=== PATIENT | female | born 1950 | race Two or more races ===

== ENCOUNTER 2022-12-27 08:51 | Outpatient (AMB) | payer OTHER, SELFPAY ==
--- NOTE | 2022-12-27 08:50 | MHC.PC.OV ---
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: No Accompanied by: Spouse Allergies Unable to Assess Allergy (Verified 12/27/22 09:11) Medication List - Last Reconciled 12/27/22 by Patsy Rosales MD atorvastatin 40 mg PO DAILY cetirizine (All Day Allergy (cetirizine)) 10 mg PO DAILY PRN donepezil 10 mg PO BEDTIME hydroxyzine HCl 25 mg PO BEDTIME melatonin 5 mg PO BEDTIME PRN memantine 10 mg PO DAILY quetiapine 50 mg PO BEDTIME ramipril 5 mg PO BID Tobacco use date assessed: 12/27/22 Fall risk assessment: No Falls in past year Dental Screening Dental Screen Date: 12/27/22 Did you have a dental visit in the last 12 months?: No Did you have a dental problem in the last 6 months where you did not have access to dental care?: No Was dental information given to patient?: No HPI HPI Comments History of Present Illness Details This is a 72-year-old female that comes today to establish care accompanied by which is the main historian. She has Alzheimer's dementia that started about 3 years ago and is oriented only to person but not to time or place. She also has hypertension, pure hypercholesterolemia and insomnia stable with medications. said that she had a pruritic rash that was relieved by Benadryl cream. Denies any chest pain or shortness of breath. [facility] Medical History (Updated 12/27/22 @ 10:14 by Patsy Rosales MD) Cataract Surgical History (Updated 12/27/22 @ 09:15 by Patsy Rosales MD) History of appendectomy History of bunionectomy Family History (Updated 12/27/22 @ 08:59 by CORRY Quarles) Mother No problems noted. Father No problems noted. Social History Housing: Apartment Alcohol intake: never Patient Tobacco Use Status: Never used Tobacco e-Cigarette/Vaping Use: Never Used Second Hand Smoke Exposure: No service: No Current occupational status: unemployed Cognitive needs: No Hearing needs: No Vision needs: No Questionnaire PHQ-9 Over the last 2 weeks, how often have you been bothered by any of the following problems? 1. Little interest or pleasure in doing things: not at all 2. Feeling down, depressed, or hopeless: not at all 3. Trouble falling or staying asleep, or sleeping too much: not at all 4. Feeling tired or having little energy: not at all 5. Poor appetite or overeating: not at all 6. Feeling bad about yourself - or that you are a failure or have let yourself or your family down: not at all 7. Trouble concentrating on things, such as reading the newspaper or watching television: several days 8. Moving or speaking so slowly that other people could have noticed. Or the opposite - being so fidgety or restless that you have been moving around a lot more than usual: several days 9. Thoughts that you would be better off or of hurting yourself in some way: not at all Total score: 2 Depression Screening Interpretation: Positive Depression Screening Follow-up: Existing condition 17044 - PHQ-9 Billing: Yes Source: Developed by Drs. Ankit Bass, Lily Pathak, Scar Montejo and colleagues, with an educational joe from [employer]. Thrive Questionnaire Date Thrive assessed: 12/27/22 I am a: Patient What is your living situation today?: I have a steady place to live Within the past 12 months, did the food you bought not last and you didn't have the money to get more?: Never true Within the past 12 months, did you worry whether your food would run out before you got money to buy more?: Never true Do you have trouble paying for medicines?: No Do you have trouble getting transportation to medical appointments?: No Do you have trouble paying your heating and electricity bill?: No Do you have trouble taking care of your child, family member or friend?: No Do you have trouble with day-to-day activities such as bathing, preparing meals, shopping, managing finances, etc.?: No Are you currently unemployed and looking for a job?: No Are you interested in more education?: No Please select the resources that you would like help with: None Currently or been in a relationship where the following occur: no concerns reported AUDIT C Alcohol Use Questionnaire (AUDIT-C) 1. How often do you have a drink containing alcohol?: Never Total Score: 0 Score Reviewed/Action Taken: No AVELINO-7 AMB Questionnaire AVELINO-7 Date AVELINO - 7 assessed: 12/27/22 Feeling nervous, anxious, or on edge: 1 = Several days Not being able to stop or control worryin = Not at all Worrying too much about different things: 0 = Not at all Trouble relaxin = Not at all Being so restless that it is hard to sit still: 0 = Not at all Becoming easily annoyed or irritable: 0 = Not at all Feeling afraid as if something awful might happen: 0 = Not at all Total AVELINO-7 score (0-4 normal; 5-9 mild; 10-14 moderate; 15-21 severe): 1 Source: Developed by Drs. Ankit Bass, Lily Pathak, Scar Montejo and colleagues, with an educational joe from [employer]. AVELINO-7 Assessment Billing AVELINO-7 Assessment Tool: AVELINO-7 Assessment 18472 Review of Systems Const All systems reviewed & are unremarkable except as noted in HPI and below Eyes Reports no additional complaints, Denies change in vision and Denies other visual disturbances Card Denies chest pain at rest, Denies chest pain with activity, Denies edema, Denies irregular heart rhythm, Denies claudication, Denies dyspnea, Denies dyspnea on exertion, Denies orthopnea, Denies paroxysmal nocturnal dyspnea and Denies slow heart rate Resp Denies cough, Denies dyspnea and Denies dyspnea on exertion GI Denies abdominal pain, Denies change in bowel habits, Denies excessive flatus, Denies nausea and Denies vomiting Denies urinary incontinence, Denies urinary hesitancy and Denies urinary urgency Musc Denies abnormal gait, Denies atrophy, Denies deformity and Denies limited range of motion Skin/Breast Denies bleeding lesions, Denies changing lesions and Denies rash Neuro Denies abnormal gait, Denies lack of coordination and Reports memory loss Psych Reports abnormal sleep pattern and Reports memory loss Physical exam (Primary Care) Vital Signs: Last Vital Signs BP 112/72 12/27/22 08:52 BMI result Body Mass Index 31.7 Tobacco/Smoking Status: Tobacco use Status Tobacco use date assessed 12/27/22 12/27/22 09:03 Patient Tobacco Use Status Never used Tobacco 12/27/22 09:03 e-Cigarette/Vaping Use Never Used 12/27/22 09:03 PHQ-9: PHQ-9 Score PHQ-9: Total score 2 12/27/22 09:16 Depression Screening Interpretation: Positive Depression Screening Follow-up: Existing condition Thrive Assessment: Date of Thrive Assessment Date Thrive assessed 12/27/22 12/27/22 09:03 Currently or been in a relationship where the following occur: no concerns reported Const Orientation/consciousness: oriented to person Eyes General: appearance normal, both eyes and all related structures Eyelids: Yes eyelids normal Conjunctivae: conjunctivae normal Neck Neck: Yes normal visual inspection and Yes supple Resp Effort & Inspection: normal respiratory effort Auscultation: clear to auscultation bilaterally Cardio Jugular venous distension: no JVD Rate: regular rate Rhythm: regular rhythm Heart sounds: S1 normal heart sound present and S2 normal heart sound present GI Inspection: Yes normal to inspection Palpation (GI): Soft to palpation and nontender Auscultation: normal bowel sounds Neuro General: oriented to person Extrem General: Yes full ROM Assessment and Plan Assessment & Plan (1) Essential hypertension: Code(s): I10 - Essential (primary) hypertension Plan: Continue ramipril. Blood pressure goal is equal or less than 130/80. (2) Pure hypercholesterolemia: Code(s): E78.00 - Pure hypercholesterolemia, unspecified Plan: Continue statins. Lipid panel ordered. (3) Alzheimer's dementia with behavioral disturbance: Code(s): G30.9 - Alzheimer's disease, unspecified; F02.818 - Dementia in other diseases classified elsewhere, unspecified severity, with other behavioral disturbance Plan: Continue donepezil and memantine. Referred to neurology. (4) Insomnia: Code(s): G47.00 - Insomnia, unspecified Plan: Continue Seroquel and melatonin as needed. (5) Rash: Code(s): R21 - Rash and other nonspecific skin eruption Plan: Start Benadryl cream. Orders: Orders MM screening mammo BI Today Z12.31 - Encounter for screening mammogram for malignant neoplasm of breast Medications: New diphenhydramine-zinc acetate 2-0.1 % (Benadryl Extra Strength) 1 appl topical BID 2 weeks PRN 28.3 grams 0RF itching Coding Level of Care Code Est Pt Level 4 (70849) Diagnoses Essential hypertension I10 Pure hypercholesterolemia E78.00 Alzheimer's dementia with behavioral disturbance G30.9; F02.818 Insomnia G47.00 Rash R21 Additional Codes AVELINO-7 Assessment Billing - AVELINO-7 Assessment Tool: AVELINO-7 Assessment 89598 ([id number]) Time Spent (min) 28
[2022-12-27 08:52] VITALS: BP 112/72; BMI 31.7
== END 2022-12-27 10:08 | disposition home or self-care (01) ==
PROVIDERS: PCP Internal Medicine; Visit Provider Internal Medicine
DX: I10 Essential (primary) hypertension (principal); E78.00 Pure hypercholesterolemia, unspecified; G30.9 Alzheimer's disease, unspecified; F02.818 Dementia in other diseases classified elsewhere, unspecified severity, with other behavioral disturbance; G47.00 Insomnia, unspecified; R21 Rash and other nonspecific skin eruption; Z12.31 Encounter for screening mammogram for malignant neoplasm of breast; N95.9 Unspecified menopausal and perimenopausal disorder; E78.5 Hyperlipidemia, unspecified; E53.8 Deficiency of other specified B group vitamins; E55.9 Vitamin D deficiency, unspecified
CPT/HCPCS: 99214

== ENCOUNTER 2023-02-10 11:43 | Outpatient (REF) | payer OTHER, SELFPAY | END 2023-02-10 11:44 | disposition home or self-care (01) | LOC: HO.MAMMO 11:43 | PROVIDERS: PCP Internal Medicine; Visit Provider Internal Medicine | DX: Z13.89 Encounter for screening for other disorder (principal) ==

== ENCOUNTER 2023-03-03 11:18 | Outpatient (REF) | payer OTHER, SELFPAY | END 2023-03-03 11:19 | disposition home or self-care (01) | LOC: HO.LAB 11:18 | PROVIDERS: PCP Internal Medicine; Visit Provider Internal Medicine | DX: Z13.89 Encounter for screening for other disorder (principal) ==

== ENCOUNTER 2023-04-01 10:23 | Outpatient (REF) | payer OTHER, SELFPAY ==
[2023-04-01 10:56] LABS: MANUAL DIFF FLAG NO
[2023-04-01 11:30] LABS: Basophils Percent Auto 0.3 % (0-2); Eosinophils Absolute Auto 0.1 X10*3/uL (0.0-0.4); Eosinophils Percent Auto 1.9 % (0-4); Hematocrit 35.8 % (37.0-47.0); Hemoglobin 11.6 g/dl (12.0-16.0); Imm Gran Abs Auto 0.02 X10*3/uL (0.00-0.03); Imm Gran Pct Auto 0.3 % (0.0-0.4); Lymphocytes Absolute Auto 1.8 X10*3/uL (1.2-4.9); Lymphocytes Percent Auto 29.5 % (20-40); Mean Corpuscular HGB Conc 32.4 g/dl (31.0-35.0); Mean Corpuscular Hemoglobin 30.9 pg (27.0-33.0); Mean Corpuscular Volume 95.2 fL (80.0-98.0); Monocytes Absolute Auto 0.6 X10*3/uL (0.1-1.2); Monocytes Percent Auto 9.8 % (2-11); Neutrophils Absolute Auto 3.5 x10*3/uL (2.0-8.3); Neutrophils Percent Auto 58.2 % (45-73); Platelet Count 157 X10*3/uL (160-400); Red Blood Count 3.76 X10*6/uL (4.20-5.50); Red Cell Distribution Width 12.1 % (11.0-16.0); White Blood Count 5.9 X10*3/uL (4.8-10.8)
[2023-04-01 12:37] LABS: Alanine Aminotransferase 18 U/L (0-31); Alkaline Phosphatase 76 U/L (39-117); Anion Gap 14 (12-20); Aspartate Amino Transferase 22 U/L (5-31); Bilirubin Total 0.5 mg/dL (0.0-1.0); Blood Urea Nitrogen 16 mg/dL (9-16); Calcium 9.9 mg/dL (8.4-10.2); Carbon Dioxide 23 mmol/L (22-29); Chloride 106 mmol/L (96-108); Cholesterol 164 mg/dL (<200); Estimated Glomerular Filt Rate > 60; Glucose Fasting 146 mg/dL (60-99); HDL Cholesterol 56 mg/dL (>40); LDL Cholesterol Calculated 97 mg/dL (<100); Potassium 4.3 mmol/L (3.3-5.1); Sodium 139 mmol/L (135-145); Total Protein 7.8 g/dL (6.5-8.0); Triglycerides 59 mg/dL (<150)
[2023-04-01 12:39] LABS: Thyroid Stimulating Hormone 1.13 uIU/mL (0.32-4.0); Vitamin D 25-OH Total 20.4 ng/mL (>30)
[2023-04-01 12:57] LABS: Vitamin B12 605 pg/mL (200-900)
== END 2023-04-01 10:24 | disposition home or self-care (01) ==
LOC: HO.LAB 10:23
PROVIDERS: PCP Internal Medicine; Visit Provider Internal Medicine
DX: E78.5 Hyperlipidemia, unspecified (principal); R39.9 Unspecified symptoms and signs involving the genitourinary system; E55.9 Vitamin D deficiency, unspecified; E53.8 Deficiency of other specified B group vitamins; G30.9 Alzheimer's disease, unspecified; F02.818 Dementia in other diseases classified elsewhere, unspecified severity, with other behavioral disturbance; E78.00 Pure hypercholesterolemia, unspecified
CPT/HCPCS: 36415; 80053; 80061; 82306; 82607; 82746; 84443; 85025

== ENCOUNTER 2023-04-07 10:46 | Emergency (ER) | payer OTHER, SELFPAY ==
--- NOTE | ~2023-04-07 | CT_ITS ---
EXAMINATION: CT brain and CT cervical spine without contrast. CLINICAL INDICATIONS: Fall, head strike. COMPARISON: None. TECHNIQUE: 5 mm thin axial and reformatted 2 mm thin sagittal and coronal images of brain were obtained. Subsequently axial 3 mm thin and reformatted 2 mm thin sagittal and coronal images of cervical spine were obtained. DLP 1171. This CT examination was performed using dose optimization technique as appropriate, variously including the following: Automated exposure control Adjustment of MA and/or KV according to patient size(this includes techniques or standardized protocols for targeted exams where dose is matched to indication/reason for exam; extremities or head. Use of iterative reconstruction techniques. FINDINGS: Brain: There is no acute intra-axial, extra-axial bleed, masses or midline shift. There is no acute infarction in bone windows reveal evolution. There is no edema. The lateral ventricles are symmetrical in size and configuration but enlarged. The trivedi to white matter differentiation is maintained normal. Bone windows reveal no calvarial abnormality. There is no scalp soft tissue amount. Bilateral paranasal sinuses and mastoid air cells are well-aerated. There is no scalp soft tissue abnormality. Cervical spine: There is mild straightening of cervical lordosis. The vertebral heights, alignment and disc heights are normal. There is no visible acute fracture, dislocation or subluxation seen. The craniovertebral junction and the C1-C2 alignment is normal. There is mild bilateral C2-C3, C3-C4, C4-C5 and C5-C6 facet joint arthropathy and hypertrophy. No aggressive lytic or sclerotic process seen. The prevertebral and paravertebral soft tissues are normal. There is asymmetric enlargement of right thyroid lobe. The lung apices are clear CT/CT cervical spine wo IV con IMPRESSION: 1. No acute intracranial process seen. 2. There is no acute fracture, dislocation or subluxation seen in the cervical spine. There are degenerative facet joint arthropathy as described above.
[2023-04-07 11:10] VITALS: BP 106/58; PULSE 78; O2SAT 99
[2023-04-07 11:16] VITALS: BP 103/42; PULSE 84; RESP 16; TEMP 36.7; O2SAT 100; BMI 31.6
--- NOTE | 2023-04-07 11:21 | ED.GENADULT ---
HPI - General Adult General Chief complaint: Fall Stated complaint: WIT FALL,HIT HEAD, -LOC,-THINN PER EMS Time Seen by Provider: 04/07/23 11:21 Source: patient, family (patient's son at the bed side) and EMS Mode of arrival: EMS Limitations: physical limitation (patient has a history of alzheimers) History of Present Illness HPI narrative: Patient is a 73 year old assigned female at with a history of Alzheimer's dementia presenting to the emergency department today after a fall. Patient's son states that the patient is usually not verbal with individuals she does not know. Patient's son states that the patient was at an adult day care when she tripped over someone else's walker and hit her head. Patient's son states that the patient did not have any loss of consciousness and is acting normally. Onset (ago): minute(s) Location: head Severity: mild Severity scale (1-10): 3 Relieving factors: none Exacerbating factors: none Treatments prior to arrival: none Related Data Home Medications Medication Instructions Recorded Confirmed atorvastatin 40 mg tablet 40 mg PO DAILY 12/27/22 12/27/22 cetirizine 10 mg tablet (All Day 10 mg PO DAILY PRN 12/27/22 12/27/22 Allergy (cetirizine)) donepezil 10 mg tablet 10 mg PO BEDTIME 12/27/22 12/27/22 melatonin 5 mg tablet 5 mg PO BEDTIME PRN 12/27/22 12/27/22 memantine 10 mg tablet 10 mg PO DAILY 12/27/22 12/27/22 quetiapine 25 mg tablet 50 mg PO BEDTIME 12/27/22 12/27/22 ramipril 5 mg capsule 5 mg PO BID 12/27/22 12/27/22 Previous Rx's Medication Instructions Recorded diphenhydramine-zinc acetate 2 1 appl topical BID PRN itching 2 12/27/22 %-0.1 % topical cream (Benadryl weeks #28.3 grams Extra Strength) Allergies Allergy/AdvReac Type Severity Reaction Status Date / Time Unable to Assess Allergy Verified 12/27/22 09:11 Review of Systems Constitutional: Constitutional: Reports no additional constitutional complaints, Denies chills, Denies fever(s), Reports headache(s) and Denies night sweats Eyes: Eyes: Reports no additional eye complaints, Denies blurry vision, Denies change in vision, Denies diplopia, Denies eye discharge, Denies loss of vision and Denies eye pain ENT: Denies dizziness and Reports headache(s) Cardiovascular: Cardiovascular: Reports no additional cardiovascular complaints, Denies chest pain, Denies lightheadedness, Denies Loss of Consciousness and Denies dyspnea Respiratory: Respiratory: Reports no additional respiratory complaints and Denies dyspnea Gastrointestinal: Gastrointestinal: Reports no additional gastrointestinal complaints, Denies abdominal pain, Denies melena, Denies hematochezia, Denies change in bowel habits and Denies change in stool character Genitourinary: Genitourinary: Denies hematuria, Denies urinary frequency, Denies dysuria, Denies urinary incontinence, Denies urinary hesitancy and Denies urinary urgency Musculoskeletal: Musculoskeletal: Reports no additional musculoskeletal complaints, Denies numbness and Denies tingling Neurologic: Reports confusion (chronic for the patient), Denies dizziness, Reports headache(s), Denies loss of vision, Denies numbness and Denies tingling Psychiatric: Psychiatric: Reports no additional psychiatric complaints and Reports confusion (chronic for the patient) Endocrine: Endocrine: Reports no additional endocrine complaints Hematologic/Lymphatic: Hematologic/Lymphatic: Reports no additional hematologic/lymphatic complaints Allergic/Immunologic: Allergic/Immunologic: Reports no additional allergic/immunologic complaints PMFSH Past Medical History Attestation statement: The following information was validated with the patient. (all information was validated with the patient's son) Source: old records reviewed, obtained from family (patient's son provided additional history and confirmed the history provided by the patient) and nursing notes reviewed Medical History Cataract Surgical History History of appendectomy History of bunionectomy Family History Family History Mother No problems noted. Father No problems noted. Social History Social History Housing: Apartment Alcohol intake: never Patient Tobacco Use Status: Never used Tobacco Smoked in Last 30 Days: No e-Cigarette/Vaping Use: Never Used Second Hand Smoke Exposure: No Use of substances other than those prescribed or required for medical reasons: No Advance Directives: Yes Advance Directives Information Provided: Yes Advance Directives on File: No service: No Current occupational status: unemployed Cognitive needs: No Hearing needs: No Vision needs: No Physical Exam ED Vital Signs: Vital Signs - 24 hr 04/07/23 11:16 04/07/23 11:49 04/07/23 13:25 Temperature 98.1 F 98.1 F Pulse Rate 84 76 75 Respiratory Rate 16 16 16 Blood Pressure 103/42 L 100/41 L 118/57 L Pulse Oximetry 100 94 97 Oxygen Delivery Method Room Air Room Air Room Air BMI result Body Mass Index 31.6 Const General: confusion (chronic for the patient) Nutritional Appearance: well nourished Orientation/consciousness: oriented to person and confusion (chronic for the patient) Limitations: no limitations HENMT Head: Yes normal to inspection and Yes atraumatic Ears: hearing grossly normal bilaterally and external ears normal General nose exam: Normal external nose present, no nasal discharge noted and no epistaxis Face and sinus: Yes normal facial exam, No abrasion and No laceration Mouth: Normal oral and palatal mucosa present, no drooling and no muffled voice Eyes General: appearance normal, both eyes and all related structures Periorbital: periorbital findings normal Eyelids: Yes eyelids normal Conjunctivae: conjunctivae normal Pupils: Equal, round and reactive pupils present EOM: EOMs intact bilaterally Neck Neck: Yes normal visual inspection, Yes full ROM and Yes no lymphadenopathy Chest Chest palpation & inspection: normal inspection of the chest Resp Effort & Inspection: normal respiratory effort and able to speak in complete sentences GI Inspection: Yes normal to inspection Neuro General: oriented to person and confusion (chronic for the patient) Cranial nerves: Yes Equal, round and reactive pupils present Cognition (Neuro): normal cognition Motor exam (neuro): 5/5 motor strength present throughout Sensory Exam: Normal double simultaneous stimulation for sensation Coordination: [id number] test normal Extrem General: Yes normal to inspection, Yes full ROM and Yes capillary refill normal Psych Appearance: grossly normal Mental Status: mental status grossly normal Affect: normal affect Attitude: cooperative Thought process: Normal thought process present Thought content: Normal thought content present Insight: Good insight present (Psych) Medical Decision Making Medical Decision Making MDM Narrative: Patient is a 73 year old assigned female at with a history of alzheimer's dementia presenting to the emergency department today after a fall. Patient's physical exam was as noted in the physical exam portion of this note. Patient's head and c-spine CTs showed no acute process. I explained my physical exam findings as well as all test results to the patient and the patient's son. I answered all questions asked by the patient and the patient's son. I stressed the importance of the patient taking her medication as prescribed. I stressed the importance of the patient following up with her primary care provider. I stressed the importance of the patient returning to the emergency department immediately if her symptoms were to worsen or if she were to develop any dizziness, shortness of breath, difficulty breathing, chest pain, blurry vision, loss of vision, nausea, vomiting, abdominal pain, fever, chills, back pain, or any other complaints. Patient's son verbalized agreement and understanding with this treatment plan and discharge. Differential Diagnosis Differential Diagnoses: The differential diagnosis associated with the presentation includes Fall Head strike Head injury Independent Interpretation I performed an independent interpretation of an: CT Scan Interpretation: My interpretation is in agreement with the radiologist's impression of these imaging studies. EXAMINATION: CT brain and CT cervical spine without contrast. CLINICAL INDICATIONS: Fall, head strike. COMPARISON: None. TECHNIQUE: 5 mm thin axial and reformatted 2 mm thin sagittal and coronal images of brain were obtained. Subsequently axial 3 mm thin and reformatted 2 mm thin sagittal and coronal images of cervical spine were obtained. DLP 1171. This CT examination was performed using dose optimization technique as appropriate, variously including the following: Automated exposure control Adjustment of MA and/or KV according to patient size(this includes techniques or standardized protocols for targeted exams where dose is matched to indication/reason for exam; extremities or head. Use of iterative reconstruction techniques. FINDINGS: Brain: There is no acute intra-axial, extra-axial bleed, masses or midline shift. There is no acute infarction in bone windows reveal evolution. There is no edema. The lateral ventricles are symmetrical in size and configuration but enlarged. The trivedi to white matter differentiation is maintained normal. Bone windows reveal no calvarial abnormality. There is no scalp soft tissue amount. Bilateral paranasal sinuses and mastoid air cells are well-aerated. There is no scalp soft tissue abnormality. Cervical spine: There is mild straightening of cervical lordosis. The vertebral heights, alignment and disc heights are normal. There is no visible acute fracture, dislocation or subluxation seen. The craniovertebral junction and the C1-C2 alignment is normal. There is mild bilateral C2-C3, C3-C4, C4-C5 and C5-C6 facet joint arthropathy and hypertrophy. No aggressive lytic or sclerotic process seen. The prevertebral and paravertebral soft tissues are normal. There is asymmetric enlargement of right thyroid lobe. The lung apices are clear CT/CT head/brain wo IV con IMPRESSION: 1. No acute intracranial process seen. 2. There is no acute fracture, dislocation or subluxation seen in the cervical spine. There are degenerative facet joint arthropathy as described above. Dictated By: Jose Saldivar MD Signed By: Electronically signed by Jose Saldivar MD 04/07/23 [id number] Radiology Impression Discussion of test interpretation with radiology: I have reviewed the radiologist's reading. Independent Historian Clinical information obtained from an independent historian. History obtained from or confirmed by: EMS (EMS provided additional history and confirmed the history provided by the patient and the patient's son) and Other (patient's son provided additional history and confirmed the history provided by EMS and the patient) Discharge Plan Discharge Clinical Impression: Fall Patient Disposition: Home, Self-Care Instructions: Fall Prevention for Older Adults (ED) Additional Instructions: Follow up with your primary care provider. Return to the emergency department immediately if your symptoms worsen or if you develop any dizziness, shortness of breath, difficulty breathing, chest pain, blurry vision, loss of vision, nausea, vomiting, abdominal pain, fever, chills, back pain, or any other complaints. Marcelina un seguimiento con gutierrez proveedor de atenci?n primaria. Regrese al departamento de emergencias inmediatamente si bonita s?ntomas empeoran o si presenta mareos, dificultad para respirar, dificultad para respirar, dolor en el pecho, visi?n borrosa, p?rdida de la visi?n, n?useas, v?mitos, dolor abdominal, fiebre, escalofr?os, dolor de espalda o cualquier otras quejas. Prescriptions: No Action ramipril 5 mg capsule 5 mg PO BID memantine 10 mg tablet 10 mg PO DAILY atorvastatin 40 mg tablet 40 mg PO DAILY quetiapine 25 mg tablet 50 mg PO BEDTIME donepezil 10 mg tablet 10 mg PO BEDTIME melatonin 5 mg tablet 5 mg PO BEDTIME PRN cetirizine [All Day Allergy (cetirizine)] 10 mg tablet 10 mg PO DAILY PRN Benadryl Extra Strength 2-0.1 % cream 1 appl topical BID PRN (Reason: itching) 14 Days Qty: 28.3 0RF Referrals: Patsy Fox MD [Primary Care Provider] - Print Language: [place]
[2023-04-07 11:49] VITALS: BP 100/41; PULSE 76; RESP 16; TEMP 36.7; O2SAT 94
--- NOTE | 2023-04-07 11:59 | PC.NURSE ---
vss aside from hypotension at this time. pt comes in today d/t mechanical fall at day program. son states she tripped on someone's walker and had headstrike on ground. -LOC, - thinners. pt seemingly lethargic at this time but per pt's son - this is pt's baseline. pt c/o 10/27 left neck/head pain. denies headache/dizziness/lightheadedness at this time. pt resting comfortably in bed w/ son bedside for support. respirations even and unlabored. call logan placed within reach.
--- NOTE | 2023-04-07 12:12 | PC.NURSE ---
pt being transferred to CT at this time.
[2023-04-07 13:25] VITALS: BP 118/57; PULSE 75; RESP 16; O2SAT 97
--- NOTE | 2023-04-07 13:28 | PC.NURSE ---
vss and up to date at this time. pt resting comfortably in bed in no apparent distress. pt c/o no pain at this time. respirations remain even and unlabored. awaiting CT results to decide plan of action at this time. family bedside for support. call logan placed within reach.
== END 2023-04-07 14:06 | disposition home or self-care (01) ==
PROVIDERS: Emergency Provider Emergency Medicine Emergency Medical Services; PCP Internal Medicine
DX: Z04.3 Encounter for examination and observation following other accident (principal); Z91.81 History of falling
CPT/HCPCS: 70450; 72125; 99284

== ENCOUNTER 2023-04-26 10:10 | Outpatient (REF) | payer OTHER, SELFPAY ==
[2023-04-26 10:23] LABS: Appearance Urine Clear; Color Urine Yellow; Glucose Urine UA Negative (Negative); Leukocyte Esterase Urine Small (1+) (Negative); Nitrite Urine Negative (Negative); UMIC TRIGGER UACC YES; Urine Blood Trace (Negative); Urine Ketones Negative (Negative); Urine Protein Negative (Neg-Trace)
[2023-04-26 10:25] LABS: Bacteria Urine Trace (None Seen); Hyaline Casts Urine 0-2 /LPF (0-2); UACC Culture Trigger YES
== END 2023-04-26 10:11 | disposition home or self-care (01) ==
LOC: HO.LNP 10:10
PROVIDERS: Visit Provider Internal Medicine
DX: Z13.89 Encounter for screening for other disorder (principal)
CPT/HCPCS: 81001; 87086; 87147

== ENCOUNTER 2023-05-04 10:51 | Outpatient (AMB) | payer OTHER, SELFPAY ==
--- NOTE | 2023-05-04 10:53 | MHC.PC.OV ---
Vital Signs 05/04/23 10:56 Height 5 ft 4 in Weight 180 lb BMI 30.9 BP 110/70 Blood Pressure Location Lt brachial Position Sitting Intake Visit Reasons: lipids Intake Note: Patient here for a follow up Lipids, Anxiety White Lead Filterer Required: No Accompanied by: Spouse Allergies Unable to Assess Allergy (Verified 05/04/23 11:05) Medication List - Last Reconciled 05/04/23 by Patsy Rosales MD atorvastatin 40 mg PO DAILY 90 days cetirizine (All Day Allergy (cetirizine)) 10 mg PO DAILY PRN 90 days diphenhydramine-zinc acetate 2-0.1 % (Benadryl Extra Strength) 1 appl topical BID PRN 2 weeks donepezil 10 mg PO BEDTIME melatonin 5 mg PO BEDTIME PRN memantine 10 mg PO DAILY nitrofurantoin macrocrystal 100 mg PO BID 7 days quetiapine 50 mg PO BEDTIME ramipril 5 mg PO BID Tobacco use date assessed: 12/27/22 Fall risk assessment: No Falls in past year Last assessed Fall Risk: 05/04/23 Dental Screening Dental Screen Date: 05/04/23 Did you have a dental visit in the last 12 months?: Yes Did you have a dental problem in the last 6 months where you did not have access to dental care?: No Was dental information given to patient?: Patient has dentist HPI HPI Comments History of Present Illness Details This is a 73-year-old female with Alzheimer's disease, hypertension, pure hypercholesterolemia, impaired glucose tolerance and low vitamin-D that comes today accompanied by psychological stress evaluator which is her in which the which is the main historian complains of having more anxiety and also having bowel arm bladder incontinence. I will start her on sertraline for her anxiety to see if it improves. Alzheimer's disease is progressing and this is why she is having more behavioral disturbances. Blood pressure stable. Cholesterol well controlled with statins. Had elevated fasting blood glucose but denies any polyuria or polydipsia. Vitamin-D is low and will be supplemented. She is not oriented to time, person or place. She needs assistance bathing, toileting, meal prep, feeding, dressing/undressing, doing laundry and cleaning. [facility] Medical History (Updated 05/04/23 @ 11:38 by Patsy Rosales MD) Cataract Surgical History History of appendectomy History of bunionectomy Family History Mother No problems noted. Father No problems noted. Social History Housing: Apartment Alcohol intake: never Patient Tobacco Use Status: Never used Tobacco e-Cigarette/Vaping Use: Never Used Second Hand Smoke Exposure: No service: No Current occupational status: unemployed Cognitive needs: No Hearing needs: No Vision needs: No Questionnaire Thrive Questionnaire Date Thrive assessed: 12/27/22 AVELINO-7 AMB Questionnaire AVELINO-7 Date AVELINO - 7 assessed: 12/27/22 Source: Developed by Drs. Ankit Bass, Lily Pathak, Scar Montejo and colleagues, with an educational joe from [employer]. Review of Systems Const All systems reviewed & are unremarkable except as noted in HPI and below Eyes Reports no additional complaints, Denies change in vision and Denies other visual disturbances Card Denies chest pain at rest, Denies chest pain with activity, Denies edema, Denies irregular heart rhythm, Denies claudication, Denies dyspnea, Denies dyspnea on exertion, Denies orthopnea, Denies paroxysmal nocturnal dyspnea and Denies slow heart rate Resp Denies cough, Denies dyspnea and Denies dyspnea on exertion GI Denies abdominal pain, Denies change in bowel habits, Denies excessive flatus, Denies nausea and Denies vomiting Denies urinary incontinence, Denies urinary hesitancy and Denies urinary urgency Musc Denies abnormal gait, Denies atrophy, Denies deformity and Denies limited range of motion Skin/Breast Denies bleeding lesions, Denies changing lesions and Denies rash Neuro Denies abnormal gait and Denies lack of coordination Psych Reports anxiety Physical exam (Primary Care) Vital Signs: Last Vital Signs BP 110/70 05/04/23 10:56 BMI result Body Mass Index 30.9 Tobacco/Smoking Status: Tobacco use Status Tobacco use date assessed 12/27/22 05/04/23 10:56 Patient Tobacco Use Status Never used Tobacco 05/04/23 10:56 e-Cigarette/Vaping Use Never Used 05/04/23 10:56 Thrive Assessment: Date of Thrive Assessment Date Thrive assessed 12/27/22 05/04/23 10:56 Eyes General: appearance normal, both eyes and all related structures Eyelids: Yes eyelids normal Conjunctivae: conjunctivae normal Neck Neck: Yes normal visual inspection and Yes supple Resp Effort & Inspection: normal respiratory effort Auscultation: clear to auscultation bilaterally Cardio Jugular venous distension: no JVD Rate: regular rate Rhythm: regular rhythm Heart sounds: S1 normal heart sound present and S2 normal heart sound present Neuro Cognition (Neuro): abnormal cognition Extrem General: Yes full ROM Results AMB Hemoglobin A1c AMB Hemoglobin A1c 6.2 % Last Edit by CORRY Quarles on 05/04/23 11:16 Results Reviewed Results Reviewed: Laboratory Last Values Hgb A1c (Clinic) 6.2 % (4.0-6.0) H 05/04/23 11:10 Assessment and Plan Assessment & Plan (1) Alzheimer's dementia with behavioral disturbance: Code(s): G30.9 - Alzheimer's disease, unspecified; F02.818 - Dementia in other diseases classified elsewhere, unspecified severity, with other behavioral disturbance Plan: Continue donepezil and memantine. (2) Pure hypercholesterolemia: Code(s): E78.00 - Pure hypercholesterolemia, unspecified Plan: Continue statins. (3) Essential hypertension: Code(s): I10 - Essential (primary) hypertension Plan: Continue ramipril. Blood pressure goal is equal or less than 130/80. (4) Impaired glucose tolerance: Code(s): R73.02 - Impaired glucose tolerance (oral) Plan: Repeat fasting blood glucose in 5 months. Follow a low-carbohydrate diet. (5) Anxiety: Code(s): F41.9 - Anxiety disorder, unspecified Plan: Start sertraline. (6) Hypovitaminosis D: Code(s): E55.9 - Vitamin D deficiency, unspecified Plan: Start vitamin-D supplements. Orders: Orders Lipid Panel 5 Months E78.5 - Hyperlipidemia, unspecified Comprehensive Tabiona. Panel Fast 5 Months E78.00 - Pure hypercholesterolemia, unspecified AMB Hemoglobin A1c Today Z13.9 - Encounter for screening, unspecified Vitamin D 25-OH Total 5 Months E55.9 - Vitamin D deficiency, unspecified Medications: New cholecalciferol (vitamin D3) 25 mcg PO DAILY 90 days 90 caps 1RF E55.9 - Vitamin D deficiency, unspecified [adult diapers] As directed 88 ea 11RF F02.818 - Dementia in other diseases classified elsewhere, unspecified severity, with other behavioral disturbance, G30.9 - Alzheimer's disease, unspecified, N39.41 - Urge incontinence sertraline 25 mg PO DAILY 90 days 90 tabs 1RF F41.9 - Anxiety disorder, unspecified underpads (Bed Underpads) As directed 100 ea 6RF N39.41 - Urge incontinence Coding Level of Care Code Est Pt Level 4 (17671) Diagnoses Alzheimer's dementia with behavioral disturbance G30.9; F02.818 Pure hypercholesterolemia E78.00 Essential hypertension I10 Impaired glucose tolerance R73.02 Anxiety F41.9 Hypovitaminosis D E55.9 Time Spent (min) 25
[2023-05-04 10:56] VITALS: BP 110/70; BMI 30.9
== END 2023-05-04 11:36 | disposition home or self-care (01) ==
PROVIDERS: PCP Internal Medicine; Visit Provider Internal Medicine
DX: G30.9 Alzheimer's disease, unspecified (principal); F02.818 Dementia in other diseases classified elsewhere, unspecified severity, with other behavioral disturbance; E78.00 Pure hypercholesterolemia, unspecified; I10 Essential (primary) hypertension; R73.02 Impaired glucose tolerance (oral); F41.9 Anxiety disorder, unspecified; E55.9 Vitamin D deficiency, unspecified
CPT/HCPCS: 83036; 99214

== ENCOUNTER 2023-06-28 08:03 | Emergency (ER) | payer OTHER, SELFPAY ==
--- NOTE | ~2023-06-28 | XR_ITS ---
EXAMINATION: XR CHEST CLINICAL INFORMATION: Fall, Chest trauma COMPARISON: None available. TECHNIQUE: AP upright portable view of the chest was obtained. 8:26 AM FINDINGS: No significant abnormality is noted involving the heart, lungs, mediastinum, bony thorax or soft tissues. No pneumothorax or displaced rib fracture. XR/XR chest 1V IMPRESSION: No acute cardiopulmonary disease.
--- NOTE | ~2023-06-28 | CT_ITS ---
CT HEAD WITHOUT IV CONTRAST CT CERVICAL SPINE WITHOUT IV CONTRAST INDICATION: Fall with head strike. COMPARISON: Head and cervical spine CT 04/07/2023. TECHNIQUE: Multidetector CT acquisitions of the head and cervical spine were obtained without IV contrast. Multiplanar reformats were acquired and utilized for image interpretation. This CT examination was performed using dose optimization techniques as appropriate, variously including the following: *Automated exposure control *Adjustment of mA and/or kV according to patient size (this includes techniques or standardized protocols for targeted exams where dose is matched to indication/reason for exam; i.e. extremities or head) *Use of iterative reconstruction technique FINDINGS: HEAD: There is global cerebral volume loss and there is chronic microangiopathy. There is no intracranial hemorrhage, hydrocephalus, extra-axial surface collection, midline shift, or other herniation pattern. Hanson to white matter differentiation is diffusely maintained without evidence of an evolved acute territorial infarct. The basilar cisterns are preserved. No significant soft tissue abnormality. No acute osseous abnormality. There is a small fluid level within the left maxillary sinus and there are small fluid levels within the sphenoid sinuses bilaterally. Moderate mucosal thickening within the ethmoid air cells bilaterally. CERVICAL SPINE: Mild degenerative anterior subluxation of C4 on C5. Straightening of the cervical lordosis. There are no acute fractures and there are no acute subluxations. There is multilevel hypertrophic facet arthropathy. Hypertrophic degenerative changes involving the atlantodental interval. There is no prevertebral soft tissue swelling. Significantly enlarged right thyroid lobe containing a possible up to 1.6 cm nodule for which thyroid ultrasound would be helpful in further assessment. CT/CT cervical spine wo IV con IMPRESSION: - No acute intracranial abnormality. - No acute osseous abnormality within the cervical spine. Multilevel cervical spondylosis. - Significantly enlarged right thyroid lobe containing a possible up to 1.6 cm nodule for which thyroid ultrasound would be helpful in further assessment
--- NOTE | 2023-06-28 08:07 | ECG_ITS ---
Test Reason : fall Blood Pressure : / mmHG Vent. Rate : 076 BPM Atrial Rate : 076 BPM P-R Int : 148 ms QRS Dur : 076 ms QT Int : 346 ms P-R-T Axes : 027 028 043 degrees QTc Int : 389 ms Normal sinus rhythm Normal ECG No previous ECGs available Referred By: Deniz Phelps Electronically Signed By:JALEN MELENDREZ MD
--- NOTE | 2023-06-28 08:10 | ED.GENADULT ---
HPI - General Adult General Chief complaint: Fall Stated complaint: FALL,HIT HEAD,-THINNER,SSO FROM HOME PER EMS Time Seen by Provider: 06/28/23 09:01 Source: EMS Mode of arrival: EMS Limitations: language barrier and altered mental status History of Present Illness HPI narrative: Patient is a 73 year old female with a history of Alzheimer dementia, HTN, and HLD presenting to the ED via EMS due to a fall this morning. EMS reports patients was assisting her to the shower when she slipped, fell and hit her head. Reports head laceration. Unknown if patient lost consciousness. Patient is an unreliable historian and HPI is limited due to mental status. Related Data Home Medications Medication Instructions Recorded Confirmed donepezil 10 mg tablet 10 mg PO BEDTIME 12/27/22 05/04/23 melatonin 5 mg tablet 5 mg PO BEDTIME PRN 12/27/22 05/04/23 memantine 10 mg tablet 10 mg PO DAILY 12/27/22 05/04/23 quetiapine 25 mg tablet 50 mg PO BEDTIME 12/27/22 05/04/23 Previous Rx's Medication Instructions Recorded diphenhydramine-zinc acetate 2 1 appl topical BID PRN itching 2 12/27/22 %-0.1 % topical cream (Benadryl weeks #28.3 grams Extra Strength) atorvastatin 40 mg tablet 40 mg PO DAILY 90 days #90 tabs 04/23/23 cetirizine 10 mg tablet (All Day 10 mg PO DAILY PRN allergic 04/23/23 Allergy (cetirizine)) symptoms 90 days #90 tabs nitrofurantoin macrocrystal 100 mg 100 mg PO BID 7 days #14 caps 04/27/23 capsule adult diapers #88 ea 05/04/23 cholecalciferol (vitamin D3) 25 25 mcg PO DAILY 90 days #90 caps 05/04/23 mcg (1,000 unit) capsule sertraline 25 mg tablet 25 mg PO DAILY 90 days #90 tabs 05/04/23 underpads (Bed Underpads) #100 ea 05/04/23 ramipril 5 mg capsule 5 mg PO BID 90 days #180 caps 05/22/23 Allergies Allergy/AdvReac Type Severity Reaction Status Date / Time Unable to Assess Allergy Verified 06/28/23 08:19 Review of Systems Review of Systems: Yes Unobtainable due to mental status PMFSH Past Medical History Attestation statement: The following information was validated with the patient. Source: old records reviewed and nursing notes reviewed Onset Date is defined in the Problem List Problems that require an onset date and time if occurred within 24 hrs of arrival to the ED Aortic Dissection and Rupture; Neurologic impairment; Cardiopulmonary Arrest; Endotracheal Intubation; Insertion or Replacement of Mechanical Circulatory Assist Device Medical History Cataract Surgical History History of appendectomy History of bunionectomy Family History Family History Mother No problems noted. Father No problems noted. Social History Social History Housing: Apartment Alcohol intake: never Patient Tobacco Use Status: Never used Tobacco e-Cigarette/Vaping Use: Never Used Second Hand Smoke Exposure: No Advance Directives: No Advance Directives Information Provided: No service: No Current occupational status: unemployed Cognitive needs: No Hearing needs: No Vision needs: No Physical Exam ED Vital Signs: Vital Signs - 24 hr 06/28/23 08:19 Temperature 97.6 F Pulse Rate 92 Respiratory Rate 18 Blood Pressure 121/40 L Pulse Oximetry 100 Oxygen Delivery Method Room Air BMI result Body Mass Index 28.5 Appearance: Patient opens eyes to painful stimuli. ? No acute distress.? Head: Normocephalic, atraumatic, no step-offs or deformities Eyes: Pupils equal, round and reactive to light.? CVS: Normal heart rate and rhythm.? Pulses normal.? Respiratory: No respiratory distress.? Breath sounds normal.? Abdomen: Soft and nontender.? Skin: Skin warm and dry.? Normal skin color.? Normal skin turgor.? Extremities: No lower extremity edema.? No calf ttp. Global weakness Back: No midline tenderness, no C-spine tenderness, full range of motion, no CVA tenderness bilaterally Neuro: Unable to perform accurate neurological assessment. Patient not answering questions. Only arousable to painful stimuli Course Reevaluation(s) Reevaluation #1: CBC pending. Chemistry unremarkable. Trop 5.6 EKG non ischemic. Head and neck CT no ich or fx. Enlaged thyroid will advise out patient follow up. CXR pending and urine pending. Time: 09:25 Reevaluation #2: Patient's family here, they tell me patient has been having a cough. Chest x-ray unremarkable. Ordered viral testing. UA without infection. Only thing pending at this time is viral testing. Time: 11:44 Reevaluation #3: Patient much more awake at this time on re-evaluation. Time: 11:46 Additional Reevaluation(s): CBC with leukopenia likely secondary to viral illness. Patient influenza positive. Made family aware of this. Plan at this time is to discharge home with family. Educated patient on diagnosis and treatment plan, answered all question, patient verbalizes understanding. At this time patient will be discharged home, advised to return with new or worsening symptoms. Educated on worrisome signs and symptoms and when to return. At this time I feel comfortable discharge home. Patient is slightly agitated will give a small dose of Ativan. Patient to be discharged home with family. Medical Decision Making Medical Decision Making [facility] Narrative: 73 F presents w/ fall. Unable to provide hx PE not answering questions. arrousable to painful stimuli. Hx and PE concerning for dementia vs UTI vs metabolic derangments. Unlikely ICH. stroke, fx, spinal injury, cervical fx/ dislocaiton, CO, PE. No signs of truamatic injury to chest/abd/ pelvis. Plan- labs, imaging, urine. Differential Diagnosis Differential Diagnoses: The differential diagnosis associated with the presentation includes Hx and PE concerning for dementia vs UTI vs metabolic derangments. Unlikely ICH. stroke, fx, spinal injury, cervical fx/ dislocaiton, CO, PE. No signs of truamatic injury to chest/abd/ pelvis. Admission/Observation Consideration of admission/observation: Escalation of care including admission/observation considered possible Lab Data [facility] Lab Attestation statement: I reviewed the patient's lab results. 06/28/23 12:08 06/28/23 08:54 Labs: Lab Results 06/28/23 06/28/23 06/28/23 Range/Units 08:54 11:13 11:45 WBC (4.8-10.8) X10*3/uL RBC (4.20-5.50) X10*6/uL Hgb (12.0-16.0) g/dl Hct (37.0-47.0) % MCV (80.0-98.0) fL MCH (27.0-33.0) pg MCHC (31.0-35.0) g/dl RDW (11.0-16.0) % Plt Count (160-400) X10*3/uL MPV Immature Gran % (Auto) (0.0-0.4) % Neut % (Auto) (45-73) % Lymph % (Auto) (20-40) % [place] % (Auto) (2-11) % Eos % (Auto) (0-4) % Baso % (Auto) (0-2) % Lymph # (Auto) (1.2-4.9) X10*3/uL [place] # (Auto) (0.1-1.2) X10*3/uL Eos # (Auto) (0.0-0.4) X10*3/uL Baso # (Auto) (0.0-0.2) X10*3/uL Abs Immat Gran (auto) (0.00-0.03) X10*3/uL Absolute Neuts (auto) (2.0-8.3) x10*3/uL Absolute Nucleated RBC (0.0-0.012) X10*3/uL Nucleated RBC % (auto) (0.0-0.2) /100WBC Smear Tech's Comments Sodium 135 (135-145) mmol/L Potassium 4.3 (3.3-5.1) mmol/L Chloride 103 (96-108) mmol/L Carbon Dioxide 24 (22-29) mmol/L Anion Gap 12 (12-20) BUN 12 (9-16) mg/dL Creatinine 0.84 (0.5-1.4) mg/dL Estim Creat Clear Calc 55.3 Estimated GFR > 60 Random Glucose 132 H (60-115) mg/dL Calcium 9.0 D (8.4-10.2) mg/dL Magnesium 2.0 (1.6-2.6) mg/dL Total Bilirubin 0.4 (0.0-1.0) mg/dL AST 24 (5-31) U/L ALT 19 (0-31) U/L Alkaline Phosphatase 68 (39-117) U/L Troponin I High Sens 5.6 (<3.5-17.0) ng/L Total Protein 7.3 (6.5-8.0) g/dL Albumin 3.8 (3.5-5.0) g/dL Urine Color Yellow Urine Appearance Clear Urine pH 6.0 (5.0-9.0) Ur Specific [place] 1.025 (1.005-1.025) Urine Protein 30 (1+) H (Neg-Trace) mg/dL Urine Glucose (UA) Negative (Negative) mg/dL Urine Ketones 15 (Negative) mg/dL Urine Blood Large (3+) H (Negative) Urine Nitrite Negative (Negative) Ur Leukocyte Esterase Negative (Negative) Urine RBC 11-20 H (0-2) /HPF Urine WBC 0-5 (0-5) /HPF Ur Squamous Epith Cells 0-2 (0-2) /HPF Urine Bacteria None Seen (None Seen) Hyaline Casts 0-2 (0-2) /LPF Influenza Type A (PCR) POSITIVE A (Negative) Influenza Type B (PCR) NEGATIVE (Negative) RSV RNA Qual (PCR) NEGATIVE (Negative) SARS-CoV-2 RNA (RT-PCR) NEGATIVE (Negative) 06/28/23 Range/Units 12:08 WBC 4.4 L (4.8-10.8) X10*3/uL RBC 3.81 L (4.20-5.50) X10*6/uL Hgb 11.5 L (12.0-16.0) g/dl Hct 35.1 L (37.0-47.0) % MCV 92.1 (80.0-98.0) fL MCH 30.2 (27.0-33.0) pg MCHC 32.8 (31.0-35.0) g/dl RDW 12.1 (11.0-16.0) % Plt Count 103 L D (160-400) X10*3/uL MPV Not Reportable Immature Gran % (Auto) 0.2 (0.0-0.4) % Neut % (Auto) 53.2 (45-73) % Lymph % (Auto) 24.9 (20-40) % [place] % (Auto) 21.5 H (2-11) % Eos % (Auto) 0.0 (0-4) % Baso % (Auto) 0.2 (0-2) % Lymph # (Auto) 1.1 L (1.2-4.9) X10*3/uL [place] # (Auto) 1.0 (0.1-1.2) X10*3/uL Eos # (Auto) 0.0 (0.0-0.4) X10*3/uL Baso # (Auto) 0.0 (0.0-0.2) X10*3/uL Abs Immat Gran (auto) 0.01 (0.00-0.03) X10*3/uL Absolute Neuts (auto) 2.4 (2.0-8.3) x10*3/uL Absolute Nucleated RBC 0.000 (0.0-0.012) X10*3/uL Nucleated RBC % (auto) 0.0 (0.0-0.2) /100WBC Smear Tech's Comments VERIFIED Sodium (135-145) mmol/L Potassium (3.3-5.1) mmol/L Chloride (96-108) mmol/L Carbon Dioxide (22-29) mmol/L Anion Gap (12-20) BUN (9-16) mg/dL Creatinine (0.5-1.4) mg/dL Estim Creat Clear Calc Estimated GFR Random Glucose (60-115) mg/dL Calcium (8.4-10.2) mg/dL Magnesium (1.6-2.6) mg/dL Total Bilirubin (0.0-1.0) mg/dL AST (5-31) U/L ALT (0-31) U/L Alkaline Phosphatase (39-117) U/L Troponin I High Sens (<3.5-17.0) ng/L Total Protein (6.5-8.0) g/dL Albumin (3.5-5.0) g/dL Urine Color Urine Appearance Urine pH (5.0-9.0) Ur Specific [place] (1.005-1.025) Urine Protein (Neg-Trace) mg/dL Urine Glucose (UA) (Negative) mg/dL Urine Ketones (Negative) mg/dL Urine Blood (Negative) Urine Nitrite (Negative) Ur Leukocyte Esterase (Negative) Urine RBC (0-2) /HPF Urine WBC (0-5) /HPF Ur Squamous Epith Cells (0-2) /HPF Urine Bacteria (None Seen) Hyaline Casts (0-2) /LPF Influenza Type A (PCR) (Negative) Influenza Type B (PCR) (Negative) RSV RNA Qual (PCR) (Negative) SARS-CoV-2 RNA (RT-PCR) (Negative) Independent Interpretation I performed an independent interpretation of an: CT Scan (CT/CT head/brain wo IV con IMPRESSION: - No acute intracranial abnormality. - No acute osseous abnormality within the cervical spine. Multilevel cervical spondylosis. - Significantly enlarged right thyroid lobe containing a possible up to 1.6 cm nodule for which thyroid ultrasound would be helpf) Radiology Impression Discussion of test interpretation with radiology: I have reviewed the radiologist's reading. External Record Review External record reviewed: Inpatient record, Office record, Outpatient record, Prior outpatient labs, Prior outpatient radiology, Primary care record and Outside ED record Tests considered The following testing was considered but not selected: Considered ct of chest/abd/ pelvis no signs of truama however and not on thinners --> no indication Social Determinants Patient?s care significantly limited by Social Determinants of Health including: Other Social Determinant of Health Critical Care Time Critical Care Time Critical Care Time: Yes Total Critical Care Time: 35 Attestation: I attest to this time spent taking care of the patient, obtaining history, physical, reviewing labs, imaging Discharge Plan Discharge Clinical Impression: Influenza, Fall, Concussion, Physical deconditioning, Dementia Patient Disposition: Home, Self-Care Instructions: Dementia (ED), Concussion (ED), Fall Prevention for Older Adults (ED), Post Concussion Syndrome (ED), Fall Prevention (ED) Additional Instructions: Take your medications as prescribed. If you were prescribed antibiotics today, it is important that you take your medication to their entirety, do not skip any doses, do not finish them early. Follow-up with your primary care provider this week. Return to the emergency department with new or worsening symptoms. Such as fevers, chills, chest pain, shortness of breath, nausea, vomiting, dizziness, headache, vision changes, lethargy In case of emergency call 911 CT/CT head/brain & cervical spine wo IV con IMPRESSION: - No acute intracranial abnormality. - No acute osseous abnormality within the cervical spine. Multilevel cervical spondylosis. - Significantly enlarged right thyroid lobe containing a possible up to 1.6 cm nodule for which thyroid ultrasound would be helpful in further assessment XR/XR chest 1V IMPRESSION: No acute cardiopulmonary disease. [place] bonita medicamentos seg?n lo recetado. Si hoy te recetaron antibi?ticos, es importante que tomes tu medicaci?n en gutierrez totalidad, no te saltes ninguna dosis, no las termines antes de tiempo. Marcelina un seguimiento con gutierrez proveedor de atenci?n primaria esta semana. Regrese al departamento de emergencias si los s?ntomas son nuevos o empeoran. Erika fiebre, escalofr?os, dolor de pecho, dificultad para respirar, n?useas, v?mitos, mareos, dolor de glory, cambios en la visi?n, letargo. En zhane de emergencia llame al 911. CT/CT de glory/cerebro y columna cervical sin conexi?n intravenosa IMPRESI?N: - Sin anomal?a intracraneal aguda. - Sin anomal?a ?sea aguda en la columna cervical. Multi nivel espondilosis cervical. - L?bulo tiroideo derecho significativamente agrandado que contiene un posible hasta N?dulo de 1,6 cm para el cual la ecograf?a tiroidea ser?a ?til para gutierrez posterior evaluaci?n Pecho XR/XR 1V IMPRESI?N: Sin enfermedad cardiopulmonar aguda. Prescriptions: No Action atorvastatin 40 mg tablet 40 mg PO DAILY 90 Days Qty: 90 1RF cetirizine [All Day Allergy (cetirizine)] 10 mg tablet 10 mg PO DAILY PRN (Reason: allergic symptoms) 90 Days Qty: 90 1RF nitrofurantoin macrocrystal 100 mg capsule 100 mg PO BID 7 Days Qty: 14 0RF Rx Instructions: must administer with a meal/food ramipril 5 mg capsule 5 mg PO BID 90 Days Qty: 180 3RF cholecalciferol (vitamin D3) 25 mcg (1,000 unit) capsule 25 mcg PO DAILY 90 Days Qty: 90 1RF (DME) adult diapers medium See Rx Instructions .Route .MEDSUPPLY Qty: 88 11RF Rx Instructions: As directed (DME) underpads [Bed Underpads] Pad See Rx Instructions .Route Qty: 100 6RF Rx Instructions: As directed sertraline 25 mg tablet 25 mg PO DAILY 90 Days Qty: 90 1RF memantine 10 mg tablet 10 mg PO DAILY quetiapine 25 mg tablet 50 mg PO BEDTIME donepezil 10 mg tablet 10 mg PO BEDTIME melatonin 5 mg tablet 5 mg PO BEDTIME PRN Benadryl Extra Strength 2-0.1 % cream 1 appl topical BID PRN (Reason: itching) 14 Days Qty: 28.3 0RF Referrals: Physician,Unknown J [Primary Care Provider] - 2 days Stand Alone Forms: Work/School Release
[2023-06-28 08:19] VITALS: BP 121/40; BP 140/60; PULSE 90; PULSE 92; RESP 18; TEMP 36.4; O2SAT 100; O2SAT 94; BMI 28.5
--- NOTE | 2023-06-28 09:10 | PC.NURSE ---
pt awake/alert to self, nonverbal, ekg monitor applied-nsr, vss, lungs diminished throughout- respirations even and non labored, pt ekg performed, labs drawn, cxr performed, pt to ct scan
[2023-06-28 09:11] LABS: Alanine Aminotransferase 19 U/L (0-31); Albumin Level 3.8 g/dL (3.5-5.0); Alkaline Phosphatase 68 U/L (39-117); Anion Gap 12 (12-20); Aspartate Amino Transferase 24 U/L (5-31); Bilirubin Total 0.4 mg/dL (0.0-1.0); Blood Urea Nitrogen 12 mg/dL (9-16); Carbon Dioxide 24 mmol/L (22-29); Chloride 103 mmol/L (96-108); Creatinine Clr Calc Pharmacy 55.3; Estimated Glomerular Filt Rate > 60; Glucose Random 132 mg/dL (60-115); Potassium 4.3 mmol/L (3.3-5.1); Sodium 135 mmol/L (135-145); Total Protein 7.3 g/dL (6.5-8.0)
[2023-06-28 09:17] LABS: Troponin-I High Sensitivity 5.6 ng/L (<3.5-17.0)
[2023-06-28 10:00] VITALS: BP 133/56; PULSE 96; RESP 18; TEMP 36.7; O2SAT 100
--- NOTE | 2023-06-28 11:15 | PC.NURSE ---
straight cath performed
[2023-06-28 11:26] LABS: Appearance Urine Clear; Color Urine Yellow; Glucose Urine UA Negative (Negative); Leukocyte Esterase Urine Negative (Negative); Nitrite Urine Negative (Negative); Specific Gravity - Urine 1.025 (1.005-1.025); UMIC TRIGGER UACC YES; Urine Blood Large (3+) (Negative); Urine Ketones 15 mg/dL (Negative); Urine Protein 30 (1+) mg/dL (Neg-Trace)
[2023-06-28 11:39] LABS: Bacteria Urine None Seen (None Seen); Hyaline Casts Urine 0-2 /LPF (0-2); Squamous Epithelial Cell Urine 0-2 /HPF (0-2); WBC Urine 0-5 /HPF (0-5)
--- NOTE | 2023-06-28 11:50 | PC.NURSE ---
swab performed, labs to be drawn by tech
[2023-06-28 12:00] VITALS: BP 130/48; PULSE 94; RESP 18; TEMP 36.6; O2SAT 100
[2023-06-28 12:16] LABS: Basophils Percent Auto 0.2 % (0-2); Hematocrit 35.1 % (37.0-47.0); Hemoglobin 11.5 g/dl (12.0-16.0); Imm Gran Abs Auto 0.01 X10*3/uL (0.00-0.03); Imm Gran Pct Auto 0.2 % (0.0-0.4); Lymphocytes Absolute Auto 1.1 X10*3/uL (1.2-4.9); Lymphocytes Percent Auto 24.9 % (20-40); MANUAL DIFF FLAG SCAN; Mean Corpuscular HGB Conc 32.8 g/dl (31.0-35.0); Mean Corpuscular Hemoglobin 30.2 pg (27.0-33.0); Mean Corpuscular Volume 92.1 fL (80.0-98.0); Monocytes Percent Auto 21.5 % (2-11); Neutrophils Absolute Auto 2.4 x10*3/uL (2.0-8.3); Neutrophils Percent Auto 53.2 % (45-73); Red Blood Count 3.81 X10*6/uL (4.20-5.50); Red Cell Distribution Width 12.1 % (11.0-16.0); SCAN SMEAR FLAG 1; White Blood Count 4.4 X10*3/uL (4.8-10.8)
[2023-06-28 12:28] LABS: Influenza A PCR POSITIVE (Negative); Influenza B PCR NEGATIVE (Negative); Resp Syncy Virus RNA Qual PCR NEGATIVE (Negative); SARS COV2 PCR INHOUSE NEGATIVE (Negative)
[2023-06-28 12:35] LABS: Platelet Count 103 X10*3/uL (160-400)
[2023-06-28 12:36] LABS: SLIDE REVIEW VERIFIED
[2023-06-28] MEDS: LORazepam 0.5 MG TABLET 0.25 MG PO (13:27)
[2023-06-28 14:55] VITALS: TEMP 38.4
[2023-06-28] MEDS: Acetaminophen 325 MG TABLET 650 MG PO (15:06)
== END 2023-06-28 15:17 | disposition home or self-care (01) ==
PROVIDERS: Physician Assistant; Emergency Provider Emergency Medicine Emergency Medical Services
DX: S06.0X0A Concussion without loss of consciousness, initial encounter (principal); F03.90 Unspecified dementia, unspecified severity, without behavioral disturbance, psychotic disturbance, mood disturbance, and anxiety; J10.1 Influenza due to other identified influenza virus with other respiratory manifestations; R51.9 Headache, unspecified; M54.2 Cervicalgia; R07.89 Other chest pain; W01.0XXA Fall on same level from slipping, tripping and stumbling without subsequent striking against object, initial encounter; Y93.9 Activity, unspecified; Y92.9 Unspecified place or not applicable; Y99.9 Unspecified external cause status; Z11.52 Encounter for screening for COVID-19; Z20.828 Contact with and (suspected) exposure to other viral communicable diseases; Z79.899 Other long term (current) drug therapy
CPT/HCPCS: 0241U; 36415; 70450; 71045; 72125; 80053; 81001; 83735; 84484; 85025; 93005; 99285

== ENCOUNTER → 2023-06-28 08:07 | Outpatient (BNV) | payer OTHER, SELFPAY | PROVIDERS: Emergency Provider Emergency Medicine Emergency Medical Services; Visit Provider Internal Medicine Cardiovascular Disease | DX: R26.81 Unsteadiness on feet (principal) | CPT/HCPCS: 93010 ==

== ENCOUNTER 2023-07-05 08:34 | Outpatient (AMB) | payer OTHER, SELFPAY ==
[2023-07-05 08:35] VITALS: BP 122/68
--- NOTE | 2023-07-05 08:35 | MHC.PC.OV ---
Vital Signs 07/05/23 08:35 Height 5 ft 3 in BMI Reason not done Patient refused/unable BP 122/68 Blood Pressure Location Lt brachial Position Sitting Int[place] [facility] [place]I and flu Intake Note: Patient here [place] [facility] [place] UTI, Flu Child Care Associate Required: No Accompanied by: spouse, son Allergies No Known Allergies Allergy (Verified 07/05/23 08:57) Medication List - Last Reconciled 07/05/23 by Patsy Rosales MD [adult diapers As directed] atorvastatin 40 mg PO DAILY 90 days cholecalciferol (vitamin D3) 25 mcg PO DAILY 90 days donepezil 10 mg PO BEDTIME melatonin 5 mg PO BEDTIME PRN memantine 10 mg PO DAILY 90 days quetiapine 50 mg PO BEDTIME ramipril 5 mg PO BID 90 days sertraline 25 mg PO DAILY 90 days underpads (Bed Underpads) As directed Tobacco use date assessed: 07/05/23 Fall risk assessment: 1 Fall in past year Last assessed Fall Risk: 07/05/23 Dental Screening Dental Screen Date: 07/05/23 Did you have a dental visit in the last 12 months?: Yes Did you have a dental problem in the last 6 months where you did not have access to dental care?: No Was dental information given to patient?: Patient has dentist HPI HPI Comments History of Present Illness Details This is a 73-year-old female with Alzheimer's disease with behavioral disturbance and hypertension that comes today accompanied by supervisor extruding department which is the and son Jg for hospital discharge follow-up with discharge date of 06/28/2023 due to being positive for influenza A. She was originally sent to the hospital because she slipped and fell in the shower. Head CT and neck CT were done in the hospital and reveal incidentally a thyroid nodule in which ultrasound of the thyroid was ordered today. No hematoma or any other abnormality noted. Urinalysis and labs were taken. Urine reveal hematuria and this will be repeated in 6 weeks. On memantine and donepezil for her Alzheimer's and she is still not oriented to time, person and place. Needs assistance in basic activities of daily living such as bathing, toileting, dressing/undressing, feeding and other instrumental activities of daily living. Blood pressure has been stable. Also has low white blood cells, anemia and thrombocytopenia in which CBC will also be repeated. No chest pain or shortness of breath. Was positive for influenza A and still have productive cough. I will start her on Mucinex. [facility] Medical History (Updated 07/05/23 @ 09:27 by Patsy Rosales MD) Cataract Surgical History History of appendectomy History of bunionectomy Family History Mother No problems noted. Father No problems noted. Social History Housing: Apartment Alcohol intake: never Patient Tobacco Use Status: Never used Tobacco e-Cigarette/Vaping Use: Never Used Second Hand Smoke Exposure: No service: No Current occupational status: unemployed Cognitive needs: No Hearing needs: No Vision needs: No Questionnaire PHQ-9 Over the last 2 weeks, how often have you been bothered by any of the following problems? 1. Little interest or pleasure in doing things: not at all 2. Feeling down, depressed, or hopeless: not at all 3. Trouble falling or staying asleep, or sleeping too much: not at all 4. Feeling tired or having little energy: not at all 5. Poor appetite or overeating: not at all 6. Feeling bad about yourself - or that you are a failure or have let yourself or your family down: not at all 7. Trouble concentrating on things, such as reading the newspaper or watching television: several days 8. Moving or speaking so slowly that other people could have noticed. Or the opposite - being so fidgety or restless that you have been moving around a lot more than usual: several days 9. Thoughts that you would be better off or of hurting yourself in some way: not at all Total score: 2 Depression Screening Interpretation: Positive Depression Screening Follow-up: Existing condition Depression Screening Done: Yes 95029 - PHQ-9 Billing: Yes Source: Developed by Drs. Ankit Bass, Lily Pathak, Scar Montejo and colleagues, with an educational joe from [employer]. Thrive Questionnaire Date Thrive assessed: 01/16/24 I am a: Patient What is your living situation today?: I have a steady place to live Within the past 12 months, did the food you bought not last and you didn't have the money to get more?: Never true Within the past 12 months, did you worry whether your food would run out before you got money to buy more?: Never true Do you have trouble paying for medicines?: No Do you have trouble getting transportation to medical appointments?: No Do you have trouble paying your heating and electricity bill?: No Do you have trouble taking care of your child, family member or friend?: No Do you have trouble with day-to-day activities such as bathing, preparing meals, shopping, managing finances, etc.?: Yes Are you currently unemployed and looking for a job?: No Are you interested in more education?: No Please select the resources that you would like help with: None AUDIT C Alcohol Use Questionnaire (AUDIT-C) 1. How often do you have a drink containing alcohol?: Never Total Score: 0 Score Reviewed/Action Taken: No AVELINO-7 AMB Questionnaire AVELINO-7 Date AVELINO - 7 assessed: 07/05/23 Feeling nervous, anxious, or on edge: 1 = Several days Not being able to stop or control worryin = Not at all Worrying too much about different things: 0 = Not at all Trouble relaxin = Not at all Being so restless that it is hard to sit still: 0 = Not at all Becoming easily annoyed or irritable: 0 = Not at all Feeling afraid as if something awful might happen: 0 = Not at all Total AVELINO-7 score (0-4 normal; 5-9 mild; 10-14 moderate; 15-21 severe): 1 Source: Developed by Drs. Ankit Bass, Lily Pathak, Scar Montejo and colleagues, with an educational joe from [employer]. AVELINO-7 Assessment Billing AVELINO-7 Assessment Tool: AVELINO-7 Assessment 12845 Review of Systems Const All systems reviewed & are unremarkable except as noted in HPI and below Eyes Reports no additional complaints, Denies change in vision and Denies other visual disturbances Card Denies chest pain at rest, Denies chest pain with activity, Denies edema, Denies irregular heart rhythm, Denies claudication, Denies dyspnea, Denies dyspnea on exertion, Denies orthopnea, Denies paroxysmal nocturnal dyspnea and Denies slow heart rate Resp Reports cough, Denies dyspnea and Denies dyspnea on exertion GI Denies abdominal pain, Denies change in bowel habits, Denies excessive flatus, Denies nausea and Denies vomiting Denies urinary incontinence, Denies urinary hesitancy and Denies urinary urgency Musc Denies abnormal gait, Denies atrophy, Denies deformity and Denies limited range of motion Skin/Breast Denies bleeding lesions, Denies changing lesions and Denies rash Neuro Denies abnormal gait, Denies behavioral changes, Reports confusion and Denies lack of coordination Psych Denies behavioral changes and Reports confusion Physical exam (Primary Care) Vital Signs: Last Vital Signs BP 122/68 07/05/23 08:35 Tobacco/Smoking Status: Tobacco use Status Tobacco use date assessed 07/05/23 07/05/23 08:46 Patient Tobacco Use Status Never used Tobacco 07/05/23 08:46 e-Cigarette/Vaping Use Never Used 07/05/23 08:46 PHQ-9: PHQ-9 Score PHQ-9: Total score 2 07/05/23 08:52 Depression Screening Interpretation: Positive Depression Screening Follow-up: Existing condition Thrive Assessment: Date of Thrive Assessment Date Thrive assessed 07/05/23 07/05/23 08:46 Const General: confusion Orientation/consciousness: confusion Eyes General: appearance normal, both eyes and all related structures Eyelids: Yes eyelids normal Conjunctivae: conjunctivae normal Neck Neck: Yes normal visual inspection and Yes supple Resp Effort & Inspection: normal respiratory effort Auscultation: clear to auscultation bilaterally Cardio Jugular venous distension: no JVD Rate: regular rate Rhythm: regular rhythm Heart sounds: S1 normal heart sound present and S2 normal heart sound present Neuro General: confusion Extrem General: Yes full ROM Assessment and Plan Assessment & Plan (1) Hospital discharge follow-up: Code(s): Z09 - Encounter for follow-up examination after completed treatment for conditions other than malignant neoplasm Plan: Discharge date was 06/28/2023. Went to ER due to sleep and fell in the shower. Head CT and neck CT done. Reveal thyroid nodule but no abnormality in head and neck regarding her fall. Positive for influenza a and still coughing. (2) Influenza A: Code(s): J10.1 - Influenza due to other identified influenza virus with other respiratory manifestations Plan: Patient is still coughing. This was diagnosed 06/28/2023. Will start Mucinex. (3) Thyroid nodule: Code(s): E04.1 - Nontoxic single thyroid nodule Plan: Ultrasound of the thyroid ordered. (4) Alzheimer's dementia with behavioral disturbance: Code(s): G30.9 - Alzheimer's disease, unspecified; F02.818 - Dementia in other diseases classified elsewhere, unspecified severity, with other behavioral disturbance Plan: Continue memantine and donepezil. Follow-up with Neurology. (5) Essential hypertension: Code(s): I10 - Essential (primary) hypertension Plan: Continue ramipril. Blood pressure goal is equal or less than 130/80. (6) Hematuria: Code(s): R31.9 - Hematuria, unspecified Plan: Repeat urinalysis in 6 weeks. (7) Pancytopenia: Code(s): D61.818 - Other pancytopenia Plan: Repeat CBC. Orders: Orders Thyroid Stimulating Hormone Today E04.1 - Nontoxic single thyroid nodule Complete Blood Count Auto Diff Today D64.9 - Anemia, unspecified IRON PROFILE Today D64.9 - Anemia, unspecified US thyroid Today E04.1 - Nontoxic single thyroid nodule UA CC w/rflx Micro + Cult Today R30.0 - Dysuria Medications: New underpads (Bed Underpads) As directed 150 ea 0RF N39.41 - Urge incontinence [wipes] As directed 240 ea 11RF N39.41 - Urge incontinence, R15.9 - Full incontinence of feces guaifenesin ER (Mucinex) 600 mg PO BID 5 days 10 tabs 0RF Changed From donepezil 10 mg PO BEDTIME To donepezil 10 mg PO BEDTIME 90 days 90 tabs 1RF Refilled [adult diapers pull-ups] As directed 240 ea 11RF F02.818 - Dementia in other diseases classified elsewhere, unspecified severity, with other behavioral disturbance, G30.9 - Alzheimer's disease, unspecified, N39.41 - Urge incontinence Coding Level of Care Code TCM Mod MDM <= 7 Days Diagnoses Hospital discharge follow-up Z09 Influenza A J10.1 Thyroid nodule E04.1 Alzheimer's dementia with behavioral disturbance G30.9; F02.818 Essential hypertension I10 Hematuria R31.9 Pancytopenia D61.818 Additional Codes AVELINO-7 Assessment Billing - AVELINO-7 Assessment Tool: AVELINO-7 Assessment 02466 ([id number]) Time Spent (min) 28
== END 2023-07-05 09:07 | disposition home or self-care (01) ==
PROVIDERS: PCP Internal Medicine; Visit Provider Internal Medicine
DX: J10.1 Influenza due to other identified influenza virus with other respiratory manifestations (principal); R31.9 Hematuria, unspecified; E04.1 Nontoxic single thyroid nodule; D61.818 Other pancytopenia
CPT/HCPCS: 99214

== ENCOUNTER 2023-07-13 13:58 | Emergency (ER) | payer OTHER, SELFPAY ==
--- NOTE | ~2023-07-13 | XR_ITS ---
EXAMINATION: XR CHEST CLINICAL INFORMATION: Patient fell. Trauma COMPARISON: Prior chest radiograph dated 06/28/2023 TECHNIQUE: Frontal view of the chest was obtained. FINDINGS: Lordotic positioning. Lungs grossly clear. Heart and pulmonary vessels normal. There is degenerative change in the shoulder joints. XR/XR chest 1V IMPRESSION: No active disease.
--- NOTE | ~2023-07-13 | CT_ITS ---
EXAMINATION: CT HEAD WITHOUT CONTRAST CT CERVICAL SPINE WITHOUT CONTRAST CLINICAL INFORMATION: Fall. Head strike. Neck pain. COMPARISON: CT head and cervical spine from 06/28/2023. TECHNIQUE: Contiguous axial imaging was performed from the skull base to vertex without intravenous administration of contrast. Contiguous axial imaging was performed from the upper chest through the skull base without intravenous administration of contrast. Coronal and sagittal reformats were obtained at the acquisition workstation. This CT examination was performed using dose optimization techniques as appropriate, variously including the following: *Automated exposure control. *Adjustment of mA and/or kV according to patient size (this includes techniques or standardized protocols for targeted exams where dose is matched to indication/reason for exam; i.e. extremities or head). *Use of iterative reconstruction technique. DLP: 1169 mGy-cm FINDINGS: Head: There is no evidence of acute intracranial hemorrhage or edematous territorial infarction. Hanson-white matter differentiation is preserved. Scattered and partially confluent hypoattenuation in the periventricular and deep white matter are consistent with moderate microangiopathy. Proportional prominence of the ventricles and sulcal spaces without evidence of obstructive hydrocephalus. No abnormal mass effect or midline shift. No extra-axial fluid collections. No acute soft tissue or osseous abnormalities. Mild mucosal thickening of the paranasal sinuses. Small volume layering fluid within the sphenoid sinus. Moderate rightward nasal septal deviation with spurring. The mastoid air cells and middle ear cavities are clear. Bilateral lens extractions. Cervical Spine: The atlantooccipital and atlantoaxial articulations remain well aligned. Moderate degenerative arthropathy of the atlantodental articulation. Straightening of the normal cervical lordosis. Mild degenerative anterolisthesis of C4 on C5. Otherwise, there is anatomic alignment of the vertebral bodies and posterior elements. No evidence of acute fracture or subluxation. The vertebral body heights are maintained. Mild to moderate degenerative disc disease at all cervical levels. Facet and uncovertebral joint arthropathy leads to osseous encroachment on the neural foramina from C3-C5 and C6-T1. There is no prevertebral soft tissue swelling. Moderate heterogeneous enlargement of the thyroid gland. The remaining cervical soft tissues are within normal limits. The lung apices demonstrate no abnormalities. CT/CT cervical spine wo IV con IMPRESSION: 1. No evidence of acute intracranial hemorrhage or edematous territorial infarction. Moderate underlying microangiopathy and generalized cerebral volume loss. 2. No evidence of acute fracture or traumatic subluxation of the cervical spine. Mild to moderate multilevel degenerative spondyloarthropathy of the cervical spine. 3. Moderate heterogeneous enlargement of the thyroid gland. Recommend further characterization with thyroid ultrasound.
[2023-07-13 14:14] VITALS: BP 128/59; BP 96/60; PULSE 78; PULSE 98; RESP 16; O2SAT 98; BMI 26.6
--- NOTE | 2023-07-13 14:22 | ECG_ITS ---
Test Reason : fall Blood Pressure : / mmHG Vent. Rate : 083 BPM Atrial Rate : 083 BPM P-R Int : 138 ms QRS Dur : 086 ms QT Int : 352 ms P-R-T Axes : 000 149 139 degrees QTc Int : 413 ms Suspect limb lead reversal, interpretation assumes no reversal Sinus rhythm with Premature atrial complexes Lateral infarct , age undetermined Abnormal ECG When compared with ECG of 28-JUN-2023 08:15, Premature atrial complexes are now Present QRS axis Shifted right Lateral infarct is now Present Referred By: Deniz Phelps Electronically Signed By:
--- NOTE | 2023-07-13 14:23 | ED.FALL ---
HPI - Fall General Chief Complaint: Fall Stated Complaint: Fall @ Daycare, hit head-denjebas loc-no thinners Time Seen by Provider: 07/13/23 14:21 Source: patient and EMS Mode of arrival: EMS Limitations: other (Poor historian ) History of Present Illness HPI Narrative: This is a 73-year-old female history of pancytopenia, anxiety, impaired glucose tolerance, hypovitaminosis D, Alzheimer's dementia, hypertension and hypercholesterolemia presenting to the emergency department status post fall at daycare, patient fell back hitting the back of her head, there was no loss of consciousness, patient not on blood thinners. According to EMS patient appears to be mentating at her baseline. Unclear if there is any preceding symptoms to fall. No other reported injuries. Patient appears to be in no acute distress. Poor historian and unable to answer my questions accordingly. Related Data Home Medications Medication Instructions Recorded Confirmed melatonin 5 mg tablet 5 mg PO BEDTIME PRN 12/27/22 07/05/23 quetiapine 25 mg tablet 50 mg PO BEDTIME 12/27/22 07/05/23 Previous Rx's Medication Instructions Recorded atorvastatin 40 mg tablet 40 mg PO DAILY 90 days #90 tabs 04/23/23 cholecalciferol (vitamin D3) 25 25 mcg PO DAILY 90 days #90 caps 05/04/23 mcg (1,000 unit) capsule sertraline 25 mg tablet 25 mg PO DAILY 90 days #90 tabs 05/04/23 underpads (Bed Underpads) #100 ea 05/04/23 ramipril 5 mg capsule 5 mg PO BID 90 days #180 caps 05/22/23 memantine 10 mg tablet 10 mg PO DAILY 90 days #90 tabs 07/04/23 adult diapers pull-ups #240 ea 07/05/23 donepezil 10 mg tablet 10 mg PO BEDTIME 90 days #90 tabs 07/05/23 guaifenesin 600 mg tablet, 600 mg PO BID 5 days #10 tabs 07/05/23 extended release 12 hr (Mucinex) underpads (Bed Underpads) #150 ea 07/05/23 wipes #240 ea 07/05/23 Allergies Allergy/AdvReac Type Severity Reaction Status Date / Time No Known Allergies Allergy Verified 07/05/23 08:57 Review of Systems Review of Systems: Patient poor historian hx of dementia unable to answer accurate ROS Yes Unobtainable due to mental status PMF Past Medical History Attestation statement: The following information was validated with the patient. Source: old records reviewed and nursing notes reviewed Medical History Cataract Surgical History History of appendectomy History of bunionectomy Family History Family History Mother No problems noted. Father No problems noted. Social History Social History Housing: Apartment Alcohol intake: never Patient Tobacco Use Status: Never used Tobacco e-Cigarette/Vaping Use: Never Used Second Hand Smoke Exposure: No Advance Directives: No service: No Current occupational status: unemployed Cognitive needs: No Hearing needs: No Vision needs: No Physical Exam Vital Signs: Vital Signs: Last Vital Signs Pulse 78 07/13/23 14:14 Resp 16 07/13/23 14:14 BP 128/59 L 07/13/23 14:14 Pulse Ox 98 07/13/23 14:14 O2 Del Method Room Air 07/13/23 14:14 BMI result Body Mass Index 26.6 vss Appearance: Patient awake and alert. Not oriented to person, place, time or situation. No acute distress.? Head: Normocephalic, atraumatic, no step-offs or deformities Eyes: Pupils equal, round and reactive to light.? Neck: Normal inspection.? Neck supple.? CVS: Normal heart rate and rhythm.? Pulses normal.? Respiratory: No respiratory distress.? Breath sounds normal.? Abdomen: Soft and nontender.? Skin: Skin warm and dry.? Normal skin color.? Normal skin turgor.? +old healing ( yellowish) bruises to chin region b/l Extremities: No lower extremity edema.? No calf ttp. Global weakness Neuro: Patient awake and alert. Not oriented to person, place, time or situation. Very difficult time obtaining neurological assessment due to dementia and patient not following commands. Course Reevaluation(s) Reevaluation #1: Patient's labs, urine, imaging still pending. Sign out to Tino MARTINEZ Time: 16:11 Medical Decision Making Medical Decision Making [facility] Narrative: 73-year-old female presents status post fall at adult take care, with head strike no loss of consciousness. Not on thinners. Physical exam significant for old healing ( yellowish) bruises to chin region b/l. Global weakness. Confused patient. Likely concussion. Unlikely intracranial hemorrhage, skull fracture dislocation, facial fracture dislocation, stroke or posterior stroke. Unlikely encephalitis or meningitis. Will rule out metabolic derangements and urinary tract infection. Unlikely dysrhythmia, ACS or PE. There is no signs of traumatic injury to chest, abdomen or pelvis. Plan labs, imaging, urine. Differential Diagnosis Differential Diagnoses: The differential diagnosis associated with the presentation includes Likely concussion. Unlikely intracranial hemorrhage, skull fracture dislocation, facial fracture dislocation, stroke or posterior stroke. Unlikely encephalitis or meningitis. Will rule out metabolic derangements and urinary tract infection. Unlikely dysrhythmia, ACS or PE. There is no signs of traumatic injury to chest, abdomen or pelvis. Admission/Observation Consideration of admission/observation: Escalation of care including admission/observation considered possible Lab Data [facility] Lab Attestation statement: I reviewed the patient's lab results. Independent Interpretation I performed an independent interpretation of an: EKG, Plain X-Ray and CT Scan Radiology Impression Discussion of test interpretation with radiology: I have reviewed the radiologist's reading. Chronic Conditions Patient?s care impacted by: Hypertension and Other (HLD) Discharge Plan Discharge Clinical Impression: Fall, Closed head injury, Dementia, Concussion Patient Disposition: Still a Patient Prescriptions: No Action atorvastatin 40 mg tablet 40 mg PO DAILY 90 Days Qty: 90 1RF ramipril 5 mg capsule 5 mg PO BID 90 Days Qty: 180 3RF memantine 10 mg tablet 10 mg PO DAILY 90 Days Qty: 90 3RF cholecalciferol (vitamin D3) 25 mcg (1,000 unit) capsule 25 mcg PO DAILY 90 Days Qty: 90 1RF (DME) underpads [Bed Underpads] Pad See Rx Instructions .Route Qty: 100 6RF Rx Instructions: As directed sertraline 25 mg tablet 25 mg PO DAILY 90 Days Qty: 90 1RF donepezil 10 mg tablet 10 mg PO BEDTIME 90 Days Qty: 90 1RF (DME) underpads [Bed Underpads] Pad See Rx Instructions .Route Qty: 150 0RF Rx Instructions: As directed (DME) adult diapers pull-ups medium See Rx Instructions .Route .MEDSUPPLY Qty: 240 11RF Rx Instructions: As directed (DME) wipes See Rx Instructions .Route .MEDSUPPLY Qty: 240 11RF Rx Instructions: As directed guaifenesin [Mucinex] 600 mg tablet extended release 12hr 600 mg PO BID 5 Days Qty: 10 0RF quetiapine 25 mg tablet 50 mg PO BEDTIME melatonin 5 mg tablet 5 mg PO BEDTIME PRN
[2023-07-13 16:46] LABS: Basophils Percent Auto 0.4 % (0-2); Eosinophils Absolute Auto 0.1 X10*3/uL (0.0-0.4); Eosinophils Percent Auto 0.9 % (0-4); Hematocrit 32.2 % (37.0-47.0); Hemoglobin 10.5 g/dl (12.0-16.0); Imm Gran Abs Auto 0.02 X10*3/uL (0.00-0.03); Imm Gran Pct Auto 0.3 % (0.0-0.4); Lymphocytes Absolute Auto 2.3 X10*3/uL (1.2-4.9); Lymphocytes Percent Auto 34.7 % (20-40); MANUAL DIFF FLAG SCAN; Mean Corpuscular HGB Conc 32.6 g/dl (31.0-35.0); Mean Platelet Volume 13.1 fL (9.4-12.3); Monocytes Absolute Auto 0.7 X10*3/uL (0.1-1.2); Monocytes Percent Auto 9.8 % (2-11); Neutrophils Absolute Auto 3.6 x10*3/uL (2.0-8.3); Neutrophils Percent Auto 53.9 % (45-73); PLT CLUMP 1; Red Cell Distribution Width 12.3 % (11.0-16.0); SCAN SMEAR FLAG 1
[2023-07-13 16:51] LABS: COVID-19 Test Positive (Negative); IDNOW Serial# 152EDE1D
[2023-07-13 16:56] LABS: Alanine Aminotransferase 15 U/L (0-31); Albumin Level 3.7 g/dL (3.5-5.0); Alkaline Phosphatase 69 U/L (39-117); Anion Gap 11 (12-20); Aspartate Amino Transferase 15 U/L (5-31); Bilirubin Total 0.5 mg/dL (0.0-1.0); Blood Urea Nitrogen 17 mg/dL (9-16); Carbon Dioxide 26 mmol/L (22-29); Chloride 107 mmol/L (96-108); Creatinine Clr Calc Pharmacy 54.1; Estimated Glomerular Filt Rate > 60; Glucose Random 95 mg/dL (60-115); Potassium 4.2 mmol/L (3.3-5.1); Sodium 140 mmol/L (135-145); Total Protein 6.7 g/dL (6.5-8.0)
[2023-07-13 17:04] LABS: Troponin-I High Sensitivity < 2.7 ng/L (<3.5-17.0)
[2023-07-13 17:05] LABS: Platelet Count 144 X10*3/uL (160-400); White Blood Count 6.7 X10*3/uL (4.8-10.8)
[2023-07-13 17:06] LABS: SLIDE REVIEW VERIFIED
[2023-07-13] MEDS: OLANZapine ODT 10 MG TAB.RAPDIS 20 MG TRANSLINGU (18:07)
[2023-07-13 19:45] VITALS: BP 123/63; PULSE 71; RESP 14; TEMP 36.7; O2SAT 92
[2023-07-13 21:00] LABS: Appearance Urine Clear; Color Urine Yellow; Glucose Urine UA Negative (Negative); Leukocyte Esterase Urine Negative (Negative); Nitrite Urine Negative (Negative); Specific Gravity - Urine <= 1.005 (1.005-1.025); Urine Blood Negative (Negative); Urine Ketones Negative (Negative); Urine Protein Negative (Neg-Trace)
[2023-07-13] MEDS: Ziprasidone Mesylate 20 MG VIAL IM (21:54)
[2023-07-13 21:55] VITALS: BP 145/65; PULSE 71; RESP 18; O2SAT 100
[2023-07-14 00:44] VITALS: BP 137/83; PULSE 67; RESP 14; TEMP 36.4; O2SAT 97
[2023-07-14 01:33] VITALS: BP 142/83; PULSE 67; RESP 16; TEMP 36.4; O2SAT 96
== END 2023-07-14 02:07 | disposition home or self-care (01) ==
PROVIDERS: Physician Assistant; Emergency Provider Emergency Medicine; PCP Internal Medicine
DX: S06.0X0A Concussion without loss of consciousness, initial encounter (principal); F03.90 Unspecified dementia, unspecified severity, without behavioral disturbance, psychotic disturbance, mood disturbance, and anxiety; U07.1 COVID-19; R51.9 Headache, unspecified; M54.2 Cervicalgia; R94.31 Abnormal electrocardiogram [ECG] [EKG]; R07.81 Pleurodynia; W01.0XXA Fall on same level from slipping, tripping and stumbling without subsequent striking against object, initial encounter; Y93.9 Activity, unspecified; Y92.9 Unspecified place or not applicable; Y99.8 Other external cause status; Z79.899 Other long term (current) drug therapy
CPT/HCPCS: 70450; 71045; 72125; 80053; 81003; 83735; 84484; 85025; 87635; 93005; 96372; 99284; J3486

== ENCOUNTER 2023-08-01 14:55 | Inpatient (IN) | payer OTHER, SELFPAY ==
--- NOTE | ~2023-08-01 | XR_ITS ---
EXAMINATION: XR CHEST CLINICAL INFORMATION: Shortness of breath. COMPARISON: Chest radiograph dated 07/13/2023. TECHNIQUE: Frontal view of the chest was obtained. FINDINGS: The trachea is in normal anatomic position. Heart size is normal for this projection. There is no consolidation. No pleural effusion or pneumothorax. No acute osseous abnormality. XR/XR chest 1V IMPRESSION: No acute cardiopulmonary disease. Stable exam.
[2023-08-01 15:34] VITALS: BP 133/77; BP 142/74; PULSE 72; PULSE 92; RESP 20; O2SAT 97; O2SAT 99; BMI 30.7
--- NOTE | 2023-08-01 16:01 | ED_ITS ---
HPI - Altered Mental Status General Chief Complaint: Altered Mental Status Stated Complaint: AGE UNK,AMS,DR SENDING FOR IV ANTIBITOICS PER EMS Time Seen by Provider: 08/01/23 15:17 History of Present Illness HPI narrative: Patient is 73 years old with a history of dementia baseline oriented to self only presented today with having increased agitation weakness. Patient has been diagnosed with a urinary tract infection 3 days ago. Started on antibiotics this twice a day. Patient took 2-1/2 days with of the medication. Continue to have change in mental status more agitated. Not quite right. Sent in by family and primary for further evaluation. Subjective fever at home. Related Data Home Medications Medication Instructions Recorded Confirmed melatonin 5 mg tablet 5 mg PO BEDTIME PRN 12/27/22 07/05/23 quetiapine 25 mg tablet 50 mg PO BEDTIME 12/27/22 07/05/23 Previous Rx's Medication Instructions Recorded atorvastatin 40 mg tablet 40 mg PO DAILY 90 days #90 tabs 04/23/23 cholecalciferol (vitamin D3) 25 25 mcg PO DAILY 90 days #90 caps 05/04/23 mcg (1,000 unit) capsule sertraline 25 mg tablet 25 mg PO DAILY 90 days #90 tabs 05/04/23 underpads (Bed Underpads) #100 ea 05/04/23 ramipril 5 mg capsule 5 mg PO BID 90 days #180 caps 05/22/23 memantine 10 mg tablet 10 mg PO DAILY 90 days #90 tabs 07/04/23 guaifenesin 600 mg tablet, 600 mg PO BID 5 days #10 tabs 07/05/23 extended release 12 hr (Mucinex) adult diapers pull-ups #240 ea 07/19/23 donepezil 10 mg tablet 10 mg PO BEDTIME 90 days #90 tabs 07/19/23 underpads (Bed Underpads) #150 ea 07/19/23 wipes #240 ea 07/19/23 Allergies Allergy/AdvReac Type Severity Reaction Status Date / Time No Known Allergies Allergy Verified 07/05/23 08:57 Review of Systems 2 Review of Systems: Unable to obtain full review of systems secondary to patient's mental status Yes Unobtainable due to mental status PMFSH Past Medical History Attestation statement: The following information was validated with the patient. Medical History Cataract Surgical History History of appendectomy History of bunionectomy Family History Family History Mother No problems noted. Father No problems noted. Social History Social History Housing: Apartment Alcohol intake: never Patient Tobacco Use Status: Never used Tobacco e-Cigarette/Vaping Use: Never Used Second Hand Smoke Exposure: No Advance Directives: No Advance Directives Information Provided: No service: No Current occupational status: unemployed Cognitive needs: No Hearing needs: No Vision needs: No Physical Exam ED Vital Signs: Vital Signs - 24 hr 08/01/23 15:34 08/01/23 19:31 Temperature 97.3 F Pulse Rate 92 83 Respiratory Rate 20 16 Blood Pressure 133/77 157/70 H Pulse Oximetry 97 98 Oxygen Delivery Method Room Air Room Air BMI result Body Mass Index 30.7 Appearance: Alert. Oriented x1 No acute distress. Eyes: Pupils equal, round and reactive to light. ENT: Pharynx normal. Neck: Normal inspection. Neck supple. No lymph nodes noted. No crepitus CVS: Normal heart rate and rhythm. Pulses normal. Normal S1 and S2 Respiratory: No respiratory distress. Breath sounds normal. No Wheezing. No rales Abdomen: Soft and nontender. No rigidity. No distention. good BS x4 Skin: Skin warm and dry. Normal skin color. Normal skin turgor. Extremities: No lower extremity edema. Neurovascular intact to all extremities. No Lacerations. No Rash Neuro: Oriented X 1. No motor deficit. No sensory deficit. Moving all extermities. No slurred speech Medications Administered Generic Name Dose Route Start Last Admin Trade Name Freq PRN Reason Stop Dose Admin Enoxaparin Sodium 40 mg 08/01/23 20:00 08/01/23 19:45 Enoxaparin Sodium 40 Mg/0.4 Ml Syringe SUBCUT 40 mg Q24H TITI Administration Discontinued Medications Generic Name Dose Route Start Last Admin Trade Name Freq PRN Reason Stop Dose Admin Sodium Chloride 1,000 mls @ 999 mls/hr 08/01/23 16:00 08/01/23 19:45 Ns IV 08/01/23 17:00 999 mls/hr .Q1H1M TITI Administration Ceftriaxone Sodium 1 gm/ 50 mls @ 100 mls/hr 08/01/23 17:40 08/01/23 19:45 Sodium Chloride IV 08/01/23 18:09 100 mls/hr ONCE ONE Administration Medical Decision Making Medical Decision Making [facility] Narrative: Patient's urine showed a possible infection. Likely partially treated. Patient is agitated. Positive change in mental status. Likely caused by the UTI. Cultures obtained. Patient's lactate is normal. Not consistent with severe sepsis. Antibiotic was started. Patient to be admitted. Cultures obtained. Case consulted by the hospitalist team. Differential Diagnosis Differential Diagnoses: The differential diagnosis associated with the presentation includes Electrolyte disturbance, COVID, UTI Admission/Observation Consideration of admission/observation: Escalation of care including admission/observation considered Will admit for further evaluation Consult Healthcare Provider Management of the patient was discussed with: Hospitalist Lab Data [facility] Lab Attestation statement: I reviewed the patient's lab results. 08/01/23 17:04 08/01/23 17:04 Labs: Lab Results 08/01/23 08/01/23 08/01/23 Range/Units 16:06 16:06 16:06 WBC (4.8-10.8) X10*3/uL RBC (4.20-5.50) X10*6/uL Hgb (12.0-16.0) g/dl Hct (37.0-47.0) % MCV (80.0-98.0) fL MCH (27.0-33.0) pg MCHC (31.0-35.0) g/dl RDW (11.0-16.0) % Plt Count (160-400) X10*3/uL MPV (9.4-12.3) fL Immature Gran % (Auto) (0.0-0.4) % Neut % (Auto) (45-73) % Lymph % (Auto) (20-40) % Marion % (Auto) (2-11) % Eos % (Auto) (0-4) % Baso % (Auto) (0-2) % Lymph # (Auto) (1.2-4.9) X10*3/uL Marion # (Auto) (0.1-1.2) X10*3/uL Eos # (Auto) (0.0-0.4) X10*3/uL Baso # (Auto) (0.0-0.2) X10*3/uL Abs Immat Gran (auto) (0.00-0.03) X10*3/uL Absolute Neuts (auto) (2.0-8.3) x10*3/uL Absolute Nucleated RBC (0.0-0.012) X10*3/uL Nucleated RBC % (auto) (0.0-0.2) /100WBC Sodium (135-145) mmol/L Potassium (3.3-5.1) mmol/L Chloride (96-108) mmol/L Carbon Dioxide (22-29) mmol/L Anion Gap (12-20) BUN (9-16) mg/dL Creatinine (0.5-1.4) mg/dL Estim Creat Clear Calc Estimated GFR Random Glucose (60-115) mg/dL Lactic Acid (0.5-2.0) mmol/L Calcium (8.4-10.2) mg/dL Total Bilirubin (0.0-1.0) mg/dL Direct Bilirubin (0.0-0.5) mg/dL AST (5-31) U/L ALT (0-31) U/L Alkaline Phosphatase (39-117) U/L Total Protein (6.5-8.0) g/dL Albumin (3.5-5.0) g/dL Urine Color Yellow Cancelled Urine Appearance Clear Cancelled Urine pH 7.0 (5.0-9.0) Ur Specific [place] (1.005-1.025) Urine Protein (Neg-Trace) mg/dL Urine Glucose (UA) (Negative) mg/dL Urine Ketones (Negative) mg/dL Urine Blood (Negative) Urine Nitrite (Negative) Ur Leukocyte Esterase (Negative) Urine RBC (0-2) /HPF Urine WBC (0-5) /HPF Urine WBC Clumps Ur Squamous Epith Cells (0-2) /HPF Ur Transition Epith Cell Ur Renal Epithelial Cell Calcium Oxalate Crystal Leucine Crystals Cystine Crystals Tyrosine Crystals Other Crystals Urine Bacteria (None Seen) Urine Parasites Bilirubin Casts Epithelial Casts Fatty Casts Hyaline Casts (0-2) /LPF Granular Casts Waxy Casts Broad Casts RBC Casts WBC Casts Other Casts Urine Trichomonas Urine Yeast Influenza Type A (PCR) (Negative) Influenza Type B (PCR) (Negative) RSV RNA Qual (PCR) (Negative) SARS-CoV-2 RNA (RT-PCR) (Negative) 08/01/23 08/01/23 08/01/23 Range/Units 16:06 16:06 16:06 WBC (4.8-10.8) X10*3/uL RBC (4.20-5.50) X10*6/uL Hgb (12.0-16.0) g/dl Hct (37.0-47.0) % MCV (80.0-98.0) fL MCH (27.0-33.0) pg MCHC (31.0-35.0) g/dl RDW (11.0-16.0) % Plt Count (160-400) X10*3/uL MPV (9.4-12.3) fL Immature Gran % (Auto) (0.0-0.4) % Neut % (Auto) (45-73) % Lymph % (Auto) (20-40) % Marion % (Auto) (2-11) % Eos % (Auto) (0-4) % Baso % (Auto) (0-2) % Lymph # (Auto) (1.2-4.9) X10*3/uL Marion # (Auto) (0.1-1.2) X10*3/uL Eos # (Auto) (0.0-0.4) X10*3/uL Baso # (Auto) (0.0-0.2) X10*3/uL Abs Immat Gran (auto) (0.00-0.03) X10*3/uL Absolute Neuts (auto) (2.0-8.3) x10*3/uL Absolute Nucleated RBC (0.0-0.012) X10*3/uL Nucleated RBC % (auto) (0.0-0.2) /100WBC Sodium (135-145) mmol/L Potassium (3.3-5.1) mmol/L Chloride (96-108) mmol/L Carbon Dioxide (22-29) mmol/L Anion Gap (12-20) BUN (9-16) mg/dL Creatinine (0.5-1.4) mg/dL Estim Creat Clear Calc Estimated GFR Random Glucose (60-115) mg/dL Lactic Acid (0.5-2.0) mmol/L Calcium (8.4-10.2) mg/dL Total Bilirubin (0.0-1.0) mg/dL Direct Bilirubin (0.0-0.5) mg/dL AST (5-31) U/L ALT (0-31) U/L Alkaline Phosphatase (39-117) U/L Total Protein (6.5-8.0) g/dL Albumin (3.5-5.0) g/dL Urine Color Urine Appearance Urine pH Cancelled (5.0-9.0) Ur Specific [place] 1.020 Cancelled (1.005-1.025) Urine Protein Negative Cancelled (Neg-Trace) mg/dL Urine Glucose (UA) Negative (Negative) mg/dL Urine Ketones (Negative) mg/dL Urine Blood (Negative) Urine Nitrite (Negative) Ur Leukocyte Esterase (Negative) Urine RBC (0-2) /HPF Urine WBC (0-5) /HPF Urine WBC Clumps Ur Squamous Epith Cells (0-2) /HPF Ur Transition Epith Cell Ur Renal Epithelial Cell Calcium Oxalate Crystal Leucine Crystals Cystine Crystals Tyrosine Crystals Other Crystals Urine Bacteria (None Seen) Urine Parasites Bilirubin Casts Epithelial Casts Fatty Casts Hyaline Casts (0-2) /LPF Granular Casts Waxy Casts Broad Casts RBC Casts WBC Casts Other Casts Urine Trichomonas Urine Yeast Influenza Type A (PCR) (Negative) Influenza Type B (PCR) (Negative) RSV RNA Qual (PCR) (Negative) SARS-CoV-2 RNA (RT-PCR) (Negative) 08/01/23 08/01/23 08/01/23 Range/Units 16:06 16:06 16:06 WBC (4.8-10.8) X10*3/uL RBC (4.20-5.50) X10*6/uL Hgb (12.0-16.0) g/dl Hct (37.0-47.0) % MCV (80.0-98.0) fL MCH (27.0-33.0) pg MCHC (31.0-35.0) g/dl RDW (11.0-16.0) % Plt Count (160-400) X10*3/uL MPV (9.4-12.3) fL Immature Gran % (Auto) (0.0-0.4) % Neut % (Auto) (45-73) % Lymph % (Auto) (20-40) % Marion % (Auto) (2-11) % Eos % (Auto) (0-4) % Baso % (Auto) (0-2) % Lymph # (Auto) (1.2-4.9) X10*3/uL Marion # (Auto) (0.1-1.2) X10*3/uL Eos # (Auto) (0.0-0.4) X10*3/uL Baso # (Auto) (0.0-0.2) X10*3/uL Abs Immat Gran (auto) (0.00-0.03) X10*3/uL Absolute Neuts (auto) (2.0-8.3) x10*3/uL Absolute Nucleated RBC (0.0-0.012) X10*3/uL Nucleated RBC % (auto) (0.0-0.2) /100WBC Sodium (135-145) mmol/L Potassium (3.3-5.1) mmol/L Chloride (96-108) mmol/L Carbon Dioxide (22-29) mmol/L Anion Gap (12-20) BUN (9-16) mg/dL Creatinine (0.5-1.4) mg/dL Estim Creat Clear Calc Estimated GFR Random Glucose (60-115) mg/dL Lactic Acid (0.5-2.0) mmol/L Calcium (8.4-10.2) mg/dL Total Bilirubin (0.0-1.0) mg/dL Direct Bilirubin (0.0-0.5) mg/dL AST (5-31) U/L ALT (0-31) U/L Alkaline Phosphatase (39-117) U/L Total Protein (6.5-8.0) g/dL Albumin (3.5-5.0) g/dL Urine Color Urine Appearance Urine pH (5.0-9.0) Ur Specific [place] (1.005-1.025) Urine Protein (Neg-Trace) mg/dL Urine Glucose (UA) Cancelled (Negative) mg/dL Urine Ketones Negative Cancelled (Negative) mg/dL Urine Blood Trace H Cancelled (Negative) Urine Nitrite Negative (Negative) Ur Leukocyte Esterase (Negative) Urine RBC (0-2) /HPF Urine WBC (0-5) /HPF Urine WBC Clumps Ur Squamous Epith Cells (0-2) /HPF Ur Transition Epith Cell Ur Renal Epithelial Cell Calcium Oxalate Crystal Leucine Crystals Cystine Crystals Tyrosine Crystals Other Crystals Urine Bacteria (None Seen) Urine Parasites Bilirubin Casts Epithelial Casts Fatty Casts Hyaline Casts (0-2) /LPF Granular Casts Waxy Casts Broad Casts RBC Casts WBC Casts Other Casts Urine Trichomonas Urine Yeast Influenza Type A (PCR) (Negative) Influenza Type B (PCR) (Negative) RSV RNA Qual (PCR) (Negative) SARS-CoV-2 RNA (RT-PCR) (Negative) 08/01/23 08/01/23 08/01/23 Range/Units 16:06 16:06 16:06 WBC (4.8-10.8) X10*3/uL RBC (4.20-5.50) X10*6/uL Hgb (12.0-16.0) g/dl Hct (37.0-47.0) % MCV (80.0-98.0) fL MCH (27.0-33.0) pg MCHC (31.0-35.0) g/dl RDW (11.0-16.0) % Plt Count (160-400) X10*3/uL MPV (9.4-12.3) fL Immature Gran % (Auto) (0.0-0.4) % Neut % (Auto) (45-73) % Lymph % (Auto) (20-40) % Marion % (Auto) (2-11) % Eos % (Auto) (0-4) % Baso % (Auto) (0-2) % Lymph # (Auto) (1.2-4.9) X10*3/uL Marion # (Auto) (0.1-1.2) X10*3/uL Eos # (Auto) (0.0-0.4) X10*3/uL Baso # (Auto) (0.0-0.2) X10*3/uL Abs Immat Gran (auto) (0.00-0.03) X10*3/uL Absolute Neuts (auto) (2.0-8.3) x10*3/uL Absolute Nucleated RBC (0.0-0.012) X10*3/uL Nucleated RBC % (auto) (0.0-0.2) /100WBC Sodium (135-145) mmol/L Potassium (3.3-5.1) mmol/L Chloride (96-108) mmol/L Carbon Dioxide (22-29) mmol/L Anion Gap (12-20) BUN (9-16) mg/dL Creatinine (0.5-1.4) mg/dL Estim Creat Clear Calc Estimated GFR Random Glucose (60-115) mg/dL Lactic Acid (0.5-2.0) mmol/L Calcium (8.4-10.2) mg/dL Total Bilirubin (0.0-1.0) mg/dL Direct Bilirubin (0.0-0.5) mg/dL AST (5-31) U/L ALT (0-31) U/L Alkaline Phosphatase (39-117) U/L Total Protein (6.5-8.0) g/dL Albumin (3.5-5.0) g/dL Urine Color Urine Appearance Urine pH (5.0-9.0) Ur Specific [place] (1.005-1.025) Urine Protein (Neg-Trace) mg/dL Urine Glucose (UA) (Negative) mg/dL Urine Ketones (Negative) mg/dL Urine Blood (Negative) Urine Nitrite Cancelled (Negative) Ur Leukocyte Esterase Moderate (2+) H Cancelled (Negative) Urine RBC 6-10 H Cancelled (0-2) /HPF Urine WBC 21-50 H (0-5) /HPF Urine WBC Clumps Ur Squamous Epith Cells (0-2) /HPF Ur Transition Epith Cell Ur Renal Epithelial Cell Calcium Oxalate Crystal Leucine Crystals Cystine Crystals Tyrosine Crystals Other Crystals Urine Bacteria (None Seen) Urine Parasites Bilirubin Casts Epithelial Casts Fatty Casts Hyaline Casts (0-2) /LPF Granular Casts Waxy Casts Broad Casts RBC Casts WBC Casts Other Casts Urine Trichomonas Urine Yeast Influenza Type A (PCR) (Negative) Influenza Type B (PCR) (Negative) RSV RNA Qual (PCR) (Negative) SARS-CoV-2 RNA (RT-PCR) (Negative) 08/01/23 08/01/23 08/01/23 Range/Units 16:06 16:06 16:06 WBC (4.8-10.8) X10*3/uL RBC (4.20-5.50) X10*6/uL Hgb (12.0-16.0) g/dl Hct (37.0-47.0) % MCV (80.0-98.0) fL MCH (27.0-33.0) pg MCHC (31.0-35.0) g/dl RDW (11.0-16.0) % Plt Count (160-400) X10*3/uL MPV (9.4-12.3) fL Immature Gran % (Auto) (0.0-0.4) % Neut % (Auto) (45-73) % Lymph % (Auto) (20-40) % Marion % (Auto) (2-11) % Eos % (Auto) (0-4) % Baso % (Auto) (0-2) % Lymph # (Auto) (1.2-4.9) X10*3/uL Marion # (Auto) (0.1-1.2) X10*3/uL Eos # (Auto) (0.0-0.4) X10*3/uL Baso # (Auto) (0.0-0.2) X10*3/uL Abs Immat Gran (auto) (0.00-0.03) X10*3/uL Absolute Neuts (auto) (2.0-8.3) x10*3/uL Absolute Nucleated RBC (0.0-0.012) X10*3/uL Nucleated RBC % (auto) (0.0-0.2) /100WBC Sodium (135-145) mmol/L Potassium (3.3-5.1) mmol/L Chloride (96-108) mmol/L Carbon Dioxide (22-29) mmol/L Anion Gap (12-20) BUN (9-16) mg/dL Creatinine (0.5-1.4) mg/dL Estim Creat Clear Calc Estimated GFR Random Glucose (60-115) mg/dL Lactic Acid (0.5-2.0) mmol/L Calcium (8.4-10.2) mg/dL Total Bilirubin (0.0-1.0) mg/dL Direct Bilirubin (0.0-0.5) mg/dL AST (5-31) U/L ALT (0-31) U/L Alkaline Phosphatase (39-117) U/L Total Protein (6.5-8.0) g/dL Albumin (3.5-5.0) g/dL Urine Color Urine Appearance Urine pH (5.0-9.0) Ur Specific [place] (1.005-1.025) Urine Protein (Neg-Trace) mg/dL Urine Glucose (UA) (Negative) mg/dL Urine Ketones (Negative) mg/dL Urine Blood (Negative) Urine Nitrite (Negative) Ur Leukocyte Esterase (Negative) Urine RBC (0-2) /HPF Urine WBC Cancelled (0-5) /HPF Urine WBC Clumps Cancelled Ur Squamous Epith Cells 6-10 Cancelled (0-2) /HPF Ur Transition Epith Cell Cancelled Ur Renal Epithelial Cell Cancelled Calcium Oxalate Crystal Cancelled Leucine Crystals Cancelled Cystine Crystals Cancelled Tyrosine Crystals Cancelled Other Crystals Cancelled Urine Bacteria None Seen Cancelled (None Seen) Urine Parasites Cancelled Bilirubin Casts Cancelled Epithelial Casts Cancelled Fatty Casts Cancelled Hyaline Casts 0-2 (0-2) /LPF Granular Casts Waxy Casts Broad Casts RBC Casts WBC Casts Other Casts Urine Trichomonas Urine Yeast Influenza Type A (PCR) (Negative) Influenza Type B (PCR) (Negative) RSV RNA Qual (PCR) (Negative) SARS-CoV-2 RNA (RT-PCR) (Negative) 08/01/23 08/01/23 Range/Units 16:06 17:04 WBC 8.5 (4.8-10.8) X10*3/uL RBC 3.73 L (4.20-5.50) X10*6/uL Hgb 11.1 L (12.0-16.0) g/dl Hct 34.7 L (37.0-47.0) % MCV 93.0 (80.0-98.0) fL MCH 29.8 (27.0-33.0) pg MCHC 32.0 (31.0-35.0) g/dl RDW 13.3 (11.0-16.0) % Plt Count 155 L (160-400) X10*3/uL MPV 13.8 H (9.4-12.3) fL Immature Gran % (Auto) 0.2 (0.0-0.4) % Neut % (Auto) 60.8 (45-73) % Lymph % (Auto) 29.9 (20-40) % Marion % (Auto) 7.6 (2-11) % Eos % (Auto) 0.9 (0-4) % Baso % (Auto) 0.6 (0-2) % Lymph # (Auto) 2.5 (1.2-4.9) X10*3/uL Marion # (Auto) 0.7 (0.1-1.2) X10*3/uL Eos # (Auto) 0.1 (0.0-0.4) X10*3/uL Baso # (Auto) 0.1 (0.0-0.2) X10*3/uL Abs Immat Gran (auto) 0.02 (0.00-0.03) X10*3/uL Absolute Neuts (auto) 5.2 (2.0-8.3) x10*3/uL Absolute Nucleated RBC 0.000 (0.0-0.012) X10*3/uL Nucleated RBC % (auto) 0.0 (0.0-0.2) /100WBC Sodium 143 (135-145) mmol/L Potassium 4.1 (3.3-5.1) mmol/L Chloride 111 H (96-108) mmol/L Carbon Dioxide 22 (22-29) mmol/L Anion Gap 14 (12-20) BUN 14 (9-16) mg/dL Creatinine 0.71 (0.5-1.4) mg/dL Estim Creat Clear Calc 67.9 Estimated GFR > 60 Random Glucose 99 (60-115) mg/dL Lactic Acid 0.8 (0.5-2.0) mmol/L Calcium 9.5 (8.4-10.2) mg/dL Total Bilirubin 0.4 (0.0-1.0) mg/dL Direct Bilirubin 0.2 (0.0-0.5) mg/dL AST 31 (5-31) U/L ALT 30 (0-31) U/L Alkaline Phosphatase 94 (39-117) U/L Total Protein 7.3 (6.5-8.0) g/dL Albumin 4.0 (3.5-5.0) g/dL Urine Color Urine Appearance Urine pH (5.0-9.0) Ur Specific [place] (1.005-1.025) Urine Protein (Neg-Trace) mg/dL Urine Glucose (UA) (Negative) mg/dL Urine Ketones (Negative) mg/dL Urine Blood (Negative) Urine Nitrite (Negative) Ur Leukocyte Esterase (Negative) Urine RBC (0-2) /HPF Urine WBC (0-5) /HPF Urine WBC Clumps Ur Squamous Epith Cells (0-2) /HPF Ur Transition Epith Cell Ur Renal Epithelial Cell Calcium Oxalate Crystal Leucine Crystals Cystine Crystals Tyrosine Crystals Other Crystals Urine Bacteria (None Seen) Urine Parasites Bilirubin Casts Epithelial Casts Fatty Casts Hyaline Casts Cancelled (0-2) /LPF Granular Casts Cancelled Waxy Casts Cancelled Broad Casts Cancelled RBC Casts Cancelled WBC Casts Cancelled Other Casts Cancelled Urine Trichomonas Cancelled Urine Yeast Cancelled Influenza Type A (PCR) NEGATIVE (Negative) Influenza Type B (PCR) NEGATIVE (Negative) RSV RNA Qual (PCR) NEGATIVE (Negative) SARS-CoV-2 RNA (RT-PCR) NEGATIVE (Negative) Independent Interpretation I performed an independent interpretation of an: Plain X-Ray (Grossly negative no pneumonia) Radiology Impression Discussion of test interpretation with radiology: I have reviewed the radiologist's reading. (Of the chest x-ray) Independent Historian Clinical information obtained from an independent historian. History obtained from or confirmed by: Spouse Chronic Conditions Dementia Social Determinants Patient?s care significantly limited by Social Determinants of Health including: Low income Discharge Plan Discharge Clinical Impression: Urinary tract infection Patient Disposition: Admitted As Inpatient Prescriptions: No Action atorvastatin 40 mg tablet 40 mg PO DAILY 90 Days Qty: 90 1RF ramipril 5 mg capsule 5 mg PO BID 90 Days Qty: 180 3RF memantine 10 mg tablet 10 mg PO DAILY 90 Days Qty: 90 3RF donepezil 10 mg tablet 10 mg PO BEDTIME 90 Days Qty: 90 1RF (DME) adult diapers pull-ups medium See Rx Instructions .Route .MEDSUPPLY Qty: 240 11RF Rx Instructions: As directed (DME) underpads [Bed Underpads] Pad See Rx Instructions .Route Qty: 150 0RF Rx Instructions: As directed (DME) wipes See Rx Instructions .Route .MEDSUPPLY Qty: 240 11RF Rx Instructions: As directed cholecalciferol (vitamin D3) 25 mcg (1,000 unit) capsule 25 mcg PO DAILY 90 Days Qty: 90 1RF (DME) underpads [Bed Underpads] Pad See Rx Instructions .Route Qty: 100 6RF Rx Instructions: As directed sertraline 25 mg tablet 25 mg PO DAILY 90 Days Qty: 90 1RF guaifenesin [Mucinex] 600 mg tablet extended release 12hr 600 mg PO BID 5 Days Qty: 10 0RF quetiapine 25 mg tablet 50 mg PO BEDTIME melatonin 5 mg tablet 5 mg PO BEDTIME PRN
[2023-08-01 16:15] LABS: Appearance Urine Clear; Color Urine Yellow; Glucose Urine UA Negative (Negative); Leukocyte Esterase Urine Moderate (2+) (Negative); Nitrite Urine Negative (Negative); UMIC TRIGGER UACC YES; Urine Blood Trace (Negative); Urine Ketones Negative (Negative); Urine Protein Negative (Neg-Trace)
[2023-08-01 16:20] LABS: Bacteria Urine None Seen (None Seen); Hyaline Casts Urine 0-2 /LPF (0-2); UACC Culture Trigger YES; WBC Urine 21-50 /HPF (0-5)
--- NOTE | 2023-08-01 16:26 | MHC.EDTECH ---
unable to obtain EKG due to patients movement, frustration, and aggression.
[2023-08-01 17:11] LABS: MANUAL DIFF FLAG NO
[2023-08-01 17:22] LABS: Basophils Absolute Auto 0.1 X10*3/uL (0.0-0.2); Basophils Percent Auto 0.6 % (0-2); Eosinophils Absolute Auto 0.1 X10*3/uL (0.0-0.4); Eosinophils Percent Auto 0.9 % (0-4); Hematocrit 34.7 % (37.0-47.0); Hemoglobin 11.1 g/dl (12.0-16.0); Imm Gran Abs Auto 0.02 X10*3/uL (0.00-0.03); Imm Gran Pct Auto 0.2 % (0.0-0.4); Lymphocytes Absolute Auto 2.5 X10*3/uL (1.2-4.9); Lymphocytes Percent Auto 29.9 % (20-40); Mean Corpuscular Hemoglobin 29.8 pg (27.0-33.0); Mean Platelet Volume 13.8 fL (9.4-12.3); Monocytes Absolute Auto 0.7 X10*3/uL (0.1-1.2); Monocytes Percent Auto 7.6 % (2-11); Neutrophils Absolute Auto 5.2 x10*3/uL (2.0-8.3); Neutrophils Percent Auto 60.8 % (45-73); Platelet Count 155 X10*3/uL (160-400); Red Blood Count 3.73 X10*6/uL (4.20-5.50); Red Cell Distribution Width 13.3 % (11.0-16.0); White Blood Count 8.5 X10*3/uL (4.8-10.8)
[2023-08-01 17:24] LABS: Lactic Acid 0.8 mmol/L (0.5-2.0)
[2023-08-01 17:28] LABS: Alanine Aminotransferase 30 U/L (0-31); Alkaline Phosphatase 94 U/L (39-117); Anion Gap 14 (12-20); Aspartate Amino Transferase 31 U/L (5-31); Bilirubin Direct 0.2 mg/dL (0.0-0.5); Bilirubin Total 0.4 mg/dL (0.0-1.0); Blood Urea Nitrogen 14 mg/dL (9-16); Calcium 9.5 mg/dL (8.4-10.2); Carbon Dioxide 22 mmol/L (22-29); Chloride 111 mmol/L (96-108); Creatinine Clr Calc Pharmacy 67.9; Estimated Glomerular Filt Rate > 60; Glucose Random 99 mg/dL (60-115); Potassium 4.1 mmol/L (3.3-5.1); Sodium 143 mmol/L (135-145); Total Protein 7.3 g/dL (6.5-8.0)
[2023-08-01 17:50] LABS: Influenza A PCR NEGATIVE (Negative); Influenza B PCR NEGATIVE (Negative); Resp Syncy Virus RNA Qual PCR NEGATIVE (Negative); SARS COV2 PCR INHOUSE NEGATIVE (Negative)
--- NOTE | 2023-08-01 19:18 | P.HPHOSP_ITS ---
History of Present Illness Date of Service: 08/01/23 Chief Complaint: Altered mentation This is a 73-year-old female with pertinent history of Alzheimer's dementia with behavioral disturbance, mood disorder, mixed hyperlipidemia, essential hypertension who was brought to the emergency department for evaluation of altered mentation. History was obtained from at bedside using seismic interpreter. Unable to obtain history from the patient. As per , patient was agitated at home and hence he brought her to the ER. He states that she usually gets agitated when she has a UTI. Patient does have history of recurrent UTIs as he states that she wipes from back to front. At baseline, patient is only oriented to self and person, disoriented to time and place. She needs assistance with all activities of daily living. No fever, nausea, vomiting. She was recently prescribed p.o. antibiotics for UTI and took a few doses of it. Does not remember the name of antibiotic. Unable to obtain review of systems. Review of Systems 2 Review of Systems: Yes Unobtainable due to mental condition and Unobtainable due to mental status [facility] [place] Medical History Alzheimer's dementia with behavioral disturbance Pure hypercholesterolemia Essential hypertension Cataract Family History Mother No problems noted. Father No problems noted. Surgical History History of appendectomy History of bunionectomy Social History Housing: Apartment Alcohol intake: never Patient Tobacco Use Status: Never used Tobacco e-Cigarette/Vaping Use: Never Used Second Hand Smoke Exposure: No Advance Directives: No Advance Directives Information Provided: No service: No Current occupational status: unemployed Cognitive needs: No Hearing needs: No Vision needs: No Meds Allergies Allergy/AdvReac Type Severity Reaction Status Date / Time No Known Allergies Allergy Verified 07/05/23 08:57 Home Medications Medication Instructions Recorded Confirmed Last Taken Type melatonin 5 mg tablet 5 mg PO BEDTIME PRN 12/27/22 07/05/23 Unknown History quetiapine 25 mg tablet 50 mg PO BEDTIME 12/27/22 07/05/23 Unknown History Physical Exam 2 Vital Signs and Narrative: Vital Signs: Last Vital Signs Pulse 92 08/01/23 15:34 Resp 20 08/01/23 15:34 BP 133/77 08/01/23 15:34 Pulse Ox 97 08/01/23 15:34 O2 Del Method Room Air 08/01/23 15:34 BMI result Body Mass Index 30.7 Elderly female lying in bed in no distress Neck supple, no JVD Regular rate and rhythm, S1-S2 heard Regular breath sounds bilaterally, no wheezing or crackles appreciated Abdomen soft nontender, no guarding, no rigidity Patient is awake, alert and not answering questions, is agitated, not following commands, not conversational Psych: Agitated No pedal edema Results Labs 08/01/23 17:04 08/01/23 17:04 Labs: Laboratory Results - last 24 hr 08/01/23 08/01/23 08/01/23 16:06 16:06 16:06 MCV MCH MCHC RDW Plt Count MPV Immature Gran % (Auto) Neut % (Auto) Lymph % (Auto) [place] % (Auto) Eos % (Auto) Baso % (Auto) Lymph # (Auto) [place] # (Auto) Eos # (Auto) Baso # (Auto) Abs Immat Gran (auto) Absolute Neuts (auto) Absolute Nucleated RBC Nucleated RBC % (auto) Anion Gap Estim Creat Clear Calc Estimated GFR Random Glucose Lactic Acid Calcium Total Bilirubin Direct Bilirubin AST ALT Alkaline Phosphatase Total Protein Albumin Urine Color Yellow Cancelled Urine Appearance Clear Cancelled Urine pH 7.0 Ur Specific [place] Urine Protein Urine Glucose (UA) Urine Ketones Urine Blood Urine Nitrite Ur Leukocyte Esterase Urine RBC Urine WBC Urine WBC Clumps Ur Squamous Epith Cells Ur Transition Epith Cell Ur Renal Epithelial Cell Calcium Oxalate Crystal Leucine Crystals Cystine Crystals Tyrosine Crystals Other Crystals Urine Bacteria Urine Parasites Bilirubin Casts Epithelial Casts Fatty Casts Hyaline Casts Granular Casts Waxy Casts Broad Casts RBC Casts WBC Casts Other Casts Urine Trichomonas Urine Yeast Influenza Type A (PCR) Influenza Type B (PCR) RSV RNA Qual (PCR) SARS-CoV-2 RNA (RT-PCR) 08/01/23 08/01/23 08/01/23 16:06 16:06 16:06 MCV MCH MCHC RDW Plt Count MPV Immature Gran % (Auto) Neut % (Auto) Lymph % (Auto) [place] % (Auto) Eos % (Auto) Baso % (Auto) Lymph # (Auto) [place] # (Auto) Eos # (Auto) Baso # (Auto) Abs Immat Gran (auto) Absolute Neuts (auto) Absolute Nucleated RBC Nucleated RBC % (auto) Anion Gap Estim Creat Clear Calc Estimated GFR Random Glucose Lactic Acid Calcium Total Bilirubin Direct Bilirubin AST ALT Alkaline Phosphatase Total Protein Albumin Urine Color Urine Appearance Urine pH Cancelled Ur Specific [place] 1.020 Cancelled Urine Protein Negative Cancelled Urine Glucose (UA) Negative Urine Ketones Urine Blood Urine Nitrite Ur Leukocyte Esterase Urine RBC Urine WBC Urine WBC Clumps Ur Squamous Epith Cells Ur Transition Epith Cell Ur Renal Epithelial Cell Calcium Oxalate Crystal Leucine Crystals Cystine Crystals Tyrosine Crystals Other Crystals Urine Bacteria Urine Parasites Bilirubin Casts Epithelial Casts Fatty Casts Hyaline Casts Granular Casts Waxy Casts Broad Casts RBC Casts WBC Casts Other Casts Urine Trichomonas Urine Yeast Influenza Type A (PCR) Influenza Type B (PCR) RSV RNA Qual (PCR) SARS-CoV-2 RNA (RT-PCR) 08/01/23 08/01/23 08/01/23 16:06 16:06 16:06 MCV MCH MCHC RDW Plt Count MPV Immature Gran % (Auto) Neut % (Auto) Lymph % (Auto) [place] % (Auto) Eos % (Auto) Baso % (Auto) Lymph # (Auto) [place] # (Auto) Eos # (Auto) Baso # (Auto) Abs Immat Gran (auto) Absolute Neuts (auto) Absolute Nucleated RBC Nucleated RBC % (auto) Anion Gap Estim Creat Clear Calc Estimated GFR Random Glucose Lactic Acid Calcium Total Bilirubin Direct Bilirubin AST ALT Alkaline Phosphatase Total Protein Albumin Urine Color Urine Appearance Urine pH Ur Specific [place] Urine Protein Urine Glucose (UA) Cancelled Urine Ketones Negative Cancelled Urine Blood Trace H Cancelled Urine Nitrite Negative Ur Leukocyte Esterase Urine RBC Urine WBC Urine WBC Clumps Ur Squamous Epith Cells Ur Transition Epith Cell Ur Renal Epithelial Cell Calcium Oxalate Crystal Leucine Crystals Cystine Crystals Tyrosine Crystals Other Crystals Urine Bacteria Urine Parasites Bilirubin Casts Epithelial Casts Fatty Casts Hyaline Casts Granular Casts Waxy Casts Broad Casts RBC Casts WBC Casts Other Casts Urine Trichomonas Urine Yeast Influenza Type A (PCR) Influenza Type B (PCR) RSV RNA Qual (PCR) SARS-CoV-2 RNA (RT-PCR) 08/01/23 08/01/23 08/01/23 16:06 16:06 16:06 MCV MCH MCHC RDW Plt Count MPV Immature Gran % (Auto) Neut % (Auto) Lymph % (Auto) [place] % (Auto) Eos % (Auto) Baso % (Auto) Lymph # (Auto) [place] # (Auto) Eos # (Auto) Baso # (Auto) Abs Immat Gran (auto) Absolute Neuts (auto) Absolute Nucleated RBC Nucleated RBC % (auto) Anion Gap Estim Creat Clear Calc Estimated GFR Random Glucose Lactic Acid Calcium Total Bilirubin Direct Bilirubin AST ALT Alkaline Phosphatase Total Protein Albumin Urine Color Urine Appearance Urine pH Ur Specific [place] Urine Protein Urine Glucose (UA) Urine Ketones Urine Blood Urine Nitrite Cancelled Ur Leukocyte Esterase Moderate (2+) H Cancelled Urine RBC 6-10 H Cancelled Urine WBC 21-50 H Urine WBC Clumps Ur Squamous Epith Cells Ur Transition Epith Cell Ur Renal Epithelial Cell Calcium Oxalate Crystal Leucine Crystals Cystine Crystals Tyrosine Crystals Other Crystals Urine Bacteria Urine Parasites Bilirubin Casts Epithelial Casts Fatty Casts Hyaline Casts Granular Casts Waxy Casts Broad Casts RBC Casts WBC Casts Other Casts Urine Trichomonas Urine Yeast Influenza Type A (PCR) Influenza Type B (PCR) RSV RNA Qual (PCR) SARS-CoV-2 RNA (RT-PCR) 08/01/23 08/01/23 08/01/23 16:06 16:06 16:06 MCV MCH MCHC RDW Plt Count MPV Immature Gran % (Auto) Neut % (Auto) Lymph % (Auto) [place] % (Auto) Eos % (Auto) Baso % (Auto) Lymph # (Auto) [place] # (Auto) Eos # (Auto) Baso # (Auto) Abs Immat Gran (auto) Absolute Neuts (auto) Absolute Nucleated RBC Nucleated RBC % (auto) Anion Gap Estim Creat Clear Calc Estimated GFR Random Glucose Lactic Acid Calcium Total Bilirubin Direct Bilirubin AST ALT Alkaline Phosphatase Total Protein Albumin Urine Color Urine Appearance Urine pH Ur Specific [place] Urine Protein Urine Glucose (UA) Urine Ketones Urine Blood Urine Nitrite Ur Leukocyte Esterase Urine RBC Urine WBC Cancelled Urine WBC Clumps Cancelled Ur Squamous Epith Cells 6-10 Cancelled Ur Transition Epith Cell Cancelled Ur Renal Epithelial Cell Cancelled Calcium Oxalate Crystal Cancelled Leucine Crystals Cancelled Cystine Crystals Cancelled Tyrosine Crystals Cancelled Other Crystals Cancelled Urine Bacteria None Seen Cancelled Urine Parasites Cancelled Bilirubin Casts Cancelled Epithelial Casts Cancelled Fatty Casts Cancelled Hyaline Casts 0-2 Granular Casts Waxy Casts Broad Casts RBC Casts WBC Casts Other Casts Urine Trichomonas Urine Yeast Influenza Type A (PCR) Influenza Type B (PCR) RSV RNA Qual (PCR) SARS-CoV-2 RNA (RT-PCR) 08/01/23 08/01/23 16:06 17:04 MCV 93.0 MCH 29.8 MCHC 32.0 RDW 13.3 Plt Count 155 L MPV 13.8 H Immature Gran % (Auto) 0.2 Neut % (Auto) 60.8 Lymph % (Auto) 29.9 [place] % (Auto) 7.6 Eos % (Auto) 0.9 Baso % (Auto) 0.6 Lymph # (Auto) 2.5 [place] # (Auto) 0.7 Eos # (Auto) 0.1 Baso # (Auto) 0.1 Abs Immat Gran (auto) 0.02 Absolute Neuts (auto) 5.2 Absolute Nucleated RBC 0.000 Nucleated RBC % (auto) 0.0 Anion Gap 14 Estim Creat Clear Calc 67.9 Estimated GFR > 60 Random Glucose 99 Lactic Acid 0.8 Calcium 9.5 Total Bilirubin 0.4 Direct Bilirubin 0.2 AST 31 ALT 30 Alkaline Phosphatase 94 Total Protein 7.3 Albumin 4.0 Urine Color Urine Appearance Urine pH Ur Specific [place] Urine Protein Urine Glucose (UA) Urine Ketones Urine Blood Urine Nitrite Ur Leukocyte Esterase Urine RBC Urine WBC Urine WBC Clumps Ur Squamous Epith Cells Ur Transition Epith Cell Ur Renal Epithelial Cell Calcium Oxalate Crystal Leucine Crystals Cystine Crystals Tyrosine Crystals Other Crystals Urine Bacteria Urine Parasites Bilirubin Casts Epithelial Casts Fatty Casts Hyaline Casts Cancelled Granular Casts Cancelled Waxy Casts Cancelled Broad Casts Cancelled RBC Casts Cancelled WBC Casts Cancelled Other Casts Cancelled Urine Trichomonas Cancelled Urine Yeast Cancelled Influenza Type A (PCR) NEGATIVE Influenza Type B (PCR) NEGATIVE RSV RNA Qual (PCR) NEGATIVE SARS-CoV-2 RNA (RT-PCR) NEGATIVE Assessment and Plan (1) Acute metabolic encephalopathy: Status: Acute Plan This is a 73-year-old female with pertinent history of Alzheimer's dementia with behavioral disturbance, mood disorder, mixed hyperlipidemia, essential hypertension who was brought to the emergency department for evaluation of altered mentation. #. Acute metabolic encephalopathy due to acute UTI: Noted pyuria but no bacteriuria as patient was on p.o. antibiotics. Will admit and initiate empiric IV antibiotics. Follow urine culture. No sepsis. Monitor mentation #. Alzheimer's dementia with behavioral disturbance: Maintain sleep-wake cycle and continue home medications #. Mood disorder: Continue home mood stabilizers #. Mixed hyperlipidemia: On statin Med rec pending DVT prophylaxis: Lovenox Full Code. Discussed with at bedside Admit as inpatient and will require two night minimum hospital stay for IV antibiotics, monitoring of mentation (as above), which is not possible in a lesser acute setting. Quality Stroke Does the patient have a stroke diagnosis?: No VTE Prior VTE?: No VTE Risk Level:: Medical - moderate - high VTE Device Contraindication: Treatment Not Indicated VTE Drug Contraindication: N/A - Med Ordered
[2023-08-01 19:31] VITALS: BP 157/70; PULSE 83; RESP 16; TEMP 36.3; O2SAT 98
[2023-08-01] MEDS: 0.9 % Sodium Chloride 1,000 ML 999 ML IV (19:45)
[2023-08-01] MEDS: cefTRIAXone sodium 1 GM in 0.9 % Sodium Chloride 50 ML IV ×2 (19:45→21:15)
[2023-08-01] MEDS: Enoxaparin Sodium 40 MG/0.4 ML SYRINGE SUBCUT (19:45)
[2023-08-01] MEDS: risperiDONE 1 MG TABLET PO (21:15)
[2023-08-01] MEDS: QUEtiapine Fumarate 50 MG TABLET PO (21:15)
--- NOTE | 2023-08-01 21:38 | PHA.MEDREC ---
Pharmacy Consult ? Medication Reconciliation Pharmacy has completed the medication reconciliation. Patient's spouse confirmed medications. Reports patient had a reaction to risperidone. He also reported that he only gives the quetiapine at night if she is still awake after the donepezil and melatonin. He does not recognize divaloprox. Silvia Chan, PharmD
--- NOTE | 2023-08-01 22:26 | MHC.EDTECH ---
Patient inc therefore patient changed and went to the bathroom
--- NOTE | 2023-08-01 23:31 | PC.NURSE ---
Addendum entered by Mariposa Capone RN 08/01/23 23:37: pt failed po, outpatient abx for treatment of UTI. increased confusion due to UTI, being treated with IV abx. no sepsis. Original Note: late entry: pt is bengali speaking only, coming from home for increased AMS past few days per . pt has hx of alzheimers, appears to be agitated/restless, speaking/shouting in bengali. pt is ambulatory with standby assist to bathroom. 20G IV placed to LAC. wrapped for pt safety. pt did try to pull out IV and had to be re-wrapped. pt being admitted, is NPO. awaiting bed assignment. takes po meds with water.
--- NOTE | 2023-08-02 00:23 | PC.NURSE ---
assumed care of patient at 2300. Pt resting on stretcher in 22H talking to self.
--- NOTE | 2023-08-02 01:19 | PC.NURSE ---
pt cleaned up and linens changed prior to transport up to med surg floor. transported by Ankit LEON.
[2023-08-02 01:29] VITALS: BP 114/54; PULSE 67; RESP 18; TEMP 36.3; O2SAT 96
[2023-08-02] MEDS: 0.9 % Sodium Chloride Flush 3 ML SYRINGE IVFLUSH ×4 (01:44→20:40)
[2023-08-02 07:59] VITALS: BP 147/69; PULSE 61; RESP 16; TEMP 36.3; O2SAT 99
[2023-08-02 08:34] LABS: MANUAL DIFF FLAG NO
[2023-08-02 08:50] LABS: Basophils Percent Auto 0.4 % (0-2); Eosinophils Absolute Auto 0.1 X10*3/uL (0.0-0.4); Eosinophils Percent Auto 1.9 % (0-4); Hematocrit 32.8 % (37.0-47.0); Hemoglobin 10.5 g/dl (12.0-16.0); Imm Gran Abs Auto 0.01 X10*3/uL (0.00-0.03); Imm Gran Pct Auto 0.2 % (0.0-0.4); Lymphocytes Percent Auto 38.1 % (20-40); Mean Corpuscular Hemoglobin 30.3 pg (27.0-33.0); Mean Corpuscular Volume 94.5 fL (80.0-98.0); Mean Platelet Volume 14.3 fL (9.4-12.3); Monocytes Absolute Auto 0.6 X10*3/uL (0.1-1.2); Monocytes Percent Auto 10.5 % (2-11); Neutrophils Absolute Auto 2.6 x10*3/uL (2.0-8.3); Neutrophils Percent Auto 48.9 % (45-73); Platelet Count 133 X10*3/uL (160-400); Red Blood Count 3.47 X10*6/uL (4.20-5.50); Red Cell Distribution Width 13.3 % (11.0-16.0); White Blood Count 5.3 X10*3/uL (4.8-10.8)
[2023-08-02 09:03] LABS: Anion Gap 10 (12-20); Blood Urea Nitrogen 11 mg/dL (9-16); Calcium 8.8 mg/dL (8.4-10.2); Carbon Dioxide 23 mmol/L (22-29); Chloride 113 mmol/L (96-108); Creatinine Clr Calc Pharmacy 66.9; Estimated Glomerular Filt Rate > 60; Glucose Random 107 mg/dL (60-115); Potassium 3.9 mmol/L (3.3-5.1); Sodium 142 mmol/L (135-145)
--- NOTE | 2023-08-02 10:23 | P.PNIM_ITS ---
Subjective Subjective Date of Service: 08/02/23 Review of Systems Follow up encephalopathy and UTI Baseline Alzheimer's dementia Physical Exam 2 Vital Signs: Vital Signs: Last Vital Signs Temp 97.3 F 08/02/23 07:59 Pulse 61 08/02/23 07:59 Resp 16 08/02/23 07:59 BP 147/69 H 08/02/23 07:59 Pulse Ox 99 08/02/23 07:59 O2 Del Method Room Air 08/02/23 07:59 BMI result Body Mass Index 30.7 Appearing in no acute distress, agitated at times lung sounds are clear to auscultation heart regular rate rhythm, clear S1, S2 positive bowel sounds, abdomen is soft, nontender neuro patient is alert, confused Objective Data Active Medications Acetaminophen (Acetaminophen 325 Mg Tablet) 650 mg PO Q6H PRN PRN Reason: Pain, Mild (Pain Scale 1-3) Acetaminophen (Acetaminophen Supp 650 Mg Supp.Rect) 650 mg HI Q6H PRN PRN Reason: Pain, Mild (Pain Scale 1-3) Atorvastatin Calcium (Atorvastatin Calcium 20 Mg Tablet) 20 mg PO DAILY [facility] Last Admin: 08/02/23 09:28 Dose: Not Given Documented By: JOSUÉ Non-Admin Reason: NPO Donepezil HCl (Donepezil Hcl 10 Mg Tablet) 10 mg PO BEDTIME [facility] Last Admin: 08/02/23 01:43 Dose: Not Given Documented By: SANDI Non-Admin Reason: NPO Enoxaparin Sodium (Enoxaparin Sodium 40 Mg/0.4 Ml Syringe) 40 mg SUBCUT Q24H [facility] Last Admin: 08/01/23 19:45 Dose: 40 mg Documented By: JANA Ceftriaxone Sodium 1 gm/ (Sodium Chloride) 50 mls @ 100 mls/hr IV Q24H [facility] Last Infusion: 08/01/23 21:40 Dose: Infused Documented By: JANA Lisinopril (Lisinopril 20 Mg Tablet) 20 mg PO BID@0900,1600 [facility] Last Admin: 08/02/23 09:28 Dose: Not Given Documented By: DABRenee Non-Admin Reason: NPO Melatonin (Melatonin 3 Mg Tablet) 6 mg PO BEDTIME PRN PRN Reason: Insomnia Memantine (Memantine Hcl 10 Mg Tablet) 10 mg PO DAILY [facility] Last Admin: 08/02/23 09:28 Dose: Not Given Documented By: JOSUÉ Non-Admin Reason: NPO Ondansetron HCl (Ondansetron Hcl 4 Mg/2 Ml Vial) 4 mg IVPUSH Q8H PRN PRN Reason: Nausea and Vomiting Quetiapine Fumarate (Quetiapine Fumarate 25 Mg Tablet) 25 mg PO BEDTIME PRN PRN Reason: restlessness Quetiapine Fumarate (Quetiapine Fumarate 25 Mg Tablet) 25 mg PO DAILY [facility] Last Admin: 08/02/23 09:28 Dose: Not Given Documented By: OJSUÉ Non-Admin Reason: NPO Sertraline HCl (Sertraline Hcl 25 Mg Tablet) 25 mg PO DAILY [facility] Last Admin: 08/02/23 09:28 Dose: Not Given Documented By: JOSUÉ Non-Admin Reason: NPO Sodium Chloride (0.9 % Sodium Chloride Flush 3 Ml Syringe) 3 ml IVFLUSH QSHIFT [facility] Last Admin: 08/02/23 07:59 Dose: 3 ml Documented By: JOSUÉ Vitamin D (Cholecalciferol (Vitamin D3) 25 Mcg Tablet) 25 mcg PO DAILY [facility] Last Admin: 08/02/23 09:28 Dose: Not Given Documented By: JOSUÉ Non-Admin Reason: NPO Labs 08/02/23 07:56 08/02/23 07:56 Labs: Laboratory Results - last 24 hr 08/01/23 08/01/23 08/01/23 16:06 16:06 16:06 MCV MCH MCHC RDW Plt Count MPV Immature Gran % (Auto) Neut % (Auto) Lymph % (Auto) [place] % (Auto) Eos % (Auto) Baso % (Auto) Lymph # (Auto) [place] # (Auto) Eos # (Auto) Baso # (Auto) Abs Immat Gran (auto) Absolute Neuts (auto) Absolute Nucleated RBC Nucleated RBC % (auto) Anion Gap Estim Creat Clear Calc Estimated GFR Random Glucose Lactic Acid Calcium Total Bilirubin Direct Bilirubin AST ALT Alkaline Phosphatase Total Protein Albumin Urine Color Yellow Cancelled Urine Appearance Clear Cancelled Urine pH 7.0 Ur Specific [place] Urine Protein Urine Glucose (UA) Urine Ketones Urine Blood Urine Nitrite Ur Leukocyte Esterase Urine RBC Urine WBC Urine WBC Clumps Ur Squamous Epith Cells Ur Transition Epith Cell Ur Renal Epithelial Cell Calcium Oxalate Crystal Leucine Crystals Cystine Crystals Tyrosine Crystals Other Crystals Urine Bacteria Urine Parasites Bilirubin Casts Epithelial Casts Fatty Casts Hyaline Casts Granular Casts Waxy Casts Broad Casts RBC Casts WBC Casts Other Casts Urine Trichomonas Urine Yeast Influenza Type A (PCR) Influenza Type B (PCR) RSV RNA Qual (PCR) SARS-CoV-2 RNA (RT-PCR) 08/01/23 08/01/23 08/01/23 16:06 16:06 16:06 MCV MCH MCHC RDW Plt Count MPV Immature Gran % (Auto) Neut % (Auto) Lymph % (Auto) [place] % (Auto) Eos % (Auto) Baso % (Auto) Lymph # (Auto) [place] # (Auto) Eos # (Auto) Baso # (Auto) Abs Immat Gran (auto) Absolute Neuts (auto) Absolute Nucleated RBC Nucleated RBC % (auto) Anion Gap Estim Creat Clear Calc Estimated GFR Random Glucose Lactic Acid Calcium Total Bilirubin Direct Bilirubin AST ALT Alkaline Phosphatase Total Protein Albumin Urine Color Urine Appearance Urine pH Cancelled Ur Specific [place] 1.020 Cancelled Urine Protein Negative Cancelled Urine Glucose (UA) Negative Urine Ketones Urine Blood Urine Nitrite Ur Leukocyte Esterase Urine RBC Urine WBC Urine WBC Clumps Ur Squamous Epith Cells Ur Transition Epith Cell Ur Renal Epithelial Cell Calcium Oxalate Crystal Leucine Crystals Cystine Crystals Tyrosine Crystals Other Crystals Urine Bacteria Urine Parasites Bilirubin Casts Epithelial Casts Fatty Casts Hyaline Casts Granular Casts Waxy Casts Broad Casts RBC Casts WBC Casts Other Casts Urine Trichomonas Urine Yeast Influenza Type A (PCR) Influenza Type B (PCR) RSV RNA Qual (PCR) SARS-CoV-2 RNA (RT-PCR) 08/01/23 08/01/23 08/01/23 16:06 16:06 16:06 MCV MCH MCHC RDW Plt Count MPV Immature Gran % (Auto) Neut % (Auto) Lymph % (Auto) [place] % (Auto) Eos % (Auto) Baso % (Auto) Lymph # (Auto) [place] # (Auto) Eos # (Auto) Baso # (Auto) Abs Immat Gran (auto) Absolute Neuts (auto) Absolute Nucleated RBC Nucleated RBC % (auto) Anion Gap Estim Creat Clear Calc Estimated GFR Random Glucose Lactic Acid Calcium Total Bilirubin Direct Bilirubin AST ALT Alkaline Phosphatase Total Protein Albumin Urine Color Urine Appearance Urine pH Ur Specific [place] Urine Protein Urine Glucose (UA) Cancelled Urine Ketones Negative Cancelled Urine Blood Trace H Cancelled Urine Nitrite Negative Ur Leukocyte Esterase Urine RBC Urine WBC Urine WBC Clumps Ur Squamous Epith Cells Ur Transition Epith Cell Ur Renal Epithelial Cell Calcium Oxalate Crystal Leucine Crystals Cystine Crystals Tyrosine Crystals Other Crystals Urine Bacteria Urine Parasites Bilirubin Casts Epithelial Casts Fatty Casts Hyaline Casts Granular Casts Waxy Casts Broad Casts RBC Casts WBC Casts Other Casts Urine Trichomonas Urine Yeast Influenza Type A (PCR) Influenza Type B (PCR) RSV RNA Qual (PCR) SARS-CoV-2 RNA (RT-PCR) 08/01/23 08/01/23 08/01/23 16:06 16:06 16:06 MCV MCH MCHC RDW Plt Count MPV Immature Gran % (Auto) Neut % (Auto) Lymph % (Auto) [place] % (Auto) Eos % (Auto) Baso % (Auto) Lymph # (Auto) [place] # (Auto) Eos # (Auto) Baso # (Auto) Abs Immat Gran (auto) Absolute Neuts (auto) Absolute Nucleated RBC Nucleated RBC % (auto) Anion Gap Estim Creat Clear Calc Estimated GFR Random Glucose Lactic Acid Calcium Total Bilirubin Direct Bilirubin AST ALT Alkaline Phosphatase Total Protein Albumin Urine Color Urine Appearance Urine pH Ur Specific [place] Urine Protein Urine Glucose (UA) Urine Ketones Urine Blood Urine Nitrite Cancelled Ur Leukocyte Esterase Moderate (2+) H Cancelled Urine RBC 6-10 H Cancelled Urine WBC 21-50 H Urine WBC Clumps Ur Squamous Epith Cells Ur Transition Epith Cell Ur Renal Epithelial Cell Calcium Oxalate Crystal Leucine Crystals Cystine Crystals Tyrosine Crystals Other Crystals Urine Bacteria Urine Parasites Bilirubin Casts Epithelial Casts Fatty Casts Hyaline Casts Granular Casts Waxy Casts Broad Casts RBC Casts WBC Casts Other Casts Urine Trichomonas Urine Yeast Influenza Type A (PCR) Influenza Type B (PCR) RSV RNA Qual (PCR) SARS-CoV-2 RNA (RT-PCR) 08/01/23 08/01/23 08/01/23 16:06 16:06 16:06 MCV MCH MCHC RDW Plt Count MPV Immature Gran % (Auto) Neut % (Auto) Lymph % (Auto) [place] % (Auto) Eos % (Auto) Baso % (Auto) Lymph # (Auto) [place] # (Auto) Eos # (Auto) Baso # (Auto) Abs Immat Gran (auto) Absolute Neuts (auto) Absolute Nucleated RBC Nucleated RBC % (auto) Anion Gap Estim Creat Clear Calc Estimated GFR Random Glucose Lactic Acid Calcium Total Bilirubin Direct Bilirubin AST ALT Alkaline Phosphatase Total Protein Albumin Urine Color Urine Appearance Urine pH Ur Specific [place] Urine Protein Urine Glucose (UA) Urine Ketones Urine Blood Urine Nitrite Ur Leukocyte Esterase Urine RBC Urine WBC Cancelled Urine WBC Clumps Cancelled Ur Squamous Epith Cells 6-10 Cancelled Ur Transition Epith Cell Cancelled Ur Renal Epithelial Cell Cancelled Calcium Oxalate Crystal Cancelled Leucine Crystals Cancelled Cystine Crystals Cancelled Tyrosine Crystals Cancelled Other Crystals Cancelled Urine Bacteria None Seen Cancelled Urine Parasites Cancelled Bilirubin Casts Cancelled Epithelial Casts Cancelled Fatty Casts Cancelled Hyaline Casts 0-2 Granular Casts Waxy Casts Broad Casts RBC Casts WBC Casts Other Casts Urine Trichomonas Urine Yeast Influenza Type A (PCR) Influenza Type B (PCR) RSV RNA Qual (PCR) SARS-CoV-2 RNA (RT-PCR) 08/01/23 08/01/23 08/02/23 16:06 17:04 07:56 MCV 93.0 94.5 MCH 29.8 30.3 MCHC 32.0 32.0 RDW 13.3 13.3 Plt Count 155 L 133 L MPV 13.8 H 14.3 H Immature Gran % (Auto) 0.2 0.2 Neut % (Auto) 60.8 48.9 Lymph % (Auto) 29.9 38.1 [place] % (Auto) 7.6 10.5 Eos % (Auto) 0.9 1.9 Baso % (Auto) 0.6 0.4 Lymph # (Auto) 2.5 2.0 [place] # (Auto) 0.7 0.6 Eos # (Auto) 0.1 0.1 Baso # (Auto) 0.1 0.0 Abs Immat Gran (auto) 0.02 0.01 Absolute Neuts (auto) 5.2 2.6 Absolute Nucleated RBC 0.000 0.000 Nucleated RBC % (auto) 0.0 0.0 Anion Gap 14 10 L Estim Creat Clear Calc 67.9 66.9 Estimated GFR > 60 > 60 Random Glucose 99 107 Lactic Acid 0.8 Calcium 9.5 8.8 D Total Bilirubin 0.4 Direct Bilirubin 0.2 AST 31 ALT 30 Alkaline Phosphatase 94 Total Protein 7.3 Albumin 4.0 Urine Color Urine Appearance Urine pH Ur Specific [place] Urine Protein Urine Glucose (UA) Urine Ketones Urine Blood Urine Nitrite Ur Leukocyte Esterase Urine RBC Urine WBC Urine WBC Clumps Ur Squamous Epith Cells Ur Transition Epith Cell Ur Renal Epithelial Cell Calcium Oxalate Crystal Leucine Crystals Cystine Crystals Tyrosine Crystals Other Crystals Urine Bacteria Urine Parasites Bilirubin Casts Epithelial Casts Fatty Casts Hyaline Casts Cancelled Granular Casts Cancelled Waxy Casts Cancelled Broad Casts Cancelled RBC Casts Cancelled WBC Casts Cancelled Other Casts Cancelled Urine Trichomonas Cancelled Urine Yeast Cancelled Influenza Type A (PCR) NEGATIVE Influenza Type B (PCR) NEGATIVE RSV RNA Qual (PCR) NEGATIVE SARS-CoV-2 RNA (RT-PCR) NEGATIVE Assessment and Plan (1) Acute metabolic encephalopathy: Status: Acute Plan This is a 73-year-old female with pertinent history of Alzheimer's dementia with behavioral disturbance, mood disorder, mixed hyperlipidemia, essential hypertension who was brought to the emergency department for evaluation of altered mentation. Acute metabolic encephalopathy due to acute UTI Noted pyuria but no bacteriuria as patient was on p.o. antibiotics. continue Rocephin Follow urine culture. speech consult for diet Alzheimer's dementia with behavioral disturbance Maintain sleep-wake cycle and continue home medications Mood disorder Continue home mood stabilizers Mixed hyperlipidemia On statin DVT prophylaxis: [place] attending Dr. Sommer Full Code. Continue hospital stay for IV antibiotics, monitoring of mentation (as above), which is not possible in a lesser acute setting. Quality Stroke Does the patient have a stroke diagnosis?: No VTE Prior VTE?: No VTE Risk Level:: Medical - moderate - high VTE Device Contraindication: Treatment Not Indicated VTE Drug Contraindication: N/A - Med Ordered
[2023-08-02] MEDS: QUEtiapine Fumarate 25 MG TABLET PO ×2 (12:40→20:40)
--- NOTE | 2023-08-02 12:53 | MHC.SL.DTX ---
Dysphagia Diet modifications: Changes made to current diet?: Yes Liquid Consistency and Strategies: Liquid Intake Recommendation: NPO Compensatory Strategies for Safe Swallow: Compensatory Strategies for Safe Swallow(b): Sitting Upright (90 deg) Liquids from Straw Small Bites and Sips Alternate Liquids/Solids Rate of Ingestion Change Solid Food Consistency: Dietary Recommendations: Chopped/Advanced (NDD3) Additional Modifications to Solids: Oral Medication Intake: Whole with Liquid Strategies and Precautions to be Taken for Safe Swallow: Sitting Upright (90 deg) Liquids from Straw Small Bites and Sips Alternate Liquids/Solids Rate of Ingestion Change Supervision While Eating and/Drinking: Total Assistance (1:1) Foods to Avoid: Swallowing Recommended Treatments: Compens. Strategy Educat. Level of Impact on: Daily activities: Interpersonal interactions: Education: Employment: Community: Prognosis for Improvement: Recommendation for Speech: Inpatient Speech Therapy Comment: Recommend START DIET of CHOPPED/ADVANCED SOLIDS (NDD3) and THIN LIQUIDS. MEDS WHOLE with PUREE. Pt will require 1:1 FEEDING ASSISTANCE. Frequency/Duration: Daily Date Range for Service Req: Timeline to reassess: PRN Flight Manager Clinican/Clinical Fellow: No Supervisory Statement: I have reviewed and agree with the student/clinical fellow's documentation: N/A Speech Language Pathologist: Sigifredo Carrera M.A., CCC-BILLET WORKER
--- NOTE | 2023-08-02 14:12 | MHC.CM.PN ---
pt is confused called and spoke with pts leana [phone] who explains services thru [facility]/the tile installer have stopped tile installer left and did not comeback will plan on taking pt home he is asking for restart of servies including a vna and adult day care , says his 3 children help as they can ,let [facility] know what vna accepts pt and she will call [facility] to restart services pt will need to transport by amb
[2023-08-02 15:46] VITALS: BP 168/77; PULSE 80; RESP 20; TEMP 36.6; O2SAT 100
[2023-08-02] MEDS: lisinopriL 20 MG TABLET PO (15:58)
[2023-08-02 19:47] VITALS: BP 178/76; PULSE 88; RESP 18; TEMP 36.4; O2SAT 97
[2023-08-02] MEDS: cefTRIAXone sodium 1 GM in 0.9 % Sodium Chloride 50 ML IV (20:40)
[2023-08-02] MEDS: Donepezil HCl 10 MG TABLET PO (20:40)
[2023-08-02] MEDS: Enoxaparin Sodium 40 MG/0.4 ML SYRINGE SUBCUT (20:41)
[2023-08-03 03:57] VITALS: BP 150/72; PULSE 68; RESP 16; TEMP 36.1; O2SAT 96
[2023-08-03 07:28] VITALS: BP 133/84; PULSE 93; RESP 18; TEMP 36.7; O2SAT 96
[2023-08-03] MEDS: Cholecalciferol (Vitamin D3) 25 MCG TABLET PO (08:38)
[2023-08-03] MEDS: Memantine HCl 10 MG TABLET PO (08:39)
[2023-08-03] MEDS: Atorvastatin Calcium 20 MG TABLET PO (08:39)
[2023-08-03] MEDS: QUEtiapine Fumarate 25 MG TABLET PO (08:39)
[2023-08-03] MEDS: Sertraline HCL 25 MG TABLET PO (08:39)
[2023-08-03] MEDS: lisinopriL 20 MG TABLET PO ×2 (08:39→16:10)
[2023-08-03] MEDS: 0.9 % Sodium Chloride Flush 3 ML SYRINGE IVFLUSH ×2 (08:43→16:10)
--- NOTE | 2023-08-03 09:24 | P.PNIM_ITS ---
Subjective Subjective Date of Service: 08/03/23 Review of Systems Follow up encephalopathy and UTI Baseline Alzheimer's dementia Physical Exam 2 Vital Signs: Vital Signs: Last Vital Signs Temp 98.1 F 08/03/23 07:28 Pulse 93 08/03/23 07:28 Resp 18 08/03/23 07:28 BP 133/84 08/03/23 07:28 Pulse Ox 96 08/03/23 07:28 O2 Del Method Room Air 08/03/23 07:28 BMI result Body Mass Index 30.7 Appearing in no acute distress lung sounds are clear to auscultation heart regular rate rhythm, clear S1, S2 positive bowel sounds, abdomen is soft, nontender neuro patient is alert, confused Objective Data Active Medications Acetaminophen (Acetaminophen 325 Mg Tablet) 650 mg PO Q6H PRN PRN Reason: Pain, Mild (Pain Scale 1-3) Acetaminophen (Acetaminophen Supp 650 Mg Supp.Rect) 650 mg ID Q6H PRN PRN Reason: Pain, Mild (Pain Scale 1-3) Atorvastatin Calcium (Atorvastatin Calcium 20 Mg Tablet) 20 mg PO DAILY [facility] Last Admin: 08/03/23 08:39 Dose: 20 mg Documented By: LIZA Donepezil HCl (Donepezil Hcl 10 Mg Tablet) 10 mg PO BEDTIME [facility] Last Admin: 08/02/23 20:40 Dose: 10 mg Documented By: RAISSA Enoxaparin Sodium (Enoxaparin Sodium 40 Mg/0.4 Ml Syringe) 40 mg SUBCUT Q24H [facility] Last Admin: 08/02/23 20:41 Dose: 40 mg Documented By: RAISSA Ceftriaxone Sodium 1 gm/ (Sodium Chloride) 50 mls @ 100 mls/hr IV Q24H [facility] Last Infusion: 08/02/23 21:19 Dose: Infused Documented By: RAISSA Lisinopril (Lisinopril 20 Mg Tablet) 20 mg PO BID@0900,1600 [facility] Last Admin: 08/03/23 08:39 Dose: 20 mg Documented By: LIZA Melatonin (Melatonin 3 Mg Tablet) 6 mg PO BEDTIME PRN PRN Reason: Insomnia Memantine (Memantine Hcl 10 Mg Tablet) 10 mg PO DAILY [facility] Last Admin: 08/03/23 08:39 Dose: 10 mg Documented By: LIZA Ondansetron HCl (Ondansetron Hcl 4 Mg/2 Ml Vial) 4 mg IVPUSH Q8H PRN PRN Reason: Nausea and Vomiting Quetiapine Fumarate (Quetiapine Fumarate 25 Mg Tablet) 25 mg PO BEDTIME PRN PRN Reason: restlessness Last Admin: 08/02/23 20:40 Dose: 25 mg Documented By: RAISSA Quetiapine Fumarate (Quetiapine Fumarate 25 Mg Tablet) 25 mg PO DAILY [facility] Last Admin: 08/03/23 08:39 Dose: 25 mg Documented By: LIAZ Sertraline HCl (Sertraline Hcl 25 Mg Tablet) 25 mg PO DAILY [facility] Last Admin: 08/03/23 08:39 Dose: 25 mg Documented By: LIZA Sodium Chloride (0.9 % Sodium Chloride Flush 3 Ml Syringe) 3 ml IVFLUSH QSHIFT [facility] Last Admin: 08/03/23 08:43 Dose: 3 ml Documented By: LIZA Vitamin D (Cholecalciferol (Vitamin D3) 25 Mcg Tablet) 25 mcg PO DAILY [facility] Last Admin: 08/03/23 08:38 Dose: 25 mcg Documented By: LIZA Labs 08/02/23 07:56 08/02/23 07:56 Microbiology Microbiology Results: Microbiology 08/01/23 Unknown Urine Culture - Preliminary Urine clean catch - Urine trivedi top Escherichia coli 08/01/23 19:44 Blood Culture - Preliminary Blood - Venous No growth after 24 hours. 08/01/23 17:04 Blood Culture - Preliminary Blood - Venous No growth after 24 hours. Assessment and Plan (1) Acute metabolic encephalopathy: Status: Acute Plan This is a 73-year-old female with pertinent history of Alzheimer's dementia with behavioral disturbance, mood disorder, mixed hyperlipidemia, essential hypertension who was brought to the emergency department for evaluation of altered mentation. Acute metabolic encephalopathy due to acute ESBL UTI Noted pyuria but no bacteriuria as patient was on p.o. antibiotics. add meropenem Id consult Alzheimer's dementia with behavioral disturbance Maintain sleep-wake cycle and continue home medications Mood disorder Continue home mood stabilizers Mixed hyperlipidemia On statin DVT prophylaxis: [place] attending Dr. Sommer Full Code. Continue hospital stay for IV antibiotics, monitoring of mentation (as above), which is not possible in a lesser acute setting. Quality Stroke Does the patient have a stroke diagnosis?: No VTE Prior VTE?: No VTE Risk Level:: Medical - moderate - high VTE Device Contraindication: Treatment Not Indicated VTE Drug Contraindication: N/A - Med Ordered
--- NOTE | 2023-08-03 14:16 | MHC.CM.PN ---
Addendum entered by Sailaja Nina 08/03/23 15:06: CORRECTION:COPY OF HCP FOUND AT [facility] [place], COPY FAXED AND UPLOADED TO [facility]. Original Note: EMR REVIEWED AND PER MD ROUNDS, PT IS NOT MEDICALLY CLEARED FOR DC ( ID CONSULT, IV ABT) PT HAS NO HCP PER [facility]IA [facility]. UNABLE TO LOCATE A COPY WITH [facility] OR MD OFFICE. [facility] CONTINUES TO WANT TO BRING PT HOME ON DC. CM WILL CONTINUE TO FOLLOW FOR ANY CHANGE IN DC PLAN/NEEDS
[2023-08-03 15:24] VITALS: BP 137/81; PULSE 102; RESP 18; TEMP 36.3; O2SAT 94
--- NOTE | 2023-08-03 16:56 | MHC.SLORD ---
Speech Language Pathology Order Status: SLURRY WORKER attempted to see patient for lunch, however arrived to late. Nursing reports patient tolerating chopped solids and thin liquids.
[2023-08-03 19:16] VITALS: BP 140/96; PULSE 105; RESP 17; TEMP 36.3; O2SAT 97
[2023-08-03] MEDS: Enoxaparin Sodium 40 MG/0.4 ML SYRINGE SUBCUT (19:31)
[2023-08-03] MEDS: Donepezil HCl 10 MG TABLET PO (19:31)
[2023-08-03] MEDS: Melatonin 3 MG TABLET 6 MG PO (19:35)
--- NOTE | 2023-08-03 23:06 | W.PM.IDCN ---
History of Present Illness Data of Consult Service Date: 08/03/23 Requesting physician: Renae Meyers Primary Care Provider: Patsy Rosales MD [facility] Reason for consult: MDR E coli urine She presents with confusion and agitation and weakness,worsening over last day. She has baseline dementia. She was diagnosed with urinary tract infection three days ago annd given po Cefpodoxime which she took. Urine her is E coli sensitive only to Ertapenem and Gentamicin. She is taking Merem here. Review of Systems Review of Systems: Yes Unobtainable due to mental status (patient is purring) [facility] Past Medical History Medical History Alzheimer's dementia with behavioral disturbance Pure hypercholesterolemia Essential hypertension Cataract Family History Family History Mother No problems noted. Father No problems noted. Family history: reviewed and not pertinent Surgical History Surgical History History of appendectomy History of bunionectomy Social History Social History Household Members: Spouse Housing: Apartment Alcohol intake: never Patient Tobacco Use Status: Never used Tobacco Smoked in Last 30 Days: No e-Cigarette/Vaping Use: Never Used Second Hand Smoke Exposure: No Use of substances other than those prescribed or required for medical reasons: No Currently Displaying Signs/Symptoms of Drug Intoxication Withdrawal: No Advance Directives: No Advance Directives Information Provided: No Do you have thoughts of harming others: None Recently lost weight without trying: No Nutrition Risks: No Nutritional Risk Patient : No : No Poor oral hygiene: No service: No Current occupational status: unemployed Cognitive needs: No Hearing needs: No Vision needs: No Meds Allergies Allergy/AdvReac Type Severity Reaction Status Date / Time No Known Allergies Allergy Verified 07/05/23 08:57 Active Medications: Current Medications Acetaminophen (Acetaminophen 325 Mg Tablet) 650 mg PO Q6H PRN PRN Reason: Pain, Mild (Pain Scale 1-3) Acetaminophen (Acetaminophen Supp 650 Mg Supp.Rect) 650 mg NE Q6H PRN PRN Reason: Pain, Mild (Pain Scale 1-3) Atorvastatin Calcium (Atorvastatin Calcium 20 Mg Tablet) 20 mg PO DAILY [facility] Last Admin: 08/03/23 08:39 Dose: 20 mg Donepezil HCl (Donepezil Hcl 10 Mg Tablet) 10 mg PO BEDTIME [facility] Last Admin: 08/03/23 19:31 Dose: 10 mg Enoxaparin Sodium (Enoxaparin Sodium 40 Mg/0.4 Ml Syringe) 40 mg SUBCUT Q24H [facility] Last Admin: 08/03/23 19:31 Dose: 40 mg Meropenem 1 gm/ Sodium (Chloride) 100 mls @ 200 mls/hr IV Q8H [facility] Last Infusion: 08/03/23 19:28 Dose: Infused Lisinopril (Lisinopril 20 Mg Tablet) 20 mg PO BID@0900,1600 [facility] Last Admin: 08/03/23 16:10 Dose: 20 mg Melatonin (Melatonin 3 Mg Tablet) 6 mg PO BEDTIME PRN PRN Reason: Insomnia Last Admin: 08/03/23 19:35 Dose: 6 mg Memantine (Memantine Hcl 10 Mg Tablet) 10 mg PO DAILY [facility] Last Admin: 08/03/23 08:39 Dose: 10 mg Ondansetron HCl (Ondansetron Hcl 4 Mg/2 Ml Vial) 4 mg IVPUSH Q8H PRN PRN Reason: Nausea and Vomiting Quetiapine Fumarate (Quetiapine Fumarate 25 Mg Tablet) 25 mg PO BEDTIME PRN PRN Reason: restlessness Last Admin: 08/02/23 20:40 Dose: 25 mg Quetiapine Fumarate (Quetiapine Fumarate 25 Mg Tablet) 25 mg PO DAILY [facility] Last Admin: 08/03/23 08:39 Dose: 25 mg Sertraline HCl (Sertraline Hcl 25 Mg Tablet) 25 mg PO DAILY [facility] Last Admin: 08/03/23 08:39 Dose: 25 mg Sodium Chloride (0.9 % Sodium Chloride Flush 3 Ml Syringe) 3 ml IVFLUSH QSHIFT [facility] Last Admin: 08/03/23 16:10 Dose: 3 ml Vitamin D (Cholecalciferol (Vitamin D3) 25 Mcg Tablet) 25 mcg PO DAILY [facility] Last Admin: 08/03/23 08:38 Dose: 25 mcg Home Medications Medication Instructions Recorded Confirmed Last Taken Type melatonin 5 mg tablet 5 mg PO BEDTIME 12/27/22 08/01/23 08/01/23 History quetiapine 25 mg tablet 25 mg PO DAILY 12/27/22 08/01/23 08/01/23 History atorvastatin 40 mg tablet 20 mg PO DAILY 08/01/23 08/01/23 08/01/23 History cefpodoxime 200 mg tablet 200 mg PO Q12H 08/01/23 08/01/23 08/01/23 History cetirizine 10 mg tablet 10 mg PO DAILY PRN allergies 08/01/23 08/01/23 08/01/23 History quetiapine 25 mg tablet 25 mg PO BEDTIME PRN restlessness 08/01/23 08/01/23 07/31/23 History ramipril 5 mg capsule 5 mg PO BID@0900,1600 08/01/23 08/01/23 08/01/23 History Physical Exam Vital Signs: Vital Signs: Last Vital Signs Temp 97.3 F 08/03/23 19:16 Pulse 105 H 08/03/23 19:16 Resp 17 08/03/23 19:16 BP 140/96 H 08/03/23 19:16 Pulse Ox 97 08/03/23 19:16 O2 Del Method Room Air 08/03/23 19:16 BMI result Body Mass Index 30.7 Psych: Other: demented,cant get history Results Labs 08/02/23 07:56 08/02/23 07:56 Microbiology Microbiology Results: Microbiology 08/01/23 19:44 Blood - Venous Blood Culture - Preliminary No growth after 48 hours. 08/01/23 17:04 Blood - Venous Blood Culture - Preliminary No growth after 48 hours. 08/01/23 Unknown Urine clean catch - Urine trivedi top Urine Culture - Preliminary Escherichia coli Assessment and Plan (1) Acute metabolic encephalopathy: Status: Acute She has MDR E coli urine. There is blood culture pending. It wasnt sensitive likely to po medication. There is no bacteremia or obstruction suspected (2) Urinary tract infection: Status: Acute Plan Continue Merem,likely 10-14 day total Merem or Ertapenem. If bacteremic or signs of sepsis check CT abdomen and pelvis and notify Urology.
[2023-08-04] MEDS: 0.9 % Sodium Chloride Flush 3 ML SYRINGE IVFLUSH ×4 (00:05→19:30)
[2023-08-04 04:00] VITALS: BP 138/88; PULSE 81; RESP 20; TEMP 36.4; O2SAT 95
[2023-08-04 07:15] VITALS: BP 122/54; PULSE 86; RESP 18; TEMP 36.2; O2SAT 98
[2023-08-04] MEDS: Atorvastatin Calcium 20 MG TABLET PO (11:04)
[2023-08-04] MEDS: QUEtiapine Fumarate 25 MG TABLET PO (11:07)
[2023-08-04] MEDS: lisinopriL 20 MG TABLET PO ×2 (11:07→18:18)
[2023-08-04] MEDS: Sertraline HCL 25 MG TABLET PO (11:07)
[2023-08-04] MEDS: Cholecalciferol (Vitamin D3) 25 MCG TABLET PO (11:07)
[2023-08-04] MEDS: Memantine HCl 10 MG TABLET PO (11:08)
--- NOTE | 2023-08-04 13:43 | HO.PM.IMPN ---
Subjective Subjective Date of Service: 08/04/23 Interval History: follow up for UTI baseline dementia, unable to obtain full ROS appears comfortable Physical Exam Vital Signs: Vital Signs: Last Vital Signs Temp 97.2 F 08/04/23 07:15 Pulse 86 08/04/23 07:15 Resp 18 08/04/23 07:15 BP 122/54 L 08/04/23 07:15 Pulse Ox 98 08/04/23 07:15 O2 Del Method Room Air 08/04/23 07:15 BMI result Body Mass Index 30.7 Const: General: comfortable, no acute distress and alert Nutritional Appearance: overweight Resp: Effort & Inspection: normal respiratory effort, no respiratory distress and no use of accessory muscles Cardio: Rate: regular rate GI: Inspection: No distended Palpation (GI): Soft to palpation Neuro: Other: alert, confused Objective Data Active Medications Acetaminophen (Acetaminophen 325 Mg Tablet) 650 mg PO Q6H PRN PRN Reason: Pain, Mild (Pain Scale 1-3) Acetaminophen (Acetaminophen Supp 650 Mg Supp.Rect) 650 mg MA Q6H PRN PRN Reason: Pain, Mild (Pain Scale 1-3) Atorvastatin Calcium (Atorvastatin Calcium 20 Mg Tablet) 20 mg PO DAILY [facility] Last Admin: 08/04/23 11:04 Dose: 20 mg Documented By: BRENNA Donepezil HCl (Donepezil Hcl 10 Mg Tablet) 10 mg PO BEDTIME [facility] Last Admin: 08/03/23 19:31 Dose: 10 mg Documented By: ANA ROSA Enoxaparin Sodium (Enoxaparin Sodium 40 Mg/0.4 Ml Syringe) 40 mg SUBCUT Q24H [facility] Last Admin: 08/03/23 19:31 Dose: 40 mg Documented By: ANA ROSA Meropenem 1 gm/ Sodium (Chloride) 100 mls @ 200 mls/hr IV Q8H [facility] Last Infusion: 08/04/23 11:38 Dose: Infused Documented By: HUMA Lisinopril (Lisinopril 20 Mg Tablet) 20 mg PO BID@0900,1600 [facility] Last Admin: 08/04/23 11:07 Dose: 20 mg Documented By: BRENNA Melatonin (Melatonin 3 Mg Tablet) 6 mg PO BEDTIME PRN PRN Reason: Insomnia Last Admin: 08/03/23 19:35 Dose: 6 mg Documented By: ANA ROSA Memantine (Memantine Hcl 10 Mg Tablet) 10 mg PO DAILY [facility] Last Admin: 08/04/23 11:08 Dose: 10 mg Documented By: BRENNA Ondansetron HCl (Ondansetron Hcl 4 Mg/2 Ml Vial) 4 mg IVPUSH Q8H PRN PRN Reason: Nausea and Vomiting Quetiapine Fumarate (Quetiapine Fumarate 25 Mg Tablet) 25 mg PO BEDTIME PRN PRN Reason: restlessness Last Admin: 08/02/23 20:40 Dose: 25 mg Documented By: RAISSA Quetiapine Fumarate (Quetiapine Fumarate 25 Mg Tablet) 25 mg PO DAILY [facility] Last Admin: 08/04/23 11:07 Dose: 25 mg Documented By: BRENNA Sertraline HCl (Sertraline Hcl 25 Mg Tablet) 25 mg PO DAILY [facility] Last Admin: 08/04/23 11:07 Dose: 25 mg Documented By: BRENNA Sodium Chloride (0.9 % Sodium Chloride Flush 3 Ml Syringe) 3 ml IVFLUSH QSHIFT [facility] Last Admin: 08/04/23 11:08 Dose: 3 ml Documented By: BRENNA Vitamin D (Cholecalciferol (Vitamin D3) 25 Mcg Tablet) 25 mcg PO DAILY [facility] Last Admin: 08/04/23 11:07 Dose: 25 mcg Documented By: BRENNA Labs 08/02/23 07:56 08/02/23 07:56 Microbiology Microbiology Results: Microbiology 08/01/23 Unknown Urine Culture - Final Urine clean catch - Urine trivedi top Escherichia coli 08/01/23 19:44 Blood Culture - Preliminary Blood - Venous No growth after 48 hours. 08/01/23 17:04 Blood Culture - Preliminary Blood - Venous No growth after 48 hours. Assessment and Plan (1) Urinary tract infection: Status: Acute Plan This is a 73-year-old female with pertinent history of Alzheimer's dementia with behavioral disturbance, mood disorder, mixed hyperlipidemia, essential hypertension who was brought to the emergency department for evaluation of altered mentation. Acute metabolic encephalopathy due to acute ESBL UTI Noted pyuria but no bacteriuria as patient was on p.o. antibiotics. started on meropenem seen by ID, rec meropenem or ertapenem for 10-14 days. plan for 14 days, end date 08/17 midline placement pending blood cultures negative to date Alzheimer's dementia with behavioral disturbance Maintain sleep-wake cycle and continue home medications Mood disorder Continue home mood stabilizers Mixed hyperlipidemia On statin Chronic anemia H/H above transfusion threshold thrombocytopenia, chroic platelets at baseline DVT prophylaxis: Rose attending Dr. Sommer Full Code. dispo - plan for STR for IV abx Continue hospital stay for IV antibiotics, monitoring of mentation (as above), which is not possible in a lesser acute setting. Quality Stroke Does the patient have a stroke diagnosis?: No VTE Prior VTE?: No VTE Risk Level:: Medical - moderate - high VTE Device Contraindication: Treatment Not Indicated VTE Drug Contraindication: N/A - Med Ordered
--- NOTE | 2023-08-04 14:28 | MHC.SLORD ---
Speech Language Pathology Order Status: Attempted to see patient at lunch. Patient sleeping soundly, did not wake with multiple strategies used. GAS APPLIANCE MECHANIC will continue to follow.
--- NOTE | 2023-08-04 14:34 | MHC.CM.PN ---
PT WILL NEED SNF PLACEMENT FOR IV ABX REFERRALS [facility] IS OFFERING PENDING INSURANCE AUTH PLAN IS FOR PT TO HAVE HER LINE PLACED THIS AFTERNOON AND DC TOMORROW MORNING BLS TRANSPORT
[2023-08-04] MEDS: LORazepam 2 MG/ML VIAL 0.25 MG IVPUSH (14:40)
[2023-08-04 16:25] VITALS: BP 127/76; PULSE 82; RESP 19; O2SAT 97
--- NOTE | 2023-08-04 18:29 | HO.MIDLINE_ITS ---
Midline Insertion MIDLINE INSERTION Diagnosis: UTI Indication: 14 days of ABT Pertinent Labs: Reviewed Technique: Using sterile technique including cap and mask, glove and drape, the right arm was prepped and draped in the usual sterile fashion of full barrier technique with CHG. Using ultrasound guidance, right basilic vein access was obtained . 20G x 8cm non PASV midline was positioned. The procedure was performed in room 272. Ultrasound was used to document vein patency and for needle entry. A formal ultrasound picture was recorded. Vascular Metal Stud Framer has released the line for use and it is currently dressed with a StatLock, Tegaderm, and CHG disc. Verification has been performed for blood return and line patency. Arm Circumference: 30cm Equipment: BARD PowerGlide ST Midline Catheter Catheter Type: 20G x 8CM Non PASV midline Catheter Lot #: [id number]
[2023-08-04 19:22] VITALS: BP 128/73; PULSE 112; RESP 18; TEMP 37; O2SAT 96
[2023-08-04] MEDS: Heparin Sodium,Porcine Flush 50 UNITS, 0.9 % Sodium Chloride Flush 5 ML IVFLUSH (19:29)
[2023-08-04] MEDS: Donepezil HCl 10 MG TABLET PO (19:29)
[2023-08-04] MEDS: Melatonin 3 MG TABLET 6 MG PO (19:29)
[2023-08-04] MEDS: Enoxaparin Sodium 40 MG/0.4 ML SYRINGE SUBCUT (19:30)
[2023-08-05 04:00] VITALS: BP 132/61; PULSE 58; RESP 16; TEMP 36.1; O2SAT 94
[2023-08-05 07:57] VITALS: BP 129/76; PULSE 84; RESP 20; TEMP 36.3; O2SAT 98
[2023-08-05 08:00] VITALS: BP 119/67; PULSE 82
[2023-08-05] MEDS: Ertapenem Sodium 1 GM in 0.9 % Sodium Chloride 50 ML IV (08:40)
[2023-08-05] MEDS: lisinopriL 20 MG TABLET PO (08:40)
[2023-08-05] MEDS: 0.9 % Sodium Chloride Flush 3 ML SYRINGE IVFLUSH (08:40)
[2023-08-05] MEDS: Cholecalciferol (Vitamin D3) 25 MCG TABLET PO (08:40)
[2023-08-05] MEDS: Sertraline HCL 25 MG TABLET PO (08:41)
[2023-08-05] MEDS: Atorvastatin Calcium 20 MG TABLET PO (08:41)
[2023-08-05] MEDS: QUEtiapine Fumarate 25 MG TABLET PO (08:41)
[2023-08-05] MEDS: Memantine HCl 10 MG TABLET PO (08:41)
[2023-08-05] MEDS: Heparin Sodium,Porcine Flush 50 UNITS, 0.9 % Sodium Chloride Flush 5 ML IVFLUSH ×2 (09:45→14:53)
--- NOTE | 2023-08-05 10:46 | P.DS_ITS ---
DS: Providers Provider Date of Service: 08/05/23 Date of admission: 08/01/23 19:16 Date of discharge: 08/05/23 Primary care physician: Patsy Rosales MD Consults: 08/03/23 09:36 Consult to Infectious Diseases Routine Consulting Provider: Tianna Manning Reason for consultation: ESBL Attending physician on discharge: Rubén Sommer Discharging clinician: Kathya Jules DS: Diagnosis Discharge Diagnosis (1) Urinary tract infection: Status: Acute DS: Summary Hospital Course Hospital Course: From H&P on the day of admission This is a 73-year-old female with pertinent history of Alzheimer's dementia with behavioral disturbance, mood disorder, mixed hyperlipidemia, essential hypertension who was brought to the emergency department for evaluation of altered mentation. History was obtained from at bedside using distance learning program coordinator. Unable to obtain history from the patient. As per , patient was agitated at home and hence he brought her to the ER. He states that she usually gets agitated when she has a UTI. Patient does have history of recurrent UTIs as he states that she wipes from back to front. At baseline, patient is only oriented to self and person, disoriented to time and place. She needs assistance with all activities of daily living. No fever, nausea, vomiting. She was recently prescribed p.o. antibiotics for UTI and took a few doses of it. Does not remember the name of antibiotic. Unable to obtain review of systems. Acute metabolic encephalopathy due to acute ESBL UTI Noted pyuria but no bacteriuria as patient was on p.o. antibiotics as outpatient. started on meropenem, seen by ID, who recommended ertapenem for 14 days on discharge, end date 08/17. midline was placed in RUE 08/04. blood cultures have remained negative to date. She has remained afebrile with no leukocytosis. She will be discharged to rehab to complete course of antibiotics. Time Attestation Total time managing care of this patient today: 35 mintues. Discharge coordination time: Greater than 30 minutes Quality: Safe Use of Opioids Does Pt have an Active Cancer Diagnosis on the Problem List?: No Quality: Stroke Does the patient have a stroke diagnosis?: No Physical Exam Vital Signs: Vital Signs: Last Vital Signs Temp 97.4 F 08/05/23 07:57 Pulse 82 08/05/23 08:00 Resp 20 08/05/23 07:57 BP 119/67 08/05/23 08:00 Pulse Ox 98 08/05/23 07:57 O2 Del Method Room Air 08/05/23 07:57 BMI result Body Mass Index 30.7 Const: General: comfortable, no acute distress and alert Nutritional Appearance: overweight Resp: Effort & Inspection: normal respiratory effort, no respiratory distress and no use of accessory muscles Cardio: Rate: regular rate GI: Inspection: No distended Palpation (GI): Soft to palpation Skin: Other: RUE midline in place Neuro: Other: alert, confused DS: Data Data Completed and Pending Labs on day of discharge: Preliminary micro results at discharge 08/01/23 19:44 Blood Culture - Preliminary Blood - Venous No growth after 48 hours. 08/01/23 17:04 Blood Culture - Preliminary Blood - Venous No growth after 48 hours. Discharge Plan Discharge Anticipated Discharge Date/Time: 08/05/23 11:03 Patient Disposition: Xfer SNF Discharge Diagnosis: ESBL UTI Referrals: [facility]rera [facility] [Outside] - 1 Day (to finish your IV antibiotics) Patsy Fox MD [Primary Care Provider] - 1 Week Discharge Medications: New ertapenem 1 gram recon soln 1 g IV Q24H Qty: 5 0RF Continued memantine 10 mg tablet 10 mg PO DAILY 90 Days Qty: 90 3RF donepezil 10 mg tablet 10 mg PO BEDTIME 90 Days Qty: 90 1RF cetirizine 10 mg tablet 10 mg PO DAILY PRN (Reason: allergies) atorvastatin 40 mg tablet 20 mg PO DAILY quetiapine 25 mg tablet 25 mg PO BEDTIME PRN (Reason: restlessness) Rx Instructions: if patient is still restless after donepezil and melatonin ramipril 5 mg capsule 5 mg PO BID@0900,1600 cholecalciferol (vitamin D3) 25 mcg (1,000 unit) capsule 25 mcg PO DAILY 90 Days Qty: 90 1RF sertraline 25 mg tablet 25 mg PO DAILY 90 Days Qty: 90 1RF quetiapine 25 mg tablet 25 mg PO DAILY melatonin 5 mg tablet 5 mg PO BEDTIME Discontinued cefpodoxime 200 mg tablet 200 mg PO Q12H No Action (DME) adult diapers pull-ups medium See Rx Instructions .Route .MEDSUPPLY Qty: 240 11RF Rx Instructions: As directed (DME) underpads [Bed Underpads] Pad See Rx Instructions .Route Qty: 150 0RF Rx Instructions: As directed (DME) wipes See Rx Instructions .Route .MEDSUPPLY Qty: 240 11RF Rx Instructions: As directed Discharge Orders: Discharge Order (Routine); Ordered 08/05/23 Ordered By: Kathya Jules Activity on Discharge: As tolerated Stand Alone Forms: Patient Portal Discharge page Care Plan Goals: see below Health Concerns: ESBL UTI encephalopathy Plan of Treatment: complete full course of 14 days total of ertapenem, end date 08/17 midline placed RUE 08/04 monitor weekly cbc, cmp starting on Tuesday Assessment: see discharge summary Discharge Date/Time: 08/05/23 15:56
--- NOTE | 2023-08-05 12:36 | MHC.SL.SWA ---
Speech Pathologist Impression: Risk of Aspiration Due to: Reduced Cognition Dysphasia Diet Status: it is recommended she continue on Chopped/Advanced (NDD3) with thin liquids, pills crushed in puree at next level of care. Liquid Consistency and Strategies for Safe Swallow: Liquid Intake Recommendation: NPO Liquid Intake Strategies: Solid Food Consistency: Dietary Recommendations: Chopped/Advanced (NDD3) Additional Modifications to Solid Foods: Oral Medication Intake: Crushed with Puree Please contact the pharmacy regarding appropriate crushable or liquid drug formulations that are available whenever modified delivery is recommended. Compensatory Strategies and Precautions to be Taken for Safe Swallow: Sitting Upright (90 deg) Liquids from Cup Liquids from Straw Small Bites and Sips Alternate Liquids/Solids Oral Check Supervision While Eating and Drinking for Safe Swallow: Total Assistance (1:1) Foods to Avoid: Mixed consistencies, tough to chew solids, crunchy/crumbly textures. Swallowing Recommended Treatments: Compens. Strategy Educat. Recommendation for Speech: Inpatient Speech Therapy Comment: Patient seen at lunch today. Patient appeared to be sleeping at onset, but with change of position of bed so that she was seated upright, and introduction of food, patient became more alert and eventually opened eyes. Patient appeared to be periodically hallucinating/talking to someone not present with urgent emotion. Patient otherwise cooperated with taking sips of juice by straw and bites of chopped/advanced food (turkey meatloaf with gravy, mashed potatoes) and sliced peaches, demonstrating no clinical signs of aspiration. Patient noted to have mild oral residual after eating slightly drier take off tender, crumbly turkey meatloaf, which was cleared by sips of liquid. Patient is tolerating this diet consistency well. She is currently pending discharge to rehab facility, it is recommended she continue on Chopped/Advanced (NDD3) with thin liquids, pills crushed in puree. Frequency/Duration: Daily Date Range for Service Req: Timeline to reassess: PRN Senior Business Broker Clinican/Clinical Fellow: No Supervisory Statement: I have reviewed and agree with the student/clinical fellow's documentation: N/A Speech Language Pathologist: Jessica Ybarra M.A., CCC-BAFFLE [employer]OUNTER
--- NOTE | 2023-08-05 13:16 | MHC.CM.PN ---
EMR reviewed. Per MD rounds patient is medically cleared for dc to SNF to finish IV abx. BLS transportation scheduled for 3:30pm to [facility]. [facility] Booking ID [id number]. This CM notified son/HCP of dc and delivered IMM verbally via telephone. RN aware.
[2023-08-05 15:07] VITALS: BP 134/62; PULSE 99; RESP 20; TEMP 36.2; O2SAT 96
== END 2023-08-05 15:56 | disposition skilled nursing facility (03) | DRG 689 ==
LOC: HO.ED 20:02 → HO.EDOVER 21:10 → HO.S3 23:29
PROVIDERS: Admitting Provider Student in an Organized Health Care Education/Training Program; Emergency Provider Emergency Medicine Emergency Medical Services; PCP Internal Medicine; Visit Provider Physician Assistant Medical
PROC: 05HB33Z Insertion of Infusion Device into Right Basilic Vein, Percutaneous Approach (ICD-10-PCS; principal; 2023-08-04 15:30)
DX: N39.0 Urinary tract infection, site not specified (principal); G93.41 Metabolic encephalopathy; F02.818 Dementia in other diseases classified elsewhere, unspecified severity, with other behavioral disturbance; Z16.12 Extended spectrum beta lactamase (ESBL) resistance; Z16.24 Resistance to multiple antibiotics; D69.6 Thrombocytopenia, unspecified; D64.9 Anemia, unspecified; G30.9 Alzheimer's disease, unspecified; E78.2 Mixed hyperlipidemia; B96.20 Unspecified Escherichia coli [E. coli] as the cause of diseases classified elsewhere; F39 Unspecified mood [affective] disorder; Z20.822 Contact with and (suspected) exposure to COVID-19; Z87.440 Personal history of urinary (tract) infections; Z79.899 Other long term (current) drug therapy
CPT/HCPCS: 0241U; 36410; 36415; 71045; 80048; 80076; 81001; 83605; 85025; 87040; 87086; 87088; 87186; 92526; 92610; 99285; C1751; C1894; J0696; J1335; J1642; J1650; J2060; J2185

== ENCOUNTER → 2023-08-01 16:43 | Outpatient (BNV) | payer OTHER, SELFPAY | PROVIDERS: Emergency Provider Emergency Medicine Emergency Medical Services; Visit Provider Student in an Organized Health Care Education/Training Program | DX: N39.0 Urinary tract infection, site not specified (principal); G93.41 Metabolic encephalopathy; G30.8 Other Alzheimer's disease | CPT/HCPCS: 99222; 99232; 99233; 99239 ==

== ENCOUNTER → 2023-08-01 19:16 | Outpatient (BNV) | payer OTHER, SELFPAY | PROVIDERS: Admitting Provider Student in an Organized Health Care Education/Training Program; Emergency Provider Emergency Medicine Emergency Medical Services; PCP Internal Medicine; Visit Provider Internal Medicine | DX: G93.41 Metabolic encephalopathy (principal); N39.0 Urinary tract infection, site not specified | CPT/HCPCS: 99222 ==

== ENCOUNTER 2023-08-26 09:58 | Outpatient (REF) | payer OTHER, SELFPAY ==
[2023-08-26 10:13] LABS: MANUAL DIFF FLAG NO
[2023-08-26 10:41] LABS: Basophils Percent Auto 0.5 % (0-2); Eosinophils Absolute Auto 0.1 X10*3/uL (0.0-0.4); Eosinophils Percent Auto 1.5 % (0-4); Hematocrit 34.2 % (37.0-47.0); Imm Gran Abs Auto 0.01 X10*3/uL (0.00-0.03); Imm Gran Pct Auto 0.2 % (0.0-0.4); Lymphocytes Absolute Auto 1.8 X10*3/uL (1.2-4.9); Lymphocytes Percent Auto 29.3 % (20-40); Mean Corpuscular HGB Conc 32.2 g/dl (31.0-35.0); Mean Corpuscular Volume 93.2 fL (80.0-98.0); Mean Platelet Volume 13.3 fL (9.4-12.3); Monocytes Absolute Auto 0.5 X10*3/uL (0.1-1.2); Monocytes Percent Auto 8.7 % (2-11); Neutrophils Absolute Auto 3.7 x10*3/uL (2.0-8.3); Neutrophils Percent Auto 59.8 % (45-73); Platelet Count 193 X10*3/uL (160-400); Red Blood Count 3.67 X10*6/uL (4.20-5.50); Red Cell Distribution Width 12.8 % (11.0-16.0); White Blood Count 6.1 X10*3/uL (4.8-10.8)
[2023-08-26 13:01] LABS: Alanine Aminotransferase 28 U/L (0-31); Albumin Level 3.7 g/dL (3.5-5.0); Alkaline Phosphatase 95 U/L (39-117); Anion Gap 12 (12-20); Aspartate Amino Transferase 34 U/L (5-31); Bilirubin Total 0.6 mg/dL (0.0-1.0); Blood Urea Nitrogen 12 mg/dL (9-16); Calcium 9.4 mg/dL (8.4-10.2); Carbon Dioxide 27 mmol/L (22-29); Chloride 108 mmol/L (96-108); Cholesterol 148 mg/dL (<200); Estimated Glomerular Filt Rate > 60; Glucose Fasting 112 mg/dL (60-99); HDL Cholesterol 47 mg/dL (>40); Iron 84 mcg/dL (30-160); LDL Cholesterol Calculated 89 mg/dL (<100); Percent Iron Saturation 37 % (15-50); Potassium 4.5 mmol/L (3.3-5.1); Sodium 142 mmol/L (135-145); Thyroid Stimulating Hormone 0.82 uIU/mL (0.32-4.0); Total Iron Binding Capacity 225 mcg/dL (228-428); Total Protein 7.6 g/dL (6.5-8.0); Triglycerides 63 mg/dL (<150); Unsaturated Iron Binding 141 ug/dL; Vitamin D 25-OH Total 35.1 ng/mL (>30)
[2023-08-26 17:33] LABS: Appearance Urine Cloudy; Color Urine Yellow; Glucose Urine UA Negative (Negative); Leukocyte Esterase Urine Moderate (2+) (Negative); Nitrite Urine Negative (Negative); PH 5.5 (5.0-9.0); Specific Gravity - Urine 1.015 (1.005-1.025); UMIC TRIGGER UACC YES; Urine Blood Trace (Negative); Urine Ketones Negative (Negative); Urine Protein Negative (Neg-Trace)
[2023-08-26 17:58] LABS: Bacteria Urine Trace (None Seen); Hyaline Casts Urine 0-2 /LPF (0-2); RBC Urine 0-2 /HPF (0-2); Squamous Epithelial Cell Urine >20 /HPF (0-2); UACC Culture Trigger YES
[2023-08-29 10:34] LABS: TS Negative Control Passed; TS Panel A 0; TS Panel B 0; TS Positive Control Passed; TSpotTB Negative (Negative)
== END 2023-08-26 09:59 | disposition home or self-care (01) ==
LOC: HO.LAB 09:58
PROVIDERS: PCP Internal Medicine; Visit Provider Internal Medicine
DX: Z11.1 Encounter for screening for respiratory tuberculosis (principal); E04.1 Nontoxic single thyroid nodule; D64.9 Anemia, unspecified; E55.9 Vitamin D deficiency, unspecified; E78.00 Pure hypercholesterolemia, unspecified; E78.5 Hyperlipidemia, unspecified; R30.0 Dysuria
CPT/HCPCS: 36415; 80053; 80061; 81001; 81003; 82306; 83540; 84443; 85025; 86481; 87086; 87088; 87186

== ENCOUNTER 2023-09-06 10:39 | Outpatient (AMB) | payer OTHER, SELFPAY ==
[2023-09-06 10:45] VITALS: BP 126/70; BMI 28.5
--- NOTE | 2023-09-06 10:45 | MHC.PC.OV ---
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 Required: No Accompanied by: Spouse Allergies No Known Allergies Allergy (Verified 09/06/23 11:02) Medication List - Last Reconciled 09/06/23 by Patsy Rosales MD [adult diapers pull-ups As directed] atorvastatin 20 mg PO DAILY cetirizine 10 mg PO DAILY PRN cholecalciferol (vitamin D3) 25 mcg PO DAILY 90 days donepezil 10 mg PO BEDTIME 90 days ertapenem 1 g IV Q24H melatonin 5 mg PO BEDTIME 90 days memantine 10 mg PO DAILY 90 days quetiapine 25 mg PO BEDTIME PRN quetiapine 25 mg PO DAILY ramipril 5 mg PO BID@0900,1600 sertraline 25 mg PO DAILY 90 days underpads (Bed Underpads) As directed [wipes As directed] Tobacco use date assessed: 07/05/23 Fall risk assessment: No Falls in past year Last assessed Fall Risk: 09/06/23 HPI HPI Comments History of Present Illness Details This is a 73-year-old female with hypertension, pure hypercholesterolemia and Alzheimer's dementia with behavioral disturbance that comes accompanied by which is the account manager b2b and he is complaining of more aggressive behavior. A was very difficult to examined her due to constantly pacing back and forth at the room. She is not oriented to time, person or place. She is very aggressive and I will increase Seroquel from 25 mg twice a day to 50 mg 3 times a day. custodial approval is pending. Went to the hospital last month due to UTI. Blood pressure well controlled. On statins for elevated cholesterol. In head CT was found to have thyroid nodule and ultrasound of the thyroid was ordered. [facility] Medical History (Updated 09/06/23 @ 11:13 by Patsy Rosales MD) Alzheimer's dementia with behavioral disturbance Pure hypercholesterolemia Essential hypertension Cataract Surgical History History of appendectomy History of bunionectomy Family History Mother No problems noted. Father No problems noted. Social History Household Members: Spouse Housing: Apartment Alcohol intake: never Patient Tobacco Use Status: Never used Tobacco e-Cigarette/Vaping Use: Never Used Second Hand Smoke Exposure: No service: No Current occupational status: unemployed Cognitive needs: No Hearing needs: No Vision needs: No Questionnaire PHQ-9 Over the last 2 weeks, how often have you been bothered by any of the following problems? 1. Little interest or pleasure in doing things: not at all 2. Feeling down, depressed, or hopeless: not at all 3. Trouble falling or staying asleep, or sleeping too much: nearly every day 4. Feeling tired or having little energy: not at all 5. Poor appetite or overeating: more than half the days 6. Feeling bad about yourself - or that you are a failure or have let yourself or your family down: not at all 7. Trouble concentrating on things, such as reading the newspaper or watching television: more than half the days 8. Moving or speaking so slowly that other people could have noticed. Or the opposite - being so fidgety or restless that you have been moving around a lot more than usual: nearly every day 9. Thoughts that you would be better off or of hurting yourself in some way: not at all Total score: 10 Depression Screening Interpretation: Positive Depression Screening Follow-up: Existing condition Depression Screening Done: Yes 39440 - PHQ-9 Billing: Yes Source: Developed by Drs. Ankit Bass, Lily Pathak, Scar Montejo and colleagues, with an educational joe from [employer]. Thrive Questionnaire Date Thrive assessed: 08/02/23 AVELINO-7 AMB Questionnaire AVELINO-7 Date AVELINO - 7 assessed: 09/06/23 Feeling nervous, anxious, or on edge: 3 = Nearly every day Not being able to stop or control worryin = Not at all Worrying too much about different things: 0 = Not at all Trouble relaxin = Nearly every day Being so restless that it is hard to sit still: 3 = Nearly every day Becoming easily annoyed or irritable: 3 = Nearly every day Feeling afraid as if something awful might happen: 0 = Not at all Total AVELINO-7 score (0-4 normal; 5-9 mild; 10-14 moderate; 15-21 severe): 12 Source: Developed by Drs. Ankit Bass, Lily Pathak, Scar Montejo and colleagues, with an educational joe from [employer]. AVELINO-7 Assessment Billing AVELINO-7 Assessment Tool: AVELINO-7 Assessment 99346 Review of Systems Const All systems reviewed & are unremarkable except as noted in HPI and below Eyes Reports no additional complaints, Denies change in vision and Denies other visual disturbances Card Denies chest pain at rest, Denies chest pain with activity, Denies edema, Denies irregular heart rhythm, Denies claudication, Denies dyspnea, Denies dyspnea on exertion, Denies orthopnea, Denies paroxysmal nocturnal dyspnea and Denies slow heart rate Resp Denies cough, Denies dyspnea and Denies dyspnea on exertion GI Denies abdominal pain, Denies change in bowel habits, Denies excessive flatus, Denies nausea and Denies vomiting Denies urinary incontinence, Denies urinary hesitancy and Denies urinary urgency Neuro Reports memory loss Psych Reports memory loss Physical exam (Primary Care) Vital Signs: Last Vital Signs BP 126/70 09/06/23 10:45 BMI result Body Mass Index 28.5 Tobacco/Smoking Status: Tobacco use Status Tobacco use date assessed 07/05/23 09/06/23 10:55 Patient Tobacco Use Status Never used Tobacco 09/06/23 10:55 e-Cigarette/Vaping Use Never Used 09/06/23 10:55 PHQ-9: PHQ-9 Score PHQ-9: Total score 10 09/06/23 11:16 Depression Screening Interpretation: Positive Depression Screening Follow-up: Existing condition Thrive Assessment: Date of Thrive Assessment Date Thrive assessed 08/02/23 09/06/23 10:55 Eyes General: appearance normal, both eyes and all related structures Eyelids: Yes eyelids normal Conjunctivae: conjunctivae normal Neck Neck: Yes normal visual inspection and Yes supple Resp Effort & Inspection: normal respiratory effort Auscultation: clear to auscultation bilaterally Cardio Jugular venous distension: no JVD Rate: regular rate Rhythm: regular rhythm Heart sounds: S1 normal heart sound present and S2 normal heart sound present Neuro General: no focal motor deficits Cognition (Neuro): abnormal cognition Extrem General: Yes full ROM Psych Affect: Anxious affect present and Irritable affect present Assessment and Plan Assessment & Plan (1) Alzheimer's dementia with behavioral disturbance: Code(s): G30.9 - Alzheimer's disease, unspecified; F02.818 - Dementia in other diseases classified elsewhere, unspecified severity, with other behavioral disturbance Plan: Continue donepezil. Follow-up with Neurology. Continue memantine. Increase Seroquel to 50 mg 3 times a day. (2) Pure hypercholesterolemia: Code(s): E78.00 - Pure hypercholesterolemia, unspecified Plan: Continue statins. (3) Essential hypertension: Code(s): I10 - Essential (primary) hypertension Plan: Continue ramipril. Blood pressure goal is equal or less than 130/80. (4) Thyroid nodule: Code(s): E04.1 - Nontoxic single thyroid nodule Plan: Ultrasound of the thyroid ordered. Orders: Orders US thyroid Today E04.1 - Nontoxic single thyroid nodule Medications: New quetiapine 50 mg PO TID 30 days 90 tabs 1RF R45.1 - Restlessness and agitation Refilled underpads (Bed Underpads) As directed 150 ea 11RF N39.41 - Urge incontinence [adult diapers pull-ups] As directed 240 ea 11RF F02.818 - Dementia in other diseases classified elsewhere, unspecified severity, with other behavioral disturbance, G30.9 - Alzheimer's disease, unspecified, N39.41 - Urge incontinence Coding Level of Care Code Est Pt Level 4 (39750) Diagnoses Alzheimer's dementia with behavioral disturbance G30.9; F02.818 Pure hypercholesterolemia E78.00 Essential hypertension I10 Thyroid nodule E04.1 Additional Codes AVELINO-7 Assessment Billing - AVELINO-7 Assessment Tool: AVELINO-7 Assessment 50343 ([id number]) Time Spent (min) 24
== END 2023-09-06 11:14 | disposition home or self-care (01) ==
PROVIDERS: PCP Internal Medicine; Visit Provider Internal Medicine
DX: G30.9 Alzheimer's disease, unspecified (principal); F02.818 Dementia in other diseases classified elsewhere, unspecified severity, with other behavioral disturbance; E78.00 Pure hypercholesterolemia, unspecified; E04.1 Nontoxic single thyroid nodule; I10 Essential (primary) hypertension
CPT/HCPCS: 99214

== ENCOUNTER 2023-09-14 13:21 | Outpatient (REF) | payer OTHER, SELFPAY ==
--- NOTE | ~2023-09-14 | US_ITS ---
EXAMINATION: US THYROID CLINICAL INFORMATION: Nontoxic single thyroid nodule. COMPARISON: None available. TECHNIQUE: Linear transducer grayscale and color Doppler examination with attention to the region of the thyroid. Technically limited study due to patient motion and inability to cooperate. FINDINGS: SIZE: Measurements of the thyroid lobes and nodules are given in sagittal, anteroposterior and transverse dimensions respectively. Right Thyroid Lobe: 4.6 x 2.2 x 21 cm, volume 11.2 mL. Parenchyma: The gland echotexture is heterogeneous. Thyroid vascularity is increased. Left Thyroid Lobe: 1.0 cm (TRV) Isthmus: 0.3 cm in maximum AP dimension. Estimated total number of nodules greater than or equal to 1 cm: 1. Waiter/Waitress Bar nodules are described as follows: 1. Location: Right mid. Size: 3.0 x 1.9 x 2.4 cm, volume 7.2 mL. Nodule characteristics: Composition: Solid (2). Echogenicity: Isoechoic (1). Shape: Not taller than wide (0). Margins: Ill-defined (0). Echogenic Foci: None (0). ACR TI-RADS total points: 3 ACR TI-RADS category: 3 NODES: Unable to evaluate. US/US thyroid IMPRESSION: 1. A 3.0 cm in maximal diameter right thyroid lobe TR 3 nodule meets ACR biopsy criteria and is amenable to ultrasound-guided biopsy, if clinically indicated and not already performed. 2. There is heterogeneous thyroid echotexture, which can be associated with thyroiditis. 3. Evaluation of the left thyroid lobe and of the cervical soft tissues is markedly limited due to noncompliance and motion artifact. ACR TI-RADS RECOMMENDATION REFERENCE: Ultrasound-guided fine-needle aspiration, followup ultrasound, no further follow up. * TR1 (0 point) and TR2 (2 points): No FNA or follow up. * TR3 (3 points): FNA if more than or equal to 2.5 cm in maximum dimension, followup ultrasound in 1, 3 and 5 years if 1.5 to 2.4 cm in maximum dimension. * TR4 (4-6 points): FNA if more than or equal to 1.5 cm in maximum dimension, followup ultrasound in 1, 2, 3 and 5 years if 1 to 1.4 cm in maximum dimension. * TR5 (more than or equal to 7 points): FNA if more than or equal to 1 cm in maximum dimension, followup ultrasound every year for 5 years if 0.5 to 0.9 cm in maximum dimension. * TR3, TR4 or TR5 nodules that are below the size threshold for followup receive no follow up.
== END 2023-09-14 13:22 | disposition home or self-care (01) ==
LOC: HO.US 13:21
PROVIDERS: PCP Internal Medicine; Visit Provider Internal Medicine
DX: E04.1 Nontoxic single thyroid nodule (principal)
CPT/HCPCS: 76536

== ENCOUNTER 2023-10-24 12:24 | Outpatient (REF) | payer OTHER, SELFPAY ==
--- NOTE | ~2023-10-24 | US_ITS ---
Ultrasound-guided thyroid nodule fine needle aspiration Indication: Right lobe thyroid nodule Procedure: Informed consent was obtained from the patient's prior to the procedure. During this process, the procedure and potential alternatives were explained, along with the intended outcome and benefits. The risks of the procedure, as well as the risks of not doing the procedure, were discussed. The patient's was given the opportunity to ask questions regarding the procedure and appeared competent to make medical decisions. A signed consent form which documents this discussion was placed in the medical record. A timeout was performed in the room. The patient was placed in a supine position with the neck extended. The right side of the neck and chest was prepped and draped in routine sterile fashion. 1% lidocaine was used as anesthetic. Under real-time ultrasound guidance, a 25-gauge needle was placed into the nodule and aspiration was performed. A total of 3 aspirations were performed. The specimens were placed in CytoLyt and and the Affirma bottle. Postprocedure images showed no hematoma. A Band-Aid was applied to the access site. The patient tolerated the procedure well with no immediate complications. Permanent ultrasound images were archived to the procedure. US/US guided fine needle asp Impression: Right thyroid nodule fine-needle aspiration This procedure was performed by Óscar Welch PA-C, and directly supervised by Dr. Dawkins
[2023-10-24] MEDS: Lidocaine HCl 1 % 20 ML VIAL 5 ML SUBCUT (13:38)
== END 2023-10-24 12:25 | disposition home or self-care (01) ==
LOC: HO.US 12:24
PROVIDERS: PCP Internal Medicine; Visit Provider Internal Medicine
DX: E04.1 Nontoxic single thyroid nodule (principal)
CPT/HCPCS: 10005; 88173; 88305

== ENCOUNTER → 2023-10-24 12:25 | Outpatient (BNV) | payer OTHER, SELFPAY | PROVIDERS: PCP Internal Medicine; Visit Provider Physician Assistant Surgical | DX: E04.1 Nontoxic single thyroid nodule (principal) | CPT/HCPCS: 10005 ==

== ENCOUNTER 2023-11-01 08:35 | Inpatient (IN) | payer OTHER, SELFPAY ==
--- NOTE | ~2023-11-01 | CT_ITS ---
EXAMINATION: CT HEAD WITHOUT CONTRAST CLINICAL INFORMATION: Pain status post fall COMPARISON: CT head from 07/13/2023 TECHNIQUE: Contiguous axial imaging was performed from the skull base to vertex without intravenous administration of contrast. This CT examination was performed using dose optimization techniques as appropriate, variously including the following: *Automated exposure control *Adjustment of mA and/or kV according to patient size (this includes techniques or standardized protocols for targeted exams where dose is matched to indication/reason for exam; i.e. extremities or head) *Use of iterative reconstruction technique DLP: 682.71 mGy-cm FINDINGS: There is no evidence of acute intracranial hemorrhage or territorial infarction. Chronic white matter small vessel ischemic changes. Cerebral atrophy with commensurate ventricular changes. Physiologic mineral deposition of the bilateral basal ganglia. No abnormal mass effect or midline shift is seen. Hanson to white matter differentiation is well preserved. No extra-axial fluid collections are identified. The ventricles are normal in size. There is no abnormal attenuation within the brain parenchyma. Hyperostosis frontalis and temporalis interna. The osseous structures and soft tissues are normal. The mastoid air cells and visualized portions of the paranasal sinuses are well aerated. CT/CT cervical spine wo IV con IMPRESSION: 1. No acute intracranial pathology. 2. Chronic white matter small vessel ischemic changes. EXAMINATION: Noncontrast CT scan of the cervical spine. INDICATION: Fall COMPARISON: CT cervical spine from 07/13/2023 TECHNIQUE: Helical, multidetector axial images were obtained from the occiput to the upper thorax. Coronal and sagittal reformats of the cervical spine were provided for interpretation. DLP: 335.63 mGy-cm FINDINGS: No acute fractures or dislocations of the cervical spine are seen. Straightening of the normal cervical curvature. Grade 1 anterolisthesis of C4 on C5. Multilevel degenerative changes. Anatomic alignment and positioning of the vertebral bodies and posterior elements is noted. The atlantoaxial joint and craniovertebral articulations are normal without evidence of subluxation. There is no prevertebral soft tissue swelling. Asymmetric enlargement of the right thyroid lobe, stable. Visualized portions of the lungs are unremarkable. IMPRESSION: 1. No acute visible fracture or dislocation. 2. Straightening of the normal cervical curvature. 3. Grade 1 anterolisthesis of C4 on C5. 4. Multilevel degenerative changes.
[2023-11-01 08:46] VITALS: BP 108/49; PULSE 67; RESP 18; O2SAT 100; BMI 28.9
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
[2023-11-01 09:56] LABS: Basophils Percent Auto 0.6 % (0-2); Eosinophils Absolute Auto 0.2 X10*3/uL (0.0-0.4); Eosinophils Percent Auto 4.8 % (0-4); Hematocrit 35.8 % (37.0-47.0); Hemoglobin 11.6 g/dl (12.0-16.0); Imm Gran Abs Auto 0.01 X10*3/uL (0.00-0.03); Imm Gran Pct Auto 0.2 % (0.0-0.4); Lymphocytes Absolute Auto 1.6 X10*3/uL (1.2-4.9); Lymphocytes Percent Auto 33.5 % (20-40); MANUAL DIFF FLAG SCAN; Mean Corpuscular HGB Conc 32.4 g/dl (31.0-35.0); Mean Corpuscular Hemoglobin 30.9 pg (27.0-33.0); Mean Corpuscular Volume 95.2 fL (80.0-98.0); Monocytes Absolute Auto 0.5 X10*3/uL (0.1-1.2); Monocytes Percent Auto 9.5 % (2-11); Neutrophils Absolute Auto 2.5 x10*3/uL (2.0-8.3); Neutrophils Percent Auto 51.4 % (45-73); PLT CLUMP 1; Red Blood Count 3.76 X10*6/uL (4.20-5.50); Red Cell Distribution Width 12.9 % (11.0-16.0); SCAN SMEAR FLAG 1
--- OUTSIDE RECORDS SUMMARY | 2023-11-01 09:58 | XMS_ITS | Continuity of Care Document ---
Author Organization [facility] Address [address] [place] [address]- Care Team Providers Care Market Editor Name Role Phone Piyush HAYNES, Brody Primary Care Physician [phone] [id number] Date(s): 12/30/22 - 01/06/23 [facility] [address] [place] [address]- Attending Physician: Shena Kuo NP Allergies, Adverse Reactions, Alerts No Known Medication Allergies Medications atorvastatin 40 mg oral tablet 1 tablet = 40 mg, By Mouth, Daily, # 30 tablet, 5 Refills, Maintenance, 09/29/22 12:13:00 EDT, Tablet, [id number], Rx in Qatari. new med, 156.3, cm, 09/15/22 13:42:00 EDT, Height Start Date: 09/29/22 Status: Ordered cetirizine 10 mg oral tablet See Instructions, [facility] [place] justina tableta cada annie por la manana., # 30 tablet, 3Refills, Maintenance, 12/07/22 9:11:00 EDT, [id number], Partial fill upon patient request if the prescription is for a schedule II opioid drug.... Start Date: 12/07/22 Status: Ordered donepezil 10 mg oral tablet 10 mg, 1, tablet, By Mouth, Daily at bedtime, # 30 tablet, Refills 2, Tot. Refills 2, Maintenance, 12/07/22 9:29:00 EDT, Route to Pharmacy Electronically, [id number], Rx in Qatari, 156.3, cm, 12/07/22 8:41:00 EDT, Height Start Date: 12/07/22 Status: Ordered hydrocortisone 1% topical cream 1 applicatino, Topically, Daily, Apply to itchy areas Qat[place] sig, # 60 Gm, 3 Refills, Maintenance,12/07/22 9:09:00 EDT, [id number], Partial fill upon patient request if the prescription is for a schedule II opioid drug., 1 applicatino Topic... Start Date: 12/07/22 Status: Ordered hydrOXYzine hydrochloride 25 mg oral tablet See Instructions, [facility] [place] [facility] - [place] JUSTINA TABLETA JUSTINA HORA ANTES DE DORMIR., # 30 tablet, 0 Refills, Maintenance, 12/15/22 10:50:00 EDT, [id number], 156.3, cm, 12/07/22 8:41:00 EDT, Height Start Date: 12/15/22 Status: Ordered melatonin 5 mg oral tablet See Instructions, 1 tablet By Mouth Daily at bedtime. Increase to 2 tablets after 1 week if needed.Qatari sig, # 60 tablet, 3 Refills, Maintenance, 12/07/22 9:25:00 EDT, [id number], Partialfill upon patient request if the prescription is... Start Date: 12/07/22 Status: Ordered memantine 10 mg oral tablet 1 tablet = 10 mg, By Mouth, Daily, # 30 tablet, 2 Refills, Maintenance, 12/07/22 9:29:00 EDT, Tablet, [id number], Rx in Qatari, 156.3, cm, 12/07/22 8:41:00 EDT, Height Start Date: 12/07/22 Status: Ordered QUEtiapine 25 mg oral tablet 50 mg, 2, tablet, By Mouth, Daily at bedtime, # 60 tablet, Refills 2, Tot. Refills 2, Maintenance, 12/07/22 9:29:00 EDT, Route to Pharmacy Electronically, [id number], Rx in Qatari, 156.3, cm, 12/07/22 8:41:00 EDT, Height Start Date: 12/07/22 Stop Date: 03/07/23 Status: Ordered ramipril 5 mg oral capsule 1 capsule = 5 mg, By Mouth, 2 times a day, # 60 capsule, 2 Refills, Maintenance, 12/07/22 9:29:00 EDT, Capsule, [id number], Rx in Qatari. NOTE DOSE CHANGE, 156.3, cm, 12/07/22 8:41:00 EDT, Height Start Date: 12/07/22 Stop Date: 03/07/23 Status: Ordered Problem List Condition Confirmation Course Effective Dates Status H ealth Status Informant Dementia Confirmed Active Essential hypertension Confirmed Active Hyperlipidemia Confirmed Active Obese class I Confirmed Active Vital Signs Most recent to oldest [Reference Range]: 1 Oxygen Saturation [94-100 %] 98 % (12/30/22 9:56 AM) Pulse Rate [55-90 bpm] 86 bpm (12/30/22 9:56 AM) Blood Pressure [90-138/55-84 mm Hg] 132/ 76mm Hg (12/30/22 9:56 AM) Respiratory Rate [16-30 br/min] 16 br/mi n (12/30/22 9:56 AM) Mode of Delivery (Oxygen) Room air (12/30/22 9:56 AM) Blood pressure sites Arm, right (12/30/22 9:56 AM) Social History Social History Type Response Smoking Status Never (less than 100 in lifetime) entered on: 09/15/22 Sex Patient Care team information Care Team Personnel Name: Brody Pickett MD Position: [facility] Resident Member Role: PCP Address: Address: [address] [place] [address]- Care Team Related Persons Name: ROBERT AMAYA Address: home [facility] [place] [address] Name: JOHANNA AMAYA
--- OUTSIDE RECORDS SUMMARY | 2023-11-01 09:58 | XMS_ITS | Continuity of Care Document ---
Author Organization [facility] Address [address] [place] [address]- Care Team Providers Care Manufacturing Engineering Technician Name Role Phone Not on Staff, PCP Primary Care Physician Unavail able Encounter [facility] [place] Date(s): 04/11/23 - 05/11/23 [facility] [address] [place], [place] [address] Attending Physician: Jesus Mendieta Admitting Physician: Jesus Mendieta Referring Physician: AdmtrJesus Allergies, Adverse Reactions, Alerts No Known Medication Allergies Medications atorvastatin 40 mg oral tablet 1 tablet = 40 mg, By Mouth, Daily, # 30 tablet, 5 Refills, Maintenance, 09/29/22 12:13:00 EDT, Tablet, [id number], Rx in American. new med, 156.3, cm, 09/15/22 13:42:00 EDT, Height Start Date: 09/29/22 Status: Ordered cetirizine 10 mg oral tablet See Instructions, [facility] - [place] justina tableta cada annie por la manana., # 30 tablet, 3Refills, Maintenance, 12/07/22 9:11:00 EDT, [id number], Partial fill upon patient request if the prescription is for a schedule II opioid drug.... Start Date: 12/07/22 Status: Ordered extra absorbent pullups S/M extra absorbent pullups S/M, See Instructions, # 90 each, Refills 11, Tot. Refills 11, Maintenance,For use during day for urinary incontinence related to dementia. Change up to 3 times a day to maintain hygeine., 02/11/23 11:31:00 EDT, Supply Start Date: 02/11/23 Status: Ordered hydrocortisone 1% topical cream 1 applicatino, Topically, Daily, Apply to itchy areas American sig, # 60 Gm, 3 Refills, Maintenance,12/07/22 9:09:00 EDT, [id number], Partial fill upon patient request if the prescription is for a schedule II opioid drug., 1 applicatino Topic... Start Date: 12/07/22 Status: Ordered melatonin 5 mg oral tablet See Instructions, 1 tablet By Mouth Daily at bedtime. Increase to 2 tablets after 1 week if needed.American sig, # 60 tablet, 3 Refills, Maintenance, 12/07/22 9:25:00 EDT, [id number], Partialfill upon patient request if the prescription is... Start Date: 12/07/22 Status: Ordered memantine 10 mg oral tablet 1 tablet, By Mouth, Daily, # 30 tablet, 2 Refills, Maintenance, 03/14/23 10:08:00 EDT, [id number], 156.3, cm, 12/07/22 8:41:00 EDT, Height Start Date: 03/14/23 Status: Ordered QUEtiapine 25 mg oral tablet 2, tablet, By Mouth, Daily at bedtime, # 60 tablet, Refills 2, Maintenance, 03/14/23 10:09:00 EDT, Route to Pharmacy Electronically, [id number], 156.3, cm, 12/07/22 8:41:00 EDT, Height Start Date: 03/14/23 Status: Ordered ramipril 5 mg oral capsule 1 capsule = 5 mg, By Mouth, 2 times a day, # 60 capsule, 2 Refills, Maintenance, 12/07/22 9:29:00 EDT, Capsule, [id number], Rx in American. NOTE DOSE CHANGE, 156.3, cm, 12/07/22 8:41:00 EDT, Height Start Date: 12/07/22 Stop Date: 03/07/23 Status: Ordered Problem List Condition Confirmation Course Effective Dates Status H ealth Status Informant Dementia Confirmed Active Essential hypertension Confirmed Active Hyperlipidemia Confirmed Active Obese class I Confirmed Active Social History Social History Type Response Smoking Status Never (less than 100 in lifetime) entered on: 09/15/22 Sex Patient Care team information Care Team Personnel Name: Not on Staff, PCP Position: S Physician (General Medicine) Member Role: PCP Care Team Related Persons Name: ROBERT AMAYA Address: home [address] [place] [id number] Name: JOHANNA AMAYA
--- OUTSIDE RECORDS SUMMARY | 2023-11-01 09:58 | XMS_ITS | Continuity of Care Document ---
Author Organization [facility] Address [address] [place] [address]- Care Team Providers Care Programming Instructor Name Role Phone Not on Staff, PCP Primary Care Physician Unavail able [place] [facility] [place] 04[place]18[place]23 [facility] [address] [place] [address]- Attending Physician: Shena Kuo NP Allergies, Adverse Reactions, Alerts No Known Medication Allergies Medications atorvastatin 40 mg oral tablet 1 tablet = 40 mg, By Mouth, Daily, # 30 tablet, 5 Refills, Maintenance, 09/29/22 12:13:00 EDT, Tablet, [id number], Rx in Faroese. new med, 156.3, cm, 09/15/22 13:42:00 EDT, Height Start Date: 09/29/22 Status: Ordered cetirizine 10 mg oral tablet See Instructions, [facility] - [place] justina tableta cada annie por la manana., [...] applicatino, Topically, Daily, Apply to itchy areas Faroese sig, # 60 Gm, 3 Refills, Maintenance,12/07/22 9:09:00 EDT, [id number], Partial fill upon patient request if the prescription is for a schedule II opioid drug., 1 applicatino Topic... Start Date: 12/07/22 Status: Ordered melatonin 5 mg oral tablet See Instructions, 1 tablet By Mouth Daily at bedtime. Increase to 2 tablets after 1 week if needed.Faroese sig, # 60 tablet, 3 Refills, Maintenance, 12/07/22 9:25:00 EDT, [id number], Partialfill upon patient request if the prescription is... Start Date: 12/07/22 Status: Ordered memantine 10 mg oral tablet 1 tablet, By Mouth, Daily, # 30 tablet, 2 Refills, Maintenance, 03/14/23 10:08:00 EDT, [id number], 156.3, cm, 12/07/22 8:41:00 EDT, Height Start Date: 03/14/23 Status: Ordered QUEtiapine 25 mg oral tablet 2, tablet, By Mouth, Daily at bedtime, # 60 tablet, Refills 2, Maintenance, 03/14/23 10:09:00 EDT, Route to Pharmacy Electronically, [id number], 156.3, cm, 12/07/22 8:41:00 EDT, Height Start Date: 03/14/23 Status: Ordered ramipril 5 mg oral capsule 1 capsule = 5 mg, By Mouth, 2 times a day, # 60 capsule, 2 Refills, Maintenance, 12/07/22 9:29:00 EDT, Capsule, [id number], Rx in Faroese. NOTE DOSE CHANGE, 156.3, cm, 12/07/22 8:41:00 [...] Related Persons Name: ROBERT AMAYA Address: home [address] [place] [address] Name: JOHANNA AMAYA
--- OUTSIDE RECORDS SUMMARY | 2023-11-01 09:58 | XMS_ITS | Continuity of Care Document ---
Author Organization [facility] Address [address] [place] [id number]- Care Team Providers Care Care Support Representative Name Role Phone Brody Pickett MD Primary Care Physician [place] [facility] [id number] Date(s): 12/07/22 - 01/06/[address] [address]- Attending Physician: Jesus Mendieta Admitting Physician: AdmtrJesus Referring Physician: Admtr, Ar8 Allergies, Adverse Reactions, Alerts No Known Medication Allergies Medications atorvastatin 40 mg oral tablet 1 tablet = 40 mg, By Mouth, Daily, # 30 tablet, 5 Refills, Maintenance, 09/29/22 12:13:00 EDT, Tablet, [facility]/pharmacy #[id number], Rx in Danish. new med, 156.3, cm, 09/15/22 13:42:00 EDT, Height Start Date: 09/29/22 Status: Ordered cetirizine 10 mg oral tablet See Instructions, [facility] [place] - [place] justina tableta cada annie por la manana., [...] to Pharmacy Electronically, [id number], Rx in Danish, 156.3, cm, 12/07/22 8:41:00 EDT, Height Start Date: 12/07/22 Status: Ordered hydrocortisone 1% topical cream 1 applicatino, Topically, Daily, Apply to itchy areas Danish sig, # 60 Gm, 3 Refills, Maintenance,12/07/22 9:09:00 EDT, [facility]/pharmacy #[id number], Partial fill upon patient request if the prescription is for a schedule II opioid drug., 1 applicatino Topic... Start Date: 12/07/22 Status: Ordered hydrOXYzine hydrochloride 25 mg oral tablet See Instructions, PARA COMEZON EN [place] NOC[place] - [place] JUSTINA TABLETA JUSTINA HORA ANTES DE DORMIR., # 30 tablet, 0 Refills, Maintenance, 12/15/22 10:50:00 EDT, [id number], 156.3, cm, 12/07/22 8:41:00 EDT, Height Start Date: 12/15/22 Status: Ordered melatonin 5 mg oral tablet See Instructions, 1 tablet By Mouth Daily at bedtime. Increase to 2 tablets after 1 week if needed.Danish sig, # 60 tablet, 3 Refills, Maintenance, 12/07/22 9:25:00 EDT, [facility]/pharmacy #[id number], Partialfill upon patient request if the prescription is... Start Date: 12/07/22 Status: Ordered memantine 10 mg oral tablet 1 tablet = 10 mg, By Mouth, Daily, # 30 tablet, 2 Refills, Maintenance, 12/07/22 9:29:00 EDT, Tablet, [facility]/pharmacy #[id number], Rx in Danish, 156.3, cm, 12/07/22 8:41:00 EDT, Height Start Date: 12/07/22 Status: Ordered QUEtiapine 25 mg oral tablet 50 mg, 2, tablet, By Mouth, Daily at bedtime, # 60 tablet, Refills 2, Tot. Refills 2, Maintenance, 12/07/22 9:29:00 EDT, Route to Pharmacy Electronically, [facility]/pharmacy #[id number], Rx in Danish, 156.3, cm, 12/07/22 8:41:00 EDT, Height Start Date: 12/07/22 Stop Date: 03/07/23 Status: Ordered ramipril 5 mg oral capsule 1 capsule = 5 mg, By Mouth, 2 times a day, # 60 capsule, 2 Refills, Maintenance, 12/07/22 9:29:00 EDT, Capsule, [id number], Rx in Danish. NOTE DOSE CHANGE, 156.3, cm, 12/07/22 8:41:00 [...] Team Personnel Name: Brody Pickett MD Position: [facility] Resident Member Role: PCP Address: Address: [address] [place] [address]- Care Team Related Persons Name: ROBERT AMAYA Address: home [address] [place] [id number] Name: JOHANNA AMAYA
--- OUTSIDE RECORDS SUMMARY | 2023-11-01 09:58 | XMS_ITS | Continuity of Care Document ---
Author Organization [facility] Address [address] [place] [address]- Care Team Providers Care Mother Baby Rn Name Role Phone Piyush HAYNES, Brody Primary Care Physician [phone] Encounter [facility] Date(s): 02/04/23 - 02/11/23 [facility] [address] [place] [address]- Attending Physician: Shena Kuo NP Allergies, Adverse Reactions, Alerts No Known Medication Allergies Medications atorvastatin 40 mg oral tablet 1 tablet = 40 mg, By Mouth, Daily, # 30 tablet, 5 Refills, Maintenance, 09/29/22 12:13:00 EDT, Tablet, [id number], Rx in Malawian. new med, 156.3, cm, 09/15/22 13:42:00 EDT, Height Start Date: 09/29/22 Status: Ordered cetirizine 10 mg oral tablet See Instructions, PARA COMEZON EN EL ANNIE - [place] justina tableta cada annie por la manana., [...] applicatino, Topically, Daily, Apply to itchy areas Malawian sig, # 60 Gm, 3 Refills, Maintenance,12/07/22 9:09:00 EDT, [facility]/pharmacy #[id number], Partial fill upon patient request if the prescription is for a schedule II opioid drug., 1 applicatino Topic... Start Date: 12/07/22 Status: Ordered melatonin 5 mg oral tablet See Instructions, 1 tablet By Mouth Daily at bedtime. Increase to 2 tablets after 1 week if needed.Malawian sig, # 60 tablet, 3 Refills, Maintenance, 12/07/22 9:25:00 EDT, [facility]/pharmacy #[id number], Partialfill upon patient request if the prescription is... Start Date: 12/07/22 Status: Ordered memantine 10 mg oral tablet 1 tablet = 10 mg, By Mouth, Daily, # 30 tablet, 2 Refills, Maintenance, 12/07/22 9:29:00 EDT, Tablet, [facility]/pharmacy #[id number], Rx in Malawian, 156.3, cm, 12/07/22 8:41:00 EDT, Height Start Date: 12/07/22 Status: Ordered QUEtiapine 25 mg oral tablet 50 mg, 2, tablet, By Mouth, Daily at bedtime, # 60 tablet, Refills 2, Tot. Refills 2, Maintenance, 12/07/22 9:29:00 EDT, Route to Pharmacy Electronically, [facility]/pharmacy #[id number], Rx in Malawian, 156.3, cm, 12/07/22 8:41:00 EDT, Height Start Date: 12/07/22 Stop Date: 03/07/23 Status: Ordered ramipril 5 mg oral capsule 1 capsule = 5 mg, By Mouth, 2 times a day, # 60 capsule, 2 Refills, Maintenance, 12/07/22 9:29:00 EDT, Capsule, [facility]/pharmacy #[id number], Rx in Malawian. NOTE DOSE CHANGE, 156.3, cm, 12/07/22 8:41:00 [...] Team Personnel Name: Brody Pickett MD Position: S Resident Member Role: PCP Address: Address: [address] [place] [address]- Care Team Related Persons Name: ROBERT AMAYA Address: home [address] [place] [id number] Name: JOHANNA AMAYA
--- OUTSIDE RECORDS SUMMARY | 2023-11-01 09:58 | XMS_ITS | Continuity of Care Document ---
Author Organization [facility] Address [address] [place] [address]- Care Team Providers Care Wood Gluer Name Role Phone Brody Pickett MD Primary Care Physician Encounter [facility] [id number] Date(s): 01/11/23 - 02/10/[address] [address]- Attending Physician: Jesus Mendieta Admitting Physician: Jesus Mendieta Referring Physician: Jesus Mendieta Referring Physician: Shaheen Zaragoza Allergies, Adverse Reactions, Alerts No Known Medication Allergies Medications atorvastatin 40 mg oral tablet 1 tablet = 40 mg, By Mouth, Daily, # 30 tablet, 5 Refills, Maintenance, 09/29/22 12:13:00 EDT, Tablet, [id number], Rx in [place]iboutian. new med, 156.3, cm, 09/15/22 13:42:00 EDT, Height Start Date: 09/29/22 Status: Ordered cetirizine 10 mg oral tablet See Instructions, PARA COMEZON EN EL ANNIE - [place] justina tableta cada annie por la manana., # 30 tablet, 3Refills, Maintenance, 12/07/22 9:11:00 EDT, [id number], Partial fill upon patient request if the prescription is for a schedule II opioid drug.... Start Date: 12/07/22 Status: Ordered hydrocortisone 1% topical cream 1 applicatino, Topically, Daily, Apply to itchy areas [place]iboutian sig, # 60 Gm, 3 Refills, Maintenance,12/07/22 9:09:00 EDT, [id number], Partial fill upon patient request if the prescription is for a schedule II opioid drug., 1 applicatino Topic... Start Date: 12/07/22 Status: Ordered melatonin 5 mg oral tablet See Instructions, 1 tablet By Mouth Daily at bedtime. Increase to 2 tablets after 1 week if needed.Djiboutian sig, # 60 tablet, 3 Refills, Maintenance, 12/07/22 9:25:00 EDT, [facility]/pharmacy #[id number], Partialfill upon patient request if the prescription is... Start Date: 12/07/22 Status: Ordered memantine 10 mg oral tablet 1 tablet = 10 mg, By Mouth, Daily, # 30 tablet, 2 Refills, Maintenance, 12/07/22 9:29:00 EDT, Tablet, [id number], Rx in Djiboutian, 156.3, cm, 12/07/22 8:41:00 EDT, Height Start Date: 12/07/22 Status: Ordered QUEtiapine 25 mg oral tablet 50 mg, 2, tablet, By Mouth, Daily at bedtime, # 60 tablet, Refills 2, Tot. Refills 2, Maintenance, 12/07/22 9:29:00 EDT, Route to Pharmacy Electronically, [facility]/pharmacy #[id number], Rx in Djiboutian, 156.3, cm, 12/07/22 8:41:00 EDT, Height Start Date: 12/07/22 Stop Date: 03/07/23 Status: Ordered ramipril 5 mg oral capsule 1 capsule = 5 mg, By Mouth, 2 times a day, # 60 capsule, 2 Refills, Maintenance, 12/07/22 9:29:00 EDT, Capsule, [id number], Rx in [place]ib[place]ian. NOTE DOSE CHANGE, 156.3, cm, 12/07/22 8:41:00 [...] Resident Member Role: PCP Address: Address: [address] [place] [address] Care Team Related Persons Name: ROBERT AMAYA Address: home [address] [place] [address] Name: JOHANNA AMAYA
--- OUTSIDE RECORDS SUMMARY | 2023-11-01 09:58 | XMS_ITS | Continuity of Care Document ---
Author Organization [facility] Address [address] [place] [address]- Care Team Providers Care Balance Sheet Analyst Name Role Phone Not on Staff, PCP Primary Care Physician Unavail able En[place] [facility] Date(s): 02/04/23 - 03/06/23 [facility] [address] [place], [place] [address] Attending Physician: Jesus Mendieta Admitting Physician: Jesus Mendieta Referring Physician: AdmtrJesus Allergies, Adverse Reactions, Alerts No Known Medication Allergies Medications atorvastatin 40 mg oral tablet 1 tablet = 40 mg, By Mouth, Daily, # 30 tablet, 5 Refills, Maintenance, 09/29/22 12:13:00 EDT, Tablet, [id number], Rx in [place] Citizen. new med, 156.3, cm, 09/15/22 13:42:00 EDT, Height Start Date: 09/29/22 Status: Ordered cetirizine 10 mg oral tablet See Instructions, PARA COMEZON EN EL ANNIE - [place] justina tableta cada annie por la manana., [...] applicatino, Topically, Daily, Apply to itchy areas [place] Citizen sig, # 60 Gm, 3 Refills, Maintenance,12/07/22 9:09:00 EDT, [facility]/pharmacy #[id number], Partial fill upon patient request if the prescription is for a schedule II opioid drug., 1 applicatino Topic... Start Date: 12/07/22 Status: Ordered melatonin 5 mg oral tablet See Instructions, 1 tablet By Mouth Daily at bedtime. Increase to 2 tablets after 1 week if needed.[place] Citizen sig, # 60 tablet, 3 Refills, Maintenance, 12/07/22 9:25:00 EDT, [facility]/pharmacy #[id number], Partialfill upon patient request if the prescription is... Start Date: 12/07/22 Status: Ordered memantine 10 mg oral tablet 1 tablet = 10 mg, By Mouth, Daily, # 30 tablet, 2 Refills, Maintenance, 12/07/22 9:29:00 EDT, Tablet, [facility]/pharmacy #[id number], Rx in [place] Citizen, 156.3, cm, 12/07/22 8:41:00 EDT, Height Start Date: 12/07/22 Status: Ordered QUEtiapine 25 mg oral tablet 50 mg, 2, tablet, By Mouth, Daily at bedtime, # 60 tablet, Refills 2, Tot. Refills 2, Maintenance, 12/07/22 9:29:00 EDT, Route to Pharmacy Electronically, [facility]/pharmacy #[id number], Rx in [place] Citizen, 156.3, cm, 12/07/22 8:41:00 EDT, Height Start Date: 12/07/22 Stop Date: 03/07/23 Status: Ordered ramipril 5 mg oral capsule 1 capsule = 5 mg, By Mouth, 2 times a day, # 60 capsule, 2 Refills, Maintenance, 12/07/22 9:29:00 EDT, Capsule, [facility]/pharmacy #[id number], Rx in [place] Citizen. NOTE DOSE CHANGE, 156.3, cm, 12/07/22 8:41:00 [...] Related Persons Name: ROBERT AMAYA Address: home [address] [place], [place] [id number] Name: JOHANNA AMAYA
--- OUTSIDE RECORDS SUMMARY | 2023-11-01 09:59 | XMS_ITS | Continuity of Care Document ---
Author Organization [facility] Address [address] [place] [address]- Care Team Providers Care College Football Coach Name Role Phone Vivian HAYNES, Lara Garrison Primary Care Physician Encounter [facility] [place] [facility] [id number] Date(s): 10/06/22 - 11/05/[address] [address]- Attending Physician: Admtr, Jesus Admitting Physician: Admtr, Ar8 Referring Physician: Admtr, Ar8 Allergies, Adverse Reactions, Alerts No Known Medication Allergies Medications atorvastatin 40 mg oral tablet 1 tablet = 40 mg, By Mouth, Daily, # 30 tablet, 5 Refills, Maintenance, 09/29/22 12:13:00 EDT, Tablet, [facility]/pharmacy #[id number], Rx in Norwegian. new med, 156.3, cm, 09/15/22 13:42:00 EDT, Height Start Date: 09/29/22 Status: Ordered donepezil 10 mg oral tablet 10 mg, 1, tablet, By Mouth, Daily at bedtime, # 30 tablet, Refills 2, Tot. Refills 2, Maintenance, 09/15/22 14:34:00 EDT, Route to Pharmacy Electronically, [id number], Rx in Norwegian, 156.3, cm, 09/15/22 13:42:00 EDT, Height Start Date: 09/15/22 Status: Ordered memantine 10 mg oral tablet 1 tablet = 10 mg, By Mouth, Daily, # 30 tablet, 2 Refills, Maintenance, 09/15/22 14:34:00 EDT, Tablet, [id number], Rx in Norwegian, 156.3, cm, 09/15/22 13:42:00 EDT, Height Start Date: 09/15/22 Status: Ordered QUEtiapine 25 mg oral tablet 50 mg, 2, tablet, By Mouth, Daily at bedtime, # 60 tablet, Refills 2, Tot. Refills 2, Maintenance, 09/15/22 14:34:00 EDT, Route to Pharmacy Electronically, [facility]/pharmacy #[id number], Rx in Norwegian, 156.3, cm, 09/15/22 13:42:00 EDT, Height Start Date: 09/15/22 Stop Date: 12/14/22 Status: Ordered ramipril 5 mg oral capsule 1 capsule = 5 mg, By Mouth, 2 times a day, # 60 capsule, 2 Refills, Maintenance, 09/22/22 21:44:00 EDT, Capsule, [id number], Rx in Norwegian. NOTE DOSE CHANGE, 156.3, cm, 09/15/22 13:42:00 EDT,Height Start Date: 09/22/22 Stop Date: 12/21/22 Status: Ordered Problem List Condition Confirmation Course Effective Dates Status H ealth Status Informant Dementia Confirmed Active Essential hypertension Confirmed Active Hyperlipidemia Confirmed Active Obese class I Confirmed Active Social History Social History Type Response Smoking Status Never (less than 100 in lifetime) entered on: 09/15/22 Sex Patient Care team information Care Team Personnel Name: Vivian HAYNES, Lara Garrison Position: S Resident Member Role: PCP Address: Address: [address] [place] [address]- Care Team Related Persons Name: ROBERT AMAYA Address: home [facility] [place] [address] Name: JOHANNA AMAYA
--- OUTSIDE RECORDS SUMMARY | 2023-11-01 09:59 | XMS_ITS | Continuity of Care Document ---
Author Organization [facility] Address [address] [place] [address]- Care Team Providers Care Newspaper Stuffer Name Role Phone Piyush HAYNES, Brody Primary Care Physician Encounter [facility] Date(s): 12/07/22 - 02/10/[address] [address]- Attending Physician: Paloma Kim NP Admitting Physician: Paloma Kim NP Referring Physician: Paloma Kim NP Allergies, Adverse Reactions, Alerts No Known Medication Allergies Medications atorvastatin 40 mg oral tablet 1 tablet = 40 mg, By Mouth, Daily, # 30 tablet, 5 Refills, Maintenance, 09/29/22 12:13:00 EDT, Tablet, [id number], Rx in Liberian. new med, 156.3, cm, 09/15/22 13:42:00 EDT, Height Start Date: 09/29/22 Status: Ordered cetirizine 10 mg oral tablet See Instructions, PAR[facility] COMEZON EN [place] ANNIE - [place] justina tableta cada annie por la manana., # 30 tablet, 3Refills, Maintenance, 12/07/22 9:11:00 EDT, [id number], Partial fill upon patient request if the prescription is for a schedule II opioid drug.... Start Date: 12/07/22 Status: Ordered hydrocortisone 1% topical cream 1 applicatino, Topically, Daily, Apply to itchy areas Liberian sig, # 60 Gm, 3 Refills, Maintenance,12/07/22 9:09:00 EDT, [id number], Partial fill upon patient request if the prescription is for a schedule II opioid drug., 1 applicatino Topic... Start Date: 12/07/22 Status: Ordered melatonin 5 mg oral tablet See Instructions, 1 tablet By Mouth Daily at bedtime. Increase to 2 tablets after 1 week if needed.Liberian sig, # 60 tablet, 3 Refills, Maintenance, 12/07/22 9:25:00 EDT, [facility]/pharmacy #[id number], Partialfill upon patient request if the prescription is... Start Date: 12/07/22 Status: Ordered memantine 10 mg oral tablet 1 tablet = 10 mg, By Mouth, Daily, # 30 tablet, 2 Refills, Maintenance, 12/07/22 9:29:00 EDT, Tablet, [id number], Rx in Liberian, 156.3, cm, 12/07/22 8:41:00 EDT, Height Start Date: 12/07/22 Status: Ordered QUEtiapine 25 mg oral tablet 50 mg, 2, tablet, By Mouth, Daily at bedtime, # 60 tablet, Refills 2, Tot. Refills 2, Maintenance, 12/07/22 9:29:00 EDT, Route to Pharmacy Electronically, [facility]/pharmacy #[id number], Rx in Liberian, 156.3, cm, 12/07/22 8:41:00 EDT, Height Start Date: 12/07/22 Stop Date: 03/07/23 Status: Ordered ramipril 5 mg oral capsule 1 capsule = 5 mg, By Mouth, 2 times a day, # 60 capsule, 2 Refills, Maintenance, 12/07/22 9:29:00 EDT, Capsule, [id number], Rx in Liberian. NOTE DOSE CHANGE, 156.3, cm, 12/07/22 8:41:00 [...] S Resident Member Role: PCP Address: Address: [address] [place] [address] Care Team Related Persons Name: ROBERT AMAYA Address: home [address] [place] [address] Name: JOHANNA AMAYA
[2023-11-01 10:10] LABS: Alanine Aminotransferase 15 U/L (0-31); Alkaline Phosphatase 83 U/L (39-117); Anion Gap 12 (12-20); Aspartate Amino Transferase 18 U/L (5-31); Bilirubin Direct 0.1 mg/dL (0.0-0.5); Bilirubin Total 0.4 mg/dL (0.0-1.0); Blood Urea Nitrogen 18 mg/dL (9-16); Calcium 9.3 mg/dL (8.4-10.2); Carbon Dioxide 23 mmol/L (22-29); Chloride 108 mmol/L (96-108); Creatinine Clr Calc Pharmacy 59.2; Estimated Glomerular Filt Rate > 60; Glucose Random 107 mg/dL (60-115); Magnesium 2.3 mg/dL (1.6-2.6); Potassium 4.4 mmol/L (3.3-5.1); Sodium 139 mmol/L (135-145); Total Protein 7.2 g/dL (6.5-8.0)
[2023-11-01 10:20] LABS: Platelet Count 111 X10*3/uL (160-400); White Blood Count 4.8 X10*3/uL (4.8-10.8)
[2023-11-01 10:21] LABS: SLIDE REVIEW VERIFIED
[2023-11-01 13:14] LABS: COVID-19 Test Negative (Negative); IDNOW Serial# 58CA691E
--- NOTE | 2023-11-01 14:18 | MHC.CM.ED ---
Addendum entered by Sandrita Robbins 11/01/23 15:05: [facility] did not realize patient needed a dementia unit. They do have a bed available. No beds available [place] [address] [place] [address] or [facility]. T/W is trying to see if dementia bed is still available to [facility]. Jhony and Jg aware. Original Note: Received case management consult from Karina MAYA. Patient came to the ER after a fall. Patient has advanced dementia. Family reports difficulty caring for patient. Work up essentially negative. Physical therapy eval completed. senior care care is recommended. Met with patient, son Jg and son Jhony and athletic agent in regards to discharge planning. Patient live with her , Shakeel. Patient has dementia with symptoms getting worse. Patient doesn't sleep at night. Patient's is not able to care for patient at this time. Both sons work and neither are available to help with 10/01 care. Jg and Jhony are agreeable to referral being broadcasted within 25 miles of patient's home to all facilities that are contracted with patient's insurance. Referral broadcasted in [facility]. [facility], [facility], [facility] are able to offer a bed. Jhony and Shakeel accept bed at [facility]. [facility] is in the process of obtaining insurance auth. Continue to monitor for d/c needs.
[2023-11-01] MEDS: lisinopriL 20 MG TABLET PO (15:16)
[2023-11-01] MEDS: QUEtiapine Fumarate 50 MG TABLET PO ×3 (15:16→21:09)
[2023-11-01 17:01] VITALS: RESP 15
[2023-11-01 18:00] VITALS: RESP 16
--- NOTE | 2023-11-01 18:42 | PC.NURSE ---
pt pacing in [place], staff with her. refused to eat dinner
--- NOTE | 2023-11-01 19:14 | MHC.EDTECH ---
PATIENT ATE 100 % 0F MEAL DRANK 360 ML FLUIDS ,UNABLE TO COLLECT URINE SAMPLE ,BECAUSE PATIENT WAS INCONTINENT OF URINE .
[2023-11-01] MEDS: OLANZapine ODT 10 MG TAB.RAPDIS TRANSLINGU (19:17)
[2023-11-01 19:38] VITALS: BP 99/80; PULSE 68; RESP 18; O2SAT 99
[2023-11-01] MEDS: Donepezil HCl 10 MG TABLET PO (21:08)
[2023-11-01] MEDS: Melatonin 3 MG TABLET 6 MG PO (21:09)
[2023-11-01 22:00] VITALS: PULSE 72; RESP 16; TEMP 36.3; O2SAT 97
[2023-11-02] VITALS (7 sets, daily range): BP systolic 90–127; BP diastolic 43–64; PULSE 58–83; RESP 16–18; TEMP 36.1–36.6; O2SAT 97–99
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
--- NOTE | 2023-11-02 01:12 | MHC.EDTECH ---
this pct assist rn to obtain urine sample ,Patient was also incontinent of urine ,care given and bedding change .
--- NOTE | 2023-11-02 01:15 | PC.NURSE ---
at 0115 pt was straight cath with the assist of 4 other staff members. pt became combative w/ staff after procedure was completed. she was able to be redirected.
[2023-11-02 01:22] LABS: Appearance Urine Clear; Color Urine Yellow; Glucose Urine UA Negative (Negative); Leukocyte Esterase Urine Large (3+) (Negative); Nitrite Urine Negative (Negative); Specific Gravity - Urine <= 1.005 (1.005-1.025); UMIC TRIGGER UACC YES; Urine Blood Negative (Negative); Urine Ketones Negative (Negative); Urine Protein Negative (Neg-Trace)
[2023-11-02 01:33] LABS: Bacteria Urine None Seen (None Seen); Hyaline Casts Urine 0-2 /LPF (0-2); RBC Urine 0-2 /HPF (0-2); UACC Culture Trigger YES; WBC Urine 21-50 /HPF (0-5)
--- NOTE | 2023-11-02 08:23 | PC.NURSE ---
pt is currently asleep, respirations even and unlabored, pt not being woken up for breakfast at this time to allow for rest- had a rough night last night
[2023-11-02] MEDS: Cholecalciferol (Vitamin D3) 25 MCG TABLET PO (11:24)
[2023-11-02] MEDS: Atorvastatin Calcium 40 MG TABLET PO (11:24)
[2023-11-02] MEDS: QUEtiapine Fumarate 50 MG TABLET PO ×3 (11:24→20:51)
[2023-11-02] MEDS: Sertraline HCL 25 MG TABLET PO (11:24)
[2023-11-02] MEDS: lisinopriL 20 MG TABLET PO ×2 (11:24→15:44)
[2023-11-02] MEDS: Memantine HCl 10 MG TABLET PO (11:24)
--- NOTE | 2023-11-02 11:29 | PC.NURSE ---
pt medicated late with morning medication because she was allowed to sleep
--- NOTE | 2023-11-02 12:27 | PC.NURSE ---
Assumed care of this patient at 1100, patient had been allowed to sleep, given AM meds late by previous RN, patient incontient of urine, changed and purewick applied by casing in line feeder Veronica, patient resting quietly on stretcher at this time, 1:1 sitter at bedside.
--- NOTE | 2023-11-02 14:20 | MHC.CM.ED ---
Patient remains in ER. [facility] no longer has a bed available. They had to fill it with one of their [facility] patients[facility] questionaire be completed. T/W spoke with patient's son Jg, via telephone at [phone] with the help of the paraprofessional interpreter. Jg's brother, Jhony, will pick pulling machine operator the paper. Continue to monitor for d/c needs.
--- NOTE | 2023-11-02 18:38 | PC.NURSE ---
Patient resting quietly on stretcher at this time, sitter at bed side assisting patient eating food.
--- NOTE | 2023-11-02 19:45 | MHC.EDTECH ---
PT REPOSITIONED IN BED. PUREWICK CANISTER EMPTIED OF 400cc URINE. VITALS UPDATED. SITTER AT BEDSIDE AND RN AWARE
[2023-11-02] MEDS: Donepezil HCl 10 MG TABLET PO (20:51)
[2023-11-02] MEDS: Melatonin 3 MG TABLET 6 MG PO (20:51)
--- NOTE | 2023-11-02 21:04 | PC.NURSE ---
Patient restless in bed, medicated for PM per AUG. 1:1 sitter at bedside.
--- NOTE | 2023-11-03 | ECG_ITS ---
Test Reason : QTC PROLONGATION Blood Pressure : / mmHG Vent. Rate : 086 BPM Atrial Rate : 086 BPM P-R Int : 138 ms QRS Dur : 070 ms QT Int : 356 ms P-R-T Axes : 051 032 061 degrees QTc Int : 426 ms Normal sinus rhythm Normal ECG When compared with ECG of 13-JUL-2023 16:11, No significant change was found Referred By: Blanca Willams Electronically Signed By:JALEN MELENDREZ MD
[2023-11-03 06:12] VITALS: BP 140/67; PULSE 63; RESP 14; TEMP 36.8; O2SAT 97
[2023-11-03] MEDS: Atorvastatin Calcium 40 MG TABLET PO (10:01)
[2023-11-03] MEDS: lisinopriL 20 MG TABLET PO (10:01)
[2023-11-03] MEDS: Memantine HCl 10 MG TABLET PO (10:01)
[2023-11-03] MEDS: Cholecalciferol (Vitamin D3) 25 MCG TABLET PO (10:02)
[2023-11-03] MEDS: QUEtiapine Fumarate 50 MG TABLET PO (10:02)
[2023-11-03] MEDS: Sertraline HCL 25 MG TABLET PO (10:02)
--- NOTE | 2023-11-03 10:09 | PC.NURSE ---
pt resting comfortably in no apparent distress w/ the lights dimmed. medication administered per provider order - whole w/ pudding followed by sips of water. no difficulties noted. 600ml of pale yellow urine noted/documented from [employer]. purewick remains on place. pt has baby doll for support. 1:1 sitter remains present. plan of care ongoing. call logan placed within reach.
--- NOTE | 2023-11-03 12:08 | MHC.EDTECH ---
this tech performed a full body bed bath, fresh linen and warm blankets given, new purewick was placed, pt comfortable in bed watching tv, RN aware
--- NOTE | 2023-11-03 13:32 | MHC.CM.ED ---
Patient remains in ER. Medicaid questionnaire completed and returned by patient's family. This information was updated to [facility] [place]. Waiting to hear if they will be able to offer a bed. [facility] is still following. Waiting for psych consult. Psych consult was ordered and is pending. Continue to monitor for d/c needs.
[2023-11-03 14:12] VITALS: BP 101/39; PULSE 75; RESP 16
[2023-11-03 14:57] VITALS: BP 107/52; PULSE 63; RESP 14; O2SAT 100
--- NOTE | 2023-11-03 14:57 | PC.NURSE ---
vss and up to date aside from being hypotensive. MD notified/aware of most recent vitals - per MD - will d/c lisinopril. plan of care ongoing. call logan placed within reach.
--- NOTE | 2023-11-03 15:22 | PM.PSYCN ---
History of Present Illness Date of Service: 11/03/2023 Chief Complaint: Head Pain ? Concussion S/P Fall Reason for Consult: agitation Requesting physician: Kirstie Ibanez Sources of Information: patient interviewed, chart reviewed and crisis/core team assessment reviewed Additional Sources of Information: Son Jg [phone] HCP HPI Narrative: Mrs. Wiley is a 73 year-old woman with hx of Alzheimer's who was brought by her son, one of them is her HCP. Family reports main caregiver was her who is struggling to meet her needs. Labs in the ED include- CBC without leukocytosis, normocytic anemia, low plt. CMP no electrolyte abnormalities, BUN 18, Cr. 0.76, creatinine clearance 59.2. UA with leukocytes, WBC 21-50, however, culture was negative for growth. Head CT without acute findings, atrophy and microvascular changes. Pt seen in bed. This communications writer interviewed pt in Honduran, her iroquois language. Pt in bed, in no acute distress.Pt not oriented to place, situation, month or year. She greets this communications writer as she has seen me before, asking me why I hadn't come earlier as she was waiting for me. She later asked this communications writer to walk to [facility] (pt originally from [facility]). She does have a slight irritable edge as quickly asking this communications writer: do you think I am lying? She later as this communications writer continue talking with her, she smiled. Noted expressive aphasia and probably some degree of receptive aphasia. Collateral information from SON Jg who reports pt becoming more combative at home and not able to sleep through the night.Son reports frequent falls. Check otho VS, but also note calcification of basal ganglia that can contribute to unsteady gait.. Past Psychiatric History: past medication trials for behaviors related to dementia include: risperidone, depakote. Son reports they were no effective but denies side effects PMFSH Medical History Alzheimer's dementia with behavioral disturbance Pure hypercholesterolemia Essential hypertension Cataract Surgical History History of appendectomy History of bunionectomy Diagnostics Vital Signs (24Hr): Vital Signs - 24 hr 11/02/23 15:44 11/02/23 19:36 11/03/23 06:12 Temperature 98.2 F Pulse Rate 71 63 Respiratory Rate 16 14 Blood Pressure 127/61 105/46 L 140/67 H Pulse Oximetry 98 97 Oxygen Delivery Method Room Air Room Air 11/03/23 14:12 11/03/23 14:57 Temperature Pulse Rate 75 63 Respiratory Rate 16 14 Blood Pressure 101/39 L 107/52 L Pulse Oximetry 100 Oxygen Delivery Method Room Air BMI result Body Mass Index 28.9 Labs 11/01/23 09:45 11/01/23 09:45 Labs: Laboratory Results - last 48 hr 11/02/23 01:11 Urine Color Yellow Urine Appearance Clear Urine pH 7.0 Ur Specific [place] <= 1.005 Urine Protein Negative Urine Glucose (UA) Negative Urine Ketones Negative Urine Blood Negative Urine Nitrite Negative Ur Leukocyte Esterase Large (3+) H Urine RBC 0-2 Urine WBC 21-50 H Ur Squamous Epith Cells 6-10 Urine Bacteria None Seen Hyaline Casts 0-2 Imaging Radiology Impressions: ITS Impressions Cervical Spine CT 11/01/23 09:19 IMPRESSION: 1. No acute intracranial pathology. 2. Chronic white matter small vessel ischemic changes. EXAMINATION: Noncontrast CT scan of the cervical spine. INDICATION: Fall COMPARISON: CT cervical spine from 07/13/2023 TECHNIQUE: Helical, multidetector axial images were obtained from the occiput to the upper thorax. Coronal and sagittal reformats of the cervical spine were provided for interpretation. DLP: 335.63 mGy-cm FINDINGS: No acute fractures or dislocations of the cervical spine are seen. Straightening of the normal cervical curvature. Grade 1 anterolisthesis of C4 on C5. Multilevel degenerative changes. Anatomic alignment and positioning of the vertebral bodies and posterior elements is noted. The atlantoaxial joint and craniovertebral articulations are normal without evidence of subluxation. There is no prevertebral soft tissue swelling. Asymmetric enlargement of the right thyroid lobe, stable. Visualized portions of the lungs are unremarkable. IMPRESSION: 1. No acute visible fracture or dislocation. 2. Straightening of the normal cervical curvature. 3. Grade 1 anterolisthesis of C4 on C5. 4. Multilevel degenerative changes. Head CT 11/01/23 09:19 IMPRESSION: 1. No acute intracranial pathology. 2. Chronic white matter small vessel ischemic changes. EXAMINATION: Noncontrast CT scan of the cervical spine. INDICATION: Fall COMPARISON: CT cervical spine from 07/13/2023 TECHNIQUE: Helical, multidetector axial images were obtained from the occiput to the upper thorax. Coronal and sagittal reformats of the cervical spine were provided for interpretation. DLP: 335.63 mGy-cm FINDINGS: No acute fractures or dislocations of the cervical spine are seen. Straightening of the normal cervical curvature. Grade 1 anterolisthesis of C4 on C5. Multilevel degenerative changes. Anatomic alignment and positioning of the vertebral bodies and posterior elements is noted. The atlantoaxial joint and craniovertebral articulations are normal without evidence of subluxation. There is no prevertebral soft tissue swelling. Asymmetric enlargement of the right thyroid lobe, stable. Visualized portions of the lungs are unremarkable. IMPRESSION: 1. No acute visible fracture or dislocation. 2. Straightening of the normal cervical curvature. 3. Grade 1 anterolisthesis of C4 on C5. 4. Multilevel degenerative changes. Mental Status Exam Mental Status Exam Narrative: Appearance: wearing hospital gown, in bed, in NAD Behavior: cooperative, friendly, thinks she knows this communications writer for a long time Psychomotor: no agitation or retardation noted Speech: mumbles at times, regular rate/rhythm/volume, spontaneous TP: disorganized thought process TC: wanting to go to [place] Mood: good Affect: smiling, congruent, although after somewhat irritable edge. SI: none HI: none VH/AH: no overt signs Delusions: no overt signs more than confabulation Insight/judgment: impaired x 2. Memory/cog: alert, not oriented to place, situation, month or date. severe cognitive impairments. Medications Medications Current Medications Atorvastatin Calcium (Atorvastatin Calcium 40 Mg Tablet) 40 mg PO DAILY [facility] Last Admin: 11/03/23 10:01 Dose: 40 mg Donepezil HCl (Donepezil Hcl 10 Mg Tablet) 10 mg PO BEDTIME [facility] Last Admin: 11/02/23 20:51 Dose: 10 mg Loratadine (Loratadine 10 Mg Tablet) 10 mg PO DAILY PRN PRN Reason: for allergies Melatonin (Melatonin 3 Mg Tablet) 6 mg PO BEDTIME [facility] Last Admin: 11/02/23 20:51 Dose: 6 mg Memantine (Memantine Hcl 10 Mg Tablet) 10 mg PO DAILY [facility] Last Admin: 11/03/23 10:01 Dose: 10 mg Quetiapine Fumarate (Quetiapine Fumarate 50 Mg Tablet) 50 mg PO TID [facility] Last Admin: 11/03/23 10:02 Dose: 50 mg Sertraline HCl (Sertraline Hcl 25 Mg Tablet) 25 mg PO DAILY [facility] Last Admin: 11/03/23 10:02 Dose: 25 mg Vitamin D (Cholecalciferol (Vitamin D3) 25 Mcg Tablet) 25 mcg PO DAILY [facility] Last Admin: 11/03/23 10:02 Dose: 25 mcg Allergies Allergies Allergy/AdvReac Type Severity Reaction Status Date / Time No Known Allergies Allergy Verified 11/01/23 08:47 Assessment & Plan Assessment & Plan (1) Alzheimer's dementia with behavioral disturbance: Status: Acute Code(s): G30.9 - Alzheimer's disease, unspecified; F02.818 - Dementia in other diseases classified elsewhere, unspecified severity, with other behavioral disturbance Plan Mrs. Wiley is a 73 year-old woman with hx of advanced dementia, appears of AD type or mixed etiology. She is currently awaiting placement, but has had difficulty sleeping and at times can present as combative. She does not have capacity to make medical decisions. PLAN 1. will increase seroquel to 75mg po TID. check EKG, monitor Qtc, maintain Qtc<500ms, K>4, Mg>2. monitor over sedation 2. please try to ambulate pt during the day, avoid decompensation by keeping pt in bed all day long. 3. will d/c sertraline at this point. Total time managing care of this patient today _45___ minutes. Patient educated on: diagnosis (HCP) and medication risk/benefits Informed Consent: understands (HCP- Jg)
[2023-11-03 17:07] VITALS: BP 101/61; PULSE 79; RESP 16
[2023-11-03] MEDS: Melatonin 3 MG TABLET 6 MG PO (21:12)
[2023-11-03] MEDS: QUEtiapine Fumarate 25 MG TABLET 75 MG PO (21:12)
[2023-11-03] MEDS: Donepezil HCl 10 MG TABLET PO (21:18)
--- NOTE | 2023-11-03 21:20 | PC.NURSE ---
pt medicated per mar with bedtime meds; tolerated well po with pudding. pt repositioned. sitter at bedside.
[2023-11-03 21:21] VITALS: BP 137/58; PULSE 97; RESP 15; TEMP 36.8; O2SAT 98
[2023-11-03 23:32] VITALS: BP 90/45; PULSE 72; RESP 16; O2SAT 96
--- NOTE | 2023-11-03 23:35 | PC.NURSE ---
[id number] Tino MAYA aware of low BP. no new orders.
[2023-11-04 06:02] VITALS: BP 95/59; PULSE 63; RESP 16; O2SAT 93
[2023-11-04 07:53] VITALS: BP 83/40; PULSE 56; RESP 16
[2023-11-04 08:15] VITALS: BP 111/57; PULSE 62; RESP 12
[2023-11-04 08:48] VITALS: BP 101/77; PULSE 61; RESP 12
--- NOTE | 2023-11-04 09:15 | PC.NURSE ---
patient placed into hospital bed, bed alarm on. incontinent of small bowel movement, pure wick changed and remains in place. rectal temp obtained 97.3.
--- NOTE | 2023-11-04 09:30 | MHC.CM.ED ---
Addendum entered by Sandrita Robbins 11/04/23 12:55: [facility] does not have a bed available on their locked unit. Referral broadcasted to all facilities within 50 miles of patient's home that are contracted with [facility]. Original Note: Patient remains in ER. Psych consult completed. Medication recommendations made. Social security number obtained. [facility] is not able to offer a bed. [facility] is reviewing. Continue to monitor for d/c needs.
--- NOTE | 2023-11-04 11:44 | P.CNPS_ITS ---
History of Present Illness Date of Service: 11/04/2023 Chief Complaint: Head Pain ? Concussion S/P Fall Sources of Information: patient interviewed, chart reviewed and crisis/core team assessment reviewed HPI Narrative: INterim Hx: pt mostly in bed. recommend to have walking schedule to avoid pt from deconditioning and also helping regulate sleep. Pt not oriented to place, situation, month or date. significant expressive aphasia with some words or short sentence at times not completely sensical. Past Psychiatric History: past medication trials for behaviors related to dementia include: risperidone, depakote. Son reports they were no effective but denies side effects Review of Systems Review of Systems Yes Unobtainable due to mental condition [facility] Medical History Alzheimer's dementia with behavioral disturbance Pure hypercholesterolemia Essential hypertension Cataract Surgical History History of appendectomy History of bunionectomy Diagnostics Vital Signs (24Hr): Vital Signs - 24 hr 11/03/23 14:12 11/03/23 14:57 11/03/23 17:07 Temperature Pulse Rate 75 63 79 Respiratory Rate 16 14 16 Blood Pressure 101/39 L 107/52 L 101/61 Pulse Oximetry 100 Oxygen Delivery Method Room Air 11/03/23 21:21 11/03/23 23:32 11/04/23 06:02 Temperature 98.3 F Pulse Rate 97 72 63 Respiratory Rate 15 16 16 Blood Pressure 137/58 L 90/45 L 95/59 L Pulse Oximetry 98 96 93 Oxygen Delivery Method Room Air Room Air Room Air 11/04/23 07:53 11/04/23 08:15 11/04/23 08:48 Temperature Pulse Rate 56 62 61 Respiratory Rate 16 12 12 Blood Pressure 83/40 L 111/57 L 101/77 Pulse Oximetry Oxygen Delivery Method Room Air Room Air Room Air BMI result Body Mass Index 28.9 Labs 11/01/23 09:45 11/01/23 09:45 Imaging Radiology Impressions: ITS Impressions Cervical Spine CT 11/01/23 09:19 IMPRESSION: 1. No acute intracranial pathology. 2. Chronic white matter small vessel ischemic changes. EXAMINATION: Noncontrast CT scan of the cervical spine. INDICATION: Fall COMPARISON: CT cervical spine from 07/13/2023 TECHNIQUE: Helical, multidetector axial images were obtained from the occiput to the upper thorax. Coronal and sagittal reformats of the cervical spine were provided for interpretation. DLP: 335.63 mGy-cm FINDINGS: No acute fractures or dislocations of the cervical spine are seen. Straightening of the normal cervical curvature. Grade 1 anterolisthesis of C4 on C5. Multilevel degenerative changes. Anatomic alignment and positioning of the vertebral bodies and posterior elements is noted. The atlantoaxial joint and craniovertebral articulations are normal without evidence of subluxation. There is no prevertebral soft tissue swelling. Asymmetric enlargement of the right thyroid lobe, stable. Visualized portions of the lungs are unremarkable. IMPRESSION: 1. No acute visible fracture or dislocation. 2. Straightening of the normal cervical curvature. 3. Grade 1 anterolisthesis of C4 on C5. 4. Multilevel degenerative changes. Head CT 11/01/23 09:19 IMPRESSION: 1. No acute intracranial pathology. 2. Chronic white matter small vessel ischemic changes. EXAMINATION: Noncontrast CT scan of the cervical spine. INDICATION: Fall COMPARISON: CT cervical spine from 07/13/2023 TECHNIQUE: Helical, multidetector axial images were obtained from the occiput to the upper thorax. Coronal and sagittal reformats of the cervical spine were provided for interpretation. DLP: 335.63 mGy-cm FINDINGS: No acute fractures or dislocations of the cervical spine are seen. Straightening of the normal cervical curvature. Grade 1 anterolisthesis of C4 on C5. Multilevel degenerative changes. Anatomic alignment and positioning of the vertebral bodies and posterior elements is noted. The atlantoaxial joint and craniovertebral articulations are normal without evidence of subluxation. There is no prevertebral soft tissue swelling. Asymmetric enlargement of the right thyroid lobe, stable. Visualized portions of the lungs are unremarkable. IMPRESSION: 1. No acute visible fracture or dislocation. 2. Straightening of the normal cervical curvature. 3. Grade 1 anterolisthesis of C4 on C5. 4. Multilevel degenerative changes. Mental Status Exam Mental Status Exam Narrative: Appearance: wearing hospital gown, in bed, in NAD Behavior: cooperative, friendly, thinks she knows this magnetic tape typewriter operator for a long time Psychomotor: no agitation or retardation noted Speech: mumbles at times, regular rate/rhythm/volume, spontaneous TP: disorganized thought process TC: wanting to go to [place] Mood: good Affect: smiling, congruent, although after somewhat irritable edge. SI: none HI: none VH/AH: no overt signs Delusions: no overt signs more than confabulation Insight/judgment: impaired x 2. Memory/cog: alert, not oriented to place, situation, month or date. severe cognitive impairments. Medications Medications Current Medications Atorvastatin Calcium (Atorvastatin Calcium 40 Mg Tablet) 40 mg PO DAILY [facility] Last Admin: 11/03/23 10:01 Dose: 40 mg Donepezil HCl (Donepezil Hcl 10 Mg Tablet) 10 mg PO BEDTIME [facility] Last Admin: 11/03/23 21:18 Dose: 10 mg Loratadine (Loratadine 10 Mg Tablet) 10 mg PO DAILY PRN PRN Reason: for allergies Melatonin (Melatonin 3 Mg Tablet) 6 mg PO BEDTIME [facility] Last Admin: 11/03/23 21:12 Dose: 6 mg Memantine (Memantine Hcl 10 Mg Tablet) 10 mg PO DAILY [facility] Last Admin: 11/03/23 10:01 Dose: 10 mg Quetiapine Fumarate (Quetiapine Fumarate 25 Mg Tablet) 75 mg PO TID [facility] Last Admin: 11/03/23 21:12 Dose: 75 mg Vitamin D (Cholecalciferol (Vitamin D3) 25 Mcg Tablet) 25 mcg PO DAILY [facility] Last Admin: 11/03/23 10:02 Dose: 25 mcg Allergies Allergies Allergy/AdvReac Type Severity Reaction Status Date / Time No Known Allergies Allergy Verified 11/01/23 08:47 Assessment & Plan Assessment & Plan (1) Alzheimer's dementia with behavioral disturbance: Status: Acute Code(s): G30.9 - Alzheimer's disease, unspecified; F02.818 - Dementia in other diseases classified elsewhere, unspecified severity, with other behavioral disturbance Plan Mrs. Wiley is a 73 year-old woman with hx of advanced dementia, appears of AD type or mixed etiology. She is currently awaiting placement, but has had difficulty sleeping and at times can present as combative. She does not have capacity to make medical decisions. PLAN 1. will increase seroquel to 75mg po TID. check EKG, monitor Qtc, maintain Qtc<500ms, K>4, Mg>2. monitor over sedation 2. please try to ambulate pt during the day, avoid decompensation by keeping pt in bed all day long. 3. KEEP track of oral intake, and hydration as in advanced dementia pt can lose ability to express needed for adequate nutrition and hydration. 4. can d/c aricept as benefit at this point may be minimal. Total time managing care of this patient today ____ minutes.
[2023-11-04] MEDS: QUEtiapine Fumarate 25 MG TABLET 75 MG PO ×3 (13:33→21:09)
[2023-11-04] MEDS: Memantine HCl 10 MG TABLET PO (13:33)
[2023-11-04] MEDS: Cholecalciferol (Vitamin D3) 25 MCG TABLET PO (13:33)
[2023-11-04] MEDS: Atorvastatin Calcium 40 MG TABLET PO (13:33)
[2023-11-04 16:27] VITALS: BP 123/64; PULSE 94; RESP 20; TEMP 36.6; O2SAT 95
--- NOTE | 2023-11-04 18:58 | PC.NURSE ---
Assumed care of pt. Pt lying on stretcher, eyes closed, respirations even and unlabored. Continuing plan of care.
[2023-11-04] MEDS: Melatonin 3 MG TABLET 6 MG PO (21:09)
--- NOTE | 2023-11-05 00:55 | MHC.EDTECH ---
Patient respirations even and unlabored. RN aware
[2023-11-05 00:56] VITALS: RESP 16
[2023-11-05 06:12] VITALS: BP 113/60; PULSE 55; RESP 16; TEMP 36.2; O2SAT 97
[2023-11-05] MEDS: Cholecalciferol (Vitamin D3) 25 MCG TABLET PO (10:21)
[2023-11-05] MEDS: QUEtiapine Fumarate 25 MG TABLET 75 MG PO ×3 (10:21→20:53)
[2023-11-05] MEDS: Atorvastatin Calcium 40 MG TABLET PO (10:22)
[2023-11-05] MEDS: Memantine HCl 10 MG TABLET PO (10:22)
[2023-11-05 12:45] VITALS: BP 114/66; PULSE 66; RESP 16; O2SAT 100
[2023-11-05] MEDS: Melatonin 3 MG TABLET 6 MG PO (20:53)
[2023-11-05 21:41] VITALS: BP 132/91; PULSE 90; RESP 18; O2SAT 95
[2023-11-06 06:07] VITALS: BP 118/50; PULSE 72; RESP 16; O2SAT 95
--- NOTE | 2023-11-06 07:15 | PC.NURSE ---
pt was fed her breakfast and ate 100% of the breakfast, pt is vocal this morning, appears to be conversing with herself in Mauritian
[2023-11-06] MEDS: Memantine HCl 10 MG TABLET PO (10:06)
[2023-11-06] MEDS: Cholecalciferol (Vitamin D3) 25 MCG TABLET PO (10:06)
[2023-11-06] MEDS: Atorvastatin Calcium 40 MG TABLET PO (10:06)
[2023-11-06 10:07] VITALS: BP 118/41; PULSE 69; RESP 20
[2023-11-06] MEDS: QUEtiapine Fumarate 25 MG TABLET 75 MG PO ×3 (11:37→20:43)
--- NOTE | 2023-11-06 11:40 | PC.NURSE ---
Patient continues to be intermittently restless in bed, yelling/singing in Syriac, took pills whole in pudding, caring for her baby doll at this time.
--- NOTE | 2023-11-06 20:13 | MHC.EDTECH ---
Pt cleaned, changed, changed bed, and repositioned
[2023-11-06] MEDS: Melatonin 3 MG TABLET 6 MG PO (20:43)
[2023-11-06 22:02] VITALS: BP 116/57; PULSE 80; RESP 16; TEMP 36.5; O2SAT 97
--- NOTE | 2023-11-06 23:08 | PC.NURSE ---
Assumed care of pt. pt lying on stretcher, respirations even and unlabored, no acute distress.
[2023-11-07 06:00] VITALS: BP 127/79; PULSE 72; TEMP 36.5; O2SAT 97
--- NOTE | 2023-11-07 09:14 | MHC.CM.ED ---
Patient remains in ER. Clinical updates sent to facilities still following. Continue to monitor for d/c needs.
[2023-11-07] MEDS: QUEtiapine Fumarate 25 MG TABLET 75 MG PO ×3 (10:47→21:55)
[2023-11-07] MEDS: Atorvastatin Calcium 40 MG TABLET PO (10:47)
[2023-11-07] MEDS: Cholecalciferol (Vitamin D3) 25 MCG TABLET PO (10:47)
[2023-11-07] MEDS: Memantine HCl 10 MG TABLET PO (10:47)
[2023-11-07 14:22] VITALS: BP 104/61; RESP 14
--- NOTE | 2023-11-07 16:03 | PC.NURSE ---
this rn assumed care of pt. pt medicated according to mar pt refusing to take pills without pudding. meds administered with pudding
--- NOTE | 2023-11-07 16:07 | P.CNPS_ITS ---
History of Present Illness Date of Service: 11/07/2023 Chief Complaint: Head Pain ? Concussion S/P Fall Reason for Consult: combative behaviors Discussed with referring provider: Yes Sources of Information: patient interviewed, chart reviewed and crisis/core team assessment reviewed HPI Narrative: Interim Hx: pt in bed, grabbing at times things that are not there and talking to someone who is not there. She is mostly in bed. No IM medications given. Not oriented to situation, place, month. Past Psychiatric History: past medication trials for behaviors related to dementia include: risperidone, depakote. Son reports they were no effective but denies side effects Review of Systems Review of Systems Yes Unobtainable due to mental condition [facility] Medical History Alzheimer's dementia with behavioral disturbance Pure hypercholesterolemia Essential hypertension Cataract Surgical History History of appendectomy History of bunionectomy Diagnostics Vital Signs (24Hr): Vital Signs - 24 hr 11/06/23 22:02 11/07/23 06:00 11/07/23 14:22 Temperature 97.7 F 97.7 F Pulse Rate 80 72 Respiratory Rate 16 14 Blood Pressure 116/57 L 127/79 104/61 Pulse Oximetry 97 97 Oxygen Delivery Method Room Air Room Air Room Air BMI result Body Mass Index 28.9 Labs 11/01/23 09:45 11/01/23 09:45 Imaging Radiology Impressions: ITS Impressions Cervical Spine CT 11/01/23 09:19 IMPRESSION: 1. No acute intracranial pathology. 2. Chronic white matter small vessel ischemic changes. EXAMINATION: Noncontrast CT scan of the cervical spine. INDICATION: Fall COMPARISON: CT cervical spine from 07/13/2023 TECHNIQUE: Helical, multidetector axial images were obtained from the occiput to the upper thorax. Coronal and sagittal reformats of the cervical spine were provided for interpretation. DLP: 335.63 mGy-cm FINDINGS: No acute fractures or dislocations of the cervical spine are seen. Straightening of the normal cervical curvature. Grade 1 anterolisthesis of C4 on C5. Multilevel degenerative changes. Anatomic alignment and positioning of the vertebral bodies and posterior elements is noted. The atlantoaxial joint and craniovertebral articulations are normal without evidence of subluxation. There is no prevertebral soft tissue swelling. Asymmetric enlargement of the right thyroid lobe, stable. Visualized portions of the lungs are unremarkable. IMPRESSION: 1. No acute visible fracture or dislocation. 2. Straightening of the normal cervical curvature. 3. Grade 1 anterolisthesis of C4 on C5. 4. Multilevel degenerative changes. Head CT 11/01/23 09:19 IMPRESSION: 1. No acute intracranial pathology. 2. Chronic white matter small vessel ischemic changes. EXAMINATION: Noncontrast CT scan of the cervical spine. INDICATION: Fall COMPARISON: CT cervical spine from 07/13/2023 TECHNIQUE: Helical, multidetector axial images were obtained from the occiput to the upper thorax. Coronal and sagittal reformats of the cervical spine were provided for interpretation. DLP: 335.63 mGy-cm FINDINGS: No acute fractures or dislocations of the cervical spine are seen. Straightening of the normal cervical curvature. Grade 1 anterolisthesis of C4 on C5. Multilevel degenerative changes. Anatomic alignment and positioning of the vertebral bodies and posterior elements is noted. The atlantoaxial joint and craniovertebral articulations are normal without evidence of subluxation. There is no prevertebral soft tissue swelling. Asymmetric enlargement of the right thyroid lobe, stable. Visualized portions of the lungs are unremarkable. IMPRESSION: 1. No acute visible fracture or dislocation. 2. Straightening of the normal cervical curvature. 3. Grade 1 anterolisthesis of C4 on C5. 4. Multilevel degenerative changes. Mental Status Exam Mental Status Exam Narrative: Appearance: wearing hospital gown, in bed, in NAD Behavior: cooperative, friendly, thinks she knows this expert medical writer for a long time Psychomotor: no agitation or retardation noted Speech: mumbles at times, regular rate/rhythm/volume, spontaneous TP: disorganized thought process TC: wanting to go to [place] Mood: good Affect: smiling, congruent, although after somewhat irritable edge. SI: none HI: none VH/AH: no overt signs Delusions: no overt signs more than confabulation Insight/judgment: impaired x 2. Memory/cog: alert, not oriented to place, situation, month or date. severe cognitive impairments. Medications Medications Current Medications Atorvastatin Calcium (Atorvastatin Calcium 40 Mg Tablet) 40 mg PO DAILY [facility] Last Admin: 11/07/23 10:47 Dose: 40 mg Loratadine (Loratadine 10 Mg Tablet) 10 mg PO DAILY PRN PRN Reason: for allergies Melatonin (Melatonin 3 Mg Tablet) 6 mg PO BEDTIME [facility] Last Admin: 11/06/23 20:43 Dose: 6 mg Memantine (Memantine Hcl 10 Mg Tablet) 10 mg PO DAILY [facility] Last Admin: 11/07/23 10:47 Dose: 10 mg Quetiapine Fumarate (Quetiapine Fumarate 25 Mg Tablet) 75 mg PO TID [facility] Last Admin: 11/07/23 15:59 Dose: 75 mg Vitamin D (Cholecalciferol (Vitamin D3) 25 Mcg Tablet) 25 mcg PO DAILY [facility] Last Admin: 11/07/23 10:47 Dose: 25 mcg Allergies Allergies Allergy/AdvReac Type Severity Reaction Status Date / Time No Known Allergies Allergy Verified 11/01/23 08:47 Assessment & Plan Assessment & Plan (1) Alzheimer's dementia with behavioral disturbance: Status: Acute Code(s): G30.9 - Alzheimer's disease, unspecified; F02.818 - Dementia in other diseases classified elsewhere, unspecified severity, with other behavioral disturbance Plan Mrs. Wiley is a 73 year-old woman with hx of advanced dementia, appears of AD type or mixed etiology. She is currently awaiting placement, but has had difficulty sleeping and at times can present as combative. She does not have capacity to make medical decisions. PLAN 1. will increase seroquel to 75mg po TID. check EKG, monitor Qtc, maintain Qtc<500ms, K>4, Mg>2. monitor over sedation 2. please try to ambulate pt during the day, avoid decompensation by keeping pt in bed all day long. 3. KEEP track of oral intake, and hydration as in advanced dementia pt can lose ability to express needed for adequate nutrition and hydration. 4. can d/c aricept as benefit at this point may be minimal. 11/06 may consider inpt penny psych for further stabilization, medication management prior to extermination supervisor placement Total time managing care of this patient today ____ minutes.
[2023-11-07 19:28] VITALS: TEMP 37.1; O2SAT 100
[2023-11-07] MEDS: Melatonin 3 MG TABLET 6 MG PO (21:55)
--- NOTE | 2023-11-08 06:11 | PC.ADMIT ---
Patient is a 73 yr old female presenting to [facility] ED for evaluation of a large bruise on her forehead above her right eye. This patient has advanced dementia and is unable to communicate how she got the bruise or if she is in any pain. She lives in an apartment with her who is having difficulty caring for her due to her cognitive status. She has a history of Alzheimer's dementia, htn, hld, insomnia, anxiety, and recurrent UTI's for which she was seen and treated here in July for ESBL E coli UTI. Her family is worried about her safety at home and are interested in medical and psychiatric stabilization and possibly remote computer terminal operator care placement. The patient presents as confused with legs hanging over the siderails of the bed in the ED and a baby doll at her side. The bruise above her right eye is noticeable and discolored but not affecting the eye and not open or bleeding. Her skin is otherwise intact upon assessment. She had a purewick in the ED and is incontinent of urine. No bowel movement overnight, unsure when her last bm was. She is Burmese speaking only and is very confused stating she is in [place]. Patient has difficulty standing on her own and is a moderate assist from wheelchair to bed. She is cooperative with care and has no issues swallowing. She took her meds crushed in applesauce last night and drank milk out of a carton through a straw. She has a history of insomnia and was occasionally restless but slept at least 6 hours overnight. Her son Jg is her HCP and his number is in the chart. No acute events overnight. Will continue to monitor and continue care with oncoming behavioral health care team in the morning.
[2023-11-08 08:00] VITALS: BP 109/59; PULSE 72; RESP 18; TEMP 36.1; O2SAT 98
[2023-11-08] MEDS: QUEtiapine Fumarate 25 MG TABLET 75 MG PO ×3 (08:46→20:51)
[2023-11-08] MEDS: Cholecalciferol (Vitamin D3) 25 MCG TABLET PO (08:47)
[2023-11-08] MEDS: Atorvastatin Calcium 40 MG TABLET PO (08:47)
[2023-11-08] MEDS: Memantine HCl 10 MG TABLET PO (08:47)
--- NOTE | 2023-11-08 09:01 | P.HPPS_ITS ---
HPI Date of Service: 11/08/23 Chief Complaint: dementia with behavioral disturbance Sources of Information: patient interviewed, chart reviewed and crisis/core team assessment reviewed Additional Sources of Information: Jg (son) and Shakeel () HPI Subjective Notes: Conditional Voluntary (signed verbal consent by HCP) Healthcare Proxy: Yes (invoked) Guardianship: No Narrative: Mrs. Wiley is a 73 year-old woman with hx of Alzheimer's who was brought by her son, one of them is her HCP. Family reports main caregiver who is her is struggling to meet her needs. Labs in the ED include- CBC without leukocytosis, normocytic anemia, low plt. CMP no electrolyte abnormalities, BUN 18, Cr. 0.76, creatinine clearance 59.2. UA with leukocytes, WBC 21-50, however, culture was negative for growth. Head CT without acute findings, atrophy and microvascular changes. On the unit, pt is talking to someone who is not there. She is giving orders in English and at times presents someone irritable although she is mostly sitting not attempting to get up. She is alert, but not oriented to place, month, situation or year. Her speech marked with expressive and receptive aphasia. She smiles at times when this typewriter aligner calls her name. Pt's reports pt was diagnosed about [address] [facility] after she went to sister's house and got confused and did not know how to get back. reports decline since then has lizzette fairly rapid and at this point, pt does not recognize him, speech for the most part is unintelligible. She not able to recognize use of common objects. Hr orientation is also very poor. This typewriter aligner called HCP with witnessed, Suri- pulling unit floorhand to request verbal consent to treat given that pt does not have capacity to make medical decisions. Past Psychiatric History: past medication trials for behaviors related to dementia include: risperidone, depakote. Son reports they were no effective but denies side effects Medical Evaluation Reviewed: Yes [facility] Medical History Alzheimer's dementia with behavioral disturbance Pure hypercholesterolemia Essential hypertension Cataract Surgical History History of appendectomy History of bunionectomy Diagnostics Vital Signs (24Hr): Vital Signs - 24 hr 11/07/23 14:22 11/07/23 19:28 11/08/23 08:00 Temperature 98.8 F 97.0 F Pulse Rate 72 Respiratory Rate 14 18 Blood Pressure 104/61 109/59 L Pulse Oximetry 100 98 Oxygen Delivery Method Room Air Room Air Room Air BMI result Body Mass Index 28.9 Labs 11/01/23 09:45 11/01/23 09:45 Imaging Radiology Impressions: ITS Impressions Cervical Spine CT 11/01/23 09:19 IMPRESSION: 1. No acute intracranial pathology. 2. Chronic white matter small vessel ischemic changes. EXAMINATION: Noncontrast CT scan of the cervical spine. INDICATION: Fall COMPARISON: CT cervical spine from 07/13/2023 TECHNIQUE: Helical, multidetector axial images were obtained from the occiput to the upper thorax. Coronal and sagittal reformats of the cervical spine were provided for interpretation. DLP: 335.63 mGy-cm FINDINGS: No acute fractures or dislocations of the cervical spine are seen. Straightening of the normal cervical curvature. Grade 1 anterolisthesis of C4 on C5. Multilevel degenerative changes. Anatomic alignment and positioning of the vertebral bodies and posterior elements is noted. The atlantoaxial joint and craniovertebral articulations are normal without evidence of subluxation. There is no prevertebral soft tissue swelling. Asymmetric enlargement of the right thyroid lobe, stable. Visualized portions of the lungs are unremarkable. IMPRESSION: 1. No acute visible fracture or dislocation. 2. Straightening of the normal cervical curvature. 3. Grade 1 anterolisthesis of C4 on C5. 4. Multilevel degenerative changes. Head CT 11/01/23 09:19 IMPRESSION: 1. No acute intracranial pathology. 2. Chronic white matter small vessel ischemic changes. EXAMINATION: Noncontrast CT scan of the cervical spine. INDICATION: Fall COMPARISON: CT cervical spine from 07/13/2023 TECHNIQUE: Helical, multidetector axial images were obtained from the occiput to the upper thorax. Coronal and sagittal reformats of the cervical spine were provided for interpretation. DLP: 335.63 mGy-cm FINDINGS: No acute fractures or dislocations of the cervical spine are seen. Straightening of the normal cervical curvature. Grade 1 anterolisthesis of C4 on C5. Multilevel degenerative changes. Anatomic alignment and positioning of the vertebral bodies and posterior elements is noted. The atlantoaxial joint and craniovertebral articulations are normal without evidence of subluxation. There is no prevertebral soft tissue swelling. Asymmetric enlargement of the right thyroid lobe, stable. Visualized portions of the lungs are unremarkable. IMPRESSION: 1. No acute visible fracture or dislocation. 2. Straightening of the normal cervical curvature. 3. Grade 1 anterolisthesis of C4 on C5. 4. Multilevel degenerative changes. Meds/Allergies Meds Home Medications ?Medication ?Instructions ?Recorded ?Confirmed ?Type ramipril 5 mg capsule 5 mg PO BID@0900,1600 08/01/23 11/01/23 History Allergies Allergies Allergy/AdvReac Type Severity Reaction Status Date / Time No Known Allergies Allergy Verified 11/01/23 08:47 Mental Status Exam Mental Status Exam Narrative: Appearance: wearing hospital gown, in bed, in NAD Behavior: cooperative, friendly, thinks she knows this typewriter aligner for a long time Psychomotor: no agitation or retardation noted Speech: mumbles at times, regular rate/rhythm/volume, spontaneous TP: disorganized thought process TC: [facility] go to [facility] Mood: good Affect: smiling, congruent, although after somewhat irritable edge. SI: none HI: none VH/AH: no overt signs Delusions: no overt signs more than confabulation Insight/judgment: impaired x 2. Memory/cog: alert, not oriented to place, situation, month or date. severe cognitive impairments. Assessment & Plan Assessment & Plan (1) Alzheimer's dementia with behavioral disturbance: Status: Acute Code(s): G30.9 - Alzheimer's disease, unspecified; F02.818 - Dementia in other diseases classified elsewhere, unspecified severity, with other behavioral disturbance Plan Mrs. Wiley is a 73 year-old woman with hx of Alzheimer's who was brought by her son, one of them is her HCP. Family reports main caregiver who is her is struggling to meet her needs. Labs in the ED include- CBC without leukocytosis, normocytic anemia, low plt. CMP no electrolyte abnormalities, BUN 18, Cr. 0.76, creatinine clearance 59.2. UA with leukocytes, WBC 21-50, however, culture was negative for growth. Head CT without acute findings, atrophy and microvascular changes. Pt admitted for further management of hallucinations, sleep disturbances. HCP has been invoked. HCP verbally gave consent to sign CV. Her dementia is advanced, in late stages at this point. She has sever impairments in orientation, receptive/expressive aphasia, agnosia, inability to recall new information. PLAN 1. Admit to S1, CV verbally signed with two witnesses. 2. continue current medications including seroquel 75mg po TID 3. aftercare planning.- word processor car placement. Patient educated on: diagnosis (HCP) and medication risk/benefits Reason for continued inpatient stay Substantial Risk for: inability to function Statement Statement: I have reviewed the history and physical and performed a pertinent examination on my patient. No changes have occurred unless specified. If the History and Physical was not performed prior to admission, the Hospitalist's service will be consulted for completing the admission physical. Time Spent With Patient Time: Total time managing care of this patient today ____ minutes.
--- NOTE | 2023-11-08 14:39 | PC.NURSE ---
Patient very confused, trying to get up out of her wheelchair on the patio. Incontinent of urine with care. Bed alarm on when in bed.
[2023-11-08 20:00] VITALS: BP 123/71; PULSE 105; RESP 19; TEMP 36; O2SAT 95
[2023-11-08] MEDS: Melatonin 3 MG TABLET 6 MG PO (20:52)
[2023-11-09 09:00] VITALS: BP 120/72; PULSE 75; RESP 18; TEMP 36.2; O2SAT 96
[2023-11-09] MEDS: Atorvastatin Calcium 40 MG TABLET PO (09:12)
[2023-11-09] MEDS: QUEtiapine Fumarate 25 MG TABLET 75 MG PO ×3 (09:12→21:10)
[2023-11-09] MEDS: Cholecalciferol (Vitamin D3) 25 MCG TABLET PO (09:12)
--- NOTE | 2023-11-09 09:24 | P.PNPSI_ITS ---
Subjective Subjective Date of Service: 11/09/23 Reason For Visit: dementia with behavioral disturbance Subjective Notes: Conditional Voluntary Healthcare Proxy: Yes Interim History: Pt slept most of the night. During the day, she was awake, sitting common area, mostly talking to others that are not there. her speech is mostly unintelligible but few sentences and mostly she is like scolding someone: don't do that, don't touch that! while looking at someone who is not there. No overt sedation with seroquel noted on exam myoclonic like movement which could be related to namenda. mostly on upper extremities, no cogwheel or rigidity. Review of Systems Review of Systems Yes Unobtainable due to mental condition Mental Status Exam Mental Status Exam Narrative: Appearance: wearing hospital gown, in bed, in NAD Behavior: cooperative, friendly, thinks she knows this singer songwriter for a long time Psychomotor: no agitation or retardation noted Speech: mumbles at times, regular rate/rhythm/volume, spontaneous TP: disorganized thought process TC: wanting to go to [facility] Mood: good Affect: smiling, congruent, although after somewhat irritable edge. SI: none HI: none VH/AH: no overt signs Delusions: no overt signs more than confabulation Insight/judgment: impaired x 2. Memory/cog: alert, not oriented to place, situation, month or date. severe cognitive impairments. Diagnostics Vital Signs (24Hr): Vital Signs - 24 hr 11/08/23 20:00 Temperature 96.8 F Pulse Rate 105 H Respiratory Rate 19 Blood Pressure 123/71 Pulse Oximetry 95 Oxygen Delivery Method Room Air BMI result Body Mass Index 28.9 Labs 11/01/23 09:45 11/01/23 09:45 Imaging Radiology Impressions: ITS Impressions Cervical Spine CT 11/01/23 09:19 IMPRESSION: 1. No acute intracranial pathology. 2. Chronic white matter small vessel ischemic changes. EXAMINATION: Noncontrast CT scan of the cervical spine. INDICATION: Fall COMPARISON: CT cervical spine from 07/13/2023 TECHNIQUE: Helical, multidetector axial images were obtained from the occiput to the upper thorax. Coronal and sagittal reformats of the cervical spine were provided for interpretation. DLP: 335.63 mGy-cm FINDINGS: No acute fractures or dislocations of the cervical spine are seen. Straightening of the normal cervical curvature. Grade 1 anterolisthesis of C4 on C5. Multilevel degenerative changes. Anatomic alignment and positioning of the vertebral bodies and posterior elements is noted. The atlantoaxial joint and craniovertebral articulations are normal without evidence of subluxation. There is no prevertebral soft tissue swelling. Asymmetric enlargement of the right thyroid lobe, stable. Visualized portions of the lungs are unremarkable. IMPRESSION: 1. No acute visible fracture or dislocation. 2. Straightening of the normal cervical curvature. 3. Grade 1 anterolisthesis of C4 on C5. 4. Multilevel degenerative changes. Head CT 11/01/23 09:19 IMPRESSION: 1. No acute intracranial pathology. 2. Chronic white matter small vessel ischemic changes. EXAMINATION: Noncontrast CT scan of the cervical spine. INDICATION: Fall COMPARISON: CT cervical spine from 07/13/2023 TECHNIQUE: Helical, multidetector axial images were obtained from the occiput to the upper thorax. Coronal and sagittal reformats of the cervical spine were provided for interpretation. DLP: 335.63 mGy-cm FINDINGS: No acute fractures or dislocations of the cervical spine are seen. Straightening of the normal cervical curvature. Grade 1 anterolisthesis of C4 on C5. Multilevel degenerative changes. Anatomic alignment and positioning of the vertebral bodies and posterior elements is noted. The atlantoaxial joint and craniovertebral articulations are normal without evidence of subluxation. There is no prevertebral soft tissue swelling. Asymmetric enlargement of the right thyroid lobe, stable. Visualized portions of the lungs are unremarkable. IMPRESSION: 1. No acute visible fracture or dislocation. 2. Straightening of the normal cervical curvature. 3. Grade 1 anterolisthesis of C4 on C5. 4. Multilevel degenerative changes. Medications Medications Current Medications Acetaminophen (Acetaminophen 325 Mg Tablet) 650 mg PO Q6H PRN PRN Reason: Headache/Pain Mild Scale (1-3) Al Hydroxide/Mg Hydroxide (Magnesium Hydrox/Alum Hydrox 30 Ml Oral.Susp) 30 ml PO Q6H PRN PRN Reason: Heartburn/Nausea Atorvastatin Calcium (Atorvastatin Calcium 40 Mg Tablet) 40 mg PO DAILY [facility] Last Admin: 05/22/24 09:12 Dose: 40 mg Loratadine (Loratadine 10 Mg Tablet) 10 mg PO DAILY PRN PRN Reason: for allergies Magnesium Hydroxide (Milk Of Magnesia 30 Ml Oral.Susp) 30 ml PO DAILY PRN PRN Reason: Constipation Melatonin (Melatonin 3 Mg Tablet) 6 mg PO BEDTIME [facility] Last Admin: 11/08/23 20:52 Dose: 6 mg Quetiapine Fumarate (Quetiapine Fumarate 25 Mg Tablet) 75 mg PO TID [facility] Last Admin: 11/09/23 09:12 Dose: 75 mg Trazodone HCl (Trazodone Hcl 50 Mg Tablet) 50 mg PO BEDTIME [id number] PRN PRN Reason: Insomnia Vitamin D (Cholecalciferol (Vitamin D3) 25 Mcg Tablet) 25 mcg PO DAILY [facility] Last Admin: 11/09/23 09:12 Dose: 25 mcg Allergies Allergies Allergy/AdvReac Type Severity Reaction Status Date / Time No Known Allergies Allergy Verified 11/01/23 08:47 Assessment & Plan Assessment & Plan (1) Alzheimer's dementia with behavioral disturbance: Status: Acute Code(s): G30.9 - Alzheimer's disease, unspecified; F02.818 - Dementia in other diseases classified elsewhere, unspecified severity, with other behavioral disturbance Plan Mrs. Wiley is a 73 year-old woman with hx of Alzheimer's who was brought by her son, one of them is her HCP. Family reports main caregiver who is her is struggling to meet her needs. Labs in the ED include- CBC without leukocytosis, normocytic anemia, low plt. CMP no electrolyte abnormalities, BUN 18, Cr. 0.76, creatinine clearance 59.2. UA with leukocytes, WBC 21-50, however, culture was negative for growth. Head CT without acute findings, atrophy and microvascular changes. Pt admitted for further management of hallucinations, sleep disturbances. HCP has been invoked. HCP verbally gave consent to sign CV. Her dementia is advanced, in late stages at this point. She has sever impairments in orientation, receptive/expressive aphasia, agnosia, inability to recall new information. PLAN 1. Admit to S1, CV verbally signed with two witnesses. 2. continue current medications including seroquel 75mg po TID 11/08 d/c namenda due to myoclonic movements Reason for continued inpatient stay Substantial Risk for: inability to function Time Spent With Patient Time: Total time managing care of this patient today ____ minutes.
[2023-11-09 20:00] VITALS: BP 180/103; PULSE 125; TEMP 36.6; O2SAT 97
[2023-11-09] MEDS: Melatonin 3 MG TABLET 6 MG PO (21:10)
[2023-11-09] MEDS: traZODone HCL 50 MG TABLET PO (22:30)
[2023-11-10 08:00] VITALS: BP 120/63; PULSE 79; RESP 18; TEMP 36.9; O2SAT 97
[2023-11-10] MEDS: Cholecalciferol (Vitamin D3) 25 MCG TABLET PO (09:23)
[2023-11-10] MEDS: Atorvastatin Calcium 40 MG TABLET PO (09:24)
[2023-11-10] MEDS: QUEtiapine Fumarate 25 MG TABLET 75 MG PO ×3 (09:24→20:31)
[2023-11-10 20:00] VITALS: BP 121/65; PULSE 100; RESP 18; TEMP 36.4; O2SAT 96
[2023-11-10] MEDS: Melatonin 3 MG TABLET 6 MG PO (20:32)
[2023-11-10] MEDS: traZODone HCL 50 MG TABLET PO (20:33)
[2023-11-11 08:00] VITALS: BP 137/62; PULSE 81; RESP 16; TEMP 36.4; O2SAT 97
[2023-11-11] MEDS: Cholecalciferol (Vitamin D3) 25 MCG TABLET PO (08:33)
[2023-11-11] MEDS: Atorvastatin Calcium 40 MG TABLET PO (08:33)
[2023-11-11] MEDS: QUEtiapine Fumarate 25 MG TABLET 75 MG PO ×3 (08:33→20:49)
--- NOTE | 2023-11-11 10:07 | P.PNPSI_ITS ---
Subjective Subjective Date of Service: 11/10/23 Reason For Visit: dementia with behavioral disturbance Subjective Notes: Conditional Voluntary Healthcare Proxy: Yes Interim History: Pt slept most of the night. During the day continues to talk to someone who is not there-mostly she is like scolding someone: don't do that, don't touch that! while looking at someone who is not there. No overt sedation with seroquel during the day. Some spontaneous myoclonic movement. no cogwheel or rigidity. appetite is good. She is not ambulating on her own, unsteady on her feet, high fall risk. 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 SI: none HI: none VH/AH: no overt signs Delusions: no overt signs more than confabulation Insight/judgment: impaired x 2. Memory/cog: alert, not oriented to place, situation, month or date. severe cognitive impairments. Diagnostics Vital Signs (24Hr): Vital Signs - 24 hr 11/10/23 20:00 11/11/23 08:00 Temperature 97.6 F 97.5 F Pulse Rate 100 81 Respiratory Rate 18 16 Blood Pressure 121/65 137/62 Pulse Oximetry 96 97 Oxygen Delivery Method Room Air Room Air BMI result Body Mass Index 28.9 Labs 11/01/23 09:45 11/01/23 09:45 Imaging Radiology Impressions: ITS Impressions Cervical Spine CT 11/01/23 09:19 IMPRESSION: 1. No acute intracranial pathology. 2. Chronic white matter small vessel ischemic changes. EXAMINATION: Noncontrast CT scan of the cervical spine. INDICATION: Fall COMPARISON: CT cervical spine from 07/13/2023 TECHNIQUE: Helical, multidetector axial images were obtained from the occiput to the upper thorax. Coronal and sagittal reformats of the cervical spine were provided for interpretation. DLP: 335.63 mGy-cm FINDINGS: No acute fractures or dislocations of the cervical spine are seen. Straightening of the normal cervical curvature. Grade 1 anterolisthesis of C4 on C5. Multilevel degenerative changes. Anatomic alignment and positioning of the vertebral bodies and posterior elements is noted. The atlantoaxial joint and craniovertebral articulations are normal without evidence of subluxation. There is no prevertebral soft tissue swelling. Asymmetric enlargement of the right thyroid lobe, stable. Visualized portions of the lungs are unremarkable. IMPRESSION: 1. No acute visible fracture or dislocation. 2. Straightening of the normal cervical curvature. 3. Grade 1 anterolisthesis of C4 on C5. 4. Multilevel degenerative changes. Head CT 11/01/23 09:19 IMPRESSION: 1. No acute intracranial pathology. 2. Chronic white matter small vessel ischemic changes. EXAMINATION: Noncontrast CT scan of the cervical spine. INDICATION: Fall COMPARISON: CT cervical spine from 07/13/2023 TECHNIQUE: Helical, multidetector axial images were obtained from the occiput to the upper thorax. Coronal and sagittal reformats of the cervical spine were provided for interpretation. DLP: 335.63 mGy-cm FINDINGS: No acute fractures or dislocations of the cervical spine are seen. Straightening of the normal cervical curvature. Grade 1 anterolisthesis of C4 on C5. Multilevel degenerative changes. Anatomic alignment and positioning of the vertebral bodies and posterior elements is noted. The atlantoaxial joint and craniovertebral articulations are normal without evidence of subluxation. There is no prevertebral soft tissue swelling. Asymmetric enlargement of the right thyroid lobe, stable. Visualized portions of the lungs are unremarkable. IMPRESSION: 1. No acute visible fracture or dislocation. 2. Straightening of the normal cervical curvature. 3. Grade 1 anterolisthesis of C4 on C5. 4. Multilevel degenerative changes. Medications Medications Current Medications Acetaminophen (Acetaminophen 325 Mg Tablet) 650 mg PO Q6H PRN PRN Reason: Headache/Pain Mild Scale (1-3) Al Hydroxide/Mg Hydroxide (Magnesium Hydrox/Alum Hydrox 30 Ml Oral.Susp) 30 ml PO Q6H PRN PRN Reason: Heartburn/Nausea Atorvastatin Calcium (Atorvastatin Calcium 40 Mg Tablet) 40 mg PO DAILY [facility] Last Admin: 11/11/23 08:33 Dose: 40 mg Loratadine (Loratadine 10 Mg Tablet) 10 mg PO DAILY PRN PRN Reason: for allergies Magnesium Hydroxide (Milk Of Magnesia 30 Ml Oral.Susp) 30 ml PO DAILY PRN PRN Reason: Constipation Melatonin (Melatonin 3 Mg Tablet) 6 mg PO BEDTIME [facility] Last Admin: 11/10/23 20:32 Dose: 6 mg Quetiapine Fumarate (Quetiapine Fumarate 25 Mg Tablet) 75 mg PO TID [facility] Last Admin: 11/11/23 08:33 Dose: 75 mg Trazodone HCl (Trazodone Hcl 50 Mg Tablet) 50 mg PO BEDTIME MRX1 PRN PRN Reason: Insomnia Last Admin: 11/10/23 20:33 Dose: 50 mg Vitamin D (Cholecalciferol (Vitamin D3) 25 Mcg Tablet) 25 mcg PO DAILY [facility] Last Admin: 11/11/23 08:33 Dose: 25 mcg Allergies Allergies Allergy/AdvReac Type Severity Reaction Status Date / Time No Known Allergies Allergy Verified 11/01/23 08:47 Assessment & Plan Assessment & Plan (1) Alzheimer's dementia with behavioral disturbance: Status: Acute Code(s): G30.9 - Alzheimer's disease, unspecified; F02.818 - Dementia in other diseases classified elsewhere, unspecified severity, with other behavioral disturbance Plan Mrs. Wiley is a 73 year-old woman with hx of Alzheimer's who was brought by her son, one of them is her HCP. Family reports main caregiver who is her is struggling to meet her needs. Labs in the ED include- CBC without leukocytosis, normocytic anemia, low plt. CMP no electrolyte abnormalities, BUN 18, Cr. 0.76, creatinine clearance 59.2. UA with leukocytes, WBC 21-50, however, culture was negative for growth. Head CT without acute findings, atrophy and microvascular changes. Pt admitted for further management of hallucinations, sleep disturbances. HCP has been invoked. HCP verbally gave consent to sign CV. Her dementia is advanced, in late stages at this point. She has sever impairments in orientation, receptive/expressive aphasia, agnosia, inability to recall new information. PLAN 1. Admit to S1, CV verbally signed with two witnesses. 2. continue current medications including seroquel 75mg po TID 11/08 d/c namenda due to myoclonic movements 11/09 continue tx. Reason for continued inpatient stay Substantial Risk for: inability to function Time Spent With Patient Time: Total time managing care of this patient today ____ minutes.
--- NOTE | 2023-11-11 10:10 | P.PNPSI_ITS ---
Subjective Subjective Date of Service: 11/11/23 Reason For Visit: dementia with behavioral disturbance Subjective Notes: Conditional Voluntary Healthcare Proxy: Yes Interim History: Pt with some difficulty falling asleep. Her BP was elevated last night SBP 180's. She had low BP and lisinopril had been stopped but as other medications have also been stopped such as aricept and namenda, BP going up. will restart lisinopril. Pt awake and alert during the day. She is talkative although mostly with significant expressive aphasia. Less irritable affect. She is eating very well does need to be fed due to advanced dementia. no behavioral concerns. Diagnostics Vital Signs (24Hr): Vital Signs - 24 hr 11/10/23 20:00 11/11/23 08:00 Temperature 97.6 F 97.5 F Pulse Rate 100 81 Respiratory Rate 18 16 Blood Pressure 121/65 137/62 Pulse Oximetry 96 97 Oxygen Delivery Method Room Air Room Air BMI result Body Mass Index 28.9 Labs 11/01/23 09:45 11/01/23 09:45 Imaging Radiology Impressions: ITS Impressions Cervical Spine CT 11/01/23 09:19 IMPRESSION: 1. No acute intracranial pathology. 2. Chronic white matter small vessel ischemic changes. EXAMINATION: Noncontrast CT scan of the cervical spine. INDICATION: Fall COMPARISON: CT cervical spine from 07/13/2023 TECHNIQUE: Helical, multidetector axial images were obtained from the occiput to the upper thorax. Coronal and sagittal reformats of the cervical spine were provided for interpretation. DLP: 335.63 mGy-cm FINDINGS: No acute fractures or dislocations of the cervical spine are seen. Straightening of the normal cervical curvature. Grade 1 anterolisthesis of C4 on C5. Multilevel degenerative changes. Anatomic alignment and positioning of the vertebral bodies and posterior elements is noted. The atlantoaxial joint and craniovertebral articulations are normal without evidence of subluxation. There is no prevertebral soft tissue swelling. Asymmetric enlargement of the right thyroid lobe, stable. Visualized portions of the lungs are unremarkable. IMPRESSION: 1. No acute visible fracture or dislocation. 2. Straightening of the normal cervical curvature. 3. Grade 1 anterolisthesis of C4 on C5. 4. Multilevel degenerative changes. Head CT 11/01/23 09:19 IMPRESSION: 1. No acute intracranial pathology. 2. Chronic white matter small vessel ischemic changes. EXAMINATION: Noncontrast CT scan of the cervical spine. INDICATION: Fall COMPARISON: CT cervical spine from 07/13/2023 TECHNIQUE: Helical, multidetector axial images were obtained from the occiput to the upper thorax. Coronal and sagittal reformats of the cervical spine were provided for interpretation. DLP: 335.63 mGy-cm FINDINGS: No acute fractures or dislocations of the cervical spine are seen. Straightening of the normal cervical curvature. Grade 1 anterolisthesis of C4 on C5. Multilevel degenerative changes. Anatomic alignment and positioning of the vertebral bodies and posterior elements is noted. The atlantoaxial joint and craniovertebral articulations are normal without evidence of subluxation. There is no prevertebral soft tissue swelling. Asymmetric enlargement of the right thyroid lobe, stable. Visualized portions of the lungs are unremarkable. IMPRESSION: 1. No acute visible fracture or dislocation. 2. Straightening of the normal cervical curvature. 3. Grade 1 anterolisthesis of C4 on C5. 4. Multilevel degenerative changes. Medications Medications Current Medications Acetaminophen (Acetaminophen 325 Mg Tablet) 650 mg PO Q6H PRN PRN Reason: Headache/Pain Mild Scale (1-3) Al Hydroxide/Mg Hydroxide (Magnesium Hydrox/Alum Hydrox 30 Ml Oral.Susp) 30 ml PO Q6H PRN PRN Reason: Heartburn/Nausea Atorvastatin Calcium (Atorvastatin Calcium 40 Mg Tablet) 40 mg PO DAILY [facility] Last Admin: 11/11/23 08:33 Dose: 40 mg Loratadine (Loratadine 10 Mg Tablet) 10 mg PO DAILY PRN PRN Reason: for allergies Magnesium Hydroxide (Milk Of Magnesia 30 Ml Oral.Susp) 30 ml PO DAILY PRN PRN Reason: Constipation Melatonin (Melatonin 3 Mg Tablet) 6 mg PO BEDTIME [facility] Last Admin: 11/10/23 20:32 Dose: 6 mg Quetiapine Fumarate (Quetiapine Fumarate 25 Mg Tablet) 75 mg PO TID [facility] Last Admin: 11/11/23 08:33 Dose: 75 mg Trazodone HCl (Trazodone Hcl 50 Mg Tablet) 50 mg PO BEDTIME MRX1 PRN PRN Reason: Insomnia Last Admin: 11/10/23 20:33 Dose: 50 mg Vitamin D (Cholecalciferol (Vitamin D3) 25 Mcg Tablet) 25 mcg PO DAILY [facility] Last Admin: 11/11/23 08:33 Dose: 25 mcg Allergies Allergies Allergy/AdvReac Type Severity Reaction Status Date / Time No Known Allergies Allergy Verified 11/01/23 08:47 Assessment & Plan Assessment & Plan (1) Alzheimer's dementia with behavioral disturbance: Status: Acute Code(s): G30.9 - Alzheimer's disease, unspecified; F02.818 - Dementia in other diseases classified elsewhere, unspecified severity, with other behavioral disturbance Plan Mrs. Wiley is a 73 year-old woman with hx of Alzheimer's who was brought by her son, one of them is her HCP. Family reports main caregiver who is her is struggling to meet her needs. Labs in the ED include- CBC without leukocytosis, normocytic anemia, low plt. CMP no electrolyte abnormalities, BUN 18, Cr. 0.76, creatinine clearance 59.2. UA with leukocytes, WBC 21-50, however, culture was negative for growth. Head CT without acute findings, atrophy and microvascular changes. Pt admitted for further management of hallucinations, sleep disturbances. HCP has been invoked. HCP verbally gave consent to sign CV. Her dementia is advanced, in late stages at this point. She has sever impairments in orientation, receptive/expressive aphasia, agnosia, inability to recall new information. PLAN 1. Admit to S1, CV verbally signed with two witnesses. 2. continue current medications including seroquel 75mg po TID 11/08 d/c namenda due to myoclonic movements 11/09 continue tx. 11/10 restart lisinopril 5mg po daily as SBP going up. add trazodone at bedtime scheduled as she has had some difficulty falling asleep. monitor over sedation. still not ambulating on her own due to fall risk. Reason for continued inpatient stay Substantial Risk for: inability to function Time Spent With Patient Time: Total time managing care of this patient today ____ minutes.
[2023-11-11 20:00] VITALS: BP 147/80; PULSE 99; RESP 16; TEMP 36.9; O2SAT 93
[2023-11-11] MEDS: Melatonin 3 MG TABLET 6 MG PO (20:49)
[2023-11-12 08:10] VITALS: BP 144/71; PULSE 86; RESP 16; TEMP 36; O2SAT 97
[2023-11-12] MEDS: QUEtiapine Fumarate 25 MG TABLET 75 MG PO ×3 (08:42→19:58)
[2023-11-12] MEDS: Cholecalciferol (Vitamin D3) 25 MCG TABLET PO (08:43)
[2023-11-12] MEDS: Atorvastatin Calcium 40 MG TABLET PO (08:43)
[2023-11-12] MEDS: lisinopriL 5 MG TABLET PO (08:43)
--- NOTE | 2023-11-12 12:38 | HO.PSYCHPN ---
Subjective Subjective Date of Service: 11/12/23 Reason For Visit: dementia with behavioral disturbance Interim History: Pt with some difficulty falling asleep. Pt awake and alert during the day. She is talkative although mostly with significant expressive aphasia. Less irritable affect. She is eating very well-does need to be fed due to advanced dementia. no behavioral concerns. 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 SI: none HI: none VH/AH: no overt signs Delusions: no overt signs more than confabulation Insight/judgment: impaired x 2. Memory/cog: alert, not oriented to place, situation, month or date. severe cognitive impairments. Diagnostics Vital Signs (24Hr): Vital Signs - 24 hr 11/11/23 20:00 11/12/23 08:10 Temperature 98.4 F 96.8 F Pulse Rate 99 86 Respiratory Rate 16 16 Blood Pressure 147/80 H 144/71 H Pulse Oximetry 93 97 Oxygen Delivery Method Room Air Room Air BMI result Body Mass Index 28.9 Labs 11/01/23 09:45 11/01/23 09:45 Imaging Radiology Impressions: ITS Impressions Cervical Spine CT 11/01/23 09:19 IMPRESSION: 1. No acute intracranial pathology. 2. Chronic white matter small vessel ischemic changes. EXAMINATION: Noncontrast CT scan of the cervical spine. INDICATION: Fall COMPARISON: CT cervical spine from 07/13/2023 TECHNIQUE: Helical, multidetector axial images were obtained from the occiput to the upper thorax. Coronal and sagittal reformats of the cervical spine were provided for interpretation. DLP: 335.63 mGy-cm FINDINGS: No acute fractures or dislocations of the cervical spine are seen. Straightening of the normal cervical curvature. Grade 1 anterolisthesis of C4 on C5. Multilevel degenerative changes. Anatomic alignment and positioning of the vertebral bodies and posterior elements is noted. The atlantoaxial joint and craniovertebral articulations are normal without evidence of subluxation. There is no prevertebral soft tissue swelling. Asymmetric enlargement of the right thyroid lobe, stable. Visualized portions of the lungs are unremarkable. IMPRESSION: 1. No acute visible fracture or dislocation. 2. Straightening of the normal cervical curvature. 3. Grade 1 anterolisthesis of C4 on C5. 4. Multilevel degenerative changes. Head CT 11/01/23 09:19 IMPRESSION: 1. No acute intracranial pathology. 2. Chronic white matter small vessel ischemic changes. EXAMINATION: Noncontrast CT scan of the cervical spine. INDICATION: Fall COMPARISON: CT cervical spine from 07/13/2023 TECHNIQUE: Helical, multidetector axial images were obtained from the occiput to the upper thorax. Coronal and sagittal reformats of the cervical spine were provided for interpretation. DLP: 335.63 mGy-cm FINDINGS: No acute fractures or dislocations of the cervical spine are seen. Straightening of the normal cervical curvature. Grade 1 anterolisthesis of C4 on C5. Multilevel degenerative changes. Anatomic alignment and positioning of the vertebral bodies and posterior elements is noted. The atlantoaxial joint and craniovertebral articulations are normal without evidence of subluxation. There is no prevertebral soft tissue swelling. Asymmetric enlargement of the right thyroid lobe, stable. Visualized portions of the lungs are unremarkable. IMPRESSION: 1. No acute visible fracture or dislocation. 2. Straightening of the normal cervical curvature. 3. Grade 1 anterolisthesis of C4 on C5. 4. Multilevel degenerative changes. Medications Medications Current Medications Acetaminophen (Acetaminophen 325 Mg Tablet) 650 mg PO Q6H PRN PRN Reason: Headache/Pain Mild Scale (1-3) Al Hydroxide/Mg Hydroxide (Magnesium Hydrox/Alum Hydrox 30 Ml Oral.Susp) 30 ml PO Q6H PRN PRN Reason: Heartburn/Nausea Atorvastatin Calcium (Atorvastatin Calcium 40 Mg Tablet) 40 mg PO DAILY [facility] Last Admin: 11/12/23 08:43 Dose: 40 mg Lisinopril (Lisinopril 5 Mg Tablet) 5 mg PO DAILY [facility]; Protocol Last Admin: 11/12/23 08:43 Dose: 5 mg Loratadine (Loratadine 10 Mg Tablet) 10 mg PO DAILY PRN PRN Reason: for allergies Magnesium Hydroxide (Milk Of Magnesia 30 Ml Oral.Susp) 30 ml PO DAILY PRN PRN Reason: Constipation Melatonin (Melatonin 3 Mg Tablet) 6 mg PO BEDTIME [facility] Last Admin: 11/11/23 20:49 Dose: 6 mg Quetiapine Fumarate (Quetiapine Fumarate 25 Mg Tablet) 75 mg PO TID [facility] Last Admin: 11/12/23 08:42 Dose: 75 mg Trazodone HCl (Trazodone Hcl 50 Mg Tablet) 50 mg PO BEDTIME PRN PRN Reason: Insomnia Trazodone HCl (Trazodone Hcl 50 Mg Tablet) 50 mg PO BEDTIME [facility] Vitamin D (Cholecalciferol (Vitamin D3) 25 Mcg Tablet) 25 mcg PO DAILY [facility] Last Admin: 11/12/23 08:43 Dose: 25 mcg Allergies Allergies Allergy/AdvReac Type Severity Reaction Status Date / Time No Known Allergies Allergy Verified 11/01/23 08:47 Assessment & Plan Assessment & Plan (1) Alzheimer's dementia with behavioral disturbance: Status: Acute Code(s): G30.9 - Alzheimer's disease, unspecified; F02.818 - Dementia in other diseases classified elsewhere, unspecified severity, with other behavioral disturbance Plan Mrs. Wiley is a 73 year-old woman with hx of Alzheimer's who was brought by her son, one of them is her HCP. Family reports main caregiver who is her is struggling to meet her needs. Labs in the ED include- CBC without leukocytosis, normocytic anemia, low plt. CMP no electrolyte abnormalities, BUN 18, Cr. 0.76, creatinine clearance 59.2. UA with leukocytes, WBC 21-50, however, culture was negative for growth. Head CT without acute findings, atrophy and microvascular changes. Pt admitted for further management of hallucinations, sleep disturbances. HCP has been invoked. HCP verbally gave consent to sign CV. Her dementia is advanced, in late stages at this point. She has sever impairments in orientation, receptive/expressive aphasia, agnosia, inability to recall new information. PLAN 1. Admit to S1, CV verbally signed with two witnesses. 2. continue current medications including seroquel 75mg po TID 11/08 d/c namenda due to myoclonic movements 11/09 continue tx. 11/10 restart lisinopril 5mg po daily as SBP going up. add trazodone at bedtime scheduled as she has had some difficulty falling asleep. monitor over sedation. still not ambulating on her own due to fall risk. 11/11 continue tx Reason for continued inpatient stay Substantial Risk for: harm to self and inability to function Time Spent With Patient Time: Total time managing care of this patient today ____ minutes.
[2023-11-12] MEDS: Melatonin 3 MG TABLET 6 MG PO (19:58)
[2023-11-12] MEDS: traZODone HCL 50 MG TABLET PO (19:58)
[2023-11-12 20:00] VITALS: BP 132/63; PULSE 73; RESP 18; TEMP 36.1; O2SAT 98
[2023-11-13] MEDS: traZODone HCL 50 MG TABLET PO ×3 (00:56→20:43)
[2023-11-13] MEDS: Acetaminophen 325 MG TABLET 650 MG PO (00:57)
[2023-11-13 08:15] VITALS: BP 113/73; PULSE 80; RESP 18; TEMP 36.7; O2SAT 100
[2023-11-13] MEDS: lisinopriL 5 MG TABLET PO (08:35)
[2023-11-13] MEDS: Atorvastatin Calcium 40 MG TABLET PO (08:36)
[2023-11-13] MEDS: Cholecalciferol (Vitamin D3) 25 MCG TABLET PO (08:36)
[2023-11-13] MEDS: QUEtiapine Fumarate 25 MG TABLET 75 MG PO ×3 (08:36→20:43)
--- NOTE | 2023-11-13 17:52 | HO.PSYCHPN ---
Subjective Subjective Date of Service: 11/13/23 Reason For Visit: dementia with behavioral disturbance Interim History: Pt anxious and restlesss; irritable at times; redirectable; Pt awake and alert during the day. She is talkative although mostly with significant expressive aphasia.. She is eating very well-does need to be fed due to advanced dementia. no behavioral concerns. 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 SI: none HI: none VH/AH: no overt signs Delusions: no overt signs more than confabulation Insight/judgment: impaired x 2. Memory/cog: alert, not oriented to place, situation, month or date. severe cognitive impairments. Diagnostics Vital Signs (24Hr): Vital Signs - 24 hr 11/12/23 20:00 11/13/23 08:15 Temperature 97 F 98.1 F Pulse Rate 73 80 Respiratory Rate 18 18 Blood Pressure 132/63 113/73 Pulse Oximetry 98 100 Oxygen Delivery Method Room Air Room Air BMI result Body Mass Index 28.9 Labs 11/01/23 09:45 11/01/23 09:45 Imaging Radiology Impressions: ITS Impressions Cervical Spine CT 11/01/23 09:19 IMPRESSION: 1. No acute intracranial pathology. 2. Chronic white matter small vessel ischemic changes. EXAMINATION: Noncontrast CT scan of the cervical spine. INDICATION: Fall COMPARISON: CT cervical spine from 07/13/2023 TECHNIQUE: Helical, multidetector axial images were obtained from the occiput to the upper thorax. Coronal and sagittal reformats of the cervical spine were provided for interpretation. DLP: 335.63 mGy-cm FINDINGS: No acute fractures or dislocations of the cervical spine are seen. Straightening of the normal cervical curvature. Grade 1 anterolisthesis of C4 on C5. Multilevel degenerative changes. Anatomic alignment and positioning of the vertebral bodies and posterior elements is noted. The atlantoaxial joint and craniovertebral articulations are normal without evidence of subluxation. There is no prevertebral soft tissue swelling. Asymmetric enlargement of the right thyroid lobe, stable. Visualized portions of the lungs are unremarkable. IMPRESSION: 1. No acute visible fracture or dislocation. 2. Straightening of the normal cervical curvature. 3. Grade 1 anterolisthesis of C4 on C5. 4. Multilevel degenerative changes. Head CT 11/01/23 09:19 IMPRESSION: 1. No acute intracranial pathology. 2. Chronic white matter small vessel ischemic changes. EXAMINATION: Noncontrast CT scan of the cervical spine. INDICATION: Fall COMPARISON: CT cervical spine from 07/13/2023 TECHNIQUE: Helical, multidetector axial images were obtained from the occiput to the upper thorax. Coronal and sagittal reformats of the cervical spine were provided for interpretation. DLP: 335.63 mGy-cm FINDINGS: No acute fractures or dislocations of the cervical spine are seen. Straightening of the normal cervical curvature. Grade 1 anterolisthesis of C4 on C5. Multilevel degenerative changes. Anatomic alignment and positioning of the vertebral bodies and posterior elements is noted. The atlantoaxial joint and craniovertebral articulations are normal without evidence of subluxation. There is no prevertebral soft tissue swelling. Asymmetric enlargement of the right thyroid lobe, stable. Visualized portions of the lungs are unremarkable. IMPRESSION: 1. No acute visible fracture or dislocation. 2. Straightening of the normal cervical curvature. 3. Grade 1 anterolisthesis of C4 on C5. 4. Multilevel degenerative changes. Medications Medications Current Medications Acetaminophen (Acetaminophen 325 Mg Tablet) 650 mg PO Q6H PRN PRN Reason: Headache/Pain Mild Scale (1-3) Last Admin: 11/13/23 00:57 Dose: 650 mg Al Hydroxide/Mg Hydroxide (Magnesium Hydrox/Alum Hydrox 30 Ml Oral.Susp) 30 ml PO Q6H PRN PRN Reason: Heartburn/Nausea Atorvastatin Calcium (Atorvastatin Calcium 40 Mg Tablet) 40 mg PO DAILY TITI Last Admin: 11/13/23 08:36 Dose: 40 mg Lisinopril (Lisinopril 5 Mg Tablet) 5 mg PO DAILY [facility]; Protocol Last Admin: 11/13/23 08:35 Dose: 5 mg Loratadine (Loratadine 10 Mg Tablet) 10 mg PO DAILY PRN PRN Reason: for allergies Magnesium Hydroxide (Milk Of Magnesia 30 Ml Oral.Susp) 30 ml PO DAILY PRN PRN Reason: Constipation Melatonin (Melatonin 3 Mg Tablet) 6 mg PO BEDTIME [facility] Last Admin: 11/12/23 19:58 Dose: 6 mg Quetiapine Fumarate (Quetiapine Fumarate 25 Mg Tablet) 75 mg PO TID [facility] Last Admin: 11/13/23 14:09 Dose: 75 mg Trazodone HCl (Trazodone Hcl 50 Mg Tablet) 50 mg PO BEDTIME PRN PRN Reason: Insomnia Last Admin: 11/13/23 00:56 Dose: 50 mg Trazodone HCl (Trazodone Hcl 50 Mg Tablet) 50 mg PO BEDTIME [facility] Last Admin: 11/12/23 19:58 Dose: 50 mg Vitamin D (Cholecalciferol (Vitamin D3) 25 Mcg Tablet) 25 mcg PO DAILY [facility] Last Admin: 11/13/23 08:36 Dose: 25 mcg Allergies Allergies Allergy/AdvReac Type Severity Reaction Status Date / Time No Known Allergies Allergy Verified 11/01/23 08:47 Assessment & Plan Assessment & Plan (1) Alzheimer's dementia with behavioral disturbance: Status: Acute Code(s): G30.9 - Alzheimer's disease, unspecified; F02.818 - Dementia in other diseases classified elsewhere, unspecified severity, with other behavioral disturbance Plan Mrs. Wiley is a 73 year-old woman with hx of Alzheimer's who was brought by her son, one of them is her HCP. Family reports main caregiver who is her is struggling to meet her needs. Labs in the ED include- CBC without leukocytosis, normocytic anemia, low plt. CMP no electrolyte abnormalities, BUN 18, Cr. 0.76, creatinine clearance 59.2. UA with leukocytes, WBC 21-50, however, culture was negative for growth. Head CT without acute findings, atrophy and microvascular changes. Pt admitted for further management of hallucinations, sleep disturbances. HCP has been invoked. HCP verbally gave consent to sign CV. Her dementia is advanced, in late stages at this point. She has sever impairments in orientation, receptive/expressive aphasia, agnosia, inability to recall new information. PLAN 1. Admit to S1, CV verbally signed with two witnesses. 2. continue current medications including seroquel 75mg po TID 11/08 d/c namenda due to myoclonic movements 11/09 continue tx. 11/10 restart lisinopril 5mg po daily as SBP going up. add trazodone at bedtime scheduled as she has had some difficulty falling asleep. monitor over sedation. still not ambulating on her own due to fall risk. 11/11 continue tx 11/12 contnue tx Reason for continued inpatient stay Substantial Risk for: harm to self and inability to function Time Spent With Patient Time: Total time managing care of this patient today ____ minutes.
[2023-11-13 20:00] VITALS: BP 134/77; PULSE 112; RESP 18; TEMP 36.8; O2SAT 98
[2023-11-13] MEDS: Melatonin 3 MG TABLET 6 MG PO (20:43)
[2023-11-14 08:08] VITALS: BP 117/77; PULSE 67; RESP 16; TEMP 35.8; O2SAT 99
[2023-11-14] MEDS: QUEtiapine Fumarate 25 MG TABLET 75 MG PO ×3 (08:44→20:21)
[2023-11-14] MEDS: Cholecalciferol (Vitamin D3) 25 MCG TABLET PO (08:44)
[2023-11-14] MEDS: Atorvastatin Calcium 40 MG TABLET PO (08:45)
[2023-11-14] MEDS: lisinopriL 5 MG TABLET PO (08:45)
--- NOTE | 2023-11-14 09:58 | HO.PSYCHPN ---
Subjective Subjective Date of Service: 11/14/23 Reason For Visit: dementia with behavioral disturbance Interim History: Pt anxious and restlesss; irritable at times; redirectable; Pt awake and alert during the day. She is talkative although mostly with significant expressive aphasia.. She is eating very well-does need to be fed due to advanced dementia. no behavioral concerns. 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 SI: none HI: none VH/AH: no overt signs Delusions: no overt signs more than confabulation Insight/judgment: impaired x 2. Memory/cog: alert, not oriented to place, situation, month or date. severe cognitive impairments. Diagnostics Vital Signs (24Hr): Vital Signs - 24 hr 11/13/23 20:00 11/14/23 08:08 Temperature 98.3 F 96.4 F L Pulse Rate 112 H 67 Respiratory Rate 18 16 Blood Pressure 134/77 117/77 Pulse Oximetry 98 99 Oxygen Delivery Method Room Air Room Air BMI result Body Mass Index 28.9 Labs 11/01/23 09:45 11/01/23 09:45 Imaging Radiology Impressions: ITS Impressions Cervical Spine CT 11/01/23 09:19 IMPRESSION: 1. No acute intracranial pathology. 2. Chronic white matter small vessel ischemic changes. EXAMINATION: Noncontrast CT scan of the cervical spine. INDICATION: Fall COMPARISON: CT cervical spine from 07/13/2023 TECHNIQUE: Helical, multidetector axial images were obtained from the occiput to the upper thorax. Coronal and sagittal reformats of the cervical spine were provided for interpretation. DLP: 335.63 mGy-cm FINDINGS: No acute fractures or dislocations of the cervical spine are seen. Straightening of the normal cervical curvature. Grade 1 anterolisthesis of C4 on C5. Multilevel degenerative changes. Anatomic alignment and positioning of the vertebral bodies and posterior elements is noted. The atlantoaxial joint and craniovertebral articulations are normal without evidence of subluxation. There is no prevertebral soft tissue swelling. Asymmetric enlargement of the right thyroid lobe, stable. Visualized portions of the lungs are unremarkable. IMPRESSION: 1. No acute visible fracture or dislocation. 2. Straightening of the normal cervical curvature. 3. Grade 1 anterolisthesis of C4 on C5. 4. Multilevel degenerative changes. Head CT 11/01/23 09:19 IMPRESSION: 1. No acute intracranial pathology. 2. Chronic white matter small vessel ischemic changes. EXAMINATION: Noncontrast CT scan of the cervical spine. INDICATION: Fall COMPARISON: CT cervical spine from 07/13/2023 TECHNIQUE: Helical, multidetector axial images were obtained from the occiput to the upper thorax. Coronal and sagittal reformats of the cervical spine were provided for interpretation. DLP: 335.63 mGy-cm FINDINGS: No acute fractures or dislocations of the cervical spine are seen. Straightening of the normal cervical curvature. Grade 1 anterolisthesis of C4 on C5. Multilevel degenerative changes. Anatomic alignment and positioning of the vertebral bodies and posterior elements is noted. The atlantoaxial joint and craniovertebral articulations are normal without evidence of subluxation. There is no prevertebral soft tissue swelling. Asymmetric enlargement of the right thyroid lobe, stable. Visualized portions of the lungs are unremarkable. IMPRESSION: 1. No acute visible fracture or dislocation. 2. Straightening of the normal cervical curvature. 3. Grade 1 anterolisthesis of C4 on C5. 4. Multilevel degenerative changes. Medications Medications Current Medications Acetaminophen (Acetaminophen 325 Mg Tablet) 650 mg PO Q6H PRN PRN Reason: Headache/Pain Mild Scale (1-3) Last Admin: 11/13/23 00:57 Dose: 650 mg Al Hydroxide/Mg Hydroxide (Magnesium Hydrox/Alum Hydrox 30 Ml Oral.Susp) 30 ml PO Q6H PRN PRN Reason: Heartburn/Nausea Atorvastatin Calcium (Atorvastatin Calcium 40 Mg Tablet) 40 mg PO DAILY [facility]ITI Last Admin: 11/14/23 08:45 Dose: 40 mg Lisinopril (Lisinopril 5 Mg Tablet) 5 mg PO DAILY [facility]; Protocol Last Admin: 11/14/23 08:45 Dose: 5 mg Loratadine (Loratadine 10 Mg Tablet) 10 mg PO DAILY PRN PRN Reason: for allergies Magnesium Hydroxide (Milk Of Magnesia 30 Ml Oral.Susp) 30 ml PO DAILY PRN PRN Reason: Constipation Melatonin (Melatonin 3 Mg Tablet) 6 mg PO BEDTIME [facility] Last Admin: 11/13/23 20:43 Dose: 6 mg Quetiapine Fumarate (Quetiapine Fumarate 25 Mg Tablet) 75 mg PO TID [facility] Last Admin: 11/14/23 08:44 Dose: 75 mg Trazodone HCl (Trazodone Hcl 50 Mg Tablet) 50 mg PO BEDTIME PRN PRN Reason: Insomnia Last Admin: 11/13/23 20:43 Dose: 50 mg Trazodone HCl (Trazodone Hcl 50 Mg Tablet) 50 mg PO BEDTIME [facility] Last Admin: 11/13/23 20:43 Dose: 50 mg Vitamin D (Cholecalciferol (Vitamin D3) 25 Mcg Tablet) 25 mcg PO DAILY [facility] Last Admin: 11/14/23 08:44 Dose: 25 mcg Allergies Allergies Allergy/AdvReac Type Severity Reaction Status Date / Time No Known Allergies Allergy Verified 11/01/23 08:47 Assessment & Plan Assessment & Plan (1) Alzheimer's dementia with behavioral disturbance: Status: Acute Code(s): G30.9 - Alzheimer's disease, unspecified; F02.818 - Dementia in other diseases classified elsewhere, unspecified severity, with other behavioral disturbance Plan Mrs. Wiley is a 73 year-old woman with hx of Alzheimer's who was brought by her son, one of them is her HCP. Family reports main caregiver who is her is struggling to meet her needs. Labs in the ED include- CBC without leukocytosis, normocytic anemia, low plt. CMP no electrolyte abnormalities, BUN 18, Cr. 0.76, creatinine clearance 59.2. UA with leukocytes, WBC 21-50, however, culture was negative for growth. Head CT without acute findings, atrophy and microvascular changes. Pt admitted for further management of hallucinations, sleep disturbances. HCP has been invoked. HCP verbally gave consent to sign CV. Her dementia is advanced, in late stages at this point. She has sever impairments in orientation, receptive/expressive aphasia, agnosia, inability to recall new information. PLAN 1. Admit to S1, CV verbally signed with two witnesses. 2. continue current medications including seroquel 75mg po TID 11/08 d/c namenda due to myoclonic movements 11/09 continue tx. 11/10 restart lisinopril 5mg po daily as SBP going up. add trazodone at bedtime scheduled as she has had some difficulty falling asleep. monitor over sedation. still not ambulating on her own due to fall risk. 11/11 continue tx 11/12 contnue tx 11/13 BP improved; slept well continue tx Reason for continued inpatient stay Substantial Risk for: inability to function Time Spent With Patient Time: Total time managing care of this patient today ____ minutes.
[2023-11-14 20:00] VITALS: BP 162/66; PULSE 107; RESP 18; TEMP 36.2; O2SAT 100
[2023-11-14] MEDS: Melatonin 3 MG TABLET 6 MG PO (20:22)
[2023-11-14] MEDS: traZODone HCL 50 MG TABLET PO ×2 (20:22)
[2023-11-15 08:00] VITALS: BP 120/61; PULSE 87; RESP 15; TEMP 36.9; O2SAT 98
[2023-11-15 08:13] VITALS: BP 120/61
[2023-11-15] MEDS: QUEtiapine Fumarate 25 MG TABLET 75 MG PO ×3 (08:13→20:20)
[2023-11-15] MEDS: Cholecalciferol (Vitamin D3) 25 MCG TABLET PO (08:13)
[2023-11-15] MEDS: lisinopriL 5 MG TABLET PO (08:13)
[2023-11-15] MEDS: Atorvastatin Calcium 40 MG TABLET PO (08:13)
--- NOTE | 2023-11-15 10:38 | P.PNPSI_ITS ---
Subjective Subjective Date of Service: 11/15/23 Reason For Visit: dementia with behavioral disturbance Subjective Notes: Conditional Voluntary Interim History: Pt sleeping all night. Her sleep overall has improved. Pt awake and alert during the day. She is talkative although mostly with significant expressive aphasia. She is eating very well-does need to be fed due to advanced dementia. no behavioral concerns. 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 SI: none HI: none VH/AH: no overt signs Delusions: no overt signs more than confabulation Insight/judgment: impaired x 2. Memory/cog: alert, not oriented to place, situation, month or date. severe cognitive impairments. Diagnostics Vital Signs (24Hr): Vital Signs - 24 hr 11/14/23 20:00 11/15/23 08:00 11/15/23 08:13 Temperature 97.2 F 98.5 F Pulse Rate 107 H 87 Respiratory Rate 18 15 Blood Pressure 162/66 H 120/61 120/61 Pulse Oximetry 100 98 Oxygen Delivery Method Room Air Room Air BMI result Body Mass Index 28.9 Labs 11/01/23 09:45 11/01/23 09:45 Imaging Radiology Impressions: ITS Impressions Cervical Spine CT 11/01/23 09:19 IMPRESSION: 1. No acute intracranial pathology. 2. Chronic white matter small vessel ischemic changes. EXAMINATION: Noncontrast CT scan of the cervical spine. INDICATION: Fall COMPARISON: CT cervical spine from 07/13/2023 TECHNIQUE: Helical, multidetector axial images were obtained from the occiput to the upper thorax. Coronal and sagittal reformats of the cervical spine were provided for interpretation. DLP: 335.63 mGy-cm FINDINGS: No acute fractures or dislocations of the cervical spine are seen. Straightening of the normal cervical curvature. Grade 1 anterolisthesis of C4 on C5. Multilevel degenerative changes. Anatomic alignment and positioning of the vertebral bodies and posterior elements is noted. The atlantoaxial joint and craniovertebral articulations are normal without evidence of subluxation. There is no prevertebral soft tissue swelling. Asymmetric enlargement of the right thyroid lobe, stable. Visualized portions of the lungs are unremarkable. IMPRESSION: 1. No acute visible fracture or dislocation. 2. Straightening of the normal cervical curvature. 3. Grade 1 anterolisthesis of C4 on C5. 4. Multilevel degenerative changes. Head CT 11/01/23 09:19 IMPRESSION: 1. No acute intracranial pathology. 2. Chronic white matter small vessel ischemic changes. EXAMINATION: Noncontrast CT scan of the cervical spine. INDICATION: Fall COMPARISON: CT cervical spine from 07/13/2023 TECHNIQUE: Helical, multidetector axial images were obtained from the occiput to the upper thorax. Coronal and sagittal reformats of the cervical spine were provided for interpretation. DLP: 335.63 mGy-cm FINDINGS: No acute fractures or dislocations of the cervical spine are seen. Straightening of the normal cervical curvature. Grade 1 anterolisthesis of C4 on C5. Multilevel degenerative changes. Anatomic alignment and positioning of the vertebral bodies and posterior elements is noted. The atlantoaxial joint and craniovertebral articulations are normal without evidence of subluxation. There is no prevertebral soft tissue swelling. Asymmetric enlargement of the right thyroid lobe, stable. Visualized portions of the lungs are unremarkable. IMPRESSION: 1. No acute visible fracture or dislocation. 2. Straightening of the normal cervical curvature. 3. Grade 1 anterolisthesis of C4 on C5. 4. Multilevel degenerative changes. Medications Medications Current Medications Acetaminophen (Acetaminophen 325 Mg Tablet) 650 mg PO Q6H PRN PRN Reason: Headache/Pain Mild Scale (1-3) Last Admin: 11/13/23 00:57 Dose: 650 mg Al Hydroxide/Mg Hydroxide (Magnesium Hydrox/Alum Hydrox 30 Ml Oral.Susp) 30 ml PO Q6H PRN PRN Reason: Heartburn/Nausea Atorvastatin Calcium (Atorvastatin Calcium 40 Mg Tablet) 40 mg PO DAILY [facility]I Last Admin: 11/15/23 08:13 Dose: 40 mg Lisinopril (Lisinopril 5 Mg Tablet) 5 mg PO DAILY [facility]; Protocol Last Admin: 11/15/23 08:13 Dose: 5 mg Loratadine (Loratadine 10 Mg Tablet) 10 mg PO DAILY PRN PRN Reason: for allergies Magnesium Hydroxide (Milk Of Magnesia 30 Ml Oral.Susp) 30 ml PO DAILY PRN PRN Reason: Constipation Melatonin (Melatonin 3 Mg Tablet) 6 mg PO BEDTIME [facility] Last Admin: 11/14/23 20:22 Dose: 6 mg Quetiapine Fumarate (Quetiapine Fumarate 25 Mg Tablet) 75 mg PO TID [facility] Last Admin: 11/15/23 08:13 Dose: 75 mg Trazodone HCl (Trazodone Hcl 50 Mg Tablet) 50 mg PO BEDTIME PRN PRN Reason: Insomnia Last Admin: 11/14/23 20:22 Dose: 50 mg Trazodone HCl (Trazodone Hcl 50 Mg Tablet) 50 mg PO BEDTIME [facility] Last Admin: 11/14/23 20:22 Dose: 50 mg Vitamin D (Cholecalciferol (Vitamin D3) 25 Mcg Tablet) 25 mcg PO DAILY [facility] Last Admin: 11/15/23 08:13 Dose: 25 mcg Allergies Allergies Allergy/AdvReac Type Severity Reaction Status Date / Time No Known Allergies Allergy Verified 11/01/23 08:47 Assessment & Plan Assessment & Plan (1) Alzheimer's dementia with behavioral disturbance: Status: Acute Code(s): G30.9 - Alzheimer's disease, unspecified; F02.818 - Dementia in other diseases classified elsewhere, unspecified severity, with other behavioral disturbance Plan Mrs. Wiley is a 73 year-old woman with hx of Alzheimer's who was brought by her son, one of them is her HCP. Family reports main caregiver who is her is struggling to meet her needs. Labs in the ED include- CBC without leukocytosis, normocytic anemia, low plt. CMP no electrolyte abnormalities, BUN 18, Cr. 0.76, creatinine clearance 59.2. UA with leukocytes, WBC 21-50, however, culture was negative for growth. Head CT without acute findings, atrophy and microvascular changes. Pt admitted for further management of hallucinations, sleep disturbances. HCP has been invoked. HCP verbally gave consent to sign CV. Her dementia is advanced, in late stages at this point. She has sever impairments in orientation, receptive/expressive aphasia, agnosia, inability to recall new information. PLAN 1. Admit to S1, CV verbally signed with two witnesses. 2. continue current medications including seroquel 75mg po TID 11/08 d/c namenda due to myoclonic movements 11/09 continue tx. 11/10 restart lisinopril 5mg po daily as SBP going up. add trazodone at bedtime scheduled as she has had some difficulty falling asleep. monitor over sedation. still not ambulating on her own due to fall risk. 11/11 continue tx 11/12 contnue tx 11/13 BP improved; slept well continue tx 11/14 much improvement in myoclonic movements after d/c namenda. sleeping better. Reason for continued inpatient stay Substantial Risk for: inability to function Time Spent With Patient Time: Total time managing care of this patient today ____ minutes.
[2023-11-15] MEDS: Melatonin 3 MG TABLET 6 MG PO (20:20)
[2023-11-15] MEDS: traZODone HCL 50 MG TABLET PO (20:20)
[2023-11-15 20:43] VITALS: BP 134/90; PULSE 115
[2023-11-15 20:52] VITALS: O2SAT 97
[2023-11-16 08:00] VITALS: BP 139/93; PULSE 69; RESP 16; TEMP 36; O2SAT 95
[2023-11-16] MEDS: Atorvastatin Calcium 40 MG TABLET PO (08:27)
[2023-11-16] MEDS: QUEtiapine Fumarate 25 MG TABLET 75 MG PO ×3 (08:27→19:51)
[2023-11-16] MEDS: lisinopriL 5 MG TABLET PO (08:27)
[2023-11-16] MEDS: Cholecalciferol (Vitamin D3) 25 MCG TABLET PO (09:07)
--- NOTE | 2023-11-16 15:31 | P.PNPSI_ITS ---
Subjective Subjective Date of Service: 11/16/23 Reason For Visit: dementia with behavioral disturbance Interim History: Met with patient; discussed with team Patient difficult with which to engage, talking nonsensically; only partially aware of typewriter repairer's presence. Incontinent of urine Mental Status Exam Mental Status Exam Narrative: Appearance: wearing hospital gown, in bed, in NAD Behavior: Disorganized Psychomotor: Some psychomotor agitation, hand gestures, intermittently nonsensically yelling out loud Speech: mumbles at times, regular rate/rhythm/volume, spontaneous TP: disorganized thought process TC: Disorganized Mood: Constricted Affect: Constricted SI: none express HI: none express VH/AH: Seems internally preoccupied Delusions: confabulation? Insight/judgment: impaired x 2. Memory/cog: alert, not oriented to place, situation, month or date. severe cognitive impairments. Diagnostics Vital Signs (24Hr): Vital Signs - 24 hr 11/15/23 20:43 11/15/23 20:52 11/16/23 08:00 Temperature 96.8 F Pulse Rate 115 H 69 Respiratory Rate 16 Blood Pressure 134/90 H 139/93 H Pulse Oximetry 97 95 Oxygen Delivery Method Room Air Room Air BMI result Body Mass Index 28.9 Labs 11/01/23 09:45 11/01/23 09:45 Imaging Radiology Impressions: ITS Impressions Cervical Spine CT 11/01/23 09:19 IMPRESSION: 1. No acute intracranial pathology. 2. Chronic white matter small vessel ischemic changes. EXAMINATION: Noncontrast CT scan of the cervical spine. INDICATION: Fall COMPARISON: CT cervical spine from 07/13/2023 TECHNIQUE: Helical, multidetector axial images were obtained from the occiput to the upper thorax. Coronal and sagittal reformats of the cervical spine were provided for interpretation. DLP: 335.63 mGy-cm FINDINGS: No acute fractures or dislocations of the cervical spine are seen. Straightening of the normal cervical curvature. Grade 1 anterolisthesis of C4 on C5. Multilevel degenerative changes. Anatomic alignment and positioning of the vertebral bodies and posterior elements is noted. The atlantoaxial joint and craniovertebral articulations are normal without evidence of subluxation. There is no prevertebral soft tissue swelling. Asymmetric enlargement of the right thyroid lobe, stable. Visualized portions of the lungs are unremarkable. IMPRESSION: 1. No acute visible fracture or dislocation. 2. Straightening of the normal cervical curvature. 3. Grade 1 anterolisthesis of C4 on C5. 4. Multilevel degenerative changes. Head CT 11/01/23 09:19 IMPRESSION: 1. No acute intracranial pathology. 2. Chronic white matter small vessel ischemic changes. EXAMINATION: Noncontrast CT scan of the cervical spine. INDICATION: Fall COMPARISON: CT cervical spine from 07/13/2023 TECHNIQUE: Helical, multidetector axial images were obtained from the occiput to the upper thorax. Coronal and sagittal reformats of the cervical spine were provided for interpretation. DLP: 335.63 mGy-cm FINDINGS: No acute fractures or dislocations of the cervical spine are seen. Straightening of the normal cervical curvature. Grade 1 anterolisthesis of C4 on C5. Multilevel degenerative changes. Anatomic alignment and positioning of the vertebral bodies and posterior elements is noted. The atlantoaxial joint and craniovertebral articulations are normal without evidence of subluxation. There is no prevertebral soft tissue swelling. Asymmetric enlargement of the right thyroid lobe, stable. Visualized portions of the lungs are unremarkable. IMPRESSION: 1. No acute visible fracture or dislocation. 2. Straightening of the normal cervical curvature. 3. Grade 1 anterolisthesis of C4 on C5. 4. Multilevel degenerative changes. Medications Medications Current Medications Acetaminophen (Acetaminophen 325 Mg Tablet) 650 mg PO Q6H PRN PRN Reason: Headache/Pain Mild Scale (1-3) Last Admin: 11/13/23 00:57 Dose: 650 mg Al Hydroxide/Mg Hydroxide (Magnesium Hydrox/Alum Hydrox 30 Ml Oral.Susp) 30 ml PO Q6H PRN PRN Reason: Heartburn/Nausea Atorvastatin Calcium (Atorvastatin Calcium 40 Mg Tablet) 40 mg PO DAILY TITI Last Admin: 11/16/23 08:27 Dose: 40 mg Lisinopril (Lisinopril 5 Mg Tablet) 5 mg PO DAILY TITI; Protocol Last Admin: 11/16/23 08:27 Dose: 5 mg Loratadine (Loratadine 10 Mg Tablet) 10 mg PO DAILY PRN PRN Reason: for allergies Magnesium Hydroxide (Milk Of Magnesia 30 Ml Oral.Susp) 30 ml PO DAILY PRN PRN Reason: Constipation Melatonin (Melatonin 3 Mg Tablet) 6 mg PO BEDTIME TITI Last Admin: 11/15/23 20:20 Dose: 6 mg Quetiapine Fumarate (Quetiapine Fumarate 25 Mg Tablet) 75 mg PO TID [facility] Last Admin: 11/16/23 14:29 Dose: 75 mg Trazodone HCl (Trazodone Hcl 50 Mg Tablet) 50 mg PO BEDTIME PRN PRN Reason: Insomnia Last Admin: 11/14/23 20:22 Dose: 50 mg Trazodone HCl (Trazodone Hcl 50 Mg Tablet) 50 mg PO BEDTIME TITI Last Admin: 11/15/23 20:20 Dose: 50 mg Vitamin D (Cholecalciferol (Vitamin D3) 25 Mcg Tablet) 25 mcg PO DAILY [facility] Last Admin: 11/16/23 09:07 Dose: 25 mcg Allergies Allergies Allergy/AdvReac Type Severity Reaction Status Date / Time No Known Allergies Allergy Verified 11/01/23 08:47 Assessment & Plan Assessment & Plan (1) Alzheimer's dementia with behavioral disturbance: Status: Acute Code(s): G30.9 - Alzheimer's disease, unspecified; F02.818 - Dementia in other diseases classified elsewhere, unspecified severity, with other behavioral disturbance Plan Mrs. Wiley is a 73 year-old woman with hx of Alzheimer's who was brought by her son, one of them is her HCP. Family reports main caregiver who is her is struggling to meet her needs. Labs in the ED include- CBC without leukocytosis, normocytic anemia, low plt. CMP no electrolyte abnormalities, BUN 18, Cr. 0.76, creatinine clearance 59.2. UA with leukocytes, WBC 21-50, however, culture was negative for growth. Head CT without acute findings, atrophy and microvascular changes. Pt admitted for further management of hallucinations, sleep disturbances. HCP has been invoked. HCP verbally gave consent to sign CV. Her dementia is advanced, in late stages at this point. She has sever impairments in orientation, receptive/expressive aphasia, agnosia, inability to recall new information. PLAN 1. Admit to S1, CV verbally signed with two witnesses. 2. continue current medications including seroquel 75mg po TID 11/08 d/c namenda due to myoclonic movements 11/09 continue tx. 11/10 restart lisinopril 5mg po daily as SBP going up. add trazodone at bedtime scheduled as she has had some difficulty falling asleep. monitor over sedation. still not ambulating on her own due to fall risk. 11/11 continue tx 11/12 contnue tx 11/13 BP improved; slept well continue tx 11/14 much improvement in myoclonic movements after d/c namenda. sleeping better. 11/15 Patient difficult with which to engage, talking nonsensically; only partially aware of typewriter repairer's presence. Incontinent of urine -per primary team patient has made some improvements; will continue current treatment plan Patient educated on: diagnosis Informed Consent: does not understand Reason for continued inpatient stay Substantial Risk for: inability to function Time Spent With Patient Time: Total time managing care of this patient today ____ minutes.
[2023-11-16] MEDS: traZODone HCL 50 MG TABLET PO (19:52)
[2023-11-16 20:00] VITALS: BP 96/63; PULSE 110; RESP 16; TEMP 36.4; O2SAT 99
[2023-11-16] MEDS: Melatonin 3 MG TABLET 6 MG PO (21:30)
[2023-11-17] MEDS: traZODone HCL 50 MG TABLET PO ×3 (02:23→21:08)
[2023-11-17 08:00] VITALS: BP 134/60; PULSE 96; RESP 18; TEMP 37.6; O2SAT 98
[2023-11-17 08:37] VITALS: BP 134/60
[2023-11-17] MEDS: Atorvastatin Calcium 40 MG TABLET PO (08:37)
[2023-11-17] MEDS: lisinopriL 5 MG TABLET PO (08:37)
[2023-11-17] MEDS: QUEtiapine Fumarate 25 MG TABLET 75 MG PO ×2 (08:37→21:07)
[2023-11-17] MEDS: Cholecalciferol (Vitamin D3) 25 MCG TABLET PO (08:37)
[2023-11-17] MEDS: Milk of Magnesia 30 ML ORAL.SUSP PO (16:46)
--- NOTE | 2023-11-17 17:54 | HO.PSYCHPN ---
Subjective Subjective Date of Service: 11/17/23 Reason For Visit: dementia with behavioral disturbance Interim History: met with patient; discussed with team pt is unable to engage, continues talking nonsensically. Pt constipated and nursing reports on verge of needing to be manually disempacted; she cannot advocate for self so will schedule Mirrilax (hold for loose stool) Mental Status Exam Mental Status Exam Narrative: Appearance: wearing hospital gown, in bed, in NAD Behavior: Disorganized Psychomotor: Some psychomotor agitation, hand gestures, intermittently nonsensically yelling out loud Speech: mumbles at times, regular rate/rhythm/volume, spontaneous TP: disorganized thought process TC: Disorganized Mood: Constricted Affect: Constricted SI: none express HI: none express VH/AH: Seems internally preoccupied Delusions: confabulation? Insight/judgment: impaired x 2. Memory/cog: alert, not oriented to place, situation, month or date. severe cognitive impairments. Diagnostics Vital Signs (24Hr): Vital Signs - 24 hr 11/16/23 20:00 11/17/23 08:00 11/17/23 08:37 Temperature 97.6 F 99.6 F Pulse Rate 110 H 96 Respiratory Rate 16 18 Blood Pressure 96/63 134/60 134/60 Pulse Oximetry 99 98 Oxygen Delivery Method Room Air Room Air BMI result Body Mass Index 28.9 Labs 11/01/23 09:45 11/01/23 09:45 Imaging Radiology Impressions: ITS Impressions Cervical Spine CT 11/01/23 09:19 IMPRESSION: 1. No acute intracranial pathology. 2. Chronic white matter small vessel ischemic changes. EXAMINATION: Noncontrast CT scan of the cervical spine. INDICATION: Fall COMPARISON: CT cervical spine from 07/13/2023 TECHNIQUE: Helical, multidetector axial images were obtained from the occiput to the upper thorax. Coronal and sagittal reformats of the cervical spine were provided for interpretation. DLP: 335.63 mGy-cm FINDINGS: No acute fractures or dislocations of the cervical spine are seen. Straightening of the normal cervical curvature. Grade 1 anterolisthesis of C4 on C5. Multilevel degenerative changes. Anatomic alignment and positioning of the vertebral bodies and posterior elements is noted. The atlantoaxial joint and craniovertebral articulations are normal without evidence of subluxation. There is no prevertebral soft tissue swelling. Asymmetric enlargement of the right thyroid lobe, stable. Visualized portions of the lungs are unremarkable. IMPRESSION: 1. No acute visible fracture or dislocation. 2. Straightening of the normal cervical curvature. 3. Grade 1 anterolisthesis of C4 on C5. 4. Multilevel degenerative changes. Head CT 11/01/23 09:19 IMPRESSION: 1. No acute intracranial pathology. 2. Chronic white matter small vessel ischemic changes. EXAMINATION: Noncontrast CT scan of the cervical spine. INDICATION: Fall COMPARISON: CT cervical spine from 07/13/2023 TECHNIQUE: Helical, multidetector axial images were obtained from the occiput to the upper thorax. Coronal and sagittal reformats of the cervical spine were provided for interpretation. DLP: 335.63 mGy-cm FINDINGS: No acute fractures or dislocations of the cervical spine are seen. Straightening of the normal cervical curvature. Grade 1 anterolisthesis of C4 on C5. Multilevel degenerative changes. Anatomic alignment and positioning of the vertebral bodies and posterior elements is noted. The atlantoaxial joint and craniovertebral articulations are normal without evidence of subluxation. There is no prevertebral soft tissue swelling. Asymmetric enlargement of the right thyroid lobe, stable. Visualized portions of the lungs are unremarkable. IMPRESSION: 1. No acute visible fracture or dislocation. 2. Straightening of the normal cervical curvature. 3. Grade 1 anterolisthesis of C4 on C5. 4. Multilevel degenerative changes. Medications Medications Current Medications Acetaminophen (Acetaminophen 325 Mg Tablet) 650 mg PO Q6H PRN PRN Reason: Headache/Pain Mild Scale (1-3) Last Admin: 11/13/23 00:57 Dose: 650 mg Al Hydroxide/Mg Hydroxide (Magnesium Hydrox/Alum Hydrox 30 Ml Oral.Susp) 30 ml PO Q6H PRN PRN Reason: Heartburn/Nausea Atorvastatin Calcium (Atorvastatin Calcium 40 Mg Tablet) 40 mg PO DAILY [facility] Last Admin: 11/17/23 08:37 Dose: 40 mg Lisinopril (Lisinopril 5 Mg Tablet) 5 mg PO DAILY [facility]; Protocol Last Admin: 11/17/23 08:37 Dose: 5 mg Loratadine (Loratadine 10 Mg Tablet) 10 mg PO DAILY PRN PRN Reason: for allergies Magnesium Hydroxide (Milk Of Magnesia 30 Ml Oral.Susp) 30 ml PO DAILY PRN PRN Reason: Constipation Last Admin: 11/17/23 16:46 Dose: 30 ml Melatonin (Melatonin 3 Mg Tablet) 6 mg PO BEDTIME TITI Last Admin: 11/16/23 21:30 Dose: 6 mg Quetiapine Fumarate (Quetiapine Fumarate 25 Mg Tablet) 75 mg PO TID [facility]ITI Last Admin: 11/17/23 15:38 Dose: Not Given Trazodone HCl (Trazodone Hcl 50 Mg Tablet) 50 mg PO BEDTIME PRN PRN Reason: Insomnia Last Admin: 11/14/23 20:22 Dose: 50 mg Trazodone HCl (Trazodone Hcl 50 Mg Tablet) 50 mg PO BEDTIME TITI Last Admin: 11/17/23 02:23 Dose: 50 mg Vitamin D (Cholecalciferol (Vitamin D3) 25 Mcg Tablet) 25 mcg PO DAILY TITI Last Admin: 11/17/23 08:37 Dose: 25 mcg Allergies Allergies Allergy/AdvReac Type Severity Reaction Status Date / Time No Known Allergies Allergy Verified 11/01/23 08:47 Assessment & Plan Assessment & Plan (1) Alzheimer's dementia with behavioral disturbance: Status: Acute Code(s): G30.9 - Alzheimer's disease, unspecified; F02.818 - Dementia in other diseases classified elsewhere, unspecified severity, with other behavioral disturbance Plan Mrs. Wiley is a 73 year-old woman with hx of Alzheimer's who was brought by her son, one of them is her HCP. Family reports main caregiver who is her is struggling to meet her needs. Labs in the ED include- CBC without leukocytosis, normocytic anemia, low plt. CMP no electrolyte abnormalities, BUN 18, Cr. 0.76, creatinine clearance 59.2. UA with leukocytes, WBC 21-50, however, culture was negative for growth. Head CT without acute findings, atrophy and microvascular changes. Pt admitted for further management of hallucinations, sleep disturbances. HCP has been invoked. HCP verbally gave consent to sign CV. Her dementia is advanced, in late stages at this point. She has sever impairments in orientation, receptive/expressive aphasia, agnosia, inability to recall new information. PLAN 1. Admit to S1, CV verbally signed with two witnesses. 2. continue current medications including seroquel 75mg po TID 11/08 d/c namenda due to myoclonic movements 11/09 continue tx. 11/10 restart lisinopril 5mg po daily as SBP going up. add trazodone at bedtime scheduled as she has had some difficulty falling asleep. monitor over sedation. still not ambulating on her own due to fall risk. 11/11 continue tx 11/12 contnue tx 11/13 BP improved; slept well continue tx 11/14 much improvement in myoclonic movements after d/c namenda. sleeping better. 11/15 Patient difficult with which to engage, talking nonsensically; only partially aware of travel writer's presence. Incontinent of urine -per primary team patient has made some improvements; will continue current treatment plan 11/16 pt is unable to engage, continues talking nonsensically. Pt constipated and nursing reports on verge of needing to be manually disempacted; she cannot advocate for self so will schedule Mirrilax (hold for loose stool) Informed Consent: does not understand Reason for continued inpatient stay Substantial Risk for: inability to function Time Spent With Patient Time: Total time managing care of this patient today ____ minutes.
[2023-11-17 20:00] VITALS: BP 106/102; PULSE 113; RESP 18; TEMP 36.4; O2SAT 96
[2023-11-17] MEDS: Melatonin 3 MG TABLET 6 MG PO (21:06)
[2023-11-18 08:00] VITALS: BP 131/83; PULSE 82; RESP 17; TEMP 36.6; O2SAT 95
[2023-11-18 08:29] VITALS: BP 131/83
[2023-11-18] MEDS: lisinopriL 5 MG TABLET PO (08:29)
[2023-11-18] MEDS: QUEtiapine Fumarate 25 MG TABLET 75 MG PO ×2 (08:30→21:15)
[2023-11-18] MEDS: Cholecalciferol (Vitamin D3) 25 MCG TABLET PO (08:30)
[2023-11-18] MEDS: polyethylene glycoL 3350 17 GM POWD.PACK PO (08:30)
[2023-11-18] MEDS: Atorvastatin Calcium 40 MG TABLET PO (10:10)
[2023-11-18] MEDS: Acetaminophen 325 MG TABLET 650 MG PO (10:15)
--- NOTE | 2023-11-18 13:45 | P.PNPSI_ITS ---
Subjective Subjective Date of Service: 11/18/23 Reason For Visit: dementia with behavioral disturbance Interim History: Met with patient; discussed with team Patient not able to engage. Disorganized speech behavior; incontinent. Patient fecal impacted and nurse asked for enema; patient started on bowel regimen Mental Status Exam Mental Status Exam Narrative: Appearance: wearing hospital gown, in bed, in NAD Behavior: Disorganized Psychomotor: Some psychomotor agitation, hand gestures, intermittently nonsensically yelling out loud Speech: mumbles at times, regular rate/rhythm/volume, spontaneous TP: disorganized thought process TC: Disorganized Mood: Constricted Affect: Constricted SI: none express HI: none express VH/AH: Seems internally preoccupied Delusions: confabulation? Insight/judgment: impaired x 2. Memory/cog: alert, not oriented to place, situation, month or date. severe cognitive impairments. Diagnostics Vital Signs (24Hr): Vital Signs - 24 hr 11/17/23 20:00 11/18/23 08:00 11/18/23 08:29 Temperature 97.5 F 98 F Pulse Rate 113 H 82 Respiratory Rate 18 17 Blood Pressure 106/102 H 131/83 131/83 Pulse Oximetry 96 95 Oxygen Delivery Method Room Air Room Air BMI result Body Mass Index 28.9 Labs 11/01/23 09:45 11/01/23 09:45 Imaging Radiology Impressions: ITS Impressions Cervical Spine CT 11/01/23 09:19 IMPRESSION: 1. No acute intracranial pathology. 2. Chronic white matter small vessel ischemic changes. EXAMINATION: Noncontrast CT scan of the cervical spine. INDICATION: Fall COMPARISON: CT cervical spine from 07/13/2023 TECHNIQUE: Helical, multidetector axial images were obtained from the occiput to the upper thorax. Coronal and sagittal reformats of the cervical spine were provided for interpretation. DLP: 335.63 mGy-cm FINDINGS: No acute fractures or dislocations of the cervical spine are seen. Straightening of the normal cervical curvature. Grade 1 anterolisthesis of C4 on C5. Multilevel degenerative changes. Anatomic alignment and positioning of the vertebral bodies and posterior elements is noted. The atlantoaxial joint and craniovertebral articulations are normal without evidence of subluxation. There is no prevertebral soft tissue swelling. Asymmetric enlargement of the right thyroid lobe, stable. Visualized portions of the lungs are unremarkable. IMPRESSION: 1. No acute visible fracture or dislocation. 2. Straightening of the normal cervical curvature. 3. Grade 1 anterolisthesis of C4 on C5. 4. Multilevel degenerative changes. Head CT 11/01/23 09:19 IMPRESSION: 1. No acute intracranial pathology. 2. Chronic white matter small vessel ischemic changes. EXAMINATION: Noncontrast CT scan of the cervical spine. INDICATION: Fall COMPARISON: CT cervical spine from 07/13/2023 TECHNIQUE: Helical, multidetector axial images were obtained from the occiput to the upper thorax. Coronal and sagittal reformats of the cervical spine were provided for interpretation. DLP: 335.63 mGy-cm FINDINGS: No acute fractures or dislocations of the cervical spine are seen. Straightening of the normal cervical curvature. Grade 1 anterolisthesis of C4 on C5. Multilevel degenerative changes. Anatomic alignment and positioning of the vertebral bodies and posterior elements is noted. The atlantoaxial joint and craniovertebral articulations are normal without evidence of subluxation. There is no prevertebral soft tissue swelling. Asymmetric enlargement of the right thyroid lobe, stable. Visualized portions of the lungs are unremarkable. IMPRESSION: 1. No acute visible fracture or dislocation. 2. Straightening of the normal cervical curvature. 3. Grade 1 anterolisthesis of C4 on C5. 4. Multilevel degenerative changes. Medications Medications Current Medications Acetaminophen (Acetaminophen 325 Mg Tablet) 650 mg PO Q6H PRN PRN Reason: Headache/Pain Mild Scale (1-3) Last Admin: 11/18/23 10:15 Dose: 650 mg Al Hydroxide/Mg Hydroxide (Magnesium Hydrox/Alum Hydrox 30 Ml Oral.Susp) 30 ml PO Q6H PRN PRN Reason: Heartburn/Nausea Atorvastatin Calcium (Atorvastatin Calcium 40 Mg Tablet) 40 mg PO DAILY [facility] Last Admin: 11/18/23 10:10 Dose: 40 mg Lisinopril (Lisinopril 5 Mg Tablet) 5 mg PO DAILY [facility]; Protocol Last Admin: 11/18/23 08:29 Dose: 5 mg Loratadine (Loratadine 10 Mg Tablet) 10 mg PO DAILY PRN PRN Reason: for allergies Magnesium Hydroxide (Milk Of Magnesia 30 Ml Oral.Susp) 30 ml PO DAILY PRN PRN Reason: Constipation Last Admin: 11/17/23 16:46 Dose: 30 ml Melatonin (Melatonin 3 Mg Tablet) 6 mg PO BEDTIME TITI Last Admin: 11/17/23 21:06 Dose: 6 mg Polyethylene Glycol (Polyethylene Glycol 3350 17 Gm Powd.Pack) 17 gm PO DAILY TITI Last Admin: 11/18/23 08:30 Dose: 17 gm Quetiapine Fumarate (Quetiapine Fumarate 25 Mg Tablet) 75 mg PO TID TITI Last Admin: 11/18/23 08:30 Dose: 75 mg Trazodone HCl (Trazodone Hcl 50 Mg Tablet) 50 mg PO BEDTIME PRN PRN Reason: Insomnia Last Admin: 11/17/23 21:08 Dose: 50 mg Trazodone HCl (Trazodone Hcl 50 Mg Tablet) 50 mg PO BEDTIME TITI Last Admin: 11/17/23 21:07 Dose: 50 mg Vitamin D (Cholecalciferol (Vitamin D3) 25 Mcg Tablet) 25 mcg PO DAILY [facility]ITI Last Admin: 11/18/23 08:30 Dose: 25 mcg Allergies Allergies Allergy/AdvReac Type Severity Reaction Status Date / Time No Known Allergies Allergy Verified 11/01/23 08:47 Assessment & Plan Assessment & Plan (1) Alzheimer's dementia with behavioral disturbance: Status: Acute Code(s): G30.9 - Alzheimer's disease, unspecified; F02.818 - Dementia in other diseases classified elsewhere, unspecified severity, with other behavioral disturbance Plan Mrs. Wiley is a 73 year-old woman with hx of Alzheimer's who was brought by her son, one of them is her HCP. Family reports main caregiver who is her is struggling to meet her needs. Labs in the ED include- CBC without leukocytosis, normocytic anemia, low plt. CMP no electrolyte abnormalities, BUN 18, Cr. 0.76, creatinine clearance 59.2. UA with leukocytes, WBC 21-50, however, culture was negative for growth. Head CT without acute findings, atrophy and microvascular changes. Pt admitted for further management of hallucinations, sleep disturbances. HCP has been invoked. HCP verbally gave consent to sign CV. Her dementia is advanced, in late stages at this point. She has sever impairments in orientation, receptive/expressive aphasia, agnosia, inability to recall new information. PLAN 1. Admit to S1, CV verbally signed with two witnesses. 2. continue current medications including seroquel 75mg po TID 11/08 d/c namenda due to myoclonic movements 11/09 continue tx. 11/10 restart lisinopril 5mg po daily as SBP going up. add trazodone at bedtime scheduled as she has had some difficulty falling asleep. monitor over sedation. still not ambulating on her own due to fall risk. 11/11 continue tx 11/12 contnue tx 11/13 BP improved; slept well continue tx 11/14 much improvement in myoclonic movements after d/c namenda. sleeping better. 11/15 Patient difficult with which to engage, talking nonsensically; only partially aware of newswriter's presence. Incontinent of urine -per primary team patient has made some improvements; will continue current treatment plan 11/16 pt is unable to engage, continues talking nonsensically. Pt constipated and nursing reports on verge of needing to be manually disempacted; she cannot advocate for self so will schedule Mirrilax (hold for loose stool) 11/17 Patient not able to engage. Disorganized speech behavior; incontinent. Patient fecal impacted and nurse asked for enema; patient was started on bowel regimen -Fleet enema p.r.n. Patient educated on: medication risk/benefits Informed Consent: does not understand Reason for continued inpatient stay Substantial Risk for: inability to function Time Spent With Patient Time: Total time managing care of this patient today ____ minutes.
[2023-11-18] MEDS: Sodium Phosphate,Mono-Dibasic 133 ML ENEMA PR (17:28)
--- NOTE | 2023-11-18 18:48 | PC.NURSE ---
Patient became irritable, agitated and presenting with facial grimacing in the late afternoon. PRN tylenol given with little effect. Patient then ambulated with staff to the bathroom and was noted to have a ball of hard stool that she was unable to pass. Provider notified and patient slept on her side in bed for some time until orders were placed for a fleet enema. Around 17:00, patient had a fleet enema done with good effect. After 15 minutes patients ambulated to the toilet and was able to pass 3 large formed balls of stool. Patient later appeared more relaxed and less agitated, visible resting comfortably in bed.
[2023-11-18 20:00] VITALS: BP 132/57; PULSE 94; RESP 18; TEMP 36.5; O2SAT 96
[2023-11-18] MEDS: Melatonin 3 MG TABLET 6 MG PO (21:15)
[2023-11-18] MEDS: traZODone HCL 50 MG TABLET PO ×2 (21:16)
[2023-11-19 09:01] VITALS: BP 120/66; PULSE 99; RESP 16; TEMP 36.8; O2SAT 97
[2023-11-19 10:42] VITALS: BP 120/66
[2023-11-19] MEDS: QUEtiapine Fumarate 25 MG TABLET 75 MG PO ×3 (10:42→21:51)
[2023-11-19] MEDS: polyethylene glycoL 3350 17 GM POWD.PACK PO (10:42)
[2023-11-19] MEDS: Cholecalciferol (Vitamin D3) 25 MCG TABLET PO (10:42)
[2023-11-19] MEDS: Atorvastatin Calcium 40 MG TABLET PO (10:42)
[2023-11-19] MEDS: lisinopriL 5 MG TABLET PO (10:42)
--- NOTE | 2023-11-19 11:12 | P.PNPSI_ITS ---
Subjective Subjective Date of Service: 11/19/23 Reason For Visit: dementia with behavioral disturbance Subjective Notes: Conditional Voluntary Healthcare Proxy: Yes Interim History: met with patient. Discussed with Nursing. Overall no significant changes. Very pleasant on the unit. Cleaning the tables. clear establsihed wished dementia evident. Medication Compliance: Yes Side effects from medications: No Attending Groups: Intermittent Review of Systems Acute medical concerns: No Mental Status Exam Mental Status Exam Narrative: Appearance: wearing hospital gown, in bed, in NAD Behavior: Disorganized Psychomotor: Some psychomotor agitation, hand gestures, intermittently nonsensically yelling out loud Speech: mumbles at times, regular rate/rhythm/volume, spontaneous TP: disorganized thought process TC: Disorganized Mood: Constricted Affect: Constricted SI: none express HI: none express VH/AH: Seems internally preoccupied Delusions: nothing obvious? Insight/judgment: impaired x 2. Memory/cog: alert, not oriented to place, situation, month or date. severe cognitive impairments c/w established dementia Diagnostics Vital Signs (24Hr): Vital Signs - 24 hr 11/18/23 20:00 11/19/23 09:01 11/19/23 10:42 Temperature 97.7 F 98.2 F Pulse Rate 94 99 Respiratory Rate 18 16 Blood Pressure 132/57 L 120/66 120/66 Pulse Oximetry 96 97 Oxygen Delivery Method Room Air Room Air BMI result Body Mass Index 28.9 Labs 11/01/23 09:45 11/01/23 09:45 Imaging Radiology Impressions: ITS Impressions Cervical Spine CT 11/01/23 09:19 IMPRESSION: 1. No acute intracranial pathology. 2. Chronic white matter small vessel ischemic changes. EXAMINATION: Noncontrast CT scan of the cervical spine. INDICATION: Fall COMPARISON: CT cervical spine from 07/13/2023 TECHNIQUE: Helical, multidetector axial images were obtained from the occiput to the upper thorax. Coronal and sagittal reformats of the cervical spine were provided for interpretation. DLP: 335.63 mGy-cm FINDINGS: No acute fractures or dislocations of the cervical spine are seen. Straightening of the normal cervical curvature. Grade 1 anterolisthesis of C4 on C5. Multilevel degenerative changes. Anatomic alignment and positioning of the vertebral bodies and posterior elements is noted. The atlantoaxial joint and craniovertebral articulations are normal without evidence of subluxation. There is no prevertebral soft tissue swelling. Asymmetric enlargement of the right thyroid lobe, stable. Visualized portions of the lungs are unremarkable. IMPRESSION: 1. No acute visible fracture or dislocation. 2. Straightening of the normal cervical curvature. 3. Grade 1 anterolisthesis of C4 on C5. 4. Multilevel degenerative changes. Head CT 11/01/23 09:19 IMPRESSION: 1. No acute intracranial pathology. 2. Chronic white matter small vessel ischemic changes. EXAMINATION: Noncontrast CT scan of the cervical spine. INDICATION: Fall COMPARISON: CT cervical spine from 07/13/2023 TECHNIQUE: Helical, multidetector axial images were obtained from the occiput to the upper thorax. Coronal and sagittal reformats of the cervical spine were provided for interpretation. DLP: 335.63 mGy-cm FINDINGS: No acute fractures or dislocations of the cervical spine are seen. Straightening of the normal cervical curvature. Grade 1 anterolisthesis of C4 on C5. Multilevel degenerative changes. Anatomic alignment and positioning of the vertebral bodies and posterior elements is noted. The atlantoaxial joint and craniovertebral articulations are normal without evidence of subluxation. There is no prevertebral soft tissue swelling. Asymmetric enlargement of the right thyroid lobe, stable. Visualized portions of the lungs are unremarkable. IMPRESSION: 1. No acute visible fracture or dislocation. 2. Straightening of the normal cervical curvature. 3. Grade 1 anterolisthesis of C4 on C5. 4. Multilevel degenerative changes. Medications Medications Current Medications Acetaminophen (Acetaminophen 325 Mg Tablet) 650 mg PO Q6H PRN PRN Reason: Headache/Pain Mild Scale (1-3) Last Admin: 11/18/23 10:15 Dose: 650 mg Al Hydroxide/Mg Hydroxide (Magnesium Hydrox/Alum Hydrox 30 Ml Oral.Susp) 30 ml PO Q6H PRN PRN Reason: Heartburn/Nausea Atorvastatin Calcium (Atorvastatin Calcium 40 Mg Tablet) 40 mg PO DAILY [facility] Last Admin: 11/19/23 10:42 Dose: 40 mg Lisinopril (Lisinopril 5 Mg Tablet) 5 mg PO DAILY [facility]; Protocol Last Admin: 11/19/23 10:42 Dose: 5 mg Loratadine (Loratadine 10 Mg Tablet) 10 mg PO DAILY PRN PRN Reason: for allergies Magnesium Hydroxide (Milk Of Magnesia 30 Ml Oral.Susp) 30 ml PO DAILY PRN PRN Reason: Constipation Last Admin: 11/17/23 16:46 Dose: 30 ml Melatonin (Melatonin 3 Mg Tablet) 6 mg PO BEDTIME [facility] Last Admin: 11/18/23 21:15 Dose: 6 mg Polyethylene Glycol (Polyethylene Glycol 3350 17 Gm Powd.Pack) 17 gm PO DAILY [facility] Last Admin: 11/19/23 10:42 Dose: 17 gm Quetiapine Fumarate (Quetiapine Fumarate 25 Mg Tablet) 75 mg PO TID [facility] Last Admin: 11/19/23 10:42 Dose: 75 mg Sodium Biphosphate/Sodium Phosphate (Sodium Phosphate,[place]-Dibasic 133 Ml Enema) 133 ml [place] DAILY PRN PRN Reason: continued constipation Last Admin: 11/18/23 17:28 Dose: 133 ml Trazodone HCl (Trazodone Hcl 50 Mg Tablet) 50 mg PO BEDTIME PRN PRN Reason: Insomnia Last Admin: 11/18/23 21:16 Dose: 50 mg Trazodone HCl (Trazodone Hcl 50 Mg Tablet) 50 mg PO BEDTIME [facility] Last Admin: 11/18/23 21:16 Dose: 50 mg Vitamin D (Cholecalciferol (Vitamin D3) 25 Mcg Tablet) 25 mcg PO DAILY [facility] Last Admin: 11/19/23 10:42 Dose: 25 mcg Allergies Allergies Allergy/AdvReac Type Severity Reaction Status Date / Time No Known Allergies Allergy Verified 11/01/23 08:47 Assessment & Plan Assessment & Plan (1) Alzheimer's dementia with behavioral disturbance: Status: Acute Code(s): G30.9 - Alzheimer's disease, unspecified; F02.818 - Dementia in other diseases classified elsewhere, unspecified severity, with other behavioral disturbance Plan Mrs. Wiley is a 73 year-old woman with hx of Alzheimer's who was brought by her son, one of them is her HCP. Family reports main caregiver who is her is struggling to meet her needs. Labs in the ED include- CBC without leukocytosis, normocytic anemia, low plt. CMP no electrolyte abnormalities, BUN 18, Cr. 0.76, creatinine clearance 59.2. UA with leukocytes, WBC 21-50, however, culture was negative for growth. Head CT without acute findings, atrophy and microvascular changes. Pt admitted for further management of hallucinations, sleep disturbances. HCP has been invoked. HCP verbally gave consent to sign CV. Her dementia is advanced, in late stages at this point. She has sever impairments in orientation, receptive/expressive aphasia, agnosia, inability to recall new information. PLAN 1. Admit to S1, CV verbally signed with two witnesses. 2. continue current medications including seroquel 75mg po TID 11/08 d/c namenda due to myoclonic movements 11/09 continue tx. 11/10 restart lisinopril 5mg po daily as SBP going up. add trazodone at bedtime scheduled as she has had some difficulty falling asleep. monitor over sedation. still not ambulating on her own due to fall risk. 11/11 continue tx 11/12 contnue tx 11/13 BP improved; slept well continue tx 11/14 much improvement in myoclonic movements after d/c namenda. sleeping better. 11/15 Patient difficult with which to engage, talking nonsensically; only partially aware of director underwriter sales's presence. Incontinent of urine -per primary team patient has made some improvements; will continue current treatment plan 11/16 pt is unable to engage, continues talking nonsensically. Pt constipated and nursing reports on verge of needing to be manually disempacted; she cannot advocate for self so will schedule Mirrilax (hold for loose stool) 11/19/2023 no changes Reason for continued inpatient stay Substantial Risk for: inability to function Time Spent With Patient Time: Total time managing care of this patient today ____ minutes.
[2023-11-19 20:00] VITALS: BP 145/70; PULSE 98; RESP 18; TEMP 36.5; O2SAT 95
[2023-11-19] MEDS: traZODone HCL 50 MG TABLET PO ×2 (21:50)
[2023-11-19] MEDS: Melatonin 3 MG TABLET 6 MG PO (21:51)
[2023-11-20] MEDS: traZODone HCL 50 MG TABLET PO (03:12)
[2023-11-20] MEDS: Acetaminophen 325 MG TABLET 650 MG PO (03:12)
[2023-11-20 09:13] VITALS: BP 129/59; PULSE 80; RESP 16; TEMP 36.2; O2SAT 97
[2023-11-20 09:25] VITALS: BP 129/59
[2023-11-20] MEDS: lisinopriL 5 MG TABLET PO (09:25)
[2023-11-20] MEDS: Atorvastatin Calcium 40 MG TABLET PO (09:25)
[2023-11-20] MEDS: QUEtiapine Fumarate 25 MG TABLET 75 MG PO (09:25)
[2023-11-20] MEDS: Cholecalciferol (Vitamin D3) 25 MCG TABLET PO (09:25)
[2023-11-20] MEDS: polyethylene glycoL 3350 17 GM POWD.PACK PO (09:25)
--- NOTE | 2023-11-20 11:06 | HO.PSYCHPN ---
Subjective Subjective Date of Service: 11/20/23 Reason For Visit: dementia with behavioral disturbance Interim History: Met with patient. Discussed with Nursing. Overall no significant changes. slept for 4 hours last night. Some loud speech and perhaps associated agitation. Continues to have clear cognitive impairment consistent with dementia. Also visual hallucinations, which have been present since admission. That being said will take away scheduled trazodone in case this is having any negative impact on patient's agitation. Will also increase Seroquel to 100 mg 3 times per day. Review of Systems Review of Systems Yes Unobtainable due to mental condition Mental Status Exam Mental Status Exam Narrative: Appearance:in day area Behavior: Disorganized Psychomotor: Some psychomotor agitation, hand gestures, intermittently nonsensically yelling out loud Speech: mumbles at times, regular rate/rhythm/volume, spontaneous TP: disorganized thought process TC: Disorganized Mood: Constricted Affect: Constricted SI: none express HI: none express VH/AH: Seems internally preoccupied Delusions: nothing obvious? Insight/judgment: impaired x 2. Memory/cog: alert, not oriented to place, situation, month or date. severe cognitive impairments c/w established dementia Diagnostics Vital Signs (24Hr): Vital Signs - 24 hr 11/19/23 20:00 11/20/23 09:13 11/20/23 09:25 Temperature 97.7 F 97.2 F Pulse Rate 98 80 Respiratory Rate 18 16 Blood Pressure 145/70 H 129/59 L 129/59 L Pulse Oximetry 95 97 Oxygen Delivery Method Room Air Room Air BMI result Body Mass Index 28.9 Labs 11/01/23 09:45 11/01/23 09:45 Imaging Radiology Impressions: ITS Impressions Cervical Spine CT 11/01/23 09:19 IMPRESSION: 1. No acute intracranial pathology. 2. Chronic white matter small vessel ischemic changes. EXAMINATION: Noncontrast CT scan of the cervical spine. INDICATION: Fall COMPARISON: CT cervical spine from 07/13/2023 TECHNIQUE: Helical, multidetector axial images were obtained from the occiput to the upper thorax. Coronal and sagittal reformats of the cervical spine were provided for interpretation. DLP: 335.63 mGy-cm FINDINGS: No acute fractures or dislocations of the cervical spine are seen. Straightening of the normal cervical curvature. Grade 1 anterolisthesis of C4 on C5. Multilevel degenerative changes. Anatomic alignment and positioning of the vertebral bodies and posterior elements is noted. The atlantoaxial joint and craniovertebral articulations are normal without evidence of subluxation. There is no prevertebral soft tissue swelling. Asymmetric enlargement of the right thyroid lobe, stable. Visualized portions of the lungs are unremarkable. IMPRESSION: 1. No acute visible fracture or dislocation. 2. Straightening of the normal cervical curvature. 3. Grade 1 anterolisthesis of C4 on C5. 4. Multilevel degenerative changes. Head CT 11/01/23 09:19 IMPRESSION: 1. No acute intracranial pathology. 2. Chronic white matter small vessel ischemic changes. EXAMINATION: Noncontrast CT scan of the cervical spine. INDICATION: Fall COMPARISON: CT cervical spine from 07/13/2023 TECHNIQUE: Helical, multidetector axial images were obtained from the occiput to the upper thorax. Coronal and sagittal reformats of the cervical spine were provided for interpretation. DLP: 335.63 mGy-cm FINDINGS: No acute fractures or dislocations of the cervical spine are seen. Straightening of the normal cervical curvature. Grade 1 anterolisthesis of C4 on C5. Multilevel degenerative changes. Anatomic alignment and positioning of the vertebral bodies and posterior elements is noted. The atlantoaxial joint and craniovertebral articulations are normal without evidence of subluxation. There is no prevertebral soft tissue swelling. Asymmetric enlargement of the right thyroid lobe, stable. Visualized portions of the lungs are unremarkable. IMPRESSION: 1. No acute visible fracture or dislocation. 2. Straightening of the normal cervical curvature. 3. Grade 1 anterolisthesis of C4 on C5. 4. Multilevel degenerative changes. Medications Medications Current Medications Acetaminophen (Acetaminophen 325 Mg Tablet) 650 mg PO Q6H PRN PRN Reason: Headache/Pain Mild Scale (1-3) Last Admin: 11/20/23 03:12 Dose: 650 mg Al Hydroxide/Mg Hydroxide (Magnesium Hydrox/Alum Hydrox 30 Ml Oral.Susp) 30 ml PO Q6H PRN PRN Reason: Heartburn/Nausea Atorvastatin Calcium (Atorvastatin Calcium 40 Mg Tablet) 40 mg PO DAILY [facility] Last Admin: 11/20/23 09:25 Dose: 40 mg Lisinopril (Lisinopril 5 Mg Tablet) 5 mg PO DAILY [facility]ITI; Protocol Last Admin: 11/20/23 09:25 Dose: 5 mg Loratadine (Loratadine 10 Mg Tablet) 10 mg PO DAILY PRN PRN Reason: for allergies Magnesium Hydroxide (Milk Of Magnesia 30 Ml Oral.Susp) 30 ml PO DAILY PRN PRN Reason: Constipation Last Admin: 11/17/23 16:46 Dose: 30 ml Melatonin (Melatonin 3 Mg Tablet) 6 mg PO BEDTIME [facility] Last Admin: 11/19/23 21:51 Dose: 6 mg Polyethylene Glycol (Polyethylene Glycol 3350 17 Gm Powd.Pack) 17 gm PO DAILY [facility] Last Admin: 11/20/23 09:25 Dose: 17 gm Quetiapine Fumarate (Quetiapine Fumarate 25 Mg Tablet) 75 mg PO TID [facility] Last Admin: 11/20/23 09:25 Dose: 75 mg Sodium Biphosphate/Sodium Phosphate (Sodium Phosphate,[place]ha-Dibasic 133 Ml Enema) 133 ml [place] DAILY PRN PRN Reason: continued constipation Last Admin: 11/18/23 17:28 Dose: 133 ml Trazodone HCl (Trazodone Hcl 50 Mg Tablet) 50 mg PO BEDTIME PRN PRN Reason: Insomnia Last Admin: 11/20/23 03:12 Dose: 50 mg Trazodone HCl (Trazodone Hcl 50 Mg Tablet) 50 mg PO BEDTIME [facility] Last Admin: 11/19/23 21:50 Dose: 50 mg Vitamin D (Cholecalciferol (Vitamin D3) 25 Mcg Tablet) 25 mcg PO DAILY [facility] Last Admin: 11/20/23 09:25 Dose: 25 mcg Allergies Allergies Allergy/AdvReac Type Severity Reaction Status Date / Time No Known Allergies Allergy Verified 11/01/23 08:47 Assessment & Plan Assessment & Plan (1) Alzheimer's dementia with behavioral disturbance: Status: Acute Code(s): G30.9 - Alzheimer's disease, unspecified; F02.818 - Dementia in other diseases classified elsewhere, unspecified severity, with other behavioral disturbance Plan Mrs. Wiley is a 73 year-old woman with hx of Alzheimer's who was brought by her son, one of them is her HCP. Family reports main caregiver who is her is struggling to meet her needs. Labs in the ED include- CBC without leukocytosis, normocytic anemia, low plt. CMP no electrolyte abnormalities, BUN 18, Cr. 0.76, creatinine clearance 59.2. UA with leukocytes, WBC 21-50, however, culture was negative for growth. Head CT without acute findings, atrophy and microvascular changes. Pt admitted for further management of hallucinations, sleep disturbances. HCP has been invoked. HCP verbally gave consent to sign CV. Her dementia is advanced, in late stages at this point. She has sever impairments in orientation, receptive/expressive aphasia, agnosia, inability to recall new information. PLAN 1. Admit to S1, CV verbally signed with two witnesses. 2. continue current medications including seroquel 75mg po TID 11/08 d/c namenda due to myoclonic movements 11/09 continue tx. 11/10 restart lisinopril 5mg po daily as SBP going up. add trazodone at bedtime scheduled as she has had some difficulty falling asleep. monitor over sedation. still not ambulating on her own due to fall risk. 11/11 continue tx 11/12 contnue tx 11/13 BP improved; slept well continue tx 11/14 much improvement in myoclonic movements after d/c namenda. sleeping better. 11/15 Patient difficult with which to engage, talking nonsensically; only partially aware of narrative writer's presence. Incontinent of urine -per primary team patient has made some improvements; will continue current treatment plan 11/16 pt is unable to engage, continues talking nonsensically. Pt constipated and nursing reports on verge of needing to be manually disempacted; she cannot advocate for self so will schedule Mirrilax (hold for loose stool) 11/19/2023 no changes 11/20/23: restless, more irritable, ?trazodone related- will stop scheduled and also adjust seroquel 100 tid Reason for continued inpatient stay Substantial Risk for: inability to function Time Spent With Patient Time: Total time managing care of this patient today ____ minutes.
[2023-11-20] MEDS: QUEtiapine Fumarate 50 MG TABLET PO (11:28)
[2023-11-20] MEDS: QUEtiapine Fumarate 100 MG TABLET PO ×2 (15:21→21:10)
[2023-11-20 20:00] VITALS: BP 107/63; PULSE 111; TEMP 36.3
[2023-11-20] MEDS: Melatonin 3 MG TABLET 6 MG PO (21:10)
[2023-11-21 08:00] VITALS: BP 110/58; PULSE 74; RESP 16; O2SAT 95
[2023-11-21] MEDS: Atorvastatin Calcium 40 MG TABLET PO (10:23)
[2023-11-21] MEDS: Cholecalciferol (Vitamin D3) 25 MCG TABLET PO (10:23)
[2023-11-21 10:24] VITALS: BP 141/83
[2023-11-21] MEDS: QUEtiapine Fumarate 100 MG TABLET PO ×3 (10:24→21:16)
[2023-11-21] MEDS: polyethylene glycoL 3350 17 GM POWD.PACK PO (10:24)
[2023-11-21] MEDS: lisinopriL 5 MG TABLET PO (10:24)
[2023-11-21 10:26] VITALS: BP 141/83; PULSE 88; RESP 18
--- NOTE | 2023-11-21 10:33 | P.PNPSI_ITS ---
Subjective Subjective Date of Service: 11/21/23 Reason For Visit: dementia with behavioral disturbance Interim History: Pt with some difficulty falling asleep but later did sleep about 7 hrs. Pt walking with one assistance, gait much more steady. No longer myoclonus noted and no longer HOTN- I believe this helped with more steady gait. She continues to present with expressive aphasia, alert, somewhat irritable, at times refers to others sitting around her but others it seems like she may be talking to someone who is not there. She may have a combination with some psychotic symptoms, in which case risperidone may be more effective. Review of Systems Review of Systems Yes Unobtainable due to mental condition Mental Status Exam Mental Status Exam Narrative: Appearance: wearing hospital gown, in bed, in NAD Behavior: Disorganized Psychomotor: Some psychomotor agitation, hand gestures, intermittently nonsensically yelling out loud Speech: mumbles at times, regular rate/rhythm/volume, spontaneous TP: disorganized thought process TC: Disorganized Mood: Constricted Affect: Constricted SI: none express HI: none express VH/AH: Seems internally preoccupied Delusions: confabulation Insight/judgment: impaired x 2. Memory/cog: alert, not oriented to place, situation, month or date. severe cognitive impairments. Diagnostics Vital Signs (24Hr): Vital Signs - 24 hr 11/20/23 20:00 11/21/23 08:00 11/21/23 10:24 Temperature 97.4 F Pulse Rate 111 H 74 Respiratory Rate 16 Blood Pressure 107/63 110/58 L 141/83 H Pulse Oximetry 95 Oxygen Delivery Method Room Air 11/21/23 10:26 Temperature Pulse Rate 88 Respiratory Rate 18 Blood Pressure 141/83 H Pulse Oximetry Oxygen Delivery Method BMI result Body Mass Index 28.9 Labs 11/01/23 09:45 11/01/23 09:45 Imaging Radiology Impressions: ITS Impressions Cervical Spine CT 11/01/23 09:19 IMPRESSION: 1. No acute intracranial pathology. 2. Chronic white matter small vessel ischemic changes. EXAMINATION: Noncontrast CT scan of the cervical spine. INDICATION: Fall COMPARISON: CT cervical spine from 07/13/2023 TECHNIQUE: Helical, multidetector axial images were obtained from the occiput to the upper thorax. Coronal and sagittal reformats of the cervical spine were provided for interpretation. DLP: 335.63 mGy-cm FINDINGS: No acute fractures or dislocations of the cervical spine are seen. Straightening of the normal cervical curvature. Grade 1 anterolisthesis of C4 on C5. Multilevel degenerative changes. Anatomic alignment and positioning of the vertebral bodies and posterior elements is noted. The atlantoaxial joint and craniovertebral articulations are normal without evidence of subluxation. There is no prevertebral soft tissue swelling. Asymmetric enlargement of the right thyroid lobe, stable. Visualized portions of the lungs are unremarkable. IMPRESSION: 1. No acute visible fracture or dislocation. 2. Straightening of the normal cervical curvature. 3. Grade 1 anterolisthesis of C4 on C5. 4. Multilevel degenerative changes. Head CT 11/01/23 09:19 IMPRESSION: 1. No acute intracranial pathology. 2. Chronic white matter small vessel ischemic changes. EXAMINATION: Noncontrast CT scan of the cervical spine. INDICATION: Fall COMPARISON: CT cervical spine from 07/13/2023 TECHNIQUE: Helical, multidetector axial images were obtained from the occiput to the upper thorax. Coronal and sagittal reformats of the cervical spine were provided for interpretation. DLP: 335.63 mGy-cm FINDINGS: No acute fractures or dislocations of the cervical spine are seen. Straightening of the normal cervical curvature. Grade 1 anterolisthesis of C4 on C5. Multilevel degenerative changes. Anatomic alignment and positioning of the vertebral bodies and posterior elements is noted. The atlantoaxial joint and craniovertebral articulations are normal without evidence of subluxation. There is no prevertebral soft tissue swelling. Asymmetric enlargement of the right thyroid lobe, stable. Visualized portions of the lungs are unremarkable. IMPRESSION: 1. No acute visible fracture or dislocation. 2. Straightening of the normal cervical curvature. 3. Grade 1 anterolisthesis of C4 on C5. 4. Multilevel degenerative changes. Medications Medications Current Medications Acetaminophen (Acetaminophen 325 Mg Tablet) 650 mg PO Q6H PRN PRN Reason: Headache/Pain Mild Scale (1-3) Last Admin: 11/20/23 03:12 Dose: 650 mg Al Hydroxide/Mg Hydroxide (Magnesium Hydrox/Alum Hydrox 30 Ml Oral.Susp) 30 ml PO Q6H PRN PRN Reason: Heartburn/Nausea Atorvastatin Calcium (Atorvastatin Calcium 40 Mg Tablet) 40 mg PO DAILY [facility] Last Admin: 11/21/23 10:23 Dose: 40 mg Lisinopril (Lisinopril 5 Mg Tablet) 5 mg PO DAILY [facility]; Protocol Last Admin: 11/21/23 10:24 Dose: 5 mg Loratadine (Loratadine 10 Mg Tablet) 10 mg PO DAILY PRN PRN Reason: for allergies Magnesium Hydroxide (Milk Of Magnesia 30 Ml Oral.Susp) 30 ml PO DAILY PRN PRN Reason: Constipation Last Admin: 11/17/23 16:46 Dose: 30 ml Melatonin (Melatonin 3 Mg Tablet) 6 mg PO BEDTIME [facility] Last Admin: 11/20/23 21:10 Dose: 6 mg Polyethylene Glycol (Polyethylene Glycol 3350 17 Gm Powd.Pack) 17 gm PO DAILY [facility] Last Admin: 11/21/23 10:24 Dose: 17 gm Quetiapine Fumarate (Quetiapine Fumarate 100 Mg Tablet) 100 mg PO TID [facility] Last Admin: 11/21/23 10:24 Dose: 100 mg Quetiapine Fumarate (Quetiapine Fumarate 50 Mg Tablet) 50 mg PO QID PRN PRN Reason: agitation Last Admin: 11/20/23 11:28 Dose: 50 mg Sodium Biphosphate/Sodium Phosphate (Sodium Phosphate,[place]-Dibasic 133 Ml Enema) 133 ml [place] DAILY PRN PRN Reason: continued constipation Last Admin: 11/18/23 17:28 Dose: 133 ml Trazodone HCl (Trazodone Hcl 50 Mg Tablet) 50 mg PO BEDTIME PRN PRN Reason: Insomnia Last Admin: 11/20/23 03:12 Dose: 50 mg Vitamin D (Cholecalciferol (Vitamin D3) 25 Mcg Tablet) 25 mcg PO DAILY [facility] Last Admin: 11/21/23 10:23 Dose: 25 mcg Allergies Allergies Allergy/AdvReac Type Severity Reaction Status Date / Time No Known Allergies Allergy Verified 11/01/23 08:47 Assessment & Plan Assessment & Plan (1) Alzheimer's dementia with behavioral disturbance: Status: Acute Code(s): G30.9 - Alzheimer's disease, unspecified; F02.818 - Dementia in other diseases classified elsewhere, unspecified severity, with other behavioral disturbance Plan Mrs. Wiley is a 73 year-old woman with hx of Alzheimer's who was brought by her son, one of them is her HCP. Family reports main caregiver who is her is struggling to meet her needs. Labs in the ED include- CBC without leukocytosis, normocytic anemia, low plt. CMP no electrolyte abnormalities, BUN 18, Cr. 0.76, creatinine clearance 59.2. UA with leukocytes, WBC 21-50, however, culture was negative for growth. Head CT without acute findings, atrophy and microvascular changes. Pt admitted for further management of hallucinations, sleep disturbances. HCP has been invoked. HCP verbally gave consent to sign CV. Her dementia is advanced, in late stages at this point. She has sever impairments in orientation, receptive/expressive aphasia, agnosia, inability to recall new information. PLAN 1. Admit to S1, CV verbally signed with two witnesses. 2. continue current medications including seroquel 75mg po TID 11/08 d/c namenda due to myoclonic movements 11/09 continue tx. 11/10 restart lisinopril 5mg po daily as SBP going up. add trazodone at bedtime scheduled as she has had some difficulty falling asleep. monitor over sedation. still not ambulating on her own due to fall risk. 11/11 continue tx 11/12 contnue tx 11/13 BP improved; slept well continue tx 11/14 much improvement in myoclonic movements after d/c namenda. sleeping better. 11/15 Patient difficult with which to engage, talking nonsensically; only partially aware of telegraphic typewriter mechanic's presence. Incontinent of urine -per primary team patient has made some improvements; will continue current treatment plan 11/16 pt is unable to engage, continues talking nonsensically. Pt constipated and nursing reports on verge of needing to be manually disempacted; she cannot advocate for self so will schedule Miralax (hold for loose stool) 11/17 Patient not able to engage. Disorganized speech behavior; incontinent. Patient fecal impacted and nurse asked for enema; patient was started on bowel regimen -Fleet enema p.r.n. 11/20 continue tx. Reason for continued inpatient stay Substantial Risk for: inability to function Time Spent With Patient Time: Total time managing care of this patient today ____ minutes.
[2023-11-21 20:00] VITALS: BP 120/63; PULSE 80; RESP 18; TEMP 36.2; O2SAT 92
[2023-11-21] MEDS: Melatonin 3 MG TABLET 6 MG PO (21:16)
[2023-11-21] MEDS: Acetaminophen 325 MG TABLET 650 MG PO (21:18)
[2023-11-21] MEDS: traZODone HCL 50 MG TABLET PO (21:18)
--- NOTE | 2023-11-22 09:33 | P.PNPSI_ITS ---
Subjective Subjective Date of Service: 11/22/23 Reason For Visit: dementia with behavioral disturbance Interim History: Pt slept through the night. Pt sitting in common area, mostly talking, irritable, like scolding people. no aggression towards self or others but most day spent softly yelling at other and at times to someone who is not there. speech with severe expressive/receptive aphasia. Medication Compliance: Yes Side effects from medications: No Attending Groups: No Review of Systems Review of Systems Yes Unobtainable due to mental condition Mental Status Exam Mental Status Exam Narrative: Appearance: wearing hospital gown, in bed, in NAD Behavior: Disorganized Psychomotor: Some psychomotor agitation, hand gestures, intermittently nonsensically yelling out loud Speech: mumbles at times, regular rate/rhythm/volume, spontaneous TP: disorganized thought process TC: Disorganized Mood: Constricted Affect: Constricted SI: none express HI: none express VH/AH: Seems internally preoccupied Delusions: confabulation Insight/judgment: impaired x 2. Memory/cog: alert, not oriented to place, situation, month or date. severe cognitive impairments. Diagnostics Vital Signs (24Hr): Vital Signs - 24 hr 11/21/23 10:24 11/21/23 10:26 11/21/23 20:00 Temperature 97.1 F Pulse Rate 88 80 Respiratory Rate 18 18 Blood Pressure 141/83 H 141/83 H 120/63 Pulse Oximetry 92 Oxygen Delivery Method Room Air BMI result Body Mass Index 28.9 Labs 11/01/23 09:45 11/01/23 09:45 Imaging Radiology Impressions: ITS Impressions Cervical Spine CT 11/01/23 09:19 IMPRESSION: 1. No acute intracranial pathology. 2. Chronic white matter small vessel ischemic changes. EXAMINATION: Noncontrast CT scan of the cervical spine. INDICATION: Fall COMPARISON: CT cervical spine from 07/13/2023 TECHNIQUE: Helical, multidetector axial images were obtained from the occiput to the upper thorax. Coronal and sagittal reformats of the cervical spine were provided for interpretation. DLP: 335.63 mGy-cm FINDINGS: No acute fractures or dislocations of the cervical spine are seen. Straightening of the normal cervical curvature. Grade 1 anterolisthesis of C4 on C5. Multilevel degenerative changes. Anatomic alignment and positioning of the vertebral bodies and posterior elements is noted. The atlantoaxial joint and craniovertebral articulations are normal without evidence of subluxation. There is no prevertebral soft tissue swelling. Asymmetric enlargement of the right thyroid lobe, stable. Visualized portions of the lungs are unremarkable. IMPRESSION: 1. No acute visible fracture or dislocation. 2. Straightening of the normal cervical curvature. 3. Grade 1 anterolisthesis of C4 on C5. 4. Multilevel degenerative changes. Head CT 11/01/23 09:19 IMPRESSION: 1. No acute intracranial pathology. 2. Chronic white matter small vessel ischemic changes. EXAMINATION: Noncontrast CT scan of the cervical spine. INDICATION: Fall COMPARISON: CT cervical spine from 07/13/2023 TECHNIQUE: Helical, multidetector axial images were obtained from the occiput to the upper thorax. Coronal and sagittal reformats of the cervical spine were provided for interpretation. DLP: 335.63 mGy-cm FINDINGS: No acute fractures or dislocations of the cervical spine are seen. Straightening of the normal cervical curvature. Grade 1 anterolisthesis of C4 on C5. Multilevel degenerative changes. Anatomic alignment and positioning of the vertebral bodies and posterior elements is noted. The atlantoaxial joint and craniovertebral articulations are normal without evidence of subluxation. There is no prevertebral soft tissue swelling. Asymmetric enlargement of the right thyroid lobe, stable. Visualized portions of the lungs are unremarkable. IMPRESSION: 1. No acute visible fracture or dislocation. 2. Straightening of the normal cervical curvature. 3. Grade 1 anterolisthesis of C4 on C5. 4. Multilevel degenerative changes. Medications Medications Current Medications Acetaminophen (Acetaminophen 325 Mg Tablet) 650 mg PO Q6H PRN PRN Reason: Headache/Pain Mild Scale (1-3) Last Admin: 11/21/23 21:18 Dose: 650 mg Al Hydroxide/Mg Hydroxide (Magnesium Hydrox/Alum Hydrox 30 Ml Oral.Susp) 30 ml PO Q6H PRN PRN Reason: Heartburn/Nausea Atorvastatin Calcium (Atorvastatin Calcium 40 Mg Tablet) 40 mg PO DAILY [facility] Last Admin: 11/21/23 10:23 Dose: 40 mg Lisinopril (Lisinopril 5 Mg Tablet) 5 mg PO DAILY [facility]; Protocol Last Admin: 11/21/23 10:24 Dose: 5 mg Loratadine (Loratadine 10 Mg Tablet) 10 mg PO DAILY PRN PRN Reason: for allergies Magnesium Hydroxide (Milk Of Magnesia 30 Ml Oral.Susp) 30 ml PO DAILY PRN PRN Reason: Constipation Last Admin: 11/17/23 16:46 Dose: 30 ml Melatonin (Melatonin 3 Mg Tablet) 6 mg PO BEDTIME [facility] Last Admin: 11/21/23 21:16 Dose: 6 mg Polyethylene Glycol (Polyethylene Glycol 3350 17 Gm Powd.Pack) 17 gm PO DAILY [facility] Last Admin: 11/21/23 10:24 Dose: 17 gm Quetiapine Fumarate (Quetiapine Fumarate 100 Mg Tablet) 100 mg PO TID [facility] Last Admin: 11/21/23 21:16 Dose: 100 mg Quetiapine Fumarate (Quetiapine Fumarate 50 Mg Tablet) 50 mg PO QID PRN PRN Reason: agitation Last Admin: 11/20/23 11:28 Dose: 50 mg Sodium Biphosphate/Sodium Phosphate (Sodium Phosphate,[place]-Dibasic 133 Ml Enema) 133 ml [place] DAILY PRN PRN Reason: continued constipation Last Admin: 11/18/23 17:28 Dose: 133 ml Trazodone HCl (Trazodone Hcl 50 Mg Tablet) 50 mg PO BEDTIME PRN PRN Reason: Insomnia Last Admin: 11/21/23 21:18 Dose: 50 mg Vitamin D (Cholecalciferol (Vitamin D3) 25 Mcg Tablet) 25 mcg PO DAILY [facility] Last Admin: 11/21/23 10:23 Dose: 25 mcg Allergies Allergies Allergy/AdvReac Type Severity Reaction Status Date / Time No Known Allergies Allergy Verified 11/01/23 08:47 Assessment & Plan Assessment & Plan (1) Alzheimer's dementia with behavioral disturbance: Status: Acute Code(s): G30.9 - Alzheimer's disease, unspecified; F02.818 - Dementia in other diseases classified elsewhere, unspecified severity, with other behavioral disturbance Plan Mrs. Wiley is a 73 year-old woman with hx of Alzheimer's who was brought by her son, one of them is her HCP. Family reports main caregiver who is her is struggling to meet her needs. Labs in the ED include- CBC without leukocytosis, normocytic anemia, low plt. CMP no electrolyte abnormalities, BUN 18, Cr. 0.76, creatinine clearance 59.2. UA with leukocytes, WBC 21-50, however, culture was negative for growth. Head CT without acute findings, atrophy and microvascular changes. Pt admitted for further management of hallucinations, sleep disturbances. HCP has been invoked. HCP verbally gave consent to sign CV. Her dementia is advanced, in late stages at this point. She has sever impairments in orientation, receptive/expressive aphasia, agnosia, inability to recall new information. PLAN 1. Admit to S1, CV verbally signed with two witnesses. 2. continue current medications including seroquel 75mg po TID 11/08 d/c namenda due to myoclonic movements 11/09 continue tx. 11/10 restart lisinopril 5mg po daily as SBP going up. add trazodone at bedtime scheduled as she has had some difficulty falling asleep. monitor over sedation. still not ambulating on her own due to fall risk. 11/11 continue tx 11/12 contnue tx 11/13 BP improved; slept well continue tx 11/14 much improvement in myoclonic movements after d/c namenda. sleeping better. 11/15 Patient difficult with which to engage, talking nonsensically; only partially aware of telegraphic typewriter mechanic's presence. Incontinent of urine -per primary team patient has made some improvements; will continue current treatment plan 11/16 pt is unable to engage, continues talking nonsensically. Pt constipated and nursing reports on verge of needing to be manually disempacted; she cannot advocate for self so will schedule Miralax (hold for loose stool) 11/17 Patient not able to engage. Disorganized speech behavior; incontinent. Patient fecal impacted and nurse asked for enema; patient was started on bowel regimen -Fleet enema p.r.n. 11/20 continue tx. 11/21 continue tx. Reason for continued inpatient stay Substantial Risk for: inability to function Time Spent With Patient Time: Total time managing care of this patient today ____ minutes.
[2023-11-22 10:05] VITALS: BP 154/98; RESP 20; TEMP 36.1; O2SAT 95
[2023-11-22] MEDS: polyethylene glycoL 3350 17 GM POWD.PACK PO (10:06)
[2023-11-22 10:07] VITALS: BP 154/98
[2023-11-22] MEDS: lisinopriL 5 MG TABLET PO (10:07)
[2023-11-22] MEDS: Atorvastatin Calcium 40 MG TABLET PO (10:07)
[2023-11-22] MEDS: Cholecalciferol (Vitamin D3) 25 MCG TABLET PO (10:07)
[2023-11-22] MEDS: QUEtiapine Fumarate 100 MG TABLET PO ×3 (10:07→19:57)
[2023-11-22] MEDS: Melatonin 3 MG TABLET 6 MG PO (19:57)
[2023-11-22 20:00] VITALS: BP 133/77; PULSE 98; TEMP 36.2; O2SAT 99
[2023-11-23] MEDS: QUEtiapine Fumarate 50 MG TABLET PO ×2 (04:33→21:03)
--- NOTE | 2023-11-23 09:36 | P.PNPSI_ITS ---
Subjective Subjective Date of Service: 11/23/23 Reason For Visit: dementia with behavioral disturbance Subjective Notes: Conditional Voluntary Healthcare Proxy: Yes Interim History: Pt slept about 3hrs last night, which is unusual for her. She woke up later than usual. Pt sitting in common area, mostly talking, irritable, like scolding people. no aggression towards self or others but most day spent softly yelling at other and at times to someone who is not there. speech with severe expressive/receptive aphasia. Review of Systems Review of Systems Yes Unobtainable due to mental condition Mental Status Exam Mental Status Exam Narrative: Appearance: wearing hospital gown, in bed, in NAD Behavior: Disorganized Psychomotor: Some psychomotor agitation, hand gestures, intermittently nonsensically yelling out loud Speech: mumbles at times, regular rate/rhythm/volume, spontaneous TP: disorganized thought process TC: Disorganized Mood: Constricted Affect: Constricted SI: none express HI: none express VH/AH: Seems internally preoccupied Delusions: confabulation Insight/judgment: impaired x 2. Memory/cog: alert, not oriented to place, situation, month or date. severe cognitive impairments. Diagnostics Vital Signs (24Hr): Vital Signs - 24 hr 11/22/23 10:05 11/22/23 10:07 11/22/23 20:00 Temperature 97 F 97.1 F Pulse Rate 98 Respiratory Rate 20 Blood Pressure 154/98 H 154/98 H 133/77 Pulse Oximetry 95 99 Oxygen Delivery Method Room Air Room Air BMI result Body Mass Index 28.9 Labs 11/01/23 09:45 11/01/23 09:45 Imaging Radiology Impressions: ITS Impressions Cervical Spine CT 11/01/23 09:19 IMPRESSION: 1. No acute intracranial pathology. 2. Chronic white matter small vessel ischemic changes. EXAMINATION: Noncontrast CT scan of the cervical spine. INDICATION: Fall COMPARISON: CT cervical spine from 07/13/2023 TECHNIQUE: Helical, multidetector axial images were obtained from the occiput to the upper thorax. Coronal and sagittal reformats of the cervical spine were provided for interpretation. DLP: 335.63 mGy-cm FINDINGS: No acute fractures or dislocations of the cervical spine are seen. Straightening of the normal cervical curvature. Grade 1 anterolisthesis of C4 on C5. Multilevel degenerative changes. Anatomic alignment and positioning of the vertebral bodies and posterior elements is noted. The atlantoaxial joint and craniovertebral articulations are normal without evidence of subluxation. There is no prevertebral soft tissue swelling. Asymmetric enlargement of the right thyroid lobe, stable. Visualized portions of the lungs are unremarkable. IMPRESSION: 1. No acute visible fracture or dislocation. 2. Straightening of the normal cervical curvature. 3. Grade 1 anterolisthesis of C4 on C5. 4. Multilevel degenerative changes. Head CT 11/01/23 09:19 IMPRESSION: 1. No acute intracranial pathology. 2. Chronic white matter small vessel ischemic changes. EXAMINATION: Noncontrast CT scan of the cervical spine. INDICATION: Fall COMPARISON: CT cervical spine from 07/13/2023 TECHNIQUE: Helical, multidetector axial images were obtained from the occiput to the upper thorax. Coronal and sagittal reformats of the cervical spine were provided for interpretation. DLP: 335.63 mGy-cm FINDINGS: No acute fractures or dislocations of the cervical spine are seen. Straightening of the normal cervical curvature. Grade 1 anterolisthesis of C4 on C5. Multilevel degenerative changes. Anatomic alignment and positioning of the vertebral bodies and posterior elements is noted. The atlantoaxial joint and craniovertebral articulations are normal without evidence of subluxation. There is no prevertebral soft tissue swelling. Asymmetric enlargement of the right thyroid lobe, stable. Visualized portions of the lungs are unremarkable. IMPRESSION: 1. No acute visible fracture or dislocation. 2. Straightening of the normal cervical curvature. 3. Grade 1 anterolisthesis of C4 on C5. 4. Multilevel degenerative changes. Medications Medications Current Medications Acetaminophen (Acetaminophen 325 Mg Tablet) 650 mg PO Q6H PRN PRN Reason: Headache/Pain Mild Scale (1-3) Last Admin: 11/21/23 21:18 Dose: 650 mg Al Hydroxide/Mg Hydroxide (Magnesium Hydrox/Alum Hydrox 30 Ml Oral.Susp) 30 ml PO Q6H PRN PRN Reason: Heartburn/Nausea Atorvastatin Calcium (Atorvastatin Calcium 40 Mg Tablet) 40 mg PO DAILY TITI Last Admin: 11/22/23 10:07 Dose: 40 mg Lisinopril (Lisinopril 5 Mg Tablet) 5 mg PO DAILY TITI; Protocol Last Admin: 11/22/23 10:07 Dose: 5 mg Loratadine (Loratadine 10 Mg Tablet) 10 mg PO DAILY PRN PRN Reason: for allergies Magnesium Hydroxide (Milk Of Magnesia 30 Ml Oral.Susp) 30 ml PO DAILY PRN PRN Reason: Constipation Last Admin: 11/17/23 16:46 Dose: 30 ml Melatonin (Melatonin 3 Mg Tablet) 6 mg PO BEDTIME TITI Last Admin: 11/22/23 19:57 Dose: 6 mg Polyethylene Glycol (Polyethylene Glycol 3350 17 Gm Powd.Pack) 17 gm PO DAILY TITI Last Admin: 11/22/23 10:06 Dose: 17 gm Quetiapine Fumarate (Quetiapine Fumarate 100 Mg Tablet) 100 mg PO TID TITI Last Admin: 11/22/23 19:57 Dose: 100 mg Quetiapine Fumarate (Quetiapine Fumarate 50 Mg Tablet) 50 mg PO QID PRN PRN Reason: agitation Last Admin: 11/23/23 04:33 Dose: 50 mg Sodium Biphosphate/Sodium Phosphate (Sodium Phosphate,[place]-Dibasic 133 Ml Enema) 133 ml [place] DAILY PRN PRN Reason: continued constipation Last Admin: 11/18/23 17:28 Dose: 133 ml Trazodone HCl (Trazodone Hcl 50 Mg Tablet) 50 mg PO BEDTIME PRN PRN Reason: Insomnia Last Admin: 11/21/23 21:18 Dose: 50 mg Vitamin D (Cholecalciferol (Vitamin D3) 25 Mcg Tablet) 25 mcg PO DAILY [facility] Last Admin: 11/22/23 10:07 Dose: 25 mcg Allergies Allergies Allergy/AdvReac Type Severity Reaction Status Date / Time No Known Allergies Allergy Verified 11/01/23 08:47 Assessment & Plan Assessment & Plan (1) Alzheimer's dementia with behavioral disturbance: Status: Acute Code(s): G30.9 - Alzheimer's disease, unspecified; F02.818 - Dementia in other diseases classified elsewhere, unspecified severity, with other behavioral disturbance Plan Mrs. Wiley is a 73 year-old woman with hx of Alzheimer's who was brought by her son, one of them is her HCP. Family reports main caregiver who is her is struggling to meet her needs. Labs in the ED include- CBC without leukocytosis, normocytic anemia, low plt. CMP no electrolyte abnormalities, BUN 18, Cr. 0.76, creatinine clearance 59.2. UA with leukocytes, WBC 21-50, however, culture was negative for growth. Head CT without acute findings, atrophy and microvascular changes. Pt admitted for further management of hallucinations, sleep disturbances. HCP has been invoked. HCP verbally gave consent to sign CV. Her dementia is advanced, in late stages at this point. She has sever impairments in orientation, receptive/expressive aphasia, agnosia, inability to recall new information. PLAN 1. Admit to S1, CV verbally signed with two witnesses. 2. continue current medications including seroquel 75mg po TID 11/08 d/c namenda due to myoclonic movements 11/09 continue tx. 11/10 restart lisinopril 5mg po daily as SBP going up. add trazodone at bedtime scheduled as she has had some difficulty falling asleep. monitor over sedation. still not ambulating on her own due to fall risk. 11/11 continue tx 11/12 contnue tx 11/13 BP improved; slept well continue tx 11/14 much improvement in myoclonic movements after d/c namenda. sleeping better. 11/15 Patient difficult with which to engage, talking nonsensically; only partially aware of pattern chart writer's presence. Incontinent of urine -per primary team patient has made some improvements; will continue current treatment plan 11/16 pt is unable to engage, continues talking nonsensically. Pt constipated and nursing reports on verge of needing to be manually disempacted; she cannot advocate for self so will schedule Miralax (hold for loose stool) 11/17 Patient not able to engage. Disorganized speech behavior; incontinent. Patient fecal impacted and nurse asked for enema; patient was started on bowel regimen -Fleet enema p.r.n. 11/20 continue tx. 11/21 continue tx. 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 She does not have hx of psychiatric illness. continue current medications. Reason for continued inpatient stay Substantial Risk for: inability to function Time Spent With Patient Time: Total time managing care of this patient today ____ minutes.
[2023-11-23 10:01] VITALS: BP 143/68; PULSE 106; RESP 20; TEMP 37.6; O2SAT 97
[2023-11-23 10:06] VITALS: BP 143/68
[2023-11-23] MEDS: lisinopriL 5 MG TABLET PO (10:06)
[2023-11-23] MEDS: QUEtiapine Fumarate 100 MG TABLET PO ×3 (10:06→21:02)
[2023-11-23] MEDS: Cholecalciferol (Vitamin D3) 25 MCG TABLET PO (10:06)
[2023-11-23] MEDS: Atorvastatin Calcium 40 MG TABLET PO (10:06)
[2023-11-23] MEDS: polyethylene glycoL 3350 17 GM POWD.PACK PO (10:07)
[2023-11-23 20:00] VITALS: BP 140/70; PULSE 100; RESP 20; TEMP 35.9
[2023-11-23] MEDS: Melatonin 3 MG TABLET 6 MG PO (21:03)
[2023-11-23] MEDS: traZODone HCL 50 MG TABLET PO (21:03)
[2023-11-24 07:00] VITALS: BMI 28.9
[2023-11-24 08:00] VITALS: BP 161/67; PULSE 71; RESP 18; TEMP 36.1; O2SAT 71
[2023-11-24] MEDS: lisinopriL 5 MG TABLET PO (08:50)
[2023-11-24] MEDS: polyethylene glycoL 3350 17 GM POWD.PACK PO (08:50)
[2023-11-24] MEDS: Cholecalciferol (Vitamin D3) 25 MCG TABLET PO (08:50)
[2023-11-24] MEDS: QUEtiapine Fumarate 100 MG TABLET PO ×3 (08:50→20:59)
[2023-11-24] MEDS: Atorvastatin Calcium 40 MG TABLET PO (08:50)
[2023-11-24 19:54] VITALS: BP 141/66; PULSE 91; RESP 18; TEMP 36.3; O2SAT 95
--- NOTE | 2023-11-24 20:27 | HO.PSYCHPN ---
Subjective Subjective Date of Service: 11/24/23 Reason For Visit: dementia with behavioral disturbance Subjective Notes: Conditional Voluntary Interim History: Pt slept much better last night. She woke up later than usual. Pt sitting in common area, mostly talking, irritable, like scolding people. no aggression towards self or others but most day spent softly yelling at other and at times to someone who is not there. speech with severe expressive/receptive aphasia. Review of Systems Review of Systems Yes Unobtainable due to mental condition Mental Status Exam Mental Status Exam Narrative: Appearance: wearing hospital gown, in bed, in NAD Behavior: Disorganized Psychomotor: Some psychomotor agitation, hand gestures, intermittently nonsensically yelling out loud Speech: mumbles at times, regular rate/rhythm/volume, spontaneous TP: disorganized thought process TC: Disorganized Mood: Constricted Affect: Constricted SI: none express HI: none express VH/AH: Seems internally preoccupied Delusions: confabulation Insight/judgment: impaired x 2. Memory/cog: alert, not oriented to place, situation, month or date. severe cognitive impairments. Diagnostics Vital Signs (24Hr): Vital Signs - 24 hr 11/24/23 08:00 11/24/23 19:54 Temperature 96.9 F 97.3 F Pulse Rate 71 91 Respiratory Rate 18 18 Blood Pressure 161/67 H 141/66 H Pulse Oximetry 71 L 95 Oxygen Delivery Method Room Air Room Air BMI result Body Mass Index 28.9 Labs 11/01/23 09:45 11/01/23 09:45 Imaging Radiology Impressions: ITS Impressions Cervical Spine CT 11/01/23 09:19 IMPRESSION: 1. No acute intracranial pathology. 2. Chronic white matter small vessel ischemic changes. EXAMINATION: Noncontrast CT scan of the cervical spine. INDICATION: Fall COMPARISON: CT cervical spine from 07/13/2023 TECHNIQUE: Helical, multidetector axial images were obtained from the occiput to the upper thorax. Coronal and sagittal reformats of the cervical spine were provided for interpretation. DLP: 335.63 mGy-cm FINDINGS: No acute fractures or dislocations of the cervical spine are seen. Straightening of the normal cervical curvature. Grade 1 anterolisthesis of C4 on C5. Multilevel degenerative changes. Anatomic alignment and positioning of the vertebral bodies and posterior elements is noted. The atlantoaxial joint and craniovertebral articulations are normal without evidence of subluxation. There is no prevertebral soft tissue swelling. Asymmetric enlargement of the right thyroid lobe, stable. Visualized portions of the lungs are unremarkable. IMPRESSION: 1. No acute visible fracture or dislocation. 2. Straightening of the normal cervical curvature. 3. Grade 1 anterolisthesis of C4 on C5. 4. Multilevel degenerative changes. Head CT 11/01/23 09:19 IMPRESSION: 1. No acute intracranial pathology. 2. Chronic white matter small vessel ischemic changes. EXAMINATION: Noncontrast CT scan of the cervical spine. INDICATION: Fall COMPARISON: CT cervical spine from 07/13/2023 TECHNIQUE: Helical, multidetector axial images were obtained from the occiput to the upper thorax. Coronal and sagittal reformats of the cervical spine were provided for interpretation. DLP: 335.63 mGy-cm FINDINGS: No acute fractures or dislocations of the cervical spine are seen. Straightening of the normal cervical curvature. Grade 1 anterolisthesis of C4 on C5. Multilevel degenerative changes. Anatomic alignment and positioning of the vertebral bodies and posterior elements is noted. The atlantoaxial joint and craniovertebral articulations are normal without evidence of subluxation. There is no prevertebral soft tissue swelling. Asymmetric enlargement of the right thyroid lobe, stable. Visualized portions of the lungs are unremarkable. IMPRESSION: 1. No acute visible fracture or dislocation. 2. Straightening of the normal cervical curvature. 3. Grade 1 anterolisthesis of C4 on C5. 4. Multilevel degenerative changes. Medications Medications Current Medications Acetaminophen (Acetaminophen 325 Mg Tablet) 650 mg PO Q6H PRN PRN Reason: Headache/Pain Mild Scale (1-3) Last Admin: 11/21/23 21:18 Dose: 650 mg Al Hydroxide/Mg Hydroxide (Magnesium Hydrox/Alum Hydrox 30 Ml Oral.Susp) 30 ml PO Q6H PRN PRN Reason: Heartburn/Nausea Atorvastatin Calcium (Atorvastatin Calcium 40 Mg Tablet) 40 mg PO DAILY [facility] Last Admin: 11/24/23 08:50 Dose: 40 mg Lisinopril (Lisinopril 5 Mg Tablet) 5 mg PO DAILY [facility]; Protocol Last Admin: 11/24/23 08:50 Dose: 5 mg Loratadine (Loratadine 10 Mg Tablet) 10 mg PO DAILY PRN PRN Reason: for allergies Magnesium Hydroxide (Milk Of Magnesia 30 Ml Oral.Susp) 30 ml PO DAILY PRN PRN Reason: Constipation Last Admin: 11/17/23 16:46 Dose: 30 ml Melatonin (Melatonin 3 Mg Tablet) 6 mg PO BEDTIME TITI Last Admin: 11/23/23 21:03 Dose: 6 mg Polyethylene Glycol (Polyethylene Glycol 3350 17 Gm Powd.Pack) 17 gm PO DAILY TITI Last Admin: 11/24/23 08:50 Dose: 17 gm Quetiapine Fumarate (Quetiapine Fumarate 100 Mg Tablet) 100 mg PO TID TITI Last Admin: 11/24/23 14:26 Dose: 100 mg Quetiapine Fumarate (Quetiapine Fumarate 50 Mg Tablet) 50 mg PO QID PRN PRN Reason: agitation Last Admin: 11/23/23 21:03 Dose: 50 mg Sodium Biphosphate/Sodium Phosphate (Sodium Phosphate,[place]-Dibasic 133 Ml Enema) 133 ml [place] DAILY PRN PRN Reason: continued constipation Last Admin: 11/18/23 17:28 Dose: 133 ml Trazodone HCl (Trazodone Hcl 50 Mg Tablet) 50 mg PO BEDTIME PRN PRN Reason: Insomnia Last Admin: 11/23/23 21:03 Dose: 50 mg Vitamin D (Cholecalciferol (Vitamin D3) 25 Mcg Tablet) 25 mcg PO DAILY [facility] Last Admin: 11/24/23 08:50 Dose: 25 mcg Allergies Allergies Allergy/AdvReac Type Severity Reaction Status Date / Time No Known Allergies Allergy Verified 11/01/23 08:47 Assessment & Plan Assessment & Plan (1) Alzheimer's dementia with behavioral disturbance: Status: Acute Code(s): G30.9 - Alzheimer's disease, unspecified; F02.818 - Dementia in other diseases classified elsewhere, unspecified severity, with other behavioral disturbance Plan Mrs. Wiley is a 73 year-old woman with hx of Alzheimer's who was brought by her son, one of them is her HCP. Family reports main caregiver who is her is struggling to meet her needs. Labs in the ED include- CBC without leukocytosis, normocytic anemia, low plt. CMP no electrolyte abnormalities, BUN 18, Cr. 0.76, creatinine clearance 59.2. UA with leukocytes, WBC 21-50, however, culture was negative for growth. Head CT without acute findings, atrophy and microvascular changes. Pt admitted for further management of hallucinations, sleep disturbances. HCP has been invoked. HCP verbally gave consent to sign CV. Her dementia is advanced, in late stages at this point. She has sever impairments in orientation, receptive/expressive aphasia, agnosia, inability to recall new information. PLAN 1. Admit to S1, CV verbally signed with two witnesses. 2. continue current medications including seroquel 75mg po TID 11/08 d/c namenda due to myoclonic movements 11/09 continue tx. 11/10 restart lisinopril 5mg po daily as SBP going up. add trazodone at bedtime scheduled as she has had some difficulty falling asleep. monitor over sedation. still not ambulating on her own due to fall risk. 11/11 continue tx 11/12 contnue tx 11/13 BP improved; slept well continue tx 11/14 much improvement in myoclonic movements after d/c namenda. sleeping better. 11/15 Patient difficult with which to engage, talking nonsensically; only partially aware of policy writer typist's presence. Incontinent of urine -per primary team patient has made some improvements; will continue current treatment plan 11/16 pt is unable to engage, continues talking nonsensically. Pt constipated and nursing reports on verge of needing to be manually disempacted; she cannot advocate for self so will schedule Miralax (hold for loose stool) 11/17 Patient not able to engage. Disorganized speech behavior; incontinent. Patient fecal impacted and nurse asked for enema; patient was started on bowel regimen -Fleet enema p.r.n. 11/20 continue tx. 11/21 continue tx. 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 She does not have hx of psychiatric illness. continue current medications. 11/23 continue tx. updated on treatment/plan Reason for continued inpatient stay Substantial Risk for: inability to function Time Spent With Patient Time: Total time managing care of this patient today ____ minutes.
[2023-11-24] MEDS: QUEtiapine Fumarate 50 MG TABLET PO (20:58)
[2023-11-24] MEDS: Melatonin 3 MG TABLET 6 MG PO (20:59)
[2023-11-25 08:00] VITALS: BP 116/58; PULSE 76; RESP 16; TEMP 36.6; O2SAT 97
[2023-11-25] MEDS: polyethylene glycoL 3350 17 GM POWD.PACK PO (08:29)
[2023-11-25] MEDS: QUEtiapine Fumarate 100 MG TABLET PO ×3 (08:29→21:29)
[2023-11-25] MEDS: Cholecalciferol (Vitamin D3) 25 MCG TABLET PO (08:29)
[2023-11-25] MEDS: Atorvastatin Calcium 40 MG TABLET PO (08:29)
[2023-11-25] MEDS: lisinopriL 5 MG TABLET PO (08:29)
--- NOTE | 2023-11-25 12:52 | HO.PSYCHPN ---
Subjective Subjective Date of Service: 11/25/23 Reason For Visit: dementia with behavioral disturbance Subjective Notes: Conditional Voluntary Healthcare Proxy: Yes Interim History: Pt slept all night. Pt sitting in common area, mostly talking, irritable, like scolding people. no aggression towards self or others but most day spent softly yelling at other and at times to someone who is not there. speech with severe expressive/receptive aphasia. Review of Systems Review of Systems Yes Unobtainable due to mental condition Mental Status Exam Mental Status Exam Narrative: Appearance: wearing hospital gown, in bed, in NAD Behavior: Disorganized Psychomotor: Some psychomotor agitation, hand gestures, intermittently nonsensically yelling out loud Speech: mumbles at times, regular rate/rhythm/volume, spontaneous TP: disorganized thought process TC: Disorganized Mood: Constricted Affect: Constricted SI: none express HI: none express VH/AH: Seems internally preoccupied Delusions: confabulation Insight/judgment: impaired x 2. Memory/cog: alert, not oriented to place, situation, month or date. severe cognitive impairments. Diagnostics Vital Signs (24Hr): Vital Signs - 24 hr 11/24/23 19:54 11/25/23 08:00 Temperature 97.3 F 97.8 F Pulse Rate 91 76 Respiratory Rate 18 16 Blood Pressure 141/66 H 116/58 L Pulse Oximetry 95 97 Oxygen Delivery Method Room Air Room Air BMI result Body Mass Index 28.9 Labs 11/01/23 09:45 11/01/23 09:45 Imaging Radiology Impressions: ITS Impressions Cervical Spine CT 11/01/23 09:19 IMPRESSION: 1. No acute intracranial pathology. 2. Chronic white matter small vessel ischemic changes. EXAMINATION: Noncontrast CT scan of the cervical spine. INDICATION: Fall COMPARISON: CT cervical spine from 07/13/2023 TECHNIQUE: Helical, multidetector axial images were obtained from the occiput to the upper thorax. Coronal and sagittal reformats of the cervical spine were provided for interpretation. DLP: 335.63 mGy-cm FINDINGS: No acute fractures or dislocations of the cervical spine are seen. Straightening of the normal cervical curvature. Grade 1 anterolisthesis of C4 on C5. Multilevel degenerative changes. Anatomic alignment and positioning of the vertebral bodies and posterior elements is noted. The atlantoaxial joint and craniovertebral articulations are normal without evidence of subluxation. There is no prevertebral soft tissue swelling. Asymmetric enlargement of the right thyroid lobe, stable. Visualized portions of the lungs are unremarkable. IMPRESSION: 1. No acute visible fracture or dislocation. 2. Straightening of the normal cervical curvature. 3. Grade 1 anterolisthesis of C4 on C5. 4. Multilevel degenerative changes. Head CT 11/01/23 09:19 IMPRESSION: 1. No acute intracranial pathology. 2. Chronic white matter small vessel ischemic changes. EXAMINATION: Noncontrast CT scan of the cervical spine. INDICATION: Fall COMPARISON: CT cervical spine from 07/13/2023 TECHNIQUE: Helical, multidetector axial images were obtained from the occiput to the upper thorax. Coronal and sagittal reformats of the cervical spine were provided for interpretation. DLP: 335.63 mGy-cm FINDINGS: No acute fractures or dislocations of the cervical spine are seen. Straightening of the normal cervical curvature. Grade 1 anterolisthesis of C4 on C5. Multilevel degenerative changes. Anatomic alignment and positioning of the vertebral bodies and posterior elements is noted. The atlantoaxial joint and craniovertebral articulations are normal without evidence of subluxation. There is no prevertebral soft tissue swelling. Asymmetric enlargement of the right thyroid lobe, stable. Visualized portions of the lungs are unremarkable. IMPRESSION: 1. No acute visible fracture or dislocation. 2. Straightening of the normal cervical curvature. 3. Grade 1 anterolisthesis of C4 on C5. 4. Multilevel degenerative changes. Medications Medications Current Medications Acetaminophen (Acetaminophen 325 Mg Tablet) 650 mg PO Q6H PRN PRN Reason: Headache/Pain Mild Scale (1-3) Last Admin: 11/21/23 21:18 Dose: 650 mg Al Hydroxide/Mg Hydroxide (Magnesium Hydrox/Alum Hydrox 30 Ml Oral.Susp) 30 ml PO Q6H PRN PRN Reason: Heartburn/Nausea Atorvastatin Calcium (Atorvastatin Calcium 40 Mg Tablet) 40 mg PO DAILY TITI Last Admin: 11/25/23 08:29 Dose: 40 mg Lisinopril (Lisinopril 5 Mg Tablet) 5 mg PO DAILY [facility]; Protocol Last Admin: 11/25/23 08:29 Dose: 5 mg Loratadine (Loratadine 10 Mg Tablet) 10 mg PO DAILY PRN PRN Reason: for allergies Magnesium Hydroxide (Milk Of Magnesia 30 Ml Oral.Susp) 30 ml PO DAILY PRN PRN Reason: Constipation Last Admin: 11/17/23 16:46 Dose: 30 ml Melatonin (Melatonin 3 Mg Tablet) 6 mg PO BEDTIME [facility] Last Admin: 11/24/23 20:59 Dose: 6 mg Polyethylene Glycol (Polyethylene Glycol 3350 17 Gm Powd.Pack) 17 gm PO DAILY TITI Last Admin: 11/25/23 08:29 Dose: 17 gm Quetiapine Fumarate (Quetiapine Fumarate 100 Mg Tablet) 100 mg PO TID [facility] Last Admin: 11/25/23 08:29 Dose: 100 mg Quetiapine Fumarate (Quetiapine Fumarate 50 Mg Tablet) 50 mg PO QID PRN PRN Reason: agitation Last Admin: 11/24/23 20:58 Dose: 50 mg Sodium Biphosphate/Sodium Phosphate (Sodium Phosphate,[place]-Dibasic 133 Ml Enema) 133 ml [place] DAILY PRN PRN Reason: continued constipation Last Admin: 11/18/23 17:28 Dose: 133 ml Trazodone HCl (Trazodone Hcl 50 Mg Tablet) 50 mg PO BEDTIME PRN PRN Reason: Insomnia Last Admin: 11/23/23 21:03 Dose: 50 mg Vitamin D (Cholecalciferol (Vitamin D3) 25 Mcg Tablet) 25 mcg PO DAILY [facility] Last Admin: 11/25/23 08:29 Dose: 25 mcg Allergies Allergies Allergy/AdvReac Type Severity Reaction Status Date / Time No Known Allergies Allergy Verified 11/01/23 08:47 Assessment & Plan Assessment & Plan (1) Alzheimer's dementia with behavioral disturbance: Status: Acute Code(s): G30.9 - Alzheimer's disease, unspecified; F02.818 - Dementia in other diseases classified elsewhere, unspecified severity, with other behavioral disturbance Plan Mrs. Wiley is a 73 year-old woman with hx of Alzheimer's who was brought by her son, one of them is her HCP. Family reports main caregiver who is her is struggling to meet her needs. Labs in the ED include- CBC without leukocytosis, normocytic anemia, low plt. CMP no electrolyte abnormalities, BUN 18, Cr. 0.76, creatinine clearance 59.2. UA with leukocytes, WBC 21-50, however, culture was negative for growth. Head CT without acute findings, atrophy and microvascular changes. Pt admitted for further management of hallucinations, sleep disturbances. HCP has been invoked. HCP verbally gave consent to sign CV. Her dementia is advanced, in late stages at this point. She has sever impairments in orientation, receptive/expressive aphasia, agnosia, inability to recall new information. PLAN 1. Admit to S1, CV verbally signed with two witnesses. 2. continue current medications including seroquel 75mg po TID 11/08 d/c namenda due to myoclonic movements 11/09 continue tx. 11/10 restart lisinopril 5mg po daily as SBP going up. add trazodone at bedtime scheduled as she has had some difficulty falling asleep. monitor over sedation. still not ambulating on her own due to fall risk. 11/11 continue tx 11/12 contnue tx 11/13 BP improved; slept well continue tx 11/14 much improvement in myoclonic movements after d/c namenda. sleeping better. 11/15 Patient difficult with which to engage, talking nonsensically; only partially aware of adjusto writer operator's presence. Incontinent of urine -per primary team patient has made some improvements; will continue current treatment plan 11/16 pt is unable to engage, continues talking nonsensically. Pt constipated and nursing reports on verge of needing to be manually disempacted; she cannot advocate for self so will schedule Miralax (hold for loose stool) 11/17 Patient not able to engage. Disorganized speech behavior; incontinent. Patient fecal impacted and nurse asked for enema; patient was started on bowel regimen -Fleet enema p.r.n. 11/20 continue tx. 11/21 continue tx. 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 She does not have hx of psychiatric illness. continue current medications. 11/23 continue tx. updated on treatment/plan 11/24 continue plan. may consider resuming aricept. 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 Reason for continued inpatient stay Substantial Risk for: inability to function Time Spent With Patient Time: Total time managing care of this patient today ____ minutes.
[2023-11-25 20:00] VITALS: BP 140/68; PULSE 75; RESP 18; TEMP 36.2; O2SAT 94
[2023-11-25] MEDS: traZODone HCL 50 MG TABLET PO (21:29)
[2023-11-25] MEDS: Melatonin 3 MG TABLET 6 MG PO (21:29)
[2023-11-26 08:00] VITALS: BP 116/73; PULSE 75; RESP 18; TEMP 36.5; O2SAT 96
[2023-11-26] MEDS: lisinopriL 5 MG TABLET PO (08:39)
[2023-11-26] MEDS: Cholecalciferol (Vitamin D3) 25 MCG TABLET PO (08:39)
[2023-11-26] MEDS: Atorvastatin Calcium 40 MG TABLET PO (08:39)
[2023-11-26] MEDS: polyethylene glycoL 3350 17 GM POWD.PACK PO (08:39)
[2023-11-26] MEDS: QUEtiapine Fumarate 100 MG TABLET PO ×3 (08:39→21:08)
--- NOTE | 2023-11-26 13:25 | HO.PSYCHPN ---
Subjective Subjective Date of Service: 11/26/23 Reason For Visit: dementia with behavioral disturbance Subjective Notes: Conditional Voluntary Interim History: Pt slept all night. Pt sitting in common area, mostly talking, irritable, like scolding people. no aggression towards self or others but most day spent softly yelling at other and at times to someone who is not there. speech with severe expressive/receptive aphasia. Review of Systems Review of Systems Yes Unobtainable due to mental condition Mental Status Exam Mental Status Exam Narrative: Appearance: wearing hospital gown, in bed, in NAD Behavior: Disorganized Psychomotor: Some psychomotor agitation, hand gestures, intermittently nonsensically yelling out loud Speech: mumbles at times, regular rate/rhythm/volume, spontaneous TP: disorganized thought process TC: Disorganized Mood: Constricted Affect: Constricted SI: none express HI: none express VH/AH: Seems internally preoccupied Delusions: confabulation Insight/judgment: impaired x 2. Memory/cog: alert, not oriented to place, situation, month or date. severe cognitive impairments. Diagnostics Vital Signs (24Hr): Vital Signs - 24 hr 11/25/23 20:00 11/26/23 08:00 Temperature 97.1 F 97.7 F Pulse Rate 75 75 Respiratory Rate 18 18 Blood Pressure 140/68 H 116/73 Pulse Oximetry 94 96 Oxygen Delivery Method Room Air Room Air BMI result Body Mass Index 28.9 Labs 11/01/23 09:45 11/01/23 09:45 Imaging Radiology Impressions: ITS Impressions Cervical Spine CT 11/01/23 09:19 IMPRESSION: 1. No acute intracranial pathology. 2. Chronic white matter small vessel ischemic changes. EXAMINATION: Noncontrast CT scan of the cervical spine. INDICATION: Fall COMPARISON: CT cervical spine from 07/13/2023 TECHNIQUE: Helical, multidetector axial images were obtained from the occiput to the upper thorax. Coronal and sagittal reformats of the cervical spine were provided for interpretation. DLP: 335.63 mGy-cm FINDINGS: No acute fractures or dislocations of the cervical spine are seen. Straightening of the normal cervical curvature. Grade 1 anterolisthesis of C4 on C5. Multilevel degenerative changes. Anatomic alignment and positioning of the vertebral bodies and posterior elements is noted. The atlantoaxial joint and craniovertebral articulations are normal without evidence of subluxation. There is no prevertebral soft tissue swelling. Asymmetric enlargement of the right thyroid lobe, stable. Visualized portions of the lungs are unremarkable. IMPRESSION: 1. No acute visible fracture or dislocation. 2. Straightening of the normal cervical curvature. 3. Grade 1 anterolisthesis of C4 on C5. 4. Multilevel degenerative changes. Head CT 11/01/23 09:19 IMPRESSION: 1. No acute intracranial pathology. 2. Chronic white matter small vessel ischemic changes. EXAMINATION: Noncontrast CT scan of the cervical spine. INDICATION: Fall COMPARISON: CT cervical spine from 07/13/2023 TECHNIQUE: Helical, multidetector axial images were obtained from the occiput to the upper thorax. Coronal and sagittal reformats of the cervical spine were provided for interpretation. DLP: 335.63 mGy-cm FINDINGS: No acute fractures or dislocations of the cervical spine are seen. Straightening of the normal cervical curvature. Grade 1 anterolisthesis of C4 on C5. Multilevel degenerative changes. Anatomic alignment and positioning of the vertebral bodies and posterior elements is noted. The atlantoaxial joint and craniovertebral articulations are normal without evidence of subluxation. There is no prevertebral soft tissue swelling. Asymmetric enlargement of the right thyroid lobe, stable. Visualized portions of the lungs are unremarkable. IMPRESSION: 1. No acute visible fracture or dislocation. 2. Straightening of the normal cervical curvature. 3. Grade 1 anterolisthesis of C4 on C5. 4. Multilevel degenerative changes. Medications Medications Current Medications Acetaminophen (Acetaminophen 325 Mg Tablet) 650 mg PO Q6H PRN PRN Reason: Headache/Pain Mild Scale (1-3) Last Admin: 11/21/23 21:18 Dose: 650 mg Al Hydroxide/Mg Hydroxide (Magnesium Hydrox/Alum Hydrox 30 Ml Oral.Susp) 30 ml PO Q6H PRN PRN Reason: Heartburn/Nausea Atorvastatin Calcium (Atorvastatin Calcium 40 Mg Tablet) 40 mg PO DAILY [facility] Last Admin: 11/26/23 08:39 Dose: 40 mg Lisinopril (Lisinopril 5 Mg Tablet) 5 mg PO DAILY [facility]; Protocol Last Admin: 11/26/23 08:39 Dose: 5 mg Loratadine (Loratadine 10 Mg Tablet) 10 mg PO DAILY PRN PRN Reason: for allergies Magnesium Hydroxide (Milk Of Magnesia 30 Ml Oral.Susp) 30 ml PO DAILY PRN PRN Reason: Constipation Last Admin: 11/17/23 16:46 Dose: 30 ml Melatonin (Melatonin 3 Mg Tablet) 6 mg PO BEDTIME [facility] Last Admin: 11/25/23 21:29 Dose: 6 mg Polyethylene Glycol (Polyethylene Glycol 3350 17 Gm Powd.Pack) 17 gm PO DAILY TITI Last Admin: 11/26/23 08:39 Dose: 17 gm Quetiapine Fumarate (Quetiapine Fumarate 100 Mg Tablet) 100 mg PO TID [facility] Last Admin: 11/26/23 08:39 Dose: 100 mg Quetiapine Fumarate (Quetiapine Fumarate 50 Mg Tablet) 50 mg PO QID PRN PRN Reason: agitation Last Admin: 11/24/23 20:58 Dose: 50 mg Sodium Biphosphate/Sodium Phosphate (Sodium Phosphate,[place]-Dibasic 133 Ml Enema) 133 ml [place] DAILY PRN PRN Reason: continued constipation Last Admin: 11/18/23 17:28 Dose: 133 ml Trazodone HCl (Trazodone Hcl 50 Mg Tablet) 50 mg PO BEDTIME PRN PRN Reason: Insomnia Last Admin: 11/25/23 21:29 Dose: 50 mg Vitamin D (Cholecalciferol (Vitamin D3) 25 Mcg Tablet) 25 mcg PO DAILY [facility] Last Admin: 11/26/23 08:39 Dose: 25 mcg Allergies Allergies Allergy/AdvReac Type Severity Reaction Status Date / Time No Known Allergies Allergy Verified 11/01/23 08:47 Assessment & Plan Assessment & Plan (1) Alzheimer's dementia with behavioral disturbance: Status: Acute Code(s): G30.9 - Alzheimer's disease, unspecified; F02.818 - Dementia in other diseases classified elsewhere, unspecified severity, with other behavioral disturbance Plan Mrs. Wiley is a 73 year-old woman with hx of Alzheimer's who was brought by her son, one of them is her HCP. Family reports main caregiver who is her is struggling to meet her needs. Labs in the ED include- CBC without leukocytosis, normocytic anemia, low plt. CMP no electrolyte abnormalities, BUN 18, Cr. 0.76, creatinine clearance 59.2. UA with leukocytes, WBC 21-50, however, culture was negative for growth. Head CT without acute findings, atrophy and microvascular changes. Pt admitted for further management of hallucinations, sleep disturbances. HCP has been invoked. HCP verbally gave consent to sign CV. Her dementia is advanced, in late stages at this point. She has sever impairments in orientation, receptive/expressive aphasia, agnosia, inability to recall new information. PLAN 1. Admit to S1, CV verbally signed with two witnesses. 2. continue current medications including seroquel 75mg po TID 11/08 d/c namenda due to myoclonic movements 11/09 continue tx. 11/10 restart lisinopril 5mg po daily as SBP going up. add trazodone at bedtime scheduled as she has had some difficulty falling asleep. monitor over sedation. still not ambulating on her own due to fall risk. 11/11 continue tx 11/12 contnue tx 11/13 BP improved; slept well continue tx 11/14 much improvement in myoclonic movements after d/c namenda. sleeping better. 11/15 Patient difficult with which to engage, talking nonsensically; only partially aware of program writer's presence. Incontinent of urine -per primary team patient has made some improvements; will continue current treatment plan 11/16 pt is unable to engage, continues talking nonsensically. Pt constipated and nursing reports on verge of needing to be manually disempacted; she cannot advocate for self so will schedule Miralax (hold for loose stool) 11/17 Patient not able to engage. Disorganized speech behavior; incontinent. Patient fecal impacted and nurse asked for enema; patient was started on bowel regimen -Fleet enema p.r.n. 11/20 continue tx. 11/21 continue tx. 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 She does not have hx of psychiatric illness. continue current medications. 11/23 continue tx. updated on treatment/plan Reason for continued inpatient stay Substantial Risk for: inability to function Time Spent With Patient Time: Total time managing care of this patient today ____ minutes.
[2023-11-26 20:00] VITALS: BP 147/65; PULSE 87; RESP 18; TEMP 36.7; O2SAT 98
[2023-11-26] MEDS: Melatonin 3 MG TABLET 6 MG PO (21:08)
[2023-11-26] MEDS: traZODone HCL 50 MG TABLET PO (21:09)
[2023-11-26] MEDS: Acetaminophen 325 MG TABLET 650 MG PO (21:09)
[2023-11-27] MEDS: Atorvastatin Calcium 40 MG TABLET PO (08:47)
[2023-11-27] MEDS: QUEtiapine Fumarate 100 MG TABLET PO ×3 (08:47→21:32)
[2023-11-27] MEDS: Cholecalciferol (Vitamin D3) 25 MCG TABLET PO (08:47)
[2023-11-27] MEDS: lisinopriL 5 MG TABLET PO (08:47)
[2023-11-27] MEDS: polyethylene glycoL 3350 17 GM POWD.PACK PO (10:57)
--- NOTE | 2023-11-27 19:31 | HO.PSYCHPN ---
Subjective Subjective Date of Service: 11/27/23 Reason For Visit: dementia with behavioral disturbance Subjective Notes: Conditional Voluntary Interim History: Pt slept all night. Pt sitting in common area, mostly talking, irritable, like scolding people. no aggression towards self or others but most day spent softly yelling at other and at times to someone who is not there. speech with severe expressive/receptive aphasia. Review of Systems Review of Systems Yes Unobtainable due to mental condition Mental Status Exam Mental Status Exam Narrative: Appearance: wearing hospital gown, in bed, in NAD Behavior: Disorganized Psychomotor: Some psychomotor agitation, hand gestures, intermittently nonsensically yelling out loud Speech: mumbles at times, regular rate/rhythm/volume, spontaneous TP: disorganized thought process TC: Disorganized Mood: Constricted Affect: Constricted SI: none express HI: none express VH/AH: Seems internally preoccupied Delusions: confabulation Insight/judgment: impaired x 2. Memory/cog: alert, not oriented to place, situation, month or date. severe cognitive impairments. Diagnostics Vital Signs (24Hr): Vital Signs - 24 hr 11/26/23 20:00 Temperature 98.1 F Pulse Rate 87 Respiratory Rate 18 Blood Pressure 147/65 H Pulse Oximetry 98 Oxygen Delivery Method Room Air BMI result Body Mass Index 28.9 Labs 11/01/23 09:45 11/01/23 09:45 Imaging Radiology Impressions: ITS Impressions Cervical Spine CT 11/01/23 09:19 IMPRESSION: 1. No acute intracranial pathology. 2. Chronic white matter small vessel ischemic changes. EXAMINATION: Noncontrast CT scan of the cervical spine. INDICATION: Fall COMPARISON: CT cervical spine from 07/13/2023 TECHNIQUE: Helical, multidetector axial images were obtained from the occiput to the upper thorax. Coronal and sagittal reformats of the cervical spine were provided for interpretation. DLP: 335.63 mGy-cm FINDINGS: No acute fractures or dislocations of the cervical spine are seen. Straightening of the normal cervical curvature. Grade 1 anterolisthesis of C4 on C5. Multilevel degenerative changes. Anatomic alignment and positioning of the vertebral bodies and posterior elements is noted. The atlantoaxial joint and craniovertebral articulations are normal without evidence of subluxation. There is no prevertebral soft tissue swelling. Asymmetric enlargement of the right thyroid lobe, stable. Visualized portions of the lungs are unremarkable. IMPRESSION: 1. No acute visible fracture or dislocation. 2. Straightening of the normal cervical curvature. 3. Grade 1 anterolisthesis of C4 on C5. 4. Multilevel degenerative changes. Head CT 11/01/23 09:19 IMPRESSION: 1. No acute intracranial pathology. 2. Chronic white matter small vessel ischemic changes. EXAMINATION: Noncontrast CT scan of the cervical spine. INDICATION: Fall COMPARISON: CT cervical spine from 07/13/2023 TECHNIQUE: Helical, multidetector axial images were obtained from the occiput to the upper thorax. Coronal and sagittal reformats of the cervical spine were provided for interpretation. DLP: 335.63 mGy-cm FINDINGS: No acute fractures or dislocations of the cervical spine are seen. Straightening of the normal cervical curvature. Grade 1 anterolisthesis of C4 on C5. Multilevel degenerative changes. Anatomic alignment and positioning of the vertebral bodies and posterior elements is noted. The atlantoaxial joint and craniovertebral articulations are normal without evidence of subluxation. There is no prevertebral soft tissue swelling. Asymmetric enlargement of the right thyroid lobe, stable. Visualized portions of the lungs are unremarkable. IMPRESSION: 1. No acute visible fracture or dislocation. 2. Straightening of the normal cervical curvature. 3. Grade 1 anterolisthesis of C4 on C5. 4. Multilevel degenerative changes. Medications Medications Current Medications Acetaminophen (Acetaminophen 325 Mg Tablet) 650 mg PO Q6H PRN PRN Reason: Headache/Pain Mild Scale (1-3) Last Admin: 11/26/23 21:09 Dose: 650 mg Al Hydroxide/Mg Hydroxide (Magnesium Hydrox/Alum Hydrox 30 Ml Oral.Susp) 30 ml PO Q6H PRN PRN Reason: Heartburn/Nausea Atorvastatin Calcium (Atorvastatin Calcium 40 Mg Tablet) 40 mg PO DAILY [facility] Last Admin: 11/27/23 08:47 Dose: 40 mg Lisinopril (Lisinopril 5 Mg Tablet) 5 mg PO DAILY [facility]; Protocol Last Admin: 11/27/23 08:47 Dose: 5 mg Loratadine (Loratadine 10 Mg Tablet) 10 mg PO DAILY PRN PRN Reason: for allergies Magnesium Hydroxide (Milk Of Magnesia 30 Ml Oral.Susp) 30 ml PO DAILY PRN PRN Reason: Constipation Last Admin: 11/17/23 16:46 Dose: 30 ml Melatonin (Melatonin 3 Mg Tablet) 6 mg PO BEDTIME TITI Last Admin: 11/26/23 21:08 Dose: 6 mg Polyethylene Glycol (Polyethylene Glycol 3350 17 Gm Powd.Pack) 17 gm PO DAILY TITI Last Admin: 11/27/23 10:57 Dose: 17 gm Quetiapine Fumarate (Quetiapine Fumarate 100 Mg Tablet) 100 mg PO TID [facility] Last Admin: 11/27/23 14:40 Dose: 100 mg Quetiapine Fumarate (Quetiapine Fumarate 50 Mg Tablet) 50 mg PO QID PRN PRN Reason: agitation Last Admin: 11/24/23 20:58 Dose: 50 mg Sodium Biphosphate/Sodium Phosphate (Sodium Phosphate,[place]-Dibasic 133 Ml Enema) 133 ml [place] DAILY PRN PRN Reason: continued constipation Last Admin: 11/18/23 17:28 Dose: 133 ml Trazodone HCl (Trazodone Hcl 50 Mg Tablet) 50 mg PO BEDTIME PRN PRN Reason: Insomnia Last Admin: 11/26/23 21:09 Dose: 50 mg Vitamin D (Cholecalciferol (Vitamin D3) 25 Mcg Tablet) 25 mcg PO DAILY [facility] Last Admin: 11/27/23 08:47 Dose: 25 mcg Allergies Allergies Allergy/AdvReac Type Severity Reaction Status Date / Time No Known Allergies Allergy Verified 11/01/23 08:47 Assessment & Plan Assessment & Plan (1) Alzheimer's dementia with behavioral disturbance: Status: Acute Code(s): G30.9 - Alzheimer's disease, unspecified; F02.818 - Dementia in other diseases classified elsewhere, unspecified severity, with other behavioral disturbance Plan Mrs. Wiley is a 73 year-old woman with hx of Alzheimer's who was brought by her son, one of them is her HCP. Family reports main caregiver who is her is struggling to meet her needs. Labs in the ED include- CBC without leukocytosis, normocytic anemia, low plt. CMP no electrolyte abnormalities, BUN 18, Cr. 0.76, creatinine clearance 59.2. UA with leukocytes, WBC 21-50, however, culture was negative for growth. Head CT without acute findings, atrophy and microvascular changes. Pt admitted for further management of hallucinations, sleep disturbances. HCP has been invoked. HCP verbally gave consent to sign CV. Her dementia is advanced, in late stages at this point. She has sever impairments in orientation, receptive/expressive aphasia, agnosia, inability to recall new information. PLAN 1. Admit to S1, CV verbally signed with two witnesses. 2. continue current medications including seroquel 75mg po TID 11/08 d/c namenda due to myoclonic movements 11/09 continue tx. 11/10 restart lisinopril 5mg po daily as SBP going up. add trazodone at bedtime scheduled as she has had some difficulty falling asleep. monitor over sedation. still not ambulating on her own due to fall risk. 11/11 continue tx 11/12 contnue tx 11/13 BP improved; slept well continue tx 11/14 much improvement in myoclonic movements after d/c namenda. sleeping better. 11/15 Patient difficult with which to engage, talking nonsensically; only partially aware of [employer] underwriter's presence. Incontinent of urine -per primary team patient has made some improvements; will continue current treatment plan 11/16 pt is unable to engage, continues talking nonsensically. Pt constipated and nursing reports on verge of needing to be manually disempacted; she cannot advocate for self so will schedule Miralax (hold for loose stool) 11/17 Patient not able to engage. Disorganized speech behavior; incontinent. Patient fecal impacted and nurse asked for enema; patient was started on bowel regimen -Fleet enema p.r.n. 11/20 continue tx. 11/21 continue tx. 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 She does not have hx of psychiatric illness. continue current medications. 11/23 continue tx. updated on treatment/plan 11/24 continue plan. may consider resuming aricept. 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 Reason for continued inpatient stay Substantial Risk for: inability to function Time Spent With Patient Time: Total time managing care of this patient today ____ minutes.
[2023-11-27 20:00] VITALS: BP 113/53; PULSE 90; RESP 20; TEMP 36.6; O2SAT 92
[2023-11-27] MEDS: Melatonin 3 MG TABLET 6 MG PO (21:32)
[2023-11-27] MEDS: Acetaminophen 325 MG TABLET 650 MG PO (21:32)
[2023-11-27] MEDS: traZODone HCL 50 MG TABLET PO (21:32)
[2023-11-28 08:17] VITALS: BP 136/70; PULSE 81; RESP 16; TEMP 36.9; O2SAT 97
[2023-11-28 08:18] VITALS: BP 136/70
[2023-11-28] MEDS: QUEtiapine Fumarate 100 MG TABLET PO ×3 (08:18→20:30)
[2023-11-28] MEDS: Atorvastatin Calcium 40 MG TABLET PO (08:18)
[2023-11-28] MEDS: Cholecalciferol (Vitamin D3) 25 MCG TABLET PO (08:18)
[2023-11-28] MEDS: lisinopriL 5 MG TABLET PO (08:18)
[2023-11-28] MEDS: polyethylene glycoL 3350 17 GM POWD.PACK PO (08:19)
--- NOTE | 2023-11-28 10:19 | P.PNPSI_ITS ---
Subjective Subjective Date of Service: 11/28/23 Reason For Visit: dementia with behavioral disturbance Subjective Notes: Conditional Voluntary Interim History: Pt slept all night. Pt sitting in common area, mostly talking, irritable, like scolding people. She does seem to smile more. speech with severe expressive/receptive aphasia. Review of Systems Review of Systems Yes Unobtainable due to mental condition Mental Status Exam Mental Status Exam Narrative: Appearance: wearing hospital gown, in bed, in NAD Behavior: Disorganized Psychomotor: Some psychomotor agitation, hand gestures, intermittently nonsensically yelling out loud Speech: mumbles at times, regular rate/rhythm/volume, spontaneous TP: disorganized thought process TC: Disorganized Mood: Constricted Affect: Constricted SI: none express HI: none express VH/AH: Seems internally preoccupied Delusions: confabulation Insight/judgment: impaired x 2. Memory/cog: alert, not oriented to place, situation, month or date. severe cognitive impairments. Diagnostics Vital Signs (24Hr): Vital Signs - 24 hr 11/27/23 20:00 11/28/23 08:17 11/28/23 08:18 Temperature 97.8 F 98.4 F Pulse Rate 90 81 Respiratory Rate 20 16 Blood Pressure 113/53 L 136/70 136/70 Pulse Oximetry 92 97 Oxygen Delivery Method Room Air Room Air BMI result Body Mass Index 28.9 Labs 11/01/23 09:45 11/01/23 09:45 Imaging Radiology Impressions: ITS Impressions Cervical Spine CT 11/01/23 09:19 IMPRESSION: 1. No acute intracranial pathology. 2. Chronic white matter small vessel ischemic changes. EXAMINATION: Noncontrast CT scan of the cervical spine. INDICATION: Fall COMPARISON: CT cervical spine from 07/13/2023 TECHNIQUE: Helical, multidetector axial images were obtained from the occiput to the upper thorax. Coronal and sagittal reformats of the cervical spine were provided for interpretation. DLP: 335.63 mGy-cm FINDINGS: No acute fractures or dislocations of the cervical spine are seen. Straightening of the normal cervical curvature. Grade 1 anterolisthesis of C4 on C5. Multilevel degenerative changes. Anatomic alignment and positioning of the vertebral bodies and posterior elements is noted. The atlantoaxial joint and craniovertebral articulations are normal without evidence of subluxation. There is no prevertebral soft tissue swelling. Asymmetric enlargement of the right thyroid lobe, stable. Visualized portions of the lungs are unremarkable. IMPRESSION: 1. No acute visible fracture or dislocation. 2. Straightening of the normal cervical curvature. 3. Grade 1 anterolisthesis of C4 on C5. 4. Multilevel degenerative changes. Head CT 11/01/23 09:19 IMPRESSION: 1. No acute intracranial pathology. 2. Chronic white matter small vessel ischemic changes. EXAMINATION: Noncontrast CT scan of the cervical spine. INDICATION: Fall COMPARISON: CT cervical spine from 07/13/2023 TECHNIQUE: Helical, multidetector axial images were obtained from the occiput to the upper thorax. Coronal and sagittal reformats of the cervical spine were provided for interpretation. DLP: 335.63 mGy-cm FINDINGS: No acute fractures or dislocations of the cervical spine are seen. Straightening of the normal cervical curvature. Grade 1 anterolisthesis of C4 on C5. Multilevel degenerative changes. Anatomic alignment and positioning of the vertebral bodies and posterior elements is noted. The atlantoaxial joint and craniovertebral articulations are normal without evidence of subluxation. There is no prevertebral soft tissue swelling. Asymmetric enlargement of the right thyroid lobe, stable. Visualized portions of the lungs are unremarkable. IMPRESSION: 1. No acute visible fracture or dislocation. 2. Straightening of the normal cervical curvature. 3. Grade 1 anterolisthesis of C4 on C5. 4. Multilevel degenerative changes. Medications Medications Current Medications Acetaminophen (Acetaminophen 325 Mg Tablet) 650 mg PO Q6H PRN PRN Reason: Headache/Pain Mild Scale (1-3) Last Admin: 11/27/23 21:32 Dose: 650 mg Al Hydroxide/Mg Hydroxide (Magnesium Hydrox/Alum Hydrox 30 Ml Oral.Susp) 30 ml PO Q6H PRN PRN Reason: Heartburn/Nausea Atorvastatin Calcium (Atorvastatin Calcium 40 Mg Tablet) 40 mg PO DAILY [facility] Last Admin: 11/28/23 08:18 Dose: 40 mg Lisinopril (Lisinopril 5 Mg Tablet) 5 mg PO DAILY [facility]; Protocol Last Admin: 11/28/23 08:18 Dose: 5 mg Loratadine (Loratadine 10 Mg Tablet) 10 mg PO DAILY PRN PRN Reason: for allergies Magnesium Hydroxide (Milk Of Magnesia 30 Ml Oral.Susp) 30 ml PO DAILY PRN PRN Reason: Constipation Last Admin: 11/17/23 16:46 Dose: 30 ml Melatonin (Melatonin 3 Mg Tablet) 6 mg PO BEDTIME TITI Last Admin: 11/27/23 21:32 Dose: 6 mg Polyethylene Glycol (Polyethylene Glycol 3350 17 Gm Powd.Pack) 17 gm PO DAILY [facility]I Last Admin: 11/28/23 08:19 Dose: 17 gm Quetiapine Fumarate (Quetiapine Fumarate 100 Mg Tablet) 100 mg PO TID [facility] Last Admin: 11/28/23 08:18 Dose: 100 mg Quetiapine Fumarate (Quetiapine Fumarate 50 Mg Tablet) 50 mg PO QID PRN PRN Reason: agitation Last Admin: 11/24/23 20:58 Dose: 50 mg Sodium Biphosphate/Sodium Phosphate (Sodium Phosphate,[place]-Dibasic 133 Ml Enema) 133 ml [place] DAILY PRN PRN Reason: continued constipation Last Admin: 11/18/23 17:28 Dose: 133 ml Trazodone HCl (Trazodone Hcl 50 Mg Tablet) 50 mg PO BEDTIME PRN PRN Reason: Insomnia Last Admin: 11/27/23 21:32 Dose: 50 mg Vitamin D (Cholecalciferol (Vitamin D3) 25 Mcg Tablet) 25 mcg PO DAILY [facility] Last Admin: 11/28/23 08:18 Dose: 25 mcg Allergies Allergies Allergy/AdvReac Type Severity Reaction Status Date / Time No Known Allergies Allergy Verified 11/01/23 08:47 Assessment & Plan Assessment & Plan (1) Alzheimer's dementia with behavioral disturbance: Status: Acute Code(s): G30.9 - Alzheimer's disease, unspecified; F02.818 - Dementia in other diseases classified elsewhere, unspecified severity, with other behavioral disturbance Plan Mrs. Wiley is a 73 year-old woman with hx of Alzheimer's who was brought by her son, one of them is her HCP. Family reports main caregiver who is her is struggling to meet her needs. Labs in the ED include- CBC without leukocytosis, normocytic anemia, low plt. CMP no electrolyte abnormalities, BUN 18, Cr. 0.76, creatinine clearance 59.2. UA with leukocytes, WBC 21-50, however, culture was negative for growth. Head CT without acute findings, atrophy and microvascular changes. Pt admitted for further management of hallucinations, sleep disturbances. HCP has been invoked. HCP verbally gave consent to sign CV. Her dementia is advanced, in late stages at this point. She has sever impairments in orientation, receptive/expressive aphasia, agnosia, inability to recall new information. PLAN 1. Admit to S1, CV verbally signed with two witnesses. 2. continue current medications including seroquel 75mg po TID 11/08 d/c namenda due to myoclonic movements 11/09 continue tx. 11/10 restart lisinopril 5mg po daily as SBP going up. add trazodone at bedtime scheduled as she has had some difficulty falling asleep. monitor over sedation. still not ambulating on her own due to fall risk. 11/11 continue tx 11/12 contnue tx 11/13 BP improved; slept well continue tx 11/14 much improvement in myoclonic movements after d/c namenda. sleeping better. 11/15 Patient difficult with which to engage, talking nonsensically; only partially aware of marketing underwriter's presence. Incontinent of urine -per primary team patient has made some improvements; will continue current treatment plan 11/16 pt is unable to engage, continues talking nonsensically. Pt constipated and nursing reports on verge of needing to be manually disempacted; she cannot advocate for self so will schedule Miralax (hold for loose stool) 11/17 Patient not able to engage. Disorganized speech behavior; incontinent. Patient fecal impacted and nurse asked for enema; patient was started on bowel regimen -Fleet enema p.r.n. 11/20 continue tx. 11/21 continue tx. 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 She does not have hx of psychiatric illness. continue current medications. 11/23 continue tx. updated on treatment/plan 11/24 continue plan. may consider resuming aricept. 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 11/25 continue tx. 11/26 continue tx 11/27 will restart exelon instead of aricept as it may have less side effect. Reason for continued inpatient stay Substantial Risk for: inability to function Time Spent With Patient Time: Total time managing care of this patient today ____ minutes.
[2023-11-28 20:00] VITALS: BP 126/78; PULSE 88; TEMP 36.1; O2SAT 94
[2023-11-28] MEDS: traZODone HCL 50 MG TABLET PO (20:30)
[2023-11-28] MEDS: Acetaminophen 325 MG TABLET 650 MG PO (20:30)
[2023-11-28] MEDS: Melatonin 3 MG TABLET 6 MG PO (20:30)
[2023-11-29 08:00] VITALS: BP 123/93; PULSE 91; RESP 18; TEMP 36.1
[2023-11-29 09:01] VITALS: BP 123/93
[2023-11-29] MEDS: Atorvastatin Calcium 40 MG TABLET PO (09:01)
[2023-11-29] MEDS: QUEtiapine Fumarate 100 MG TABLET PO ×3 (09:01→20:08)
[2023-11-29] MEDS: lisinopriL 5 MG TABLET PO (09:01)
[2023-11-29] MEDS: polyethylene glycoL 3350 17 GM POWD.PACK PO (09:01)
[2023-11-29] MEDS: Cholecalciferol (Vitamin D3) 25 MCG TABLET PO (09:01)
--- NOTE | 2023-11-29 09:17 | P.PNPSI_ITS ---
Subjective Subjective Date of Service: 11/29/23 Reason For Visit: dementia with behavioral disturbance Interim History: Pt slept all night. Pt sitting in common area, mostly talking, irritable, like scolding people. She does seem to smile more. speech with severe expressive/receptive aphasia. Review of Systems Review of Systems Yes Unobtainable due to mental condition Mental Status Exam Mental Status Exam Narrative: Appearance: wearing hospital gown, in bed, in NAD Behavior: Disorganized Psychomotor: Some psychomotor agitation, hand gestures, intermittently nonsensically yelling out loud Speech: mumbles at times, regular rate/rhythm/volume, spontaneous TP: disorganized thought process TC: Disorganized Mood: Constricted Affect: Constricted SI: none express HI: none express VH/AH: Seems internally preoccupied Delusions: confabulation Insight/judgment: impaired x 2. Memory/cog: alert, not oriented to place, situation, month or date. severe cognitive impairments. Diagnostics Vital Signs (24Hr): Vital Signs - 24 hr 11/28/23 20:00 11/29/23 08:00 11/29/23 09:01 Temperature 96.9 F 96.9 F Pulse Rate 88 91 Respiratory Rate 18 Blood Pressure 126/78 123/93 H 123/93 H Pulse Oximetry 94 Oxygen Delivery Method Room Air BMI result Body Mass Index 28.9 Labs 11/01/23 09:45 11/01/23 09:45 Imaging Radiology Impressions: ITS Impressions Cervical Spine CT 11/01/23 09:19 IMPRESSION: 1. No acute intracranial pathology. 2. Chronic white matter small vessel ischemic changes. EXAMINATION: Noncontrast CT scan of the cervical spine. INDICATION: Fall COMPARISON: CT cervical spine from 07/13/2023 TECHNIQUE: Helical, multidetector axial images were obtained from the occiput to the upper thorax. Coronal and sagittal reformats of the cervical spine were provided for interpretation. DLP: 335.63 mGy-cm FINDINGS: No acute fractures or dislocations of the cervical spine are seen. Straightening of the normal cervical curvature. Grade 1 anterolisthesis of C4 on C5. Multilevel degenerative changes. Anatomic alignment and positioning of the vertebral bodies and posterior elements is noted. The atlantoaxial joint and craniovertebral articulations are normal without evidence of subluxation. There is no prevertebral soft tissue swelling. Asymmetric enlargement of the right thyroid lobe, stable. Visualized portions of the lungs are unremarkable. IMPRESSION: 1. No acute visible fracture or dislocation. 2. Straightening of the normal cervical curvature. 3. Grade 1 anterolisthesis of C4 on C5. 4. Multilevel degenerative changes. Head CT 11/01/23 09:19 IMPRESSION: 1. No acute intracranial pathology. 2. Chronic white matter small vessel ischemic changes. EXAMINATION: Noncontrast CT scan of the cervical spine. INDICATION: Fall COMPARISON: CT cervical spine from 07/13/2023 TECHNIQUE: Helical, multidetector axial images were obtained from the occiput to the upper thorax. Coronal and sagittal reformats of the cervical spine were provided for interpretation. DLP: 335.63 mGy-cm FINDINGS: No acute fractures or dislocations of the cervical spine are seen. Straightening of the normal cervical curvature. Grade 1 anterolisthesis of C4 on C5. Multilevel degenerative changes. Anatomic alignment and positioning of the vertebral bodies and posterior elements is noted. The atlantoaxial joint and craniovertebral articulations are normal without evidence of subluxation. There is no prevertebral soft tissue swelling. Asymmetric enlargement of the right thyroid lobe, stable. Visualized portions of the lungs are unremarkable. IMPRESSION: 1. No acute visible fracture or dislocation. 2. Straightening of the normal cervical curvature. 3. Grade 1 anterolisthesis of C4 on C5. 4. Multilevel degenerative changes. Medications Medications Current Medications Acetaminophen (Acetaminophen 325 Mg Tablet) 650 mg PO Q6H PRN PRN Reason: Headache/Pain Mild Scale (1-3) Last Admin: 11/28/23 20:30 Dose: 650 mg Al Hydroxide/Mg Hydroxide (Magnesium Hydrox/Alum Hydrox 30 Ml Oral.Susp) 30 ml PO Q6H PRN PRN Reason: Heartburn/Nausea Atorvastatin Calcium (Atorvastatin Calcium 40 Mg Tablet) 40 mg PO DAILY TITI Last Admin: 11/29/23 09:01 Dose: 40 mg Lisinopril (Lisinopril 5 Mg Tablet) 5 mg PO DAILY TITI; Protocol Last Admin: 11/29/23 09:01 Dose: 5 mg Loratadine (Loratadine 10 Mg Tablet) 10 mg PO DAILY PRN PRN Reason: for allergies Magnesium Hydroxide (Milk Of Magnesia 30 Ml Oral.Susp) 30 ml PO DAILY PRN PRN Reason: Constipation Last Admin: 11/17/23 16:46 Dose: 30 ml Melatonin (Melatonin 3 Mg Tablet) 6 mg PO BEDTIME TITI Last Admin: 11/28/23 20:30 Dose: 6 mg Polyethylene Glycol (Polyethylene Glycol 3350 17 Gm Powd.Pack) 17 gm PO DAILY TITI Last Admin: 11/29/23 09:01 Dose: 17 gm Quetiapine Fumarate (Quetiapine Fumarate 100 Mg Tablet) 100 mg PO TID TITI Last Admin: 11/29/23 09:01 Dose: 100 mg Quetiapine Fumarate (Quetiapine Fumarate 50 Mg Tablet) 50 mg PO QID PRN PRN Reason: agitation Last Admin: 11/24/23 20:58 Dose: 50 mg Sodium Biphosphate/Sodium Phosphate (Sodium Phosphate,[place]-Dibasic 133 Ml Enema) [address] DAILY PRN PRN Reason: continued constipation Last Admin: 11/18/23 17:28 Dose: 133 ml Trazodone HCl (Trazodone Hcl 50 Mg Tablet) 50 mg PO BEDTIME PRN PRN Reason: Insomnia Last Admin: 11/28/23 20:30 Dose: 50 mg Vitamin D (Cholecalciferol (Vitamin D3) 25 Mcg Tablet) 25 mcg PO DAILY [facility] Last Admin: 11/29/23 09:01 Dose: 25 mcg Allergies Allergies Allergy/AdvReac Type Severity Reaction Status Date / Time No Known Allergies Allergy Verified 11/01/23 08:47 Assessment & Plan Assessment & Plan (1) Alzheimer's dementia with behavioral disturbance: Status: Acute Code(s): G30.9 - Alzheimer's disease, unspecified; F02.818 - Dementia in other diseases classified elsewhere, unspecified severity, with other behavioral disturbance Plan Mrs. Wiley is a 73 year-old woman with hx of Alzheimer's who was brought by her son, one of them is her HCP. Family reports main caregiver who is her is struggling to meet her needs. Labs in the ED include- CBC without leukocytosis, normocytic anemia, low plt. CMP no electrolyte abnormalities, BUN 18, Cr. 0.76, creatinine clearance 59.2. UA with leukocytes, WBC 21-50, however, culture was negative for growth. Head CT without acute findings, atrophy and microvascular changes. Pt admitted for further management of hallucinations, sleep disturbances. HCP has been invoked. HCP verbally gave consent to sign CV. Her dementia is advanced, in late stages at this point. She has sever impairments in orientation, receptive/expressive aphasia, agnosia, inability to recall new information. PLAN 1. Admit to S1, CV verbally signed with two witnesses. 2. continue current medications including seroquel 75mg po TID 11/08 d/c namenda due to myoclonic movements 11/09 continue tx. 11/10 restart lisinopril 5mg po daily as SBP going up. add trazodone at bedtime scheduled as she has had some difficulty falling asleep. monitor over sedation. still not ambulating on her own due to fall risk. 11/11 continue tx 11/12 contnue tx 11/13 BP improved; slept well continue tx 11/14 much improvement in myoclonic movements after d/c namenda. sleeping better. 11/15 Patient difficult with which to engage, talking nonsensically; only partially aware of expert medical writer's presence. Incontinent of urine -per primary team patient has made some improvements; will continue current treatment plan 11/16 pt is unable to engage, continues talking nonsensically. Pt constipated and nursing reports on verge of needing to be manually disempacted; she cannot advocate for self so will schedule Miralax (hold for loose stool) 11/17 Patient not able to engage. Disorganized speech behavior; incontinent. Patient fecal impacted and nurse asked for enema; patient was started on bowel regimen -Fleet enema p.r.n. 11/20 continue tx. 11/21 continue tx. 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 She does not have hx of psychiatric illness. continue current medications. 11/23 continue tx. updated on treatment/plan 11/24 continue plan. may consider resuming aricept. 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 11/25 continue tx. 11/26 continue tx 11/27 re-start aricept 5mg po daily 11/28 continue tx. Reason for continued inpatient stay Substantial Risk for: inability to function Time Spent With Patient Time: Total time managing care of this patient today ____ minutes.
[2023-11-29 20:00] VITALS: BP 134/78; PULSE 84; RESP 18; TEMP 36.6; O2SAT 95
[2023-11-29] MEDS: traZODone HCL 50 MG TABLET PO (20:08)
[2023-11-29] MEDS: Melatonin 3 MG TABLET 6 MG PO (20:08)
[2023-11-30 08:00] VITALS: BP 123/57; PULSE 80; RESP 18; TEMP 36.3; O2SAT 96
[2023-11-30] MEDS: Cholecalciferol (Vitamin D3) 25 MCG TABLET PO (08:19)
[2023-11-30] MEDS: QUEtiapine Fumarate 100 MG TABLET PO ×3 (08:19→20:25)
[2023-11-30 08:20] VITALS: BP 123/57
[2023-11-30] MEDS: Atorvastatin Calcium 40 MG TABLET PO (08:20)
[2023-11-30] MEDS: lisinopriL 5 MG TABLET PO (08:20)
[2023-11-30] MEDS: polyethylene glycoL 3350 17 GM POWD.PACK PO (08:25)
--- NOTE | 2023-11-30 19:59 | HO.PSYCHPN ---
Subjective Subjective Date of Service: 11/30/23 Reason For Visit: dementia with behavioral disturbance Subjective Notes: Conditional Voluntary Healthcare Proxy: Yes Interim History: Pt slept all night. Pt sitting in common area, mostly talking, irritable, like scolding people. She does seem to smile more. speech with severe expressive/receptive aphasia. Review of Systems Review of Systems Yes Unobtainable due to mental condition Mental Status Exam Mental Status Exam Narrative: Appearance: wearing hospital gown, in bed, in NAD Behavior: Disorganized Psychomotor: Some psychomotor agitation, hand gestures, intermittently nonsensically yelling out loud Speech: mumbles at times, regular rate/rhythm/volume, spontaneous TP: disorganized thought process TC: Disorganized Mood: Constricted Affect: Constricted SI: none express HI: none express VH/AH: Seems internally preoccupied Delusions: confabulation Insight/judgment: impaired x 2. Memory/cog: alert, not oriented to place, situation, month or date. severe cognitive impairments. Diagnostics Vital Signs (24Hr): Vital Signs - 24 hr 11/29/23 20:00 11/30/23 08:00 11/30/23 08:20 Temperature 97.9 F 97.3 F Pulse Rate 84 80 Respiratory Rate 18 18 Blood Pressure 134/78 123/57 L 123/57 L Pulse Oximetry 95 96 Oxygen Delivery Method Room Air Room Air BMI result Body Mass Index 28.9 Labs 11/01/23 09:45 11/01/23 09:45 Imaging Radiology Impressions: ITS Impressions Cervical Spine CT 11/01/23 09:19 IMPRESSION: 1. No acute intracranial pathology. 2. Chronic white matter small vessel ischemic changes. EXAMINATION: Noncontrast CT scan of the cervical spine. INDICATION: Fall COMPARISON: CT cervical spine from 07/13/2023 TECHNIQUE: Helical, multidetector axial images were obtained from the occiput to the upper thorax. Coronal and sagittal reformats of the cervical spine were provided for interpretation. DLP: 335.63 mGy-cm FINDINGS: No acute fractures or dislocations of the cervical spine are seen. Straightening of the normal cervical curvature. Grade 1 anterolisthesis of C4 on C5. Multilevel degenerative changes. Anatomic alignment and positioning of the vertebral bodies and posterior elements is noted. The atlantoaxial joint and craniovertebral articulations are normal without evidence of subluxation. There is no prevertebral soft tissue swelling. Asymmetric enlargement of the right thyroid lobe, stable. Visualized portions of the lungs are unremarkable. IMPRESSION: 1. No acute visible fracture or dislocation. 2. Straightening of the normal cervical curvature. 3. Grade 1 anterolisthesis of C4 on C5. 4. Multilevel degenerative changes. Head CT 11/01/23 09:19 IMPRESSION: 1. No acute intracranial pathology. 2. Chronic white matter small vessel ischemic changes. EXAMINATION: Noncontrast CT scan of the cervical spine. INDICATION: Fall COMPARISON: CT cervical spine from 07/13/2023 TECHNIQUE: Helical, multidetector axial images were obtained from the occiput to the upper thorax. Coronal and sagittal reformats of the cervical spine were provided for interpretation. DLP: 335.63 mGy-cm FINDINGS: No acute fractures or dislocations of the cervical spine are seen. Straightening of the normal cervical curvature. Grade 1 anterolisthesis of C4 on C5. Multilevel degenerative changes. Anatomic alignment and positioning of the vertebral bodies and posterior elements is noted. The atlantoaxial joint and craniovertebral articulations are normal without evidence of subluxation. There is no prevertebral soft tissue swelling. Asymmetric enlargement of the right thyroid lobe, stable. Visualized portions of the lungs are unremarkable. IMPRESSION: 1. No acute visible fracture or dislocation. 2. Straightening of the normal cervical curvature. 3. Grade 1 anterolisthesis of C4 on C5. 4. Multilevel degenerative changes. Medications Medications Current Medications Acetaminophen (Acetaminophen 325 Mg Tablet) 650 mg PO Q6H PRN PRN Reason: Headache/Pain Mild Scale (1-3) Last Admin: 11/28/23 20:30 Dose: 650 mg Al Hydroxide/Mg Hydroxide (Magnesium Hydrox/Alum Hydrox 30 Ml Oral.Susp) 30 ml PO Q6H PRN PRN Reason: Heartburn/Nausea Atorvastatin Calcium (Atorvastatin Calcium 40 Mg Tablet) 40 mg PO DAILY TITI Last Admin: 11/30/23 08:20 Dose: 40 mg Donepezil HCl (Donepezil Hcl 5 Mg Tablet) 5 mg PO BEDTIME TITI Lisinopril (Lisinopril 5 Mg Tablet) 5 mg PO DAILY TITI; Protocol Last Admin: 11/30/23 08:20 Dose: 5 mg Loratadine (Loratadine 10 Mg Tablet) 10 mg PO DAILY PRN PRN Reason: for allergies Magnesium Hydroxide (Milk Of Magnesia 30 Ml Oral.Susp) 30 ml PO DAILY PRN PRN Reason: Constipation Last Admin: 11/17/23 16:46 Dose: 30 ml Melatonin (Melatonin 3 Mg Tablet) 6 mg PO BEDTIME TITI Last Admin: 11/29/23 20:08 Dose: 6 mg Polyethylene Glycol (Polyethylene Glycol 3350 17 Gm Powd.Pack) 17 gm PO DAILY TITI Last Admin: 11/30/23 08:25 Dose: 17 gm Quetiapine Fumarate (Quetiapine Fumarate 100 Mg Tablet) 100 mg PO TID TITI Last Admin: 11/30/23 15:02 Dose: 100 mg Quetiapine Fumarate (Quetiapine Fumarate 50 Mg Tablet) 50 mg PO QID PRN PRN Reason: agitation Last Admin: 11/24/23 20:58 Dose: 50 mg Sodium Biphosphate/Sodium Phosphate (Sodium Phosphate,[place]-Dibasic 133 Ml Enema) 133 ml [place] DAILY PRN PRN Reason: continued constipation Last Admin: 11/18/23 17:28 Dose: 133 ml Trazodone HCl (Trazodone Hcl 50 Mg Tablet) 50 mg PO BEDTIME PRN PRN Reason: Insomnia Last Admin: 11/29/23 20:08 Dose: 50 mg Vitamin D (Cholecalciferol (Vitamin D3) 25 Mcg Tablet) 25 mcg PO DAILY TITI Last Admin: 11/30/23 08:19 Dose: 25 mcg Allergies Allergies Allergy/AdvReac Type Severity Reaction Status Date / Time No Known Allergies Allergy Verified 11/01/23 08:47 Assessment & Plan Assessment & Plan (1) Alzheimer's dementia with behavioral disturbance: Status: Acute Code(s): G30.9 - Alzheimer's disease, unspecified; F02.818 - Dementia in other diseases classified elsewhere, unspecified severity, with other behavioral disturbance Plan Mrs. Wiley is a 73 year-old woman with hx of Alzheimer's who was brought by her son, one of them is her HCP. Family reports main caregiver who is her is struggling to meet her needs. Labs in the ED include- CBC without leukocytosis, normocytic anemia, low plt. CMP no electrolyte abnormalities, BUN 18, Cr. 0.76, creatinine clearance 59.2. UA with leukocytes, WBC 21-50, however, culture was negative for growth. Head CT without acute findings, atrophy and microvascular changes. Pt admitted for further management of hallucinations, sleep disturbances. HCP has been invoked. HCP verbally gave consent to sign CV. Her dementia is advanced, in late stages at this point. She has sever impairments in orientation, receptive/expressive aphasia, agnosia, inability to recall new information. PLAN 1. Admit to S1, CV verbally signed with two witnesses. 2. continue current medications including seroquel 75mg po TID 11/08 d/c namenda due to myoclonic movements 11/09 continue tx. 11/10 restart lisinopril 5mg po daily as SBP going up. add trazodone at bedtime scheduled as she has had some difficulty falling asleep. monitor over sedation. still not ambulating on her own due to fall risk. 11/11 continue tx 11/12 contnue tx 11/13 BP improved; slept well continue tx 11/14 much improvement in myoclonic movements after d/c namenda. sleeping better. 11/15 Patient difficult with which to engage, talking nonsensically; only partially aware of data analyst report writer's presence. Incontinent of urine -per primary team patient has made some improvements; will continue current treatment plan 11/16 pt is unable to engage, continues talking nonsensically. Pt constipated and nursing reports on verge of needing to be manually disempacted; she cannot advocate for self so will schedule Miralax (hold for loose stool) 11/17 Patient not able to engage. Disorganized speech behavior; incontinent. Patient fecal impacted and nurse asked for enema; patient was started on bowel regimen -Fleet enema p.r.n. 11/20 continue tx. 11/21 continue tx. 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 She does not have hx of psychiatric illness. continue current medications. 11/23 continue tx. updated on treatment/plan 11/24 continue plan. may consider resuming aricept. 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 11/25 continue tx. 11/26 continue tx 11/27 re-start aricept 5mg po daily 11/28 continue tx. 11/29 continue tx. 11/30 continue tx. Reason for continued inpatient stay Substantial Risk for: inability to function Time Spent With Patient Time: Total time managing care of this patient today ____ minutes.
[2023-11-30 20:00] VITALS: BP 119/59; PULSE 118; RESP 16; TEMP 36.7; O2SAT 92
[2023-11-30] MEDS: Donepezil HCl 5 MG TABLET PO (20:25)
[2023-11-30] MEDS: traZODone HCL 50 MG TABLET PO (20:25)
[2023-11-30] MEDS: Melatonin 3 MG TABLET 6 MG PO (20:25)
[2023-12-01 08:00] VITALS: BP 119/55; PULSE 83; RESP 18; TEMP 36.2; O2SAT 96
--- NOTE | 2023-12-01 08:35 | PM.PSYDC ---
DS: Providers Provider Date of Service: 12/01/23 Date of admission: 11/07/23 19:07 Primary care physician: Patsy Rosales MD DS: Diagnosis Discharge Diagnosis (1) Alzheimer's dementia with behavioral disturbance: Status: Acute DS: Medications Discharge Medications Home Medications: Home Medications ?Medication ?Instructions ?Recorded ?Confirmed ramipril 5 mg capsule 5 mg PO BID@0900,1600 08/01/23 11/01/23 Previous Rx's ?Medication ?Instructions ?Recorded memantine 10 mg tablet 10 mg PO DAILY 90 days #90 tabs 07/04/23 donepezil 10 mg tablet 10 mg PO BEDTIME 90 days #90 tabs 07/19/23 wipes #240 ea 07/19/23 ertapenem 1 gram solution for 1 g IV Q24H #5 ea 08/05/23 injection melatonin 5 mg tablet 5 mg PO BEDTIME 90 days #90 tabs 08/22/23 adult diapers pull-ups #240 ea 09/06/23 underpads (Bed Underpads) #150 ea 09/06/23 atorvastatin 40 mg tablet 40 mg PO DAILY 90 days #90 tabs 10/17/23 cetirizine 10 mg tablet 10 mg PO DAILY PRN for allergies 10/23/23 90 days #90 tabs cholecalciferol (vitamin D3) 25 25 mcg PO DAILY 90 days #90 caps 10/25/23 mcg (1,000 unit) capsule sertraline 25 mg tablet 25 mg PO DAILY 90 days #90 tabs 10/25/23 quetiapine 50 mg tablet 50 mg PO TID 30 days #90 tabs 10/31/23 Mental Status Exam Mental Status Exam Narrative: Appearance: wearing hospital gown, in bed, in NAD Behavior: Disorganized Psychomotor: Some psychomotor agitation, hand gestures Speech: mumbles at times, regular rate/rhythm/volume, spontaneous TP: severe expressive and receptive aphasia TC: Disorganized Mood: Constricted Affect: Constricted SI: none express HI: none express VH/AH: Seems internally preoccupied Delusions: confabulation Insight/judgment: impaired x 2. Memory/cog: alert, not oriented to place, situation, month or date. severe cognitive impairments. Data Data Completed and Pending Completed studies during hospitalization [Text1]: 11/02/23 Unknown Urine Catheterized - Granados Catheter Urine Culture - Final No growth. Imaging Diagnostic Imaging Impressions Cervical Spine CT 11/01/23 09:19 IMPRESSION: 1. No acute intracranial pathology. 2. Chronic white matter small vessel ischemic changes. EXAMINATION: Noncontrast CT scan of the cervical spine. INDICATION: Fall COMPARISON: CT cervical spine from 07/13/2023 TECHNIQUE: Helical, multidetector axial images were obtained from the occiput to the upper thorax. Coronal and sagittal reformats of the cervical spine were provided for interpretation. DLP: 335.63 mGy-cm FINDINGS: No acute fractures or dislocations of the cervical spine are seen. Straightening of the normal cervical curvature. Grade 1 anterolisthesis of C4 on C5. Multilevel degenerative changes. Anatomic alignment and positioning of the vertebral bodies and posterior elements is noted. The atlantoaxial joint and craniovertebral articulations are normal without evidence of subluxation. There is no prevertebral soft tissue swelling. Asymmetric enlargement of the right thyroid lobe, stable. Visualized portions of the lungs are unremarkable. IMPRESSION: 1. No acute visible fracture or dislocation. 2. Straightening of the normal cervical curvature. 3. Grade 1 anterolisthesis of C4 on C5. 4. Multilevel degenerative changes. Head CT 11/01/23 09:19 IMPRESSION: 1. No acute intracranial pathology. 2. Chronic white matter small vessel ischemic changes. EXAMINATION: Noncontrast CT scan of the cervical spine. INDICATION: Fall COMPARISON: CT cervical spine from 07/13/2023 TECHNIQUE: Helical, multidetector axial images were obtained from the occiput to the upper thorax. Coronal and sagittal reformats of the cervical spine were provided for interpretation. DLP: 335.63 mGy-cm FINDINGS: No acute fractures or dislocations of the cervical spine are seen. Straightening of the normal cervical curvature. Grade 1 anterolisthesis of C4 on C5. Multilevel degenerative changes. Anatomic alignment and positioning of the vertebral bodies and posterior elements is noted. The atlantoaxial joint and craniovertebral articulations are normal without evidence of subluxation. There is no prevertebral soft tissue swelling. Asymmetric enlargement of the right thyroid lobe, stable. Visualized portions of the lungs are unremarkable. IMPRESSION: 1. No acute visible fracture or dislocation. 2. Straightening of the normal cervical curvature. 3. Grade 1 anterolisthesis of C4 on C5. 4. Multilevel degenerative changes. DS: Summary Hospital Course Hospital Course: Mrs. Wiley is a 73 year-old woman with hx of Alzheimer's who was brought by her son, one of them is her HCP. Family reports main caregiver who is her is struggling to meet her needs. Labs in the ED include- CBC without leukocytosis, normocytic anemia, low plt. CMP no electrolyte abnormalities, BUN 18, Cr. 0.76, creatinine clearance 59.2. UA with leukocytes, WBC 21-50, however, culture was negative for growth. Head CT without acute findings, atrophy and microvascular changes. On the unit, pt is talking to someone who is not there. She is giving orders in Vietnamese and at times presents someone irritable although she is mostly sitting not attempting to get up. She is alert, but not oriented to place, month, situation or year. Her speech marked with expressive and receptive aphasia. She smiles at times when this communications writer calls her name. Pt's reports pt was diagnosed about 2 years ago in [facility] after she went to sister's house and got confused and did not know how to get back. reports decline since then has lizzette fairly rapid and at this point, pt does not recognize him, speech for the most part is unintelligible. She not able to recognize use of common objects. Hr orientation is also very poor. HOSPITAL COURSE On the unit, pt was admitted on CV signed by invoked HCP. Pt was taking medications as prescribed. Her dementia is very advanced and she is not oriented to place, month, year or situation. She also has severe expresive and receptive aphasia. Pt was continued on seroquel, which was titrated to 100mg po TID. She tolerated this medications without signs of sedation or EPS. When she came to the unit, she presented with myoclonus which was thought to be related to namenda, once this medication was discontinued, myoclonus resolved. She slept most of the night. She was awake during the day, usually talking unintelligible. Her appetite is good. She was restarted on aricept 5mg po qhs. Status at Discharge Cognitive/behavioral status at discharge: Pt awake, not oriented to place, situation, month or date. Severe expressive and receptive aphasia. Overall status at discharge: patient is progressing back to baseline Time Spent with Patient Time attestation: Total time managing care of this patient today ____ minutes. Discharge Plan Discharge Anticipated Discharge Date/Time: 12/01/23 08:49 Patient Disposition: Home, Self-Care Discharge Diagnosis: Advanced Alzheimer's Disorder Referrals: Patsy Fox MD [Primary Care Provider] - 1 Week Discharge Medications: New atorvastatin 40 mg Tablet 40 mg PO DAILY Qty: 0 0RF donepezil 5 mg Tablet 5 mg PO BEDTIME Qty: 0 0RF trazodone 50 mg Tablet 50 mg PO BEDTIME PRN (Reason: Insomnia) Qty: 0 0RF polyethylene glycol 3350 17 gram Powder In Packet 17 g PO DAILY PRN (Reason: if 3 days of no BM) Qty: 0 0RF melatonin 3 mg Tablet 6 mg PO BEDTIME Qty: 0 0RF quetiapine 100 mg Tablet 100 mg PO TID Qty: 0 0RF lisinopril 5 mg Tablet 5 mg PO DAILY Qty: 0 0RF Protocol: Hold for SBP< HOLD for SBP < : 90 loratadine 10 mg Tablet 10 mg PO DAILY PRN (Reason: for allergies) Qty: 0 0RF cholecalciferol (vitamin D3) 25 mcg (1,000 unit) Tablet 25 mcg PO DAILY Qty: 0 0RF Discontinued memantine 10 mg tablet 10 mg PO DAILY 90 Days Qty: 90 3RF donepezil 10 mg tablet 10 mg PO BEDTIME 90 Days Qty: 90 1RF (DME) wipes See Rx Instructions .Route .MEDSUPPLY Qty: 240 11RF Rx Instructions: As directed melatonin 5 mg tablet 5 mg PO BEDTIME 90 Days Qty: 90 1RF atorvastatin 40 mg tablet 40 mg PO DAILY 90 Days Qty: 90 1RF cetirizine 10 mg tablet 10 mg PO DAILY PRN (Reason: for allergies) 90 Days Qty: 90 1RF cholecalciferol (vitamin D3) 25 mcg (1,000 unit) capsule 25 mcg PO DAILY 90 Days Qty: 90 1RF sertraline 25 mg tablet 25 mg PO DAILY 90 Days Qty: 90 1RF quetiapine 50 mg tablet 50 mg PO TID 30 Days Qty: 90 1RF ramipril 5 mg capsule 5 mg PO BID@0900,1600 ertapenem 1 gram recon soln 1 g IV Q24H Qty: 5 0RF (DME) underpads [Bed Underpads] Pad See Rx Instructions .Route Qty: 150 11RF Rx Instructions: As directed (DME) adult diapers pull-ups medium See Rx Instructions .Route .MEDSUPPLY Qty: 240 11RF Rx Instructions: As directed Discharge Orders: Discharge Order (Routine); Ordered 12/01/23 Ordered By: Blanca Willams Diet: Regular diet Activity on Discharge: As tolerated Stand Alone Forms: Patient Portal Discharge page Print Language: Vietnamese Care Plan Goals: 1. Maintain mood 2. no aggression towards self or others 3. needs clues for adequate nutrition and hydration Health Concerns: follow up BP chronic conditions Plan of Treatment: medication management Assessment: pt alert. not oriented to month, year, situation. severe aphasia.
[2023-12-01] MEDS: QUEtiapine Fumarate 100 MG TABLET PO (08:44)
[2023-12-01] MEDS: polyethylene glycoL 3350 17 GM POWD.PACK PO (08:44)
[2023-12-01] MEDS: lisinopriL 5 MG TABLET PO (08:44)
[2023-12-01] MEDS: clonazePAM 0.5 MG TABLET PO (08:44)
[2023-12-01] MEDS: Atorvastatin Calcium 40 MG TABLET PO (08:44)
[2023-12-01] MEDS: Cholecalciferol (Vitamin D3) 25 MCG TABLET PO (08:45)
== END 2023-12-01 11:05 | disposition home or self-care (01) | DRG 57 ==
LOC: HO.ED 11-03 15:31 → HO.PGERI 11-07 19:29
PROVIDERS: Physician Assistant; Admitting Provider Psychiatry & Neurology Psychiatry; Emergency Provider Emergency Medicine; PCP Internal Medicine; Visit Provider Psychiatry & Neurology Psychiatry
DX: G30.9 Alzheimer's disease, unspecified (principal); F02.818 Dementia in other diseases classified elsewhere, unspecified severity, with other behavioral disturbance; Z20.822 Contact with and (suspected) exposure to COVID-19; Z79.899 Other long term (current) drug therapy
CPT/HCPCS: 36415; 70450; 72125; 80048; 80076; 81001; 83735; 85025; 87086; 87635; 93005; 97162; 99285; S9485

== ENCOUNTER → 2023-11-01 09:55 | Outpatient (BNV) | payer OTHER, SELFPAY | PROVIDERS: Emergency Provider Emergency Medicine; PCP Internal Medicine; Visit Provider Social Worker | DX: G30.9 Alzheimer's disease, unspecified (principal); F02.818 Dementia in other diseases classified elsewhere, unspecified severity, with other behavioral disturbance | CPT/HCPCS: 90792; 99221; 99231; 99232; 99238; 99285 ==

== ENCOUNTER → 2023-11-03 16:07 | Outpatient (BNV) | payer OTHER, SELFPAY | PROVIDERS: Emergency Provider Emergency Medicine; PCP Internal Medicine; Visit Provider Internal Medicine Cardiovascular Disease | DX: I45.81 Long QT syndrome (principal) | CPT/HCPCS: 93010 ==